=== PATIENT | male | born 1960 | race Caucasian/White ===

== ENCOUNTER → 2017-06-30 17:25 | Outpatient (CLI) | payer OTHER, SELFPAY ==
[2017-06-30 22:52] LABS: Amphetamine Urine VISTA NEGATIVE (<1000 ng/mL); Barbiturate Urine VISTA NEGATIVE (< 200 ng/mL); Benzodiazepine Urine VISTA NEGATIVE (< 200 ng/mL); Cocaine Urine VISTA NEGATIVE (< 300 ng/mL); Ecstacy Urine VISTA NEGATIVE (< 500 ng/mL); Methadone Urine VISTA NEGATIVE (< 300 ng/mL); PCP Urine VISTA NEGATIVE (< 25 ng/mL); THC Urine VISTA NEGATIVE (< 50 ng/mL); Vista UDS pH Range 6
== END ==
PROVIDERS: Family Provider Internal Medicine; PCP Internal Medicine; Visit Provider Anesthesiology Pain Medicine
DX: F11.20 Opioid dependence, uncomplicated (principal)
CPT/HCPCS: 80307

== ENCOUNTER 2017-07-15 14:30 | Outpatient (RCR) | payer OTHER, SELFPAY ==
[2017-06-17 14:34] VITALS: BP 140/103; RESP 16; TEMP 37; BMI 36.3
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
--- NOTE | 2017-06-17 16:35 | WC ---
SHENA SCREEN RIGHT BRACHIAL 130 mmHg LEFT BRACHIAL 142 mmHg DORS. PEDIS: 180 mmHg DORS. PEDIS: 88 mmHg (Monophasic) POST. TIB. 178 mmHg POST. TIB.: 170 MMhG 180 = 1.26 170 = 1.2 142 142 All pulses except left dorsalis pedis multiphasic. Fine hair growth to both lower legs. No erythema or signs of infection visualized Patient tolerated procedure without incident.
[2017-06-17 18:12] LABS: Absolute Lymphocyte Count 1.91 X10^3/ul (0.83-4.51); Absolute Neutrophil Count 4.3 X10^3/uL (2.0-7.7); Basophil# 0.03 X10^3/uL; Basophil% 0.4 % (0-1); Eosinophil# 0.14 X10^3/uL; Hematocrit 42.2 % (40-54); Hemoglobin 14.9 g/dl (13.0-16.5); Lymphocyte # 1.91 X10^3/ul (4.0); Lymphocyte % 27.3 % (19-41); Mean Corp Hgb Conc 35.3 g/gl (32-36); Mean Corpuscular Hgb 31.2 pg (27.0-32.0); Mean Corpuscular Volume 88.3 fL (80-94); Mean Platelet Vol. 10.6 fl (6.2-12.0); Monocyte# 0.57 X10^3/uL; Monocyte% 8.2 % (0-10); Neutrophil # 4.32 X10^3/uL (2.7-7.7); Neutrophil % 61.8 % (47-70); Platelet Count 196 K/mm3 (150-450); RBC Distribution Width CV 12.9 % (11.6-14.6); RBC Distribution Width SD 41.5 fl (35.1-43.9); Red Blood Count 4.78 M/mm3 (4.6-6.2)
[2017-06-17 18:14] LABS: POSITIVE COUNT NO; POSITIVE DIFFERENTIAL NO; POSITIVE MORPHOLOGY NO
[2017-06-17 18:25] LABS: Erythrocyte Sedimentation Rate 13 mm/hr (0-20)
[2017-06-17 18:55] LABS: AST(SGOT) 25 U/L (15-37); Alanine Aminotransfer ALT/SGPT 31 U/L (16-61); Albumin, Serum 3.7 g/dL (3.2-5.0); Alkaline Phosphatase 127 U/L (45-117); Anion Gap 9 (5-15); BUN 10 mg/dL (7-18); BUN/Creat Ratio 11.7 RATIO (10-20); Calcium,Total 9.1 mg/dL (8.5-10.1); Chloride 100 mmol/L (98-107); Creatinine, Serum 0.85 mg/dL (0.70-1.30); EST Glomerular Filtration Rate 99 mL/min (>60); Est Glom Filt Rate - Afr Amer 120 mL/min (>60); Estimated Creatinine Clearance 107.78 ml/min; Globulin 3.6 g/dL (2.2-4.2); Glucose 80 mg/dL (74-106); Potassium 3.3 mmol/L (3.5-5.1); Prealbumin 24.2 mg/dL (20.0-40.0); Protein, Total 7.3 g/dL (6.4-8.2); Sodium Level 138 mmol/L (136-145)
[2017-06-17 19:15] LABS: Hemoglobin A1c 6.2 % (4.2-6.3)
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
[2017-06-24 14:06] VITALS: BP 146/95; PULSE 90; RESP 18; TEMP 36.2; BMI 36.3
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
[2017-07-01 14:26] VITALS: BP 124/86; PULSE 95; RESP 16; TEMP 36.6; BMI 36.3
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
[2017-07-08 16:04] VITALS: BP 138/91; PULSE 77; RESP 20; TEMP 35.8; BMI 36.3
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
[2017-07-15 14:43] VITALS: BP 146/99; PULSE 81; RESP 20; TEMP 36; BMI 36.3
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
== END 2017-07-17 23:59 ==
LOC: WC 14:30
PROVIDERS: Family Provider Internal Medicine; PCP Internal Medicine; Visit Provider Nurse Practitioner Family
DX: T86.821 Skin graft (allograft) (autograft) failure (principal); R60.0 Localized edema; E66.9 Obesity, unspecified; I73.9 Peripheral vascular disease, unspecified; I10 Essential (primary) hypertension; Z79.899 Other long term (current) drug therapy; Z68.36 Body mass index [BMI] 36.0-36.9, adult; Z71.3 Dietary counseling and surveillance; R09.89 Other specified symptoms and signs involving the circulatory and respiratory systems; L97.812 Non-pressure chronic ulcer of other part of right lower leg with fat layer exposed
CPT/HCPCS: 11042; 80053; 83036; 84134; 85025; 85652; 87070; 87075; 87077; 87186; 87205; 99213; G0463

== ENCOUNTER 2017-08-12 16:00 | Outpatient (RCR) | payer OTHER, SELFPAY ==
[2017-07-18 01:05] VITALS: PULSE 81; RESP 20; TEMP 36
== END 2017-08-16 23:59 ==
LOC: WC 16:00
PROVIDERS: Family Provider Internal Medicine; PCP Internal Medicine; Visit Provider Nurse Practitioner Family
DX: Z09 Encounter for follow-up examination after completed treatment for conditions other than malignant neoplasm (principal)

== ENCOUNTER → 2017-12-08 09:50 | Outpatient (CLI) | payer OTHER, SELFPAY ==
[2017-12-08 11:08] LABS: Amphetamine Urine VISTA NEGATIVE (<1000 ng/mL); Barbiturate Urine VISTA NEGATIVE (< 200 ng/mL); Benzodiazepine Urine VISTA NEGATIVE (< 200 ng/mL); Cocaine Urine VISTA NEGATIVE (< 300 ng/mL); Ecstacy Urine VISTA NEGATIVE (< 500 ng/mL); Methadone Urine VISTA NEGATIVE (< 300 ng/mL); PCP Urine VISTA NEGATIVE (< 25 ng/mL); THC Urine VISTA NEGATIVE (< 50 ng/mL); Vista UDS pH Range 6
== END ==
PROVIDERS: Family Provider Internal Medicine; PCP Internal Medicine; Visit Provider Anesthesiology Pain Medicine
DX: F11.20 Opioid dependence, uncomplicated (principal)
CPT/HCPCS: 80307

== ENCOUNTER → 2018-07-25 | Outpatient (CLI) | payer OTHER, SELFPAY ==
[2018-07-25 18:33] LABS: Amphetamine Urine VISTA NEGATIVE (<1000 ng/mL); Barbiturate Urine VISTA NEGATIVE (< 200 ng/mL); Benzodiazepine Urine VISTA NEGATIVE (< 200 ng/mL); Cocaine Urine VISTA NEGATIVE (< 300 ng/mL); Ecstacy Urine VISTA NEGATIVE (< 500 ng/mL); Methadone Urine VISTA NEGATIVE (< 300 ng/mL); PCP Urine VISTA NEGATIVE (< 25 ng/mL); THC Urine VISTA NEGATIVE (< 50 ng/mL); Vista UDS pH Range 6
== END | disposition home or self-care (01) ==
PROVIDERS: Family Provider Internal Medicine; PCP Internal Medicine; Referring Provider Anesthesiology Pain Medicine; Visit Provider Anesthesiology Pain Medicine
DX: F11.20 Opioid dependence, uncomplicated (principal)
CPT/HCPCS: 80307

== ENCOUNTER → 2019-03-06 17:34 | Outpatient (CLI) | payer OTHER, SELFPAY ==
[2019-03-06 18:09] LABS: Amphetamine Urine VISTA POSITIVE (<1000 ng/mL); Barbiturate Urine VISTA NEGATIVE (< 200 ng/mL); Benzodiazepine Urine VISTA NEGATIVE (< 200 ng/mL); Cocaine Urine VISTA NEGATIVE (< 300 ng/mL); Ecstacy Urine VISTA NEGATIVE (< 500 ng/mL); Methadone Urine VISTA NEGATIVE (< 300 ng/mL); PCP Urine VISTA NEGATIVE (< 25 ng/mL); THC Urine VISTA NEGATIVE (< 50 ng/mL); Vista UDS pH Range 5
== END ==
PROVIDERS: Family Provider Internal Medicine; PCP Internal Medicine; Referring Provider Anesthesiology Pain Medicine; Visit Provider Anesthesiology Pain Medicine
DX: F11.20 Opioid dependence, uncomplicated (principal)
CPT/HCPCS: 80307

== ENCOUNTER 2019-07-28 08:09 | Emergency (ER) | payer OTHER, SELFPAY ==
[2019-07-28 08:11] VITALS: BP 144/87; PULSE 94; RESP 17; TEMP 37.1; O2SAT 99; BMI 32.5
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
[2019-07-28 09:19] VITALS: BP 142/73; PULSE 81; RESP 14; O2SAT 99
== END 2019-07-28 09:20 | disposition home or self-care (01) ==
PROVIDERS: Emergency Provider Emergency Medicine; PCP Internal Medicine
DX: S46.912A Strain of unspecified muscle, fascia and tendon at shoulder and upper arm level, left arm, initial encounter (principal); S60.812A Abrasion of left wrist, initial encounter; V43.52XA Car driver injured in collision with other type car in traffic accident, initial encounter; Y93.9 Activity, unspecified; Y92.410 Unspecified street and highway as the place of occurrence of the external cause; Y99.9 Unspecified external cause status; I10 Essential (primary) hypertension
CPT/HCPCS: 73030; 73060; 99282

== ENCOUNTER → 2019-09-28 12:56 | Outpatient (CLI) | payer OTHER, SELFPAY ==
[2019-09-28 15:06] LABS: Amphetamine Urine VISTA POSITIVE (<1000 ng/mL); Barbiturate Urine VISTA NEGATIVE (< 200 ng/mL); Benzodiazepine Urine VISTA NEGATIVE (< 200 ng/mL); Cocaine Urine VISTA NEGATIVE (< 300 ng/mL); Ecstacy Urine VISTA NEGATIVE (< 500 ng/mL); Methadone Urine VISTA NEGATIVE (< 300 ng/mL); PCP Urine VISTA NEGATIVE (< 25 ng/mL); THC Urine VISTA NEGATIVE (< 50 ng/mL); Vista UDS pH Range 5
== END ==
PROVIDERS: PCP Internal Medicine; Referring Provider Anesthesiology Pain Medicine; Visit Provider Anesthesiology Pain Medicine
DX: F11.20 Opioid dependence, uncomplicated (principal)
CPT/HCPCS: 80307

== ENCOUNTER → 2021-10-06 | Outpatient (CLI) | payer OTHER, SELFPAY ==
[2021-10-06 23:39] LABS: Amphetamine Urine VISTA POSITIVE (<1000 ng/mL); Barbiturate Urine VISTA NEGATIVE (< 200 ng/mL); Benzodiazepine Urine VISTA NEGATIVE (< 200 ng/mL); Cocaine Urine VISTA NEGATIVE (< 300 ng/mL); Ecstacy Urine VISTA POSITIVE (< 500 ng/mL); Methadone Urine VISTA NEGATIVE (< 300 ng/mL); PCP Urine VISTA NEGATIVE (< 25 ng/mL); THC Urine VISTA NEGATIVE (< 50 ng/mL); Vista UDS pH Range 4
== END | disposition home or self-care (01) ==
PROVIDERS: PCP Internal Medicine; Visit Provider Anesthesiology Pain Medicine
DX: F11.20 Opioid dependence, uncomplicated (principal)
CPT/HCPCS: 80307

== ENCOUNTER → 2022-12-07 | Outpatient (CLI) | payer OTHER, SELFPAY ==
[2022-12-07 11:38] LABS: Amphetamine Urine VISTA NEGATIVE (<1000 ng/mL); Barbiturate Urine VISTA NEGATIVE (< 200 ng/mL); Benzodiazepine Urine VISTA NEGATIVE (< 200 ng/mL); Cocaine Urine VISTA NEGATIVE (< 300 ng/mL); Ecstacy Urine VISTA NEGATIVE (< 500 ng/mL); Methadone Urine VISTA NEGATIVE (< 300 ng/mL); PCP Urine VISTA NEGATIVE (< 25 ng/mL); THC Urine VISTA NEGATIVE (< 50 ng/mL); Vista UDS pH Range 5
== END | disposition home or self-care (01) ==
LOC: LAB 09:42
PROVIDERS: PCP Internal Medicine; Referring Provider Anesthesiology Pain Medicine; Visit Provider Anesthesiology Pain Medicine
DX: F11.20 Opioid dependence, uncomplicated (principal)
CPT/HCPCS: 80307

== ENCOUNTER → 2023-09-20 | Outpatient (CLI) | payer OTHER, SELFPAY ==
[2023-09-20 13:57] LABS: Amphetamine Urine VISTA NEGATIVE (<1000 ng/mL); Barbiturate Urine VISTA NEGATIVE (< 200 ng/mL); Benzodiazepine Urine VISTA NEGATIVE (< 200 ng/mL); Cocaine Urine VISTA NEGATIVE (< 300 ng/mL); Ecstacy Urine VISTA NEGATIVE (< 500 ng/mL); Methadone Urine VISTA NEGATIVE (< 300 ng/mL); PCP Urine VISTA NEGATIVE (< 25 ng/mL); THC Urine VISTA NEGATIVE (< 50 ng/mL); Vista UDS pH Range 6
== END | disposition home or self-care (01) ==
PROVIDERS: PCP Internal Medicine; Referring Provider Anesthesiology Pain Medicine; Visit Provider Anesthesiology Pain Medicine
DX: F11.20 Opioid dependence, uncomplicated (principal)
CPT/HCPCS: 80307

== ENCOUNTER → 2024-09-12 | Outpatient (CLI) | payer OTHER, SELFPAY ==
--- NOTE | 2024-09-12 17:12 | MRI_ITS ---
PROCEDURE: SPINE LUMBAR (ROUTINE) 09/12/2024 REASON FOR EXAM: RADICULOPATHY TECHNIQUE: Multiplanar and multisequence images were obtained without IV contrast administration. COMPARISON: None FINDINGS: The vertebral body alignment is maintained. The vertebral body height is maintained. Vertebral body marrow signal is normal. Intervertebral disc signal shows desiccation from L2-5. Normal appearing facets are noted. The L1-L2 level: There is no significant disk protrusion. There is no lateral recess stenosis or foraminal stenosis. There is no critical central canal stenosis. The L2-L3 level: There is mild central and right and left paracentral disc protrusion. There is mild bilateral lateral recess effacement. There is moderate bilateral foraminal narrowing secondary to disc protrusion and facet hypertrophy. There is no central canal stenosis. Trace bilateral facet effusions are present. The L3-L4 level: There is mild central, mild right and moderate left paracentral disc protrusion. There is mild bilateral lateral recess stenosis. There is moderate bilateral foraminal narrowing secondary to disc protrusion and facet hypertrophy. There is no central canal stenosis. Trace bilateral facet effusions are present. The L4-L5 level: There is mild central and right and left paracentral disc protrusion. There is mild bilateral lateral recess stenosis. There is mild bilateral foraminal narrowing secondary to disc protrusion and facet hypertrophy. There is no central canal stenosis. The L5-S1 level: There is mild central disk protrusion. There is no lateral recess stenosis or foraminal stenosis. There is no critical central canal stenosis. The visualized conus shows normal signal characteristics. Adjacent soft tissues are unremarkable. A 6 cm cyst is partly visible on the right kidney. MRI/Spine Lumbar (Routine) IMPRESSION: There is no significant central canal stenosis, with lateral recess and foramin al narrowing. A 6 cm cyst is partly visible on the right kidney. Reading Location: [facility]
== END | disposition home or self-care (01) ==
LOC: MRI 17:02
PROVIDERS: PCP Internal Medicine; Referring Provider Anesthesiology Pain Medicine; Visit Provider Anesthesiology Pain Medicine
DX: M54.16 Radiculopathy, lumbar region (principal)
CPT/HCPCS: 72148

== ENCOUNTER 2024-09-17 09:50 | Emergency (ER) | payer OTHER, SELFPAY ==
[2024-09-17 09:52] VITALS: BP 123/96; PULSE 97; RESP 18; TEMP 36.1; O2SAT 99; BMI 27.1
--- NOTE | 2024-09-17 10:36 | CT_ITS ---
PROCEDURE: ABDOMEN/PELVIS W IV CONT ONLY 09/17/2024 REASON FOR EXAM: NAUSEA AND VOMITING TECHNIQUE: Abdomen and pelvis CT with intravenous contrast. Coronal and Sagittal reconstruction series were provided. PATIENT PREPARATION: Per protocol ORAL CONTRAST TYPE: None. CONTRAST: Isovue 370 VOLUME: 100 mL One or more dose reduction techniques were used (e.g., Automated exposure control, adjustment of the mA and/or kV according to patient size, use of iterative reconstruction technique. RADIATION DOSE SUMMARY: CTDlvol: 20 mGy DLP: 1200 mGycm COMPARISON: None. FINDINGS: Lung bases: Bibasilar atelectasis. The heart is normal in size with coronary artery calcifications. Liver: The liver is normal in size without focal hepatic mass. The major portal veins are patent. No biliary ductal dilation. Gallbladder: Cholelithiasis with radial gas fissuring within the stones. No gallbladder wall thickening or pericholecystic fluid. Spleen: Normal size. Pancreas: Unremarkable. Adrenals: No adrenal mass. Kidneys: Bilateral renal cysts and additional hypodensities. Nonobstructing right lower pole renal calculus. No hydronephrosis. Bladder: The gallbladder is mildly distended and unremarkable. Reproductive Organs: Dystrophic calcifications within the prostate gland. Bowel: Moderate-sized paraesophageal hiatal hernia, with the distal gastric body herniated above the level of the diaphragm. There is moderate stranding and wall edema of the herniated stomach portion. The bowel loops are otherwise normal caliber. No ascites or pneumoperitoneum. No inflammatory mass in the expected region of the appendix. Lymph nodes: No suspicious lymph node enlargement. Vasculature: The abdominal aorta and IVC are normal. Bones/soft tissues: Prior hernia repair with surgical mesh anchors along the right lower pelvis. Mild thoracolumbar spondylosis. CT/Abdomen/Pelvis W IV Cont ONLY IMPRESSION: 1. Moderate-sized paraesophageal hernia with wall edema and stranding of the he rniated portion of the stomach, concerning for developing incarceration. Surgical consultation recommended. 2. Cholelithiasis without evidence of acute cholecystitis. Ultrasound evaluati on will not be useful given incidental gas within the gallstones. 3. Nonobstructing right lower pole renal calculus. Reading Location: [id number]
--- NOTE | 2024-09-17 10:38 | ED.VIS.GI ---
HPI HPI - GI History of Present Illness Chief Complaint: Nausea/Vomiting Informant: patient Nausea/Vomiting/Emesis GI Symptom: Positive for Nausea and Vomiting Onset: Weeks Severity: Mild Diarrhea/Melena/Hematochezia GI Symptom: Negative for Diarrhea, Melena or Hematochezia Associated Symptoms Associated Symptoms: Negative for Dysuria, Frequency, Hematuria or Urgency Narrative Narrative: 63-year-old male history of prior small bowel obstruction about a year ago in [place]. For the last several weeks he has had intermittent nausea vomiting. She is okay to be drinks fluid but if he eats food a lot of times of nausea and vomiting. He was on Wegovy for weight loss lost about 60 pounds was on it for about 3 months he has been off of that now about 1 to 2 months. Denies any abdominal pain no fever. No dysuria. No prior abdominal surgery. History of a hiatal hernia. Prior similar symptoms: Yes Recent Illness/Hospitalization: No PFSH PFSH Medical History HTN (hypertension) Home Medications ?Medication ?Instructions ?Recorded ?Last Taken ?Type hydrochlorothiazide 25 mg tablet 25 mg PO DAILY 06/17/17 Unknown History oxycodone 5 mg tablet 20 mg 06/17/17 Unknown History venlafaxine 150 mg tablet,extended 150 mg PO 06/17/17 Unknown History release 24 hr ondansetron 4 mg disintegrating 4 mg PO Q6H PRN nausea and 09/17/24 Unknown Rx tablet vomiting #7 tabs Allergy/AdvReac Type Severity Reaction Status Date / Time No Known Allergies Allergy Verified 09/17/24 09:52 Social History Smoking Status: Never smoker ROS ROS ED ROS Narrative Nausea and vomiting. Weight loss. Constitutional Constitutional ED: Denies chills or fever(s) ENT ENT ED: Denies ear pain Cardiovascular Cardiovascular: Denies chest pain Respiratory/Chest Respiratory/Chest: Denies cough or dyspnea Gastrointestinal Gastrointestinal: Reports nausea and vomiting; Denies abdominal pain, constipation, diarrhea or melena Genitourinary Genitourinary ED: Denies dysuria or hematuria Musculoskeletal Musculoskeletal: Denies arthralgias Integumentary Denies abscess Neurologic Neurologic: Denies headache(s) Psychiatric Psychiatric: Denies anxiety Endocrine Endocrinology: Denies polydipsia Hematologic/Lymphatic Hematologic/Lymphatic: Denies easy bleeding Allergic/Immunologic Allergic/Immunologic ED: Denies mouth swelling, tongue swelling or urticaria EXAM Physical Exam Narrative Exam Narrative: 63-year-old male sitting upright in bed. Vital signs are stable afebrile. H EENT exam pupils round reactive light. Moist Reagan membranes. Neck nontender no lymphadenopathy. Lungs clear to auscultation bilaterally. Heart regular rhythm no murmur. Abdomen is soft, nontender, nondistended normal bowel sounds without peritoneal signs. Abdomen is completely nontender. No obstruction. Moving all 4 extremities. Nontender no edema. Normal range of motion. Back nontender. Neurologically is awake alert. Answering questions following commands. Const Vital Signs: 09/17/24 09:52 09/17/24 11:52 Temperature 97.0 F L Temperature Source Temporal Pulse Rate 97 80 Respiratory Rate 18 Blood Pressure 123/96 H 138/86 H Blood Pressure Mean 105 103 Pulse Ox 99 100 Oxygen Delivery Method Room Air Room Air Positive well nourished and well developed; Negative for cachectic, contractures or unkempt General Appearance ED: well developed and NAD; Negative for unkempt, cachectic, contractures or pallor Nutritional Appearance: Negative for cachectic HEENT Reports moist mucous membranes normocephalic and atraumatic Eyes PERRL and EOMs intact bilaterally General Eye ED: Negative for pale conjunctiva or scleral icterus Neck no lymphadenopathy, supple and no JVD General: Negative for tenderness Resp normal respiratory effort and clear to auscultation bilaterally Effort and Inspection: Negative for respiratory distress Auscultation: Negative for rales, rhonchi, wheezes or diminished lung sounds Cardio regular rate, regular rhythm, S1 normal heart sound, S2 normal heart sound and no murmurs GI non-tender, non-distended and no masses Inspection: Negative for abdominal distention Auscultation: normoactive bowel sounds Palpation: soft; Negative for tender, guarding, hernia, mass, pulsatile mass or rebound tenderness present Back/Spine no CVA tenderness Extremity full ROM General Extremety ED: Negative for edema or tenderness General Extremity: Negative for edema Neuro CN's II-XII intact bilaterally and moves all extremities Sensorium / Orientation: alert, oriented to person, oriented to place and oriented to time Motor Exam: strength 5/5 throughout Psych mental status grossly normal and thought process normal Appearance: Negative for unkempt Mood & Affect: Negative for depressed, anxious or tearful Skin no wounds General Skin Exam: Negative for jaundice or pallor Rashes: no rashes MDM MDM MDM Narrative Medical decision making narrative: 63-year-old male history of prior bowel obstruction complaining nausea vomiting. Currently his abdomen is benign. Is nontender, clinically [place] he has obstruction. CAT scan and labs to be obtained. He did not needed for pain or nausea at this time. Repeat exam patient is doing well around 12:55 PM. His abdomen is completely nontender he has no pain. His labs are unremarkable. I spoke to general surgeon on-call went over the CAT scan with Dr. Fred Parikh of general surgery. This is probably chronic inflammation. Patient referred to general surgery here at the hospital for further evaluation for possible hiatal hernia repair. Patient is comfortable with the plan. History & Record Review Discussion w/independent historian: Patient Additional record(s) reviewed:: Prior inpatient record, Prior outpatient record, Prior ED visit and Prior labs Lab Data Attestation: I reviewed the patient's lab results. Lab results narrative: CBC normal. White count 7.5. H&H 15 and 44. Platelets 176. Chemistry shows sodium 141. Gap 11. Normal BUN of 15 creatinine 0.98. Glucose 99. Liver enzymes are normal. Lipase is just mildly elevated 89. Labs: Laboratory Results - last 24 hr 09/17/24 10:54 WBC 7.5 RBC 5.16 Hgb 15.7 Hct 44.4 MCV 86.0 MCH 30.4 MCHC 35.4 RDW Std Deviation 40.2 RDW Coeff of [place] 12.9 Plt Count 176 MPV 11.1 Immature Gran % (Auto) 0.100 Neut % (Auto) 62.9 Lymph % (Auto) 27.3 [place] % (Auto) 8.0 Eos % (Auto) 1.2 Baso % (Auto) 0.5 Absolute Neuts (auto) 4.7 Absolute Lymphs (auto) 2.06 Nucleated RBC % 0 Sodium 141 Potassium 4.0 Chloride 107 Carbon Dioxide 22.6 Anion Gap 11 BUN 15 Creatinine 0.98 Estim Creat Clear Calc 83.24 Est GFR (MDRD) Non-Af 87 BUN/Creatinine Ratio 15.2 Glucose 99 Calcium 9.4 Total Bilirubin 0.55 AST 21 ALT 10 Alkaline Phosphatase 99 Total Protein 6.7 Albumin 4.0 Globulin 2.7 Albumin/Globulin Ratio 1.5 Lipase 89 H Radiography Diagnostic Testing: Clinical Impression(s) from Imaging Studies Abdomen/Pelvis CT 09/17/24 10:36 IMPRESSION: 1. Moderate-sized paraesophageal hernia with wall edema and stranding of the herniated portion of the stomach, concerning for developing incarceration. Surgical consultation recommended. 2. Cholelithiasis without evidence of acute cholecystitis. Ultrasound evaluation will not be useful given incidental gas within the gallstones. 3. Nonobstructing right lower pole renal calculus. Reading Location: [facility] Discharge Plan Triage Chief Complaint: Nausea/Vomiting ED Provider: Carlos Noel Dx/Rx/DC Orders Clinical Impression: Nausea & vomiting, Esophageal hiatal hernia Instructions: ED Vomiting (Adult) Prescriptions: New ondansetron 4 mg tablet,disintegrating 4 mg PO Q6H PRN (Reason: nausea and vomiting) Qty: 7 0RF No Action hydrochlorothiazide 25 MG tablet 25 mg PO DAILY oxycodone 5 MG tablet 20 mg venlafaxine 150 MG tablet extended release 24hr 150 mg PO Primary Care Provider: Lance Jorgensen Referrals: Ihsan Waters MD [Med Staff - Active Staff] - As soon as possible Lance Jorgensen MD [Primary Care Provider] - Activity Restrictions/Additional Instructions: Call and follow-up with general surgery Dr. Ihsan Waters for further evaluation of your hiatal hernia. Liquid diet and slowly increase as tolerated. Zofran as needed for nausea. Print Language: Pashto Disposition Disposition: Home, Self Care
[2024-09-17 11:12] LABS: Absolute Lymphocyte Count 2.06 X10^3/uL (0.83-4.51); Absolute Neutrophil Count 4.7 X10^3/uL (2.0-7.7); Basophil# 0.04 X10^3/uL; Basophil% 0.5 % (0-1); Eosinophil# 0.09 X10^3/uL; Eosinophils% 1.2 % (0-5); Hematocrit 44.4 % (40-54); Hemoglobin 15.7 g/dL (13.0-16.5); Lymphocyte # 2.06 X10^3/ul (0.83-4.51); Lymphocyte % 27.3 % (19-41); Mean Corp Hgb Conc 35.4 g/dL (32-36); Mean Corpuscular Hgb 30.4 pg (27.0-32.0); Mean Platelet Vol. 11.1 fl (6.2-12.0); NRBC Flagged by Analyzer 0 % (0-5); Neutrophil # 4.74 X10^3/uL (2.7-7.7); Neutrophil % 62.9 % (47-70); Platelet Count 176 K/mm3 (150-450); RBC Distribution Width CV 12.9 % (11.6-14.6); RBC Distribution Width SD 40.2 fl (35.1-43.9); Red Blood Count 5.16 M/mm3 (4.6-6.2); White Blood Count 7.5 K/mm3 (4.4-11.0)
[2024-09-17 11:52] VITALS: BP 138/86; PULSE 80; O2SAT 100
[2024-09-17 11:53] LABS: ALB/GLOB Ratio 1.5 RATIO (0.9-2.4); AST(SGOT) 21 U/L (<=37); Alanine Aminotransfer ALT/SGPT 10 U/L (<=46); Alkaline Phosphatase 99 U/L (40-129); Anion Gap 11 (5-15); BUN 15 mg/dL (4-19); BUN/Creat Ratio 15.2 RATIO (10-20); Calcium,Total 9.4 mg/dL (7.6-11.0); Carbon Dioxide 22.6 mmol/L (21.0-32.0); Chloride 107 mmol/L (98-108); Creatinine, Serum 0.98 mg/dL (0.70-1.20); EST Glomerular Filtration Rate 87 (>60); Estimated Creatinine Clearance 83.24 ml/min (50-250); Globulin 2.7 g/dL (2.2-4.2); Glucose 99 mg/dL (70-99); Lipase 89 U/L (13-75); Protein, Total 6.7 g/dL (5.9-8.4); Sodium Level 141 mmol/L (133-145); Total Bilirubin 0.55 mg/dL (0.00-1.30)
[2024-09-17 13:00] VITALS: BP 122/90; PULSE 81; RESP 18; O2SAT 98
[2024-09-17 13:11] VITALS: BP 122/90; PULSE 80; RESP 18; TEMP 36.6; O2SAT 97
== END 2024-09-17 13:13 | disposition home or self-care (01) ==
PROVIDERS: Emergency Provider Emergency Medicine; PCP Internal Medicine; Visit Provider Emergency Medicine
DX: R11.2 Nausea with vomiting, unspecified (principal); I10 Essential (primary) hypertension; K44.9 Diaphragmatic hernia without obstruction or gangrene
CPT/HCPCS: 74177; 80053; 83690; 85025; 99283; Q9967; A4216

== ENCOUNTER → 2024-11-13 | Outpatient (CLI) | payer OTHER, SELFPAY ==
[2024-11-13 11:19] LABS: Barbiturate Urine NEGATIVE (< 200 ng/mL); Benzodiazepine Urine NEGATIVE (< 200 ng/mL); PCP Urine NEGATIVE (< 25 ng/mL); THC Urine NEGATIVE (< 50 ng/mL)
--- OUTSIDE RECORDS SUMMARY | 2024-11-13 20:36 | XMS RPT_ITS | CCD ---
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 [M51.36*02/10/2013 Obesity (BMI 35.0-39.9 without comorbidity) [E6*08/10/2018 04/06/2024 Impaired glucose metabolism [R73.09] 09/26/2014 YAIMA (obstructive sleep apnea) no CPAP tried by *12/20/2014 08/11/2018 Anxiety [F41.9] 11/01/2015 Primary insomnia [F51.01] 11/01/2015 Personal history of skin cancer [Z85.828] 01/30/2016 Open wound of right lower extremity [S81.801A] 07/24/2017 09/18/2021 Asymptomatic microscopic hematuria [R31.21] 2017 09/18/2021 Restless legs [G25.81] 05/20/2015 Actinic keratosis [L57.0] 02/01/2023 Positive colorectal cancer screening using [place]*02/15/2023 08/02/2023 Tubular adenoma of colon [D12.6] 02/24/2023 At risk for sleep apnea [Z91.89] 09/03/2023 04/06/2024 Obesity, Class I, BMI 30-34.9 [E66.811] 04/06/2024 PSA elevation [R97.20] 07/06/2024 Hiatal hernia [K44.9] 09/19/2024 09/20/2024 S/P repair of paraesophageal hernia [Z98.890, Z*09/20/2024 Encounter Status:Closed by NERY URIBE on 09/25/24 Normal [facility] Basic metabolic 2000 panelon 09-22-2024 Anion gap [Moles/Vol] 11 mmol/L Normal 8-15 [facility] Comment on above: Order Comment: Speci men Type: BLOOD SPECIMENOrdering Facility: [facility] Address: [address] [place] [address] [place] [address] Performed By: #### 2 4321-2, 46050-2, 2777-1 ####[facility] LABCLIA [id number] [place] [address] [place] Calcium [Mass/Vol] 8.3 mg/dL Low 8.5-10.2 [facility] Comment on above: Order Comment: Speci men Type: BLOOD SPECIMENOrdering Facility: [facility] Address: [address] [place] [address] Performed By: #### 2 4321-2, , 2776-04 ####[facility] LABCLIA [id number] [facility] [address] [address] [place] Chloride [Moles/Vol] 104 mmol/L Normal 98-107 [facility] Comment on above: Order Comment: Speci men Type: BLOOD SPECIMENOrdering Facility: [facility] Address: [address] [place] [address] Performed By: #### 2 4321-2, , 2776-04 ####[facility] LABCLIA [id number] [place] [id number] [place] CO2 [Moles/Vol] 24 mmol/L Normal 22-30 [facility] Comment on above: Order Comment: Speci men Type: BLOOD SPECIMENOrdering Facility: [facility] Address: [address] [place] [address] Performed By: #### 2 4321-2, , 2776-04 ####[facility] LABCLIA [id number] [address] [address] [place] Creatinine [Mass/Vol] 0.81 mg/dL Normal 0.73-1.22 [facility] Comment on above: Order Comment: Speci men Type: BLOOD SPECIMENOrdering Facility: [facility] Address: [address] [place] [address] Performed By: #### 2 4321-2, , 2776-04 ####[facility] LABCLIA [id number] [facility] [address] [address] [place] Creatinine and Glomerular filtration rate.predicted panel (S/P/Bld) 100 mL/min/1.73m??? Normal >=60 [facility] Comment on above: Order Comment: John agustin Type: BLOOD SPECIMENOrdering Facility: [facility] Address: [address] [place] [address] Result Comment: Neha mated Glomerular Filtration Rate (eGFR) is calculated using the 2020 CKD-EPI creatinine equation. This equation utilizes serum creatinine, sex, and age as parameters. The creatinine assay has traceable calibration to isotope dilution-mass spectrometry. Refer to KDIGO guidelines for clinical interpretation. In patients with unstable renal function, e.g. those with acute kidney injury, the eGFR may not accurately reflect actual GFR. Performed By: #### 2 4321-2, , 2776-04 ####[facility] LABIA [id number] [place] [id number] [place] Glucose [Mass/Vol] 129 mg/dL High 74-99 [facility] Comment on above: Order Comment: John agustin Type: BLOOD SPECIMENOrdering Facility: [facility] Address: [address] [place] [address] Result Comment: The [place] Diabetes Association (ADA) provides guidance for cutoff values for fasting glucose and random glucose. The ADA defines fasting as no caloric intake for at least 8 hours. Fasting plasma glucose results between 100 to 125 mg/dL indicate increased risk for diabetes (prediabetes). Fasting plasma glucose results greater than or equal to 126 mg/dL meet the criteria for diagnosis of diabetes. In the absence of unequivocal hyperglycemia, results should be confirmed by repeat testing. In a patient with classic symptoms of hyperglycemia or hyperglycemic crisis, random plasma glucose results greater than or equal to 200 mg/dL meet the criteria for diagnosis of diabetes. Reference: Standards of Medical Care in Diabetes 2016, [place] [employer] Association. Diabetes Care. 2016.39(Suppl 1). Performed By: #### 2 4321-2, , 2776-04 ####[facility] LABIA [id number] [place] [id number] [place] Potassium [Moles/Vol] 4.0 mmol/L Normal 3.7-5.1 [facility] Comment on above: Order Comment: John agustin Type: BLOOD SPECIMENOrdering Facility: [facility] Address: [address] [place], [place] [address] Performed By: #### 2 4321-2, , 2776-04 ####[facility] LABIA [id number] [address] [address] [place] Sodium [Moles/Vol] 139 mmol/L Normal 136-144 [facility] Comment on above: Order Comment: Speci men Type: BLOOD SPECIMENOrdering Facility: [facility] Address: [address] [place] [address] Performed By: #### 2 4321-2, , 2776-04 ####[facility] LABIA [id number] [place] [address] [place] Urea nitrogen [Mass/Vol] 9 mg/dL Normal 9-24 [facility] Comment on above: Order Comment: Speci men Type: BLOOD SPECIMENOrdering Facility: [facility] Address: [address] [place] [address] Performed By: #### 2 4321-2, , 2776-04 ####[facility] [id number] [place] [address] [place] CBC panel Auto (Bld)on 09-22 Erythrocyte distribution width (RBC) [Ratio] 13.6 % Normal 11.5-15.0 [facility] Comment on above: Order Comment: Speci men Type: BLOOD SPECIMENOrdering Facility: [facility] Address: [address] [place] [address] Performed By: #### 5 8410-2 ####[facility] LABIA [id number] [address] [address] [place] Hematocrit (Bld) [Volume fraction] 39.4 % Normal 39.0-51.0 [facility] Comment on above: Order Comment: Speci men Type: BLOOD SPECIMENOrdering Facility: [facility] Address: [address] [place] [address] Performed By: #### 5 8410-2 ####[facility] LABCLIA [id number] [place] [address] [place] Hemoglobin (Bld) [Mass/Vol] 13.3 g/dL Normal 13.0-17.0 [facility] Comment on above: Order Comment: Speci men Type: BLOOD SPECIMENOrdering Facility: [facility] Address: [address] [place] [address] Performed By: #### 5 8410-2 ####[facility] LABIA [id number] [place] [address] [place] MCH (RBC) [Entitic mass] 30.0 pg Normal 26.0-34.0 [facility] Comment on above: Order Comment: Speci men Type: BLOOD SPECIMENOrdering Facility: [facility] Address: [address] [place] [address] Performed By: #### 5 8410-2 ####[facility] LABIA [id number] [place] [address] [place] MCHC (RBC) [Mass/Vol] 33.8 g/dL Normal 30.5-36.0 [facility] Comment on above: Order Comment: Speci men Type: BLOOD SPECIMENOrdering Facility: [facility] Address: [address] [place] [address] Performed By: #### 5 8410-2 ####[facility] LABIA [id number] [place] [address] [place] MCV (RBC) [Entitic vol] 88.9 fL Normal 80.0-100.0 [facility] Comment on above: Order Comment: Speci men Type: BLOOD SPECIMENOrdering Facility: [facility] Address: [address] [place] [address] Performed By: #### 5 8410-2 ####[facility] LABCLIA [id number] [place] [address] [place] Nucleated RBC (Bld) [#/Vol] 10*3/uL Normal <0.01 [facility] Comment on above: Order Comment: Speci men Type: BLOOD SPECIMENOrdering Facility: [facility] Address: [address] [place] [address] Performed By: #### 5 8410-2 ####[facility] LABCLIA [id number] [place] [address] [place] Platelet mean volume (Bld) [Entitic vol] 12.2 fL Normal 9.0-12.7 [facility] Comment on above: Order Comment: Speci men Type: BLOOD SPECIMENOrdering Facility: [facility] Address: [address] [place] [address] Performed By: #### 5 8410-2 ####[facility] LABCLIA [id number] [place] [address] [place] Platelets (Bld) [#/Vol] 115 10*3/uL Low 150-400 [facility] Comment on above: Order Comment: Speci men Type: BLOOD SPECIMENOrdering Facility: [facility] Address: [address] [place] [address] Performed By: #### 5 8410-2 ####[facility] LABIA [id number] [place] [address] [place] RBC (Bld) [#/Vol] 4.43 10*6/uL Normal 4.20-6.00 [facility] Comment on above: Order Comment: Speci men Type: BLOOD SPECIMENOrdering Facility: [facility] Address: [address] [place] [address] Performed By: #### 5 8410-2 ####[facility] LABCLIA [id number] [place] [address] [place] WBC (Bld) [#/Vol] 6.30 10*3/uL Normal 3.70-11.00 [facility] Comment on above: Order Comment: Speci men Type: BLOOD SPECIMENOrdering Facility: [facility] Address: [address] [place] [address] Performed By: #### 5 8410-2 ####[facility] LABCLIA [id number] [place] [address] [place] CNCOon 09-22-2024 CNCO Letter Text Normal [facility] CNDSon 09-22-2024 CNDS HNO ID: [id number] Author: NIKOLAS BONNER MD Service: General Surgery 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 Type: Discharge Summary Filed: 10/10/2024 09:34 Note Text: -- Attestation signed by Nikolas Bonner MD at 10/10/2024 9:34 AM Nikolas Bonner MD -- DISCHARGE SUMMARY PATIENT NAME: Lance Bee ADMISSION DATE: 09/19/2024 DISCHARGE DATE: 09/22/2024 ATTENDING PHYSICIAN: Nikolas Bonner* Code Status: Full Code CONSULTING TEAMS DURING HOSPITALIZATION: None Treatment Team: Attending Provider: Nikolas Bonner MD Primary Service: [facility] EMERGENCY GENERAL SURGERY Physician Journeyman Meat Cutter: Aurea Hanks PA-C REASON FOR HOSPITALIZATION: Hiatal hernia DIAGNOSIS: Principal Problem (Resolved): Hiatal hernia (POA: Yes) Active Problems: Hypertension goal BP (blood pressure) < 130/80 (POA: Yes) Impaired glucose metabolism (POA: Yes) Anxiety (POA: Yes) Personal history of skin cancer (POA: Yes) S/P repair of paraesophageal hernia (POA: No) OPERATIONS DURING HOSPITALIZATION: Laparoscopic paraesophageal hernia repair with gastropexy (Dr. Bonner) PROCEDURES DURING HOSPITALIZATION: IV access, Intubation, Anesthesia HOSPITAL COURSE: Lance Bee is a 63 year old male with HTN, anxiety/depression, lumbar degenerative disk disease and PSHx of lap RIH repair who was admitted to the emergency general surgery service on 09/19/2024 with concerns of Hiatal hernia. Patient was to have an outpatient appointment with general surgery this month for his known paraesophageal hernia. He presented to [facility] ED for concerns of nausea, vomiting and poor PO intake. CT scan demonstrated a large PEH, and a nasogastric tube was placed prior to his transfer to [facility]. Their hospital course is as follows: 09/20/2024: To OR for laparoscopic PEH repair and gastropexy. After recovering in the PACU, patient was admitted to the regular nursing floor. NGT remained in place at completion of the case. 09/21: NG tube removed, advanced to clear liquid diet. Tolerating well without n/v, advanced to full liquid diet for dinner. 09/22: Tolerating full liquid diet without nausea or vomiting, passing flatus. Pain controlled without IV medications. Discharged home with instructions to follow a full liquid diet for 2 weeks and to follow up for a post operative wound check in 2 weeks. PATIENT CONDITION AT DISCHARGE: Stable DISCHARGE DISPOSITION: Home with Self Care PHYSICAL EXAM: BP: 131/80 Temp: 36.4 ?C (97.5 ?F) Temp src: Oral Pulse: 73 Resp: 18 O2 Therapy: Room Air SpO2: 91 % GENERAL: Alert, oriented, no acute distress. RESPIRATORY: Non-labored respirations on RA. CARDIOVASCULAR: RRR GASTROINTESTINAL: Soft, non-tender, non-distended. Incisions C/D/I. MUSCULOSKELETAL: BADILLO x4 EXTREMITIES: Warm, no lower extremity edema. WOUND/SURGICAL SITE CARE: Leave open to air Sutures will be removed at post operative wound check DIET: Full Liquid diet for 2 weeks A full liquid diet is made up only of fluids and foods that are normally liquid and foods that turn to liquid when they are at room temperature, like ice cream. It also includes strained creamy soups, tea, juice, Jell-O, milkshakes, pudding, and popsicles. - You can NOT eat solid foods when you are on a full liquid diet. - This diet is easier to digest than solid food. It gives you the proteins, fluids, salts, and minerals that you need for energy. - For most people on a full liquid diet, the goal is to get 1,350 to 1,500 calories and 45 grams of protein a day. - Eating only a full liquid diet gives you enough nutrition. You can stay on it for a long time. - Your doctor may recommend certain vitamins and supplements. This diet is safe for people with diabetes, but only when they are followed closely by their doctor. What You Can Eat and Drink: You can eat or drink only things that are liquid. You may have these foods and drinks: - Water - Fruit juices, including nectars and juices with pulp - Butter, margarine, oil, cream, custard, and pudding - Plain ice cream, frozen yogurt, and sherbet. - Fruit ices and popsicles - Sugar, honey, and syrups - Soup broth (bouillon, consomme, and strained cream soups -- but NO solids) - Sodas, such as corky cintia and Sprite - Gelatin (Jell-O) - Boost, Ensure, Resource, Sustacal. and other liquid supplements - Tea or coffee with cream or milk and sugar or honey - Cooked, refined cereals, such as Cream of Wheat, cream of rice, oatmeal, grits, or farina - Strained meats, like the ones in baby food - Potatoes pureed in soup Do NOT eat any kind of cheese, fruit (fresh, frozen, or canned), meat, and cereals that are not on your ?okay? list. Also, do NOT eat raw or cooked vegetables. And, do NOT eat ice cr (more content not included)... Normal [facility] Magnesium SerPl-mCncon 09-22 Magnesium [Mass/Vol] 1.8 mg/dL Normal 1.7-2.3 [facility] Comment on above: Order Comment: Speci men Type: BLOOD SPECIMENOrdering Facility: [facility] Address: [address] [place] [address] Performed By: #### 2 4321-2, 68403-7, 2777-1 ####[facility] LABCLIA [id number] [address] [address] [facility] Phosphate SerPl-mCncon 09-22 Phosphate [Mass/Vol] 1.5 mg/dL Low 2.7-4.8 [facility] Comment on above: Order Comment: Speci men Type: BLOOD SPECIMENOrdering Facility: [facility] Address: [address] [place] [address] Performed By: #### 2 4321-2, 40168-3, 2777-1 ####[facility] LABIA [id number] [place] [id number] [facility] THERAPY NTon 09-22-2024 THERAPY NT HNO ID: [id number] Author: ANDREW BENTLEY, PT Service: Physical Therapy Author Type: Physical Therapist Type: Therapy (PT/OT/Speech/Resp) Filed: 09/22/2024 09:29 Note Text: Physical Therapy Evaluation Summary SERVICE DATE: 09/22/2024 SERVICE TIME: 907 to 920 ROOM: [place] [address] PT 6 Clicks Score: 24 DISCHARGE RECOMMENDATIONS Home ASSESSMENT Response to Therapy Interventions: Good Participation in Activities Patient tolerated therapy evaluation well. Patient completed ~400ft ambulation bout independently. Patient did not demonstrate any safety awareness concerns during all functional mobility. Due to demonstration of independence with functional mobility the patient will be discharged from Acute PT caseload. PRECAUTIONS Abdominal CURRENT HOSPITAL COURSE Patient is a 63 y/o male who is s/p Laparoscopic paraesophageal hernia repair with gastropexy (Dr. Bonner) Relevant Past Medical History: HTN, anxiety/depression, lumbar degenerative disk disease and PSHx of lap RIH repair HOME LIVING Patient Lives With: Self/Alone Assistance Available: None Entry To Home: No Stairs Number Of Stairs To Bed/Bath: 0 PRIOR FUNCTIONAL LEVEL Within Functional Limits Patient reports PLOF as (I). SUBJECTIVE Patient agreeable to PT. THERAPY DIAGNOSIS TREATMENT INTERVENTIONS Evaluation Skilled Treatment Time (minutes): 13 TRAINING AND EDUCATION PROVIDED Bed Mobility, Energy Conservation, Home Safety THERAPEUTIC SKILLS USED Cuing Tactile, Cuing Verbal, Movement Facilitation FUNCTIONAL STATUS Bed Mobility Supine To Sit: Independent Sit to Supine: Independent Transfers Sit To Stand: Independent Stand To Sit: Independent Bed to Chair Gait Independent Gait Device: None Gait Distance (feet): 400ft Stairs GOALS ACUTE CARE TREATMENT PLAN PT Frequency: Discontinue Therapy Services Reasons Therapy Services Discontinued: Independent in all functional mobility SIGNATURE: Andrew Bentley, PT PATIENT NAME: Lance Bee DATE: September 22, 2024 TIME: 9:29 AM Normal [facility] Basic metabolic 2000 panelon 09-21-2024 Anion gap [Moles/Vol] 10 mmol/L Normal 8-15 [facility] Comment on above: Order Comment: Speci men Type: BLOOD SPECIMENOrdering Facility: [facility] Address: [address] [place] [address] Performed By: #### 2 4321-2, 2776-04, ####[facility] LABCLIA [id number] [place] [id number] [place] Calcium [Mass/Vol] 8.5 mg/dL Normal 8.5-10.2 [facility] Comment on above: Order Comment: Speci men Type: BLOOD SPECIMENOrdering Facility: [facility] Address: [address] [place] [address] Performed By: #### 2 4321-2, 2776-04, ####[facility] LABCLIA [id number] [place] [id number] [place] Chloride [Moles/Vol] 107 mmol/L Normal 98-107 [facility] Comment on above: Order Comment: Speci men Type: BLOOD SPECIMENOrdering Facility: [facility] Address: [address] [place] [address] Performed By: #### 2 4321-2, 2776-04, ####[facility] LABCLIA [id number] [address] [address] [place] CO2 [Moles/Vol] 23 mmol/L Normal 22-30 [facility] Comment on above: Order Comment: Speci men Type: BLOOD SPECIMENOrdering Facility: [facility] Address: [address] [place] [id number] Performed By: #### 2 4321-2, 2776-04, ####[facility] LABCLIA [id number] [facility] [address] [address] [place] Creatinine [Mass/Vol] 0.85 mg/dL Normal 0.73-1.22 [facility] Comment on above: Order Comment: Speci men Type: BLOOD SPECIMENOrdering Facility: [facility] Address: [address] [place] [address] Performed By: #### 2 4321-2, 2776-04, ####[facility] LABCLIA [id number] [facility] [address] [address] [place] Creatinine and Glomerular filtration rate.predicted panel (S/P/Bld) 98 mL/min/1.73m??? Normal >=60 [facility] Comment on above: Order Comment: Speci men Type: BLOOD SPECIMENOrdering Facility: [facility] Address: [address] [place] [address] Result Comment: Neha mated Glomerular Filtration Rate (eGFR) is calculated using the 2020 CKD-EPI creatinine equation. This equation utilizes serum creatinine, sex, and age as parameters. The creatinine assay has traceable calibration to isotope dilution-mass spectrometry. Refer to KDIGO guidelines for clinical interpretation. In patients with unstable renal function, e.g. those with acute kidney injury, the eGFR may not accurately reflect actual GFR. Performed By: #### 2 4321-2, 2776-04, ####[facility] LABCLIA [id number] [facility] [address] [address] [place] Glucose [Mass/Vol] 101 mg/dL High 74-99 [facility] Comment on above: Order Comment: Speci men Type: BLOOD SPECIMENOrdering Facility: [facility] Address: [address] [place], [place] [address] Result Comment: The [place] Diabetes Association (ADA) provides guidance for cutoff values for fasting glucose and random glucose. The ADA defines fasting as no caloric intake for at least 8 hours. Fasting plasma glucose results between 100 to 125 mg/dL indicate increased risk for diabetes (prediabetes). Fasting plasma glucose results greater than or equal to 126 mg/dL meet the criteria for diagnosis of diabetes. In the absence of unequivocal hyperglycemia, results should be confirmed by repeat testing. In a patient with classic symptoms of hyperglycemia or hyperglycemic crisis, random plasma glucose results greater than or equal to 200 mg/dL meet the criteria for diagnosis of diabetes. Reference: Standards of Medical Care in Diabetes 2016, [place] [employer]. Diabetes Care. 2016.39(Suppl 1). Performed By: #### 2 4321-2, 2776-04, ####[facility] LABCLIA [id number] [place] [address] [place] Potassium [Moles/Vol] 4.1 mmol/L Normal 3.7-5.1 [facility] Comment on above: Order Comment: Speci men Type: BLOOD SPECIMENOrdering Facility: [facility] Address: [address] [place] [address] Performed By: #### 2 4321-2, 2776-04, ####[facility] LABIA [id number] [place] [id number] [place] Sodium [Moles/Vol] 140 mmol/L Normal 136-144 [facility] Comment on above: Order Comment: Speci men Type: BLOOD SPECIMENOrdering Facility: [facility] Address: [address] [place] [address] Performed By: #### 2 4321-2, 2776-04, ####[facility] LABIA [id number] [place] [id number] [place] Urea nitrogen [Mass/Vol] 17 mg/dL Normal 9-24 [facility] Comment on above: Order Comment: Speci men Type: BLOOD SPECIMENOrdering Facility: [facility] Address: [address] [place] [address] Performed By: #### 2 4321-2, 2777-1, 43136-3 ####[facility] LABIA [id number] [place] [address] [place] CBC panel Auto (Bld)on 09-21 Erythrocyte distribution width (RBC) [Ratio] 13.2 % Normal 11.5-15.0 [facility] Comment on above: Order Comment: Speci men Type: BLOOD SPECIMENOrdering Facility: [facility] Address: [address] [place] [address] Performed By: #### 5 8410-2 ####[facility] LABIA [id number] [place] [address] [place] Hematocrit (Bld) [Volume fraction] 39.5 % Normal 39.0-51.0 [facility] Comment on above: Order Comment: Speci men Type: BLOOD SPECIMENOrdering Facility: [facility] Address: [address] [place] [address] Performed By: #### 5 8410-2 ####[facility] [id number] [place] [address] [place] Hemoglobin (Bld) [Mass/Vol] 13.6 g/dL Normal 13.0-17.0 [facility] Comment on above: Order Comment: Speci men Type: BLOOD SPECIMENOrdering Facility: [facility] Address: [address] [place] [address] Performed By: #### 5 8410-2 ####[facility] LABIA [id number] [place] [id number] [place] MCH (RBC) [Entitic mass] 30.4 pg Normal 26.0-34.0 [facility] Comment on above: Order Comment: Speci men Type: BLOOD SPECIMENOrdering Facility: [facility] Address: [address] [place] [address] Performed By: #### 5 8410-2 ####[facility] LABCLIA [id number] [place] [address] [place] MCHC (RBC) [Mass/Vol] 34.4 g/dL Normal 30.5-36.0 [facility] Comment on above: Order Comment: Speci men Type: BLOOD SPECIMENOrdering Facility: [facility] Address: [address] [place] [address] Performed By: #### 5 8410-2 ####[facility] LABIA [id number] [place] [address] [place] MCV (RBC) [Entitic vol] 88.4 fL Normal 80.0-100.0 [facility] Comment on above: Order Comment: Speci men Type: BLOOD SPECIMENOrdering Facility: [facility] Address: [address] [place] [address] Performed By: #### 5 8410-2 ####[facility] LABIA [id number] [place] [address] [place] Nucleated RBC (Bld) [#/Vol] 10*3/uL Normal <0.01 [facility] Comment on above: Order Comment: Speci men Type: BLOOD SPECIMENOrdering Facility: [facility] Address: [address] [place] [address] Performed By: #### 5 8410-2 ####[facility] LABIA [id number] [place] [address] [place] Platelet mean volume (Bld) [Entitic vol] 12.4 fL Normal 9.0-12.7 [facility] Comment on above: Order Comment: Speci men Type: BLOOD SPECIMENOrdering Facility: [facility] Address: [address] [place] [address] Performed By: #### 5 8410-2 ####[facility] LABIA [id number] [place] [address] [place] Platelets (Bld) [#/Vol] 137 10*3/uL Low 150-400 [facility] Comment on above: Order Comment: Speci men Type: BLOOD SPECIMENOrdering Facility: [facility] Address: [address] [place] [address] Performed By: #### 5 8410-2 ####[facility] LABCLIA [id number] [place] [address] [place] RBC (Bld) [#/Vol] 4.47 10*6/uL Normal 4.20-6.00 [facility] Comment on above: Order Comment: Speci men Type: BLOOD SPECIMENOrdering Facility: [facility] Address: [address] [place] [address] Performed By: #### 5 8410-2 ####[facility] LABCLIA [id number] [address] [place] WBC (Bld) [#/Vol] 10.16 10*3/uL Normal 3.70-11.00 [facility] Comment on above: Order Comment: Speci men Type: BLOOD SPECIMENOrdering Facility: [facility] Address: [address] [place] [address] Performed By: #### 5 8410-2 ####[facility] LABIA [id number] [address] [place] Magnesium SerPl-mCncon 09-21 Magnesium [Mass/Vol] 1.9 mg/dL Normal 1.7-2.3 [facility] Comment on above: Order Comment: Speci men Type: BLOOD SPECIMENOrdering Facility: [facility] Address: [address] [place] [address] Performed By: #### 2 4321-2, 2777-1, 37833-5 ####[facility] LABCLIA [id number] [address] [place] NURSING PROGon 09-21-2024 NURSING PROG HNO ID: [id number] Author: ABRAN HERNANDEZ, HA Service: Nursing Author Type: Registered Nurse Type: Nursing Progress Note Filed: 09/21/2024 13:37 Note Text: -- Summary: Void -- Notified drew call resident that patient has not voided since catheter removal. Bladder scan of 116. Normal [facility] Phosphate SerPl-ncon 09-21 Phosphate [Mass/Vol] 3.0 mg/dL Normal 2.7-4.8 [facility] Comment on above: Order Comment: Speci men Type: BLOOD SPECIMENOrdering Facility: [facility] Address: [address] [place] [address] Performed By: #### 2 4321-2, 2777-1, 21269-8 ####[facility] LABCLIA [id number] [place] [address] [place] ANES POSTPROC EVALon 025 ANES POSTPROC EVAL HNO ID: [id number] Author: JOSE JENNINGS MD Service: ? Author Type: Anesthesiologist Type: Anesthesia Postprocedure Evaluation Filed: 09/20/2024 16:11 Note Text: POST ANESTHESIA EVALUATION NOTE : 1960 Procedure Summary Date: 09/20/24 Room / Location: [address] Anesthesia Start: 826 Anesthesia Stop: 1321 Procedure: LAPAROSCOPIC HERNIORRHAPHY PARAESOPHAGEAL (Abdomen) Diagnosis: Paraesophageal hernia (Paraesophageal hernia [K44.9]) Surgeons: Nikolas Bonner MD Responsible Provider: Jose Jennings MD Anesthesia Type: general ASA Status: 3 Anesthesia Type: general Airway Type: ETT Last Vitals Vitals Value Taken Time BP 170/83 09/20/24 1531 Temp 36.3 ?C (97.3 ?F) 09/20/24 1530 Pulse 85 09/20/24 1609 Resp 20 09/20/24 1530 SpO2 97 % 09/20/24 1609 Vitals shown include unfiled device data. Post Anesthesia Patient Status Patient Evaluation: bedside. Anticipated Disposition: inpatient floor planned admission. Neurological Status: aware and responsive. Pulmonary Status: breathing comfortably on room air Airway Control: returned to baseline unsupported. Cardiovascular Status: stable. Pain Management: clinically adequate Postoperative Hydration: acceptable. Intraoperative Events: no significant anesthesia events Post Operative Nausea/Vomiting Status: no significant post operative nausea or vomiting Recommendation: continue current plan of care. Anesthesia Observations No Documentation SIGNATURE: Jose eJnnings MD PATIENT NAME: Lance Bee DATE: September 20, 2024 TIME: 4:11 PM CSN: [id number] Normal [facility] ANES PRE-OPon 09-20-2024 ANES PRE-OP HNO ID: [id number] Author: JOSE JENNINGS MD Service: ? Author Type: Anesthesiologist Type: Anesthesia Preprocedure Evaluation Filed: 09/20/2024 08:09 Note Text: ANESTHESIOLOGY DAY OF SURGERY NOTE : 1960 Procedure Information Date/Time: 09/20/24829 Procedure: LAPAROSCOPIC HERNIORRHAPHY PARAESOPHAGEAL (Abdomen) Location: MAIN [address] [place] [place] Surgeons: Nikolas Bonner MD Estimated body mass index is 29.68 kg/m? as calculated from the following: Height as of 07/06/24: 175.3 cm (5' 9). Weight as of an earlier encounter on 09/19/24: 91.2 kg (201 lb). Most recent hematocrit and potassium results: Hematocrit 43.0 09/20/2024 Potassium 3.9 09/20/2024 Relevant Problems CARDIO (+) Hypertension goal BP (blood pressure) < 130/80 GI (+) Hiatal hernia NEURO-PSYCH (+) Personal history of skin cancer I - PHYSICAL EVALUATION AIRWAY Patient intubated: No. Tracheostomy tube not present Mallampati: II. TM distance: >3 FB. Neck ROM: full ROM without neurological symptoms. Mouth opening: adequate. Short neck: no. Thick neck: no Lip Bite Test: II Microretrognathia/Micronag thia/Recessed Chin: No DENTAL Dentures, upper: complete. Dentures, lower: complete. Additional exam findings: no II - ANESTHESIA PLAN ASA Score: 3 Anesthetic Plan: general Airway type: ETT NPO Status: adequate Beta Nuria Monitoring Plan Monitoring plan: standard ASA. Post Procedure Analgesic Plan Postoperative analgesic plan: per surgical service. Informed Consent Anesthetic risks, benefits, alternatives, personnel and consent discussed: yes. Patient / Responsible Libertarian agrees to proceed: yes Patient / Surrogate agrees to blood products: Yes DNR status not reviewed with patient and/or family prior to surgery. Significant changes in the patient condition since the History and Physical, not otherwise documented in primary service progress note: no. Potential Anesthesia issues that may suggest increased risk of complications or contraindication to planned procedure: none. Discussed the possibility of lip / dental damage: yes Vitals Value Taken Time BP 148/94 09/20/24 0800 Pulse 82 09/20/24 0806 Resp Temp SpO2 96 % 09/20/24 0806 Vitals shown include unfiled device data. Facility-Administered Medications as of 09/19/2024 Medication Dose Route Frequency clonazePAM 2 mg tab(s) (KlonoPIN) 2 mg ORAL AT BEDTIME PRN enoxaparin 40 mg injection (LOVENOX) 40 mg SUBCUTANEOUS DAILY NaCl 0.9% iv flush bag 20 mL INTRAVENOUS PRN HYDROmorphone 0.4 mg injection (DILAUDID) 0.4 mg INTRAVENOUS q 4 H PRN pantoprazole 40 mg injection (PROTONIX) 40 mg INTRAVENOUS DAILY (6 AM) phenol 1 spray (CHLORASEPTIC) 1 spray MUCOUS MEMBRANE (TOPICAL MOUTH AND THROAT) q 2 H PRN benzocaine-menthol 1 lozenge (CHLORASEPTIC) 1 lozenge MUCOUS MEMBRANE (TOPICAL MOUTH AND THROAT) q 2 H PRN lactated ringers iv infusion 100 mL/hr INTRAVENOUS CONTINUOUS acetaminophen 650 mg CUP (TYLENOL) 650 mg ORAL/FEEDING TUBE q 6 H oxyCODONE 5-10 mg oral liquid (ROXICODONE) 5-10 mg ORAL q 6 H PRN [COMPLETED] ondansetron (PF) 4 mg injection (ZOFRAN) 4 mg INTRAVENOUS ONCE [COMPLETED] NaCl 0.9% 1,000 mL iv bolus 1,000 mL INTRAVENOUS ONCE [COMPLETED] ondansetron (PF) 4 mg injection (ZOFRAN) 4 mg INTRAVENOUS ONCE Outpatient Medications as of 09/19/2024 Medication Sig omeprazole (PRILOSEC) 40 mg capsule Take 1 capsule by mouth once daily. clonazePAM (KLONOPIN) 1 mg tablet Take 2 tablets by mouth at bedtime as needed (anxiety, restless leg) for up to 90 days. amLODIPine (NORVASC) 5 mg tablet Take 1 tablet by mouth once daily. oxyCODONE (ROXICODONE) 15 mg immediate release tablet Take 15 mg by mouth three times daily. Dr. Ware I have interviewed and examined the patient. I have reviewed the medical record and/or the pre-anesthesia evaluation, pertinent labs, and test results. This contains updated information obtained within 48 hours of Surgery/Procedure. SIGNATURE: Jose Jennings MD PATIENT NAME: Lance Bee DATE: September 20, 2024 TIME: 8:08 AM CSN: [id number] [facility] BRIEF OP NOTon 09-20-2024 BRIEF OP NOT HNO ID: [id number] Author: SHANON MADRIGAL MD Service: General Surgery Author Type: Resident Type: Brief Op Note Filed: 09/20/2024 12:42 Note Text: GENERAL SURGERY BRIEF OP NOTE LOG ID: [id number] Surgery/Procedure Date: 09/20/2024 Incision/Procedure Start Time: 9:02 AM Incision Close/Procedure End Time: 12:35 PM Surgeon(s) and Journeyman Meat Cutter(s): Surgeons and Role: * Nikolas Bonner MD - Primary * Shanon Madrigal MD - Resident - Assisting * Baljit Neves MD - Resident - Assisting No Additional Staff Procedure(s): Procedure(s): Laparoscopic paraesophageal hernia repair with gastropexy Anesthesia: General Findings: Type III paraesophageal hernia Please see operative report for full details Drains: None IV Fluids: Per anesthesia report Estimated Blood Loss: 100 cc Estimated Urine Output: Per anesthesia report Specimens: * No specimens in log * Wound Classification: Class 1, operative wound clean, non-traumatic, with no inflammation encountered, no break in technique, gastrointestinal and genitor-urinary tracts not entered Complications: None Pre-Op/Pre-Procedure Diagnosis: Pre-Op Diagnosis Codes: * Paraesophageal hernia [K44.9] Post-Op/Post-Procedure Diagnosis: Same as pre-op SIGNATURE: Shanon Madrigal MD PATIENT NAME: Lance Bee DATE: September 20, 2024 TIME: 12:42 PM PAGER/CONTACT #: [phone] Normal [facility] Basic metabolic 2000 panelon 09-20-2024 Anion gap [Moles/Vol] 13 mmol/L Normal 8-15 [facility] Comment on above: Order Comment: Speci men Type: BLOOD SPECIMENOrdering Facility: [facility] Address: [address] [place] [address] Performed By: #### 1 9123-9, 97877-2, 2776-04 ####[facility] LABCLIA [id number] [place] [address] [place] Calcium [Mass/Vol] 9.3 mg/dL Normal 8.5-10.2 [facility] Comment on above: Order Comment: Speci men Type: BLOOD SPECIMENOrdering Facility: [facility] Address: [address] [place] [address] Performed By: #### 1 9123-9, 33633-6, 27710-17 ####[facility] LABCLIA [id number] [place] [address] [place] Chloride [Moles/Vol] 107 mmol/L Normal 98-107 [facility] Comment on above: Order Comment: Speci men Type: BLOOD SPECIMENOrdering Facility: [facility] Address: [address] [place] [address] Performed By: #### 1 9123-9, 41862-0, 27710-17 ####[facility] LABCLIA [id number] [address] [address] [place] CO2 [Moles/Vol] 20 mmol/L Low 22-30 [facility] Comment on above: Order Comment: Speci men Type: BLOOD SPECIMENOrdering Facility: [facility] Address: [address] [place] [address] Performed By: #### 1 9123-9, 78375-5, 2776- ####[facility] LABCLIA [id number] [address] [address] [place] Creatinine [Mass/Vol] 0.92 mg/dL Normal 0.73-1.22 [facility] Comment on above: Order Comment: Speci men Type: BLOOD SPECIMENOrdering Facility: [facility] Address: [address] [place] [address] Performed By: #### 1 9123-9, 35296-6, 2776-04 ####[facility] LABIA [id number] [place] [address] [place] Creatinine and Glomerular filtration rate.predicted panel (S/P/Bld) 94 mL/min/1.73m??? Normal >=60 [facility] Comment on above: Order Comment: Speci nikole Type: BLOOD SPECIMENOrdering Facility: [facility] Address: [address] [place] [address] Result Comment: Neha mated Glomerular Filtration Rate (eGFR) is calculated using the 2020 CKD-EPI creatinine equation. This equation utilizes serum creatinine, sex, and age as parameters. The creatinine assay has traceable calibration to isotope dilution-mass spectrometry. Refer to KDIGO guidelines for clinical interpretation. In patients with unstable renal function, e.g. those with acute kidney injury, the eGFR may not accurately reflect actual GFR. Performed By: #### 1 9123-9, 12277-0, 2776-04 ####[facility] LABCLIA [id number] [address] [address] [place] Glucose [Mass/Vol] 82 mg/dL Normal 74-99 [facility] Comment on above: Order Comment: Speci men Type: BLOOD SPECIMENOrdering Facility: [facility] Address: [address] [place] [address] Result Comment: The [place] Diabetes Association (ADA) provides guidance for cutoff values for fasting glucose and random glucose. The ADA defines fasting as no caloric intake for at least 8 hours. Fasting plasma glucose results between 100 to 125 mg/dL indicate increased risk for diabetes (prediabetes). Fasting plasma glucose results greater than or equal to 126 mg/dL meet the criteria for diagnosis of diabetes. In the absence of unequivocal hyperglycemia, results should be confirmed by repeat testing. In a patient with classic symptoms of hyperglycemia or hyperglycemic crisis, random plasma glucose results greater than or equal to 200 mg/dL meet the criteria for diagnosis of diabetes. Reference: Standards of Medical Care in Diabetes 2016, [place] [employer] Association. Diabetes Care. 2016.39(Suppl 1). Performed By: #### 1 9123-9, 28694-9, 277- ####[facility] LABCLIA [id number] [place] [address] [place] Potassium [Moles/Vol] 3.9 mmol/L Normal 3.7-5.1 [facility] Comment on above: Order Comment: Speci men Type: BLOOD SPECIMENOrdering Facility: [facility] Address: [address] [place] [address] Performed By: #### 1 9123-9, 20333-7, 277- ####[facility] LABCLIA [id number] [place] [address] [place] Sodium [Moles/Vol] 140 mmol/L Normal 136-144 [facility] Comment on above: Order Comment: Speci men Type: BLOOD SPECIMENOrdering Facility: [facility] Address: [address] [place] [address] Performed By: #### 1 9123-9, 72287-7, 2776- ####[facility] LABCLIA [id number] [place] [address] [place] Urea nitrogen [Mass/Vol] 16 mg/dL Normal 9-24 [facility] Comment on above: Order Comment: Speci men Type: BLOOD SPECIMENOrdering Facility: [facility] Address: [address] [place] [address] Performed By: #### 1 9123-9, 06140-6, 2777-1 ####[facility] LABCLIA [id number] [place] [address] [place] CBC panel Auto (Bld)on 09-20 Erythrocyte distribution width (RBC) [Ratio] 13.0 % Normal 11.5-15.0 [facility] Comment on above: Order Comment: Speci men Type: BLOOD SPECIMENOrdering Facility: [facility] Address: [address] [place] [address] Performed By: #### 5 8410-2 ####[facility] LABCLIA [id number] [address] [place] Hematocrit (Bld) [Volume fraction] 43.0 % Normal 39.0-51.0 [facility] Comment on above: Order Comment: Speci men Type: BLOOD SPECIMENOrdering Facility: [facility] Address: [address] [place] [address] Performed By: #### 5 8410-2 ####[facility] LABCLIA [id number] [address] [place] Hemoglobin (Bld) [Mass/Vol] 15.0 g/dL Normal 13.0-17.0 [facility] Comment on above: Order Comment: Speci men Type: BLOOD SPECIMENOrdering Facility: [facility] Address: [address] [place] [address] Performed By: #### 5 8410-2 ####[facility] LABCLIA [id number] [place] [id number] [place] MCH (RBC) [Entitic mass] 29.9 pg Normal 26.0-34.0 [facility] Comment on above: Order Comment: Speci men Type: BLOOD SPECIMENOrdering Facility: [facility] Address: [address] [place] [address] Performed By: #### 5 8410-2 ####[facility] [id number] [place] [address] [place] MCHC (RBC) [Mass/Vol] 34.9 g/dL Normal 30.5-36.0 [facility] Comment on above: Order Comment: Speci men Type: BLOOD SPECIMENOrdering Facility: [facility] Address: [address] [place] [address] Performed By: #### 5 8410-2 ####[facility] [id number] [place] [address] [place] MCV (RBC) [Entitic vol] 85.7 fL Normal 80.0-100.0 [facility] Comment on above: Order Comment: Speci men Type: BLOOD SPECIMENOrdering Facility: [facility] Address: [address] [place] [address] Performed By: #### 5 8410-2 ####[facility] [id number] [place] [address] [place] Nucleated RBC (Bld) [#/Vol] 10*3/uL Normal <0.01 [facility] Comment on above: Order Comment: Speci men Type: BLOOD SPECIMENOrdering Facility: [facility] Address: [address] [place] [address] Performed By: #### 5 8410-2 ####[facility] [id number] [place] [address] [place] Platelet mean volume (Bld) [Entitic vol] 11.7 fL Normal 9.0-12.7 [facility] Comment on above: Order Comment: Speci men Type: BLOOD SPECIMENOrdering Facility: [facility] Address: [address] [place] [address] Performed By: #### 5 8410-2 ####[facility] LABIA [id number] [address] [address] [place] Platelets (Bld) [#/Vol] 136 10*3/uL Low 150-400 [facility] Comment on above: Order Comment: Speci men Type: BLOOD SPECIMENOrdering Facility: [facility] Address: [address] [place] [address] Performed By: #### 5 8410-2 ####[facility] LABIA [id number] [place] [address] [place] RBC (Bld) [#/Vol] 5.02 10*6/uL Normal 4.20-6.00 [facility] Comment on above: Order Comment: Speci men Type: BLOOD SPECIMENOrdering Facility: [facility] Address: [address] [place] [address] Performed By: #### 5 8410-2 ####[facility] [id number] [address] [place] WBC (Bld) [#/Vol] 6.37 10*3/uL Normal 3.70-11.00 [facility] Comment on above: Order Comment: Speci men Type: BLOOD SPECIMENOrdering Facility: [facility] Address: [address] [place] [address] Performed By: #### 5 8410-2 ####[facility] [id number] [place] [id number] [place] ECG COMPLETEon 09-20-2024 ECG COMPLETE Ventricular Rate : 9 9 BPM Atrial Rate : 99 BPM P-R Interval : 194 ms QRS Duration : 96 ms Q-T Interval : 392 ms QTC Calculation(Bazett) : 503 ms Calculated P Catherine : 16 degrees Calculated R Catherine : -18 degrees Calculated T Catherine : -9 degrees NORMAL SINUS RHYTHM PROLONGED QT INTERVAL OR TU FUSION, CONSIDER HYPOKALEMIA ABNORMAL ECG Confirmed by ANDRE CARUSO MD (22) on 10/23/2024 9:31:23 AM NAME : LANCE BEE PID : [id number] : 1960 Gender : Male Race : ORD : [id number] Procedure Date : Sep 20 2024 14:20:14 Edit Date : Oct 23 2024 09:33:38 Diagnosis: NORMAL SINUS RHYTHM PROLONGED QT INTERVAL OR TU FUSION, CONSIDER HYPOKALEMIA ABNORMAL ECG Confirmed by ANDRE CARUSO MD (22) on 10/23/2024 9:31:23 AM Test Reason : Arrhythmia Location : 314 : J14 g31-11 Overread By : ANDRE CARUSO MD Edited By : ANDRE CARUSO MD Referred By : SCAR HWANG Acquired by : ROULA ORDONEZ [facility] HISTORY PHYSICALon HISTORY PHYSICAL HNO ID: [id number] Author: NIKOLAS BONNER MD Service: General Surgery Author Type: Resident Type: H&P Filed: 10/10/2024 09:36 Note Text: -- Attestation signed by Nikolas Bonner MD at 10/10/2024 9:36 AM Attending Note I evaluated the patient and personally participated in the davis components. I agree with the resident's findings and plan with the following revisions and/or additions: Will plan repair on this admission. Reviewed imaging and discussed plan with patient. Signature: Nikolas Bonner MD Date: 10/10/2024 Time: 9:35 AM -- GENERAL SURGERY HISTORY AND PHYSICAL NOTE Lance Bee [id number] Subjective CHIEF COMPLAINT: nausea/vomiting HISTORY OF PRESENT ILLNESS: Mr. Bee is a 63 year old male with PMHx of anxiety, HTN who is presenting for worsening nausea, vomiting and poor PO intake for a month with findings of incarcerated type II PEH. He presented to [facility] ED two days ago and was supposed to see a general surgeon this month for the PEH. He continued to have these symptoms and presented again to ED today as he is also not able to take almost anything PO. He is complaining of some upper abdominal pain that has been for a while. He denies fever or chills. No CP or SOB. He had an EGD in 2023 that showed some gastritis with a PEH. He is currently HDS and afebrile and nontoxic appearing. NGT was placed at OSH. PSH: lap RIH repair AC: none PAST MEDICAL HISTORY Diagnosis Date Anxiety 11/01/2015 Asymptomatic microscopic hematuria 2017 Contact dermatitis and other eczema, due to unspecified cause DDD (degenerative disc disease), lumbar 02/10/2013 Depression Dog bite of right lower leg 2000 with recurrent wounds Gastritis, presence of bleeding unspecified, unspecified chronicity, unspecified gastritis type 12/06/2023 Hiatal hernia 02/24/2023 medium on EGD Hypertension goal BP (blood pressure) < 130/80 Impaired glucose metabolism 09/26/2014 A1c 6.1% September 2014 Obesity (BMI 35.0-39.9 without comorbidity) 08/10/2018 Obesity, Class I, BMI 30-34.9 04/06/2024 Open wound of knee, leg (except thigh), and ankle, complicated Open wound of right lower extremity 07/24/2017 YAIMA (obstructive sleep apnea) no CPAP tried by choice. 12/20/2014 Paraesophageal hernia 09/16/2023 Personal history of skin cancer 01/30/2016 Dr. Melody Trammell, Dermatology annually. Primary insomnia 11/01/2015 Reflex sympathetic dystrophy Right leg. Dr. Ware, pain management. Restless legs 05/20/2015 Small bowel obstruction (HCC) 09/16/2023 Squamous cell carcinoma of lower leg 09/23/2012 Skin graft x2- Dr. Cook, Dr. Cardona [facility]- [place] Dr. Trammell Tubular adenoma of colon 02/24/2023 Ulcer of other part of foot PAST SURGICAL HISTORY Procedure Laterality Date COLONOSCOPY 10/27/2016 INCOMPLETE- CT colonography 03/31/18 diverticular disease. Repeat 5-10yrs COLONOSCOPY SCREENING 02/24/2023 EGD 10/27/2016 EGD 11/24/2023 EGD W/O BRSH SPEC VARICIES INJ 02/24/2023 LAPAROSCOPY SURG RPR INITIAL INGUINAL HERNIA Right 12/26/2004 PAST SURGICAL HISTORY OF Right 2011 excision of tumor, right leg PAST SURGICAL HISTORY OF Right 2014 skin grafts, right leg. 2012,2013. FAMILY HISTORY Problem Relation Age of Onset other (scleroderma) Mother Cancer Father pancreatic No Known Problems Sister 1/2 siblings No Known Problems Sister No Known Problems Brother 1/2 siblings Social History Tobacco Use Smoking status: Never Smokeless tobacco: Never Vaping Use Vaping status: Never Used Substance Use Topics Alcohol use: Not Currently Drug use: Not Currently Types: Marijuana (Not in a hospital admission) No current facility-administered medications for this encounter. ALLERGIES No Known Allergies COMPLETE REVIEW OF SYSTEMS: 10 point review of systems negative except for pertinent positives mentioned in HPI Objective PHYSICAL EXAM: BP 142/86 Pulse 84 Temp (Src) 98.1 (Oral) Resp 18 SpO2 95% O2 Therapy: Room Air CONSTITUTIONAL: No acute distress NEUROLOGIC/PSYCHIATRIC: Oriented to time, place AND person and Alert HEENT: EOM's intact and No lesions LUNGS: bilaterally clear to auscultation HEART: Regular rate, normal heart sounds ABDOMEN: Soft, Non-tender, and Non-distended MUSCULOSKELETAL: No deformities I/O past 24h: No intake or output data in the 24 hours ending 09/19/24 4794 DATA: Diagnostic tests reviewed for today's visit: Labs: CBC, Coags, BMP, Mg, Phos Recent Labs 09/19/24 1454 WBC 7.22 HB 15.6 HCT 45.5 PLT 163 NA 139 K 4.1 CHLOR 101 CO2 25 BUN 18 CREAT 1.13 GLUC 95 CA 9.3 Liver Function, Amylase, AND Lipase Recent Labs 09/19/24 1454 TPROT 7.2 ALB 4.2 ALT 10 AST 19 ALKPHOS 101 TBILI 0.8 Imaging: CT A/ (more content not included)... Normal [facility] Magnesium SerPl-mCncon 09-20 Magnesium [Mass/Vol] 1.9 mg/dL Normal 1.7-2.3 [facility] Comment on above: Order Comment: Speci men Type: BLOOD SPECIMENOrdering Facility: [facility] Address: [address] [place] [address] [place] [address] Performed By: #### 1 9123-9, 56107-9, 2777-1 ####[facility] LABCLIA [id number] [place] [address] [place] OPERATIVE NOon 09-20-2024 OPERATIVE NO HNO ID: [id number] Author: NIKOLAS BONNER MD Service: Trauma Author Type: Physician Type: Operative Report Filed: 10/16/2024 10:09 Note Text: OPERATIVE/PROCEDURE REPORT LOG ID: [id number] SURGERY/PROCEDURE DATE: 09/20/2024 INCISION/PROCEDURE START TIME: 9:02 AM INCISION CLOSE/PROCEDURE END TIME: 12:35 PM SURGEON(S)/PROCEDURALIST(S ) AND PODIATRIC SURGEON(S): Surgeons and Role: * Nikolas Bonner MD - Primary * Shanon Madrigal MD - Resident - Assisting * Baljit Neves MD - Resident - Assisting No Additional Staff SURGERY/PROCEDURE(S): Laparoscopic paraesophageal hernia repair with gastropexy ANESTHESIA: General SURGERY/PROCEDURE DETAILS: Patient was brought onto the operating room they are placed in supine position. They are intubated with any difficulty the arms were abducted laterally. We prepped and draped the abdomen after clipping it. I placed a 5 mm first entry port into the right upper quadrant. This later became our liver retractor. We insufflated the abdomen and put the patient in reverse Trendelenburg. I placed 3 other 5 ports and an additional 1012 for the camera. And eventually changed one of the 5 ports to another 10 port to allow for me to do intracorporeal suturing with the autosuture device. First body operation was identifying the stomach and pulling the contents of the hernia out of the chest was very adherent with a fairly complicated hernia sac the stomach was doubled over and itself and somewhat twisted as well. He was all viable there was omentum that was adherent inside the chest this was taken down with the cordless soncision. The attachments to the crura and posterior were particularly difficult and took some time. We were able to eventually mobilize and get 360 degrees around the proximal stomach and distal esophagus I placed a Charley drain around this. Uses for traction I was able to dissect out the crura both left and right this was done relatively easily. Once we have the crura dissected out I placed approximately four 5 sutures along the crura starting at the base running up to the posterior stomach I also placed a stitch anteriorly to close the crura and secured to the very proximal stomach. The sutures were all 2-0 Surgidac sutures. The stomach was fully reduced and placed well. We left an NG tube in after we are done. We also then secured the stomach in [address] using a the T-fasteners. Left 3 buttons in a linear fashion across the upper portion of the abdomen. I did not place a PEG tube. I felt we did not get the pleural and there was no indication for chest tube at the end of the case. We will get a chest x-ray postoperatively. Estimated blood was approximately 200 cc we did resect a small amount of omentum that was passed off the field. I closed the 10 ports using the Izaiah-Francine and a 0 Vicryl suture. The wounds were irrigated and closed with 4-0 Monocryl and Dermabond. PRE-OP/PRE-PROCEDURE DIAGNOSIS: Incarcerated paraesophageal hernia POST-OP/POST-PROCEDURE DIAGNOSIS: Same as Preop ESTIMATED BLOOD LOSS: 100 mls SPECIMENS: None IMPLANTABLE DEVICES: NONE DRAINS: None COMPLICATIONS: None CLOSURE TECHNIQUE: Primary PARTICIPATION IN SURGERY/PROCEDURE: I/primary surgeon/proceduralist performed the procedure with assistance. SIGNATURE: Nikolas Bonner MD PATIENT NAME: Lance Bee DATE: October 16, 2024 TIME: 10:03 AM Nikolas Bonner MD Normal [facility] PT panel Coag (PPP)on 2024 INR Coag (PPP) [Relative time] 1.2 {INR} Normal 0.9-1.3 [facility] Comment on above: Order Comment: Speci men Type: BLOOD SPECIMENOrdering Facility: [facility] Address: [address] [place] [address] Result Comment: Eileen min K Antagonist (VKA) Therapeutic Range: INR 2 to 3 (Target INR of 2.5) Note: For patients treated with VKA drugs, such as warfarin, the [place] [employer] 2012 Guideline recommends a therapeutic INR range of 2 to 3 (target INR of 2.5). This recommendation includes high-risk patients with antiphospholipid syndrome with previous arterial or venous thromboembolism, current-generation mechanical or bioprosthetic aortic heart valve replacement. Note: Patients with mechanical aortic valve replacement and additional risk factors for thromboembolic events (atrial fibrillation, previous thromboembolism, LV dysfunction, hypercoagulable conditions) or an older generation mechanical AVR (i.e., ball in-Cage) or any mechanical MVR should have a INR therapeutic range of 2.5 to 3.5 (target INR of 3). [place] GH, et al. Chest 2012, 141:7S-47S Chi RA, et al. [facility] 2017, 70: 252-289 Performed By: #### 3 4528-0, 98520-1 ####[facility] LABCLIA [id number] [place] [address] [place] PT Coag (PPP) [Time] 12.7 s Normal 9.7-13.0 [facility] Comment on above: Order Comment: Speci men Type: BLOOD SPECIMENOrdering Facility: [facility] Address: [address] [place] [address] Performed By: #### 3 4528-0, 47104-1 ####[facility] LABCLIA [id number] [place] [address] [place] Phosphate SerPl-mCncon 09-20 Phosphate [Mass/Vol] 2.8 mg/dL Normal 2.7-4.8 [facility] Comment on above: Order Comment: Speci men Type: BLOOD SPECIMENOrdering Facility: [facility] Address: [address] [place] [address] Performed By: #### 1 9123-9, 85816-6, 2777-1 ####[facility] LABCLIA [id number] [place] [address] [place] TYPE + SCREENon 09-20-2024 ABO AB Normal [facility] Comment on above: Order Comment: Speci men Type: BLOOD SPECIMENOrdering Facility: [facility] Address: [address] [place] [address] Performed By: #### T SCR ####[facility] MA[facility] BLOOD BANKCLIA [id number] [place] [id number] [facility] [place] Rh Nom (Bld) Negative Normal [facility] Comment on above: Order Comment: Speci men Type: BLOOD SPECIMENOrdering Facility: [facility] Address: [address] [place] [address] Performed By: #### T SCR ####CC MAIN BLOOD BANKCLIA [id number] [address] OF [place] TYPE AND SCREEN EXPIRATION 09/23/2024 23:59 Normal [facility] Comment on above: Order Comment: Speci men Type: BLOOD SPECIMENOrdering Facility: [facility] Address: [address] [place] [address] Performed By: #### T SCR ####CC MA[facility] BLOOD BANKCLIA [id number] [place] [id number] [place] XR ABDOMEN 1V SUPINEon 09-20 XR ABDOMEN 1V SUPINE * * *Final Report* * * DATE OF EXAM: Sep 20 2024 12:18AM [id number] - XR ABDOMEN 1V SUPINE / PROCEDURE REASON: Evaluate tube, line or lead position * * * * Physician Interpretation * * * * EXAMINATION: XR ABDOMEN 1V SUPINE CLINICAL HISTORY: Evaluate tube, line or lead position Technique: XR ABDOMEN 1V SUPINE Comparison: 12/06/2023. RESULT: Enteric tube terminating in the region of the stomach body/fundus. Nonobstructive bowel gas pattern. IMPRESSION: See result. Tanker Serviceman: JESSE Transcribe Date/Time: Sep 20 2024 3:14A Dictated by : JEAN LUGO MD This examination was interpreted and the report reviewed and electronically signed by: JEAN LUGO MD on Sep 20 2024 3:20AM EST [id number] Normal [facility] XR CHEST 1V FRONTAL PORTon 0 09-20-2024 XR CHEST 1V FRONTAL PORT * * *Final Report* * * DATE OF EXAM: Sep 20 2024 3:35PM [id number] - XR CHEST 1V FRONTAL PORT / PROCEDURE REASON: Pneumothorax * * * * Physician Interpretation * * * * EXAMINATION: CHEST RADIOGRAPH (PORTABLE SINGLE VIEW AP) Exam Date/Time: 09/20/2024 3:35 PM Clinical History: Pneumothorax MQ: XCPMC_6 Comparison: CT chest from 09/19/2024. RESULT: Lines, tubes, and devices: Interval placement of an NG/OG tube following the expected course beyond the distal ioatl-vf-gefd. Sidehole overlies the distal esophagogastric junction or proximal stomach. Lungs and pleura: No consolidation or edema. No effusion or pneumothorax. Cardiomediastinal silhouette: Stable enlargement with large hiatus hernia as on the CT. Other: No acute findings IMPRESSION: No acute findings Tanker Serviceman: [email or web address] Transcribe Date/Time: Sep 20 2024 3:49P Dictated by : GUNJAN MURCIA MD This examination was interpreted and the report reviewed and electronically signed by: GUNJAN MURCIA MD on Sep 20 2024 3:51PM EST [id number] Normal [facility] aPTT PPPon 09-20-2024 aPTT Coag (PPP) [Time] 21.9 s Low 23.0-32.4 Cl [facility] Comment on above: Order Comment: Speci men Type: BLOOD SPECIMENOrdering Facility: [facility] Address: [address] [place] [address] Performed By: #### 3 4528-0, 53167-6 ####[facility] LABCLIA [id number] [place] [address] [place] ALLIED HEALTHon 09-19-2024 ALLIED HEALTH HNO ID: [id number] Author: ARELY LING, CT Service: Radiology Author Type: Technologist Type: Allied Health Filed: 09/19/2024 16:39 Note Text: Radiology Service Progress Note PATIENT NAME: Lance Bee DATE OF SERVICE: September 19, 2024 TIME: 4:39 PM PATIENT IDENTITY VERIFICATION COMPLETED USING TWO (2) IDENTIFIERS: Name and Date of confirmed by patient verbally and Name and Date of confirmed by identification band. FALL SCREENING: Has the patient had 2 falls in the last year or 1 fall with injury or currently using an Ambulatory Assistive Device (Walker, Cane, Wheelchair, Crutches, etc.)? Emergency Room Patient: Screened in ED PATIENT GENDER DATA: Assigned male at PATIENT RELEVANT IMPLANT DATA REVIEWED: Not Applicable PATIENT PRESENTS WITH AN IMPLANTABLE OR ATTACHED PRINTER OPERATOR: No RADIOLOGY DEPARTMENT: CT; Exam(s) Completed: Chest Abdomen Pelvis PERIPHERAL IV DATA: Inpatient: see LDA documentation SIGNED BY: Arely Cruz, ERICA September 19, 2024 4:39 PM Normal [facility] CBC W Auto Differential pane l (Bld)on 09-19-2024 Basophils (Bld) [#/Vol] 0.05 10*3/uL Normal <0.11 [facility] Comment on above: Order Comment: Speci men Type: BLOOD SPECIMEN [facility] Address: [address] [place] [address] Performed By: #### 5 7021-8 #### [facility] CLIA [id number] [address] [place] [address] [place] Basophils/100 WBC (Bld) 0.7 % Normal [facility] Comment on above: Order Comment: Speci men Type: BLOOD SPECIMEN [facility] Address: [address] [place] [address] Performed By: #### 5 7021-8 #### [facility] CLIA [id number] [address] [place] [address] [place] Differential cell count method Nom (Bld) Auto Normal [facility] Comment on above: Order Comment: Speci men Type: BLOOD SPECIMEN [facility] Address: [address] [place] [address] Performed By: #### 5 7021-8 #### [facility] CLIA [id number] [address] [place] [address] [place] Eosinophils (Bld) [#/Vol] 0.09 10*3/uL Normal <0.46 [facility] Comment on above: Order Comment: Speci men Type: BLOOD SPECIMEN [facility] Address: [address] [place] [address] Performed By: #### 5 7021-8 #### [facility] CLIA [id number] [address] [place] Eosinophils/100 WBC (Bld) 1.2 % Normal [facility] Comment on above: Order Comment: Speci men Type: BLOOD SPECIMEN [facility] Address: [address] [place] [address] Performed By: #### 5 7021-8 #### [facility] CLIA [id number] [address] [place] Erythrocyte distribution width (RBC) [Ratio] 13.1 % Normal 11.5-15.0 [facility] Comment on above: Order Comment: Speci men Type: BLOOD SPECIMEN [facility] Address: [address] [place] [address] Performed By: #### 5 7021-8 #### [facility] CLIA [id number] [address] [place] Hematocrit (Bld) [Volume fraction] 45.5 % Normal 39.0-51.0 [facility] Comment on above: Order Comment: Speci men Type: BLOOD SPECIMEN [facility] Address: [address] [place] [address] Performed By: #### 5 7021-8 #### [facility] CLIA [id number] [address] [place] Hemoglobin (Bld) [Mass/Vol] 15.6 g/dL Normal 13.0-17.0 [facility] Comment on above: Order Comment: Speci men Type: BLOOD SPECIMEN [facility] Address: [address] [place] [address] Performed By: #### 5 7021-8 #### [facility] CLIA [id number] [address] [place] Immature granulocytes (Bld) [#/Vol] 10*3/uL Normal <0.10 [facility] Comment on above: Order Comment: Speci men Type: BLOOD SPECIMEN [facility] Address: [address] [place] [address] Performed By: #### 5 7021-8 #### [facility] CLIA [id number] [address] Immature granulocytes/100 WBC (Bld) 0.3 % Normal [facility] Comment on above: Order Comment: Speci men Type: BLOOD SPECIMEN [facility] Address: [address] [place] [address] Performed By: #### 5 7021-8 #### [facility] CLIA [id number] [address] [place] Lymphocytes (Bld) [#/Vol] 2.09 10*3/uL Normal 1.00-4.00 [facility] Comment on above: Order Comment: Speci men Type: BLOOD SPECIMEN [facility] Address: [address] [place] [address] Performed By: #### 5 7021-8 #### [facility] CLIA [id number] [address] Lymphocytes/100 WBC (Bld) 28.9 % Normal [facility] Comment on above: Order Comment: Speci men Type: BLOOD SPECIMEN [facility] Address: [address] [place] [address] Performed By: #### 5 7021-8 #### [facility] CLIA [id number] [address] MCH (RBC) [Entitic mass] 29.9 pg Normal 26.0-34.0 [facility] Comment on above: Order Comment: Speci men Type: BLOOD SPECIMEN [facility] Address: [address] [place] [address] Performed By: #### 5 7021-8 #### [facility] CLIA [id number] [address] MCHC (RBC) [Mass/Vol] 34.3 g/dL Normal 30.5-36.0 [facility] Comment on above: Order Comment: Speci men Type: BLOOD SPECIMEN [facility] Address: [address] [place] [address] Performed By: #### 5 7021-8 #### [facility] CLIA [id number] [address] [place] [address] [place] MCV (RBC) [Entitic vol] 87.2 fL Normal 80.0-100.0 [facility] Comment on above: Order Comment: Speci men Type: BLOOD SPECIMEN [facility] Address: [address] [place] [address] Performed By: #### 5 7021-8 #### [facility] CLIA [id number] [address] [place] [address] [place] Monocytes (Bld) [#/Vol] 0.50 10*3/uL Normal <0.87 [facility] Comment on above: Order Comment: Speci men Type: BLOOD SPECIMEN [facility] Address: [address] [place] [address] Performed By: #### 5 7021-8 #### [facility] CLIA [id number] [address] [place] [address] [place] Monocytes/100 WBC (Bld) 6.9 % Normal [facility] Comment on above: Order Comment: Speci men Type: BLOOD SPECIMEN [facility] Address: [address] [place] [address] Performed By: #### 5 7021-8 #### [facility] CLIA [id number] [address] [place] [address] [place] Neutrophils (Bld) [#/Vol] 4.47 10*3/uL Normal 1.45-7.50 [facility] Comment on above: Order Comment: Speci men Type: BLOOD SPECIMEN [facility] Address: [address] [place] [address] Performed By: #### 5 7021-8 #### [facility] CLIA [id number] [address] [place] Neutrophils/100 WBC (Bld) 62.0 % Normal [facility] Comment on above: Order Comment: Speci men Type: BLOOD SPECIMEN [facility] Address: [address] [place] [address] Performed By: #### 5 7021-8 #### [facility] CLIA [id number] [address] OF [place] Nucleated RBC (Bld) [#/Vol] 10*3/uL Normal <0.01 [facility] Comment on above: Order Comment: Speci men Type: BLOOD SPECIMEN [facility] Address: [address] [place] [address] Performed By: #### 5 7021-8 #### [facility] CLIA [id number] [address] OF [place] Nucleated RBC/100 WBC (Bld) [Ratio] 0.0 /100 WBC Normal [facility] Comment on above: Order Comment: Speci men Type: BLOOD SPECIMEN [facility] Address: [address] [place] [address] Performed By: #### 5 7021-8 #### [facility] CLIA [id number] [address] OF [place] Platelet mean volume (Bld) [Entitic vol] 11.3 fL Normal 9.0-12.7 [facility] Comment on above: Order Comment: Speci men Type: BLOOD SPECIMEN [facility] Address: [address] [place] [address] Performed By: #### 5 7021-8 #### [facility] CLIA [id number] [address] OF [place] Platelets (Bld) [#/Vol] 163 10*3/uL Normal 150-400 [facility] Comment on above: Order Comment: Speci men Type: BLOOD SPECIMEN [facility] Address: [address] [place] [address] Performed By: #### 5 7021-8 #### [facility] CLIA [id number] [address] [place] RBC (Bld) [#/Vol] 5.22 10*6/uL Normal 4.20-6.00 [facility] Comment on above: Order Comment: Speci men Type: BLOOD SPECIMEN [facility] Address: [address] [place] [address] Performed By: #### 5 7021-8 #### [facility] CLIA [id number] [address] [place] [id number] [place] WBC (Bld) [#/Vol] 7.22 10*3/uL Normal 3.70-11.00 [facility] Comment on above: Order Comment: Speci men Type: BLOOD SPECIMEN [facility] Address: [address] [place] [id number] Performed By: #### 5 7021-8 #### [facility] CLIA [id number] [address] [place] [address] [facility] CT ABD/PEL W IVCONon 025 CT ABD/PEL W IVCON * * *Final Report* * * DATE OF EXAM: Sep 19 2024 4:39PM [facility] 0530 - CT ABD/PEL W IVCON / PROCEDURE REASON: paraesophageal hernia * * * * Physician Interpretation * * * * EXAMINATION: CT ABDOMEN AND PELVIS WITH IV CONTRAST CLINICAL HISTORY: Nausea and vomiting TECHNIQUE: CT of the abdomen and pelvis was performed using standard technique, scanning from just above the dome of the diaphragm to the symphysis pubis. MQ: CTAP_3 Contrast: IV: 100 ml of Omnipaque 350 : ml of CT Radiation dose: Integrated Dose-length product (DLP) for this visit = 766 mGy*cm. CT Dose Reduction Employed: Automated exposure control(AEC) and iterative recon COMPARISON: 11/26/[address] RESULT: Liver: No mass. Biliary: No bile duct dilation. Cholelithiasis. Spleen: No mass. No splenomegaly. Pancreas: No mass or duct dilation. Adrenals: No mass. Kidneys: Renal cysts and additional subcentimeter low-density foci which are too small to characterize with certainty, and likely represent additional cysts. Right nephrolithiasis. GI tract: No dilation or wall thickening. Diverticulosis without diverticulitis Lymph nodes: No abdominal or pelvic lymphadenopathy. Mesentery/Peritoneum: No ascites or mass. Retroperitoneum: No mass. Vasculature: - Abdominal aorta and iliac arteries: Atherosclerotic calcifications without aneurysm. - Celiac and SMA: Atherosclerotic calcifications at the origins. - Portal venous system (SMV, splenic vein, portal vein and branches): Patent. - Hepatic veins: Patent. Pelvis: No mass, ascites or fluid collection. Bones/Soft Tissues: Large hiatal hernia. Mild degenerative changes Lower thorax: A chest CT performed will be reported separately. Localizer images: No additional findings. IMPRESSION: No acute process in the abdomen or pelvis. Large hiatal hernia. Right nephrolithiasis. Tanker Serviceman: JESSE Transcribe Date/Time: Sep 19 2024 4:49P Dictated by : SANDRA GOODMAN MD This examination was interpreted and the report reviewed and electronically signed by: SANDRA GOODMAN MD on Sep 19 2024 4:54PM EST [id number] [facility] CT CHEST W IVCONon CT CHEST W IVCON * * *Final Report* * * DATE OF EXAM: Sep 19 2024 4:39PM [facility] 0539 - CT CHEST W IVCON / PROCEDURE REASON: paraesophageal hernia * * * * Physician Interpretation * * * * EXAMINATION: CHEST CT WITH CONTRAST CLINICAL HISTORY: Paraesophageal hernia Technique: Spiral CT acquisition of the chest from the thoracic inlet to the upper abdomen following IV contrast. MQ: CTCW_6 Contrast: 100 mL Omnipaque [address] Radiation dose: Integrated Dose-length product (DLP) for this visit = 766 mGy*cm CT Dose Reduction Employed: Automated exposure control(AEC) and iterative recon Comparison: Type of study and date/time RESULT: Limitations: None. Lines, tubes, and devices: None. Lung parenchyma and airways: No consolidation. No suspicious pulmonary nodule. The central airways are patent. Pleural space: No pleural effusion. No pleural thickening. Lower neck, lymph nodes, and mediastinum: The imaged thyroid gland is normal. No lymphadenopathy in the supraclavicular, axillary, mediastinal, or hilar regions. Heart, pericardium, and thoracic vessels: The thoracic aorta and main pulmonary artery are normal in caliber. The cardiac chambers are normal in size. No coronary artery atherosclerotic calcifications are noted, although the study is not optimized for coronary assessment. No pericardial effusion or thickening. Bones and soft tissues: No destructive bone lesion. Chest wall is unremarkable. Upper abdomen: Large paraesophageal hernia. New since the prior study. Surrounding fluid. Mild distention. No significant wall thickening Localizer images: No additional findings. IMPRESSION: Large periesophageal hernia. Small amount of surrounding fluid. Mild distention. No significant wall thickening. This is new since the prior study, however. Early strangulation cannot be excluded Findings discussed with Dr. Hwang at [address] Tanker Serviceman: JESSE Transcribe Date/Time: Sep 19 2024 4:55P Dictated by : SANDRA GOODMAN MD This examination was interpreted and the report reviewed and electronically signed by: SANDRA GOODMAN MD on Sep 19 2024 5:11PM EST [id number] Normal [facility] Comprehensive metabolic 2000 panelon 09-19-2024 Albumin [Mass/Vol] 4.2 g/dL Normal 3.9-4.9 [facility] Comment on above: Order Comment: Speci men Type: BLOOD SPECIMEN Ordering Facility: [facility] Address: [address] [place] [address] Performed By: #### 2 4323-8 #### [facility] CLIA [id number] [address] STATES OF [facility] ALP [Catalytic activity/Vol] 101 U/L Normal 38-113 [facility] Comment on above: Order Comment: Speci men Type: BLOOD SPECIMEN Ordering Facility: [facility] Address: [address] [place] [address] Performed By: #### 2 4323-8 #### [facility] CLIA [id number] [address] ALT [Catalytic activity/Vol] 10 U/L Normal 10-54 [facility] Comment on above: Order Comment: Speci men Type: BLOOD SPECIMEN Ordering Facility: [facility] Address: [address] [place] [address] Performed By: #### 2 4323-8 #### [facility] CLIA [id number] [address] Anion gap [Moles/Vol] 13 mmol/L Normal 8-15 [facility] Comment on above: Order Comment: Speci men Type: BLOOD SPECIMEN Ordering Facility: [facility] Address: [address] [place] [address] Performed By: #### 2 4323-8 #### [facility] CLIA [id number] [address] [place] [address] [place] AST [Catalytic activity/Vol] 19 U/L Normal 14-40 [facility] Comment on above: Order Comment: Speci men Type: BLOOD SPECIMEN Ordering Facility: [facility] Address: [address] [place] [address] Performed By: #### 2 4323-8 #### [facility] CLIA [id number] [address] [place] [address] [place] Bilirubin [Mass/Vol] 0.8 mg/dL Normal 0.2-1.3 [facility] Comment on above: Order Comment: Speci men Type: BLOOD SPECIMEN Ordering Facility: [facility] Address: [address] [place] [address] Performed By: #### 2 4323-8 #### [facility] CLIA [id number] [address] [place] [address] [place] Calcium [Mass/Vol] 9.3 mg/dL Normal 8.5-10.2 [facility] Comment on above: Order Comment: Speci men Type: BLOOD SPECIMEN Ordering Facility: [facility] Address: [address] [place] [address] Performed By: #### 2 4323-8 #### [facility] CLIA [id number] [address] [place] [address] [place] Chloride [Moles/Vol] 101 mmol/L Normal 98-107 [facility] Comment on above: Order Comment: Speci men Type: BLOOD SPECIMEN Ordering Facility: [facility] Address: [address] [place] [address] Performed By: #### 2 4323-8 #### [facility] CLIA [id number] [address] [place] [address] [place] CO2 [Moles/Vol] 25 mmol/L Normal 22-30 [facility] Comment on above: Order Comment: Speci men Type: BLOOD SPECIMEN Ordering Facility: [facility] Address: [address] [place] [address] Performed By: #### 2 4323-8 #### [facility] CLIA [id number] [address] STATES OF [facility] Creatinine [Mass/Vol] 1.13 mg/dL Normal 0.73-1.22 [facility] Comment on above: Order Comment: John agustin Type: BLOOD SPECIMEN Ordering Facility: [facility] Address: [address] [place] [address] Performed By: #### 2 4323-8 #### [facility] CLIA [id number] [address] Creatinine and Glomerular filtration rate.predicted panel (S/P/Bld) 73 mL/min/1.73m??? Normal >=60 [facility] Comment on above: Order Comment: John agustin Type: BLOOD SPECIMEN Ordering Facility: [facility] Address: [address] [place] [address] Result Comment: Neha mated Glomerular Filtration Rate (eGFR) is calculated using the 2020 CKD-EPI creatinine equation. This equation utilizes serum creatinine, sex, and age as parameters. The creatinine assay has traceable calibration to isotope dilution-mass spectrometry. Refer to KDIGO guidelines for clinical interpretation. In patients with unstable renal function, e.g. those with acute kidney injury, the eGFR may not accurately reflect actual GFR. Performed By: #### 2 4323-8 #### [facility] CLIA [id number] [address] STATES OF [facility] Glucose [Mass/Vol] 95 mg/dL Normal 74-99 [facility] Comment on above: Order Comment: John agustin Type: BLOOD SPECIMEN Ordering Facility: [facility] Address: [address] [place] [address] Result Comment: The [place] Diabetes Association (ADA) provides guidance for cutoff values for fasting glucose and random glucose. The ADA defines fasting as no caloric intake for at least 8 hours. Fasting plasma glucose results between 100 to 125 mg/dL indicate increased risk for diabetes (prediabetes). Fasting plasma glucose results greater than or equal to 126 mg/dL meet the criteria for diagnosis of diabetes. In the absence of unequivocal hyperglycemia, results should be confirmed by repeat testing. In a patient with classic symptoms of hyperglycemia or hyperglycemic crisis, random plasma glucose results greater than or equal to 200 mg/dL meet the criteria for diagnosis of diabetes. Reference: Standards of Medical Care in Diabetes 2016, [place] [employer] Association. Diabetes Care. 2016.39(Suppl 1). Performed By: #### 2 4323-8 #### [facility] CLIA [id number] [address] [place] [address] [place] Potassium [Moles/Vol] 4.1 mmol/L Normal 3.7-5.1 [facility] Comment on above: Order Comment: Speci men Type: BLOOD SPECIMEN Ordering Facility: [facility] Address: [address] [place] [address] Performed By: #### 2 4323-8 #### [facility] CLIA [id number] [address] [place] Protein [Mass/Vol] 7.2 g/dL Normal 6.3-8.0 [facility] Comment on above: Order Comment: Speci men Type: BLOOD SPECIMEN Ordering Facility: [facility] Address: [address] [place] [address] Performed By: #### 2 4323-8 #### [facility] CLIA [id number] [address] Sodium [Moles/Vol] 139 mmol/L Normal 136-144 [facility] Comment on above: Order Comment: Luchoi men Type: BLOOD SPECIMEN Ordering Facility: [facility] Address: [address] [place] [address] Performed By: #### 2 4323-8 #### [facility] CLIA [id number] [address] [place] U[place] nitrogen [Mass/Vol] 18 mg/dL Normal 9-24 [facility] Comment on above: Order Comment: Speci men Type: BLOOD SPECIMEN Ordering Facility: [facility] Address: [address] [place] [address] Performed By: #### 2 4323-8 #### [facility] CLIA [id number] [address] OF [facility] ED NOTEon 09-19-2024 ED NOTE HNO ID: [id number] Author: YUDY GONZALEZ RN Service: ? Author Type: Registered Nurse Type: ED Notes Filed: 09/19/2024 21:03 Note Text: Bed: E12-14 Expected date: Expected time: Means of arrival: Comments: TCI Normal [facility] ED NOTE HNO ID: [id number] Author: DAVID CHÁVEZ, HA Service: ? Author Type: Registered Nurse Type: ED Notes Filed: 09/19/2024 20:12 Note Text: 300 mL pink liquid emptied from NG tube [facility] ED NOTE HNO ID: [id number] Author: RUPERTO BROWN, HA Service: Nursing Author Type: Registered Nurse Type: ED Notes Filed: 09/19/2024 19:55 Note Text: Report given to [facility] ED pharmacist in charge owner. [facility] ED NOTE HNO ID: [id number] Author: RUPERTO BROWN RN Service: Nursing Author Type: Registered Nurse Type: ED Notes Filed: 09/19/2024 19:52 Note Text: Report given to transport team. [facility] ED NOTE HNO ID: [id number] Author: ZONIA BALL, HA Service: ? Author Type: Registered Nurse Type: ED Notes Filed: 09/19/2024 19:31 Note Text: Patient tolerated NG tube placement well, placed on low intermittent wall suction. [facility] ED PROV NOTEon 09-19-2024 ED PROV NOTE HNO ID: [id number] Author: MOJGAN BRENNAN MD Service: Emergency Medicine Author Type: Resident Type: ED Provider Notes Filed: 09/20/2024 15:05 Note Text: -- Attestation signed by Mojgan Brennan MD at 09/20/2024 3:05 PM [facility] STAFF PHYSICIAN NOTE OF PERSONAL INVOLVEMENT IN CARE I evaluated the patient and personally participated in the davis components. I agree with the resident's findings and plan with the following revisions and/or additions: History revisions or additions: Lance Bee is 63 year old who presents reporting abdominal pain. Intermittent for 2 weeks, epigastric and right upper, severe. Associated symptoms include nausea and mostly non-bloody emesis, did have a few streaks of blood yesterday. Denies diarrhea. Rare bm. +flatus Exam revisions or additions: Alert with grossly normal mental status Non-toxic appearing NGT in place draining clear blood tinged and some frankly bloody secretions. No epistaxis. Rrr, no murmur Non-labored breathing, normal air movement, clear lungs Mild epigastric tenderness, no guarding LE symmetric and non-tender MDM/Plan: Vital signs, triage records, nursing notes, and medical records reviewed. Lance Bee is 63 year old with pmhx as noted including paraesophageal hernia. I took the transfer call. [facility] d/w Dr. Nikolas Bonner. 63M with history of paraesophageal hernia, p/w abdominal pain, third visit, ct read is no acute findings. I d/w Dr. Bonner on transfer line, possibility of emergent surgery/ not tolerating clears/ image reviewed. consult surgery immediately on arrival This patient arrived via ED to ED transfer for surgery consultation regarding concern for incarcerated paraesophageal hernia. The patient was alert, nontoxic without a peritoneal exam on my evaluation. Surgery was consulted recommending admission to their service with tentative plan for operative management. Will continue NG tube to low intermittent suction and monitoring as we transition care to surgical team Signature: Mojgan Brennan MD Date: 09/20/2024 Time: 3:03 PM -- ED Provider Note Patient Name: Lance Bee : 1960 SERVICE DATE: 09/19/24 History Patient presents with: Nausea AND Vomiting: Pt BIB [facility] for para-esophageal hernia, N/V . Pt transferred from [facility]. Pt denies CP and SOB. HPI 63-year-old male with history of generalized anxiety disorder, strokes obstructive sleep apnea, and history paraesophageal/gastric hiatal hernia presenting as a transfer from [facility] for concerns of incarcerated paraesophageal hiatal hernia. Per patient, he states that he has had severe abdominal pain for approximately 1 month and severe over the last 2 weeks. Says he has not been able to keep any food down for 2 weeks. Has had recurrent emesis with occasional episodes containing streaks of blood. No problems with stooling. Denies smoking, alcohol use, recreational drug use. No recent illness. Takes no medications. Denies any significant past medical problems. PAST MEDICAL HISTORY Diagnosis Date - Anxiety 11/01/2015 - Asymptomatic microscopic hematuria 2017 - Contact dermatitis and other eczema, due to unspecified cause - DDD (degenerative disc disease), lumbar 02/10/2013 - Depression - Dog bite of right lower leg 2000 with recurrent wounds - Gastritis, presence of bleeding unspecified, unspecified chronicity, unspecified gastritis type 12/06/2023 - Hiatal hernia 02/24/2023 medium on EGD - Hypertension goal BP (blood pressure) < 130/80 - Impaired glucose metabolism 09/26/2014 A1c 6.1% September 2014 - Obesity (BMI 35.0-39.9 without comorbidity) 08/10/2018 - Obesity, Class I, BMI 30-34.9 04/06/2024 - Open wound of knee, leg (except thigh), and ankle, complicated - Open wound of right lower extremity 07/24/2017 - YAIMA (obstructive sleep apnea) no CPAP tried by choice. 12/20/2014 - Paraesophageal hernia 09/16/2023 - Personal history of skin cancer 01/30/2016 Dr. Melody Trammell, Dermatology annually. - Primary insomnia 11/01/2015 - Reflex sympathetic dystrophy Right leg. Dr. Ware, pain management. - Restless legs 05/20/2015 - Small bowel obstruction (HCC) 09/16/2023 - Squamous cell carcinoma of lower leg 09/23/2012 Skin graft x2- Dr. Cook, Dr. [facility] [place] Dr. Trammell - Tubular adenoma of colon 02/24/2023 - Ulcer of other part of foot PAST SURGICAL HISTORY Procedure Laterality Date - COLONOSCOPY 10/27/2016 INCOMPLETE- CT colonography 03/31/18 diverticular disease. Repeat 5-10yrs - COLONOSCOPY SCREENING 02/24/2023 - EGD 10/27/2016 - EGD 11/24/2023 - EGD W/O BRSH SPEC VARICIES INJ 02/24/2023 - LAPAROSCOPY SURG RPR INITIAL INGUINAL HERNIA Right 12/26/2004 - PAST SURGICAL HISTORY OF Right 2012 excision o (more content not included)... Normal [facility] ED PROV NOTE HNO ID: [id number] Author: SCAR HWANG MD Service: ? Author Type: Physician Type: ED Provider Notes Filed: 09/19/2024 17:41 Note Text: ED Provider Note Patient Name: Lance Bee : 1960 SERVICE DATE: 09/19/24 History Patient presents with: Nausea AND Vomiting: I CAN'T DIGEST ANYTHING I EAT AND THEN VOMIT IT BACK UP HAS MODERATE PARAESOPHAGEAL HERNIA THAT HAS CONCERN FOR STOMACH INCARCERATION PER CT SCAN DONE AT [facility] on 09/17/24' IMPRESSION: 1. Moderate-sized paraesophageal hernia with wall edema and stranding of the herniated portion of the stomach, concerning for developing incarceration. Surgical consultation recommended. 2. Cholelithiasis without evidence of acute cholecystitis. Ultrasound evaluation will not be useful given incidental gas within the gallstones. 3. Nonobstructing right lower pole renal calculus. 63-year-old male with history of generalized anxiety disorder, strokes obstructive sleep apnea, and history paraesophageal/gastric hiatal hernia who presents with intractable nausea and vomiting for 2 weeks. Patient has been diagnosed with a paraesophageal hiatal hernia with edema and stranding of the stomach within the hiatal hernia on CT done on 09/12 and 09/17 at [place] emergency department. Patient has an appointment at the end of September with a Dr. Valles but he does not feel he can make it due to intractable nausea and vomiting. He is unable to keep any kind of food or thickened liquid down. He was seen at [place] emergency department on 09/17 and they told him if he has continuing symptoms to come to [facility] ED. PAST MEDICAL HISTORY Diagnosis Date Anxiety 11/01/2015 Asymptomatic microscopic hematuria 2017 Contact dermatitis and other eczema, due to unspecified cause DDD (degenerative disc disease), lumbar 02/10/2013 Depression Dog bite of right lower leg 2000 with recurrent wounds Gastritis, presence of bleeding unspecified, unspecified chronicity, unspecified gastritis type 12/06/2023 Hiatal hernia 02/24/2023 medium on EGD Hypertension goal BP (blood pressure) < 130/80 Impaired glucose metabolism 09/26/2014 A1c 6.1% September 2014 Obesity (BMI 35.0-39.9 without comorbidity) 08/10/2018 Obesity, Class I, BMI 30-34.9 04/06/2024 Open wound of knee, leg (except thigh), and ankle, complicated Open wound of right lower extremity 07/24/2017 YAIMA (obstructive sleep apnea) no CPAP tried by choice. 12/20/2014 Paraesophageal hernia 09/16/2023 Personal history of skin cancer 01/30/2016 Dr. Melody Trammell, Dermatology annually. Primary insomnia 11/01/2015 Reflex sympathetic dystrophy Right leg. Dr. Ware, pain management. Restless legs 05/20/2015 Small bowel obstruction (HCC) 09/16/2023 Squamous cell carcinoma of lower leg 09/23/2012 Skin graft x2- Dr. Cook, Dr. [facility]- [place] Dr. Trammell Tubular adenoma of colon 02/24/2023 Ulcer of other part of foot PAST SURGICAL HISTORY Procedure Laterality Date COLONOSCOPY 10/27/2016 INCOMPLETE- CT colonography 03/31/18 diverticular disease. Repeat 5-10yrs COLONOSCOPY SCREENING 02/24/2023 EGD 10/27/2016 EGD 11/24/2023 EGD W/O BRSH SPEC VARICIES INJ 02/24/2023 LAPAROSCOPY SURG RPR INITIAL INGUINAL HERNIA Right 12/26/2004 PAST SURGICAL HISTORY OF Right 2011 excision of tumor, right leg PAST SURGICAL HISTORY OF Right 2014 skin grafts, right leg. 2012,2013. FAMILY HISTORY Problem Relation Age of Onset other (scleroderma) Mother Cancer Father pancreatic No Known Problems Sister 1/2 siblings No Known Problems Sister No Known Problems Brother 1/2 siblings Social History Tobacco Use Smoking status: Never Smokeless tobacco: Never Vaping Use Vaping status: Never Used Substance and Sexual Activity Alcohol use: Not Currently Drug use: Not Currently Types: Marijuana Sexual activity: Not Currently Partners: Female ALLERGIES No Known Allergies Review of Systems Constitutional: Negative for chills and fever. HENT: Negative for congestion. Respiratory: Negative for cough and shortness of breath. Cardiovascular: Negative for chest pain. Gastrointestinal: Positive for nausea and vomiting. Neurological: Negative for headaches. Physical Exam Vitals [09/19/24 1355] BP Pulse Temp Temp src Resp SpO2 Weight Height 142/91 86 36.5 ?C (97.7 ?F) Oral 16 97 % 91.2 kg (201 lb) -- Physical Exam Vitals and nursing note reviewed. Constitutional: General: He is not in acute distress. Appearance: Normal appearance. He is well-developed. HENT: Head: Normocephalic and atraumatic. Right Ear: External ear normal. Left Ear: External ear normal. Nose: Nose normal. Mouth/Throat: Mouth: Mucous membranes are moist. Pharynx: Oropharynx is clear. Eyes: Conjunctiva/sclera: Conjunctivae normal. Pupils: Pupils are equal, round, and reactive to light. Cardiovascular: Rate and Rhythm: Normal rate and regular rhythm. (more content not included)... Normal [facility] Abdomen/Pelvis W IV Cont ONL Yon 09-17-2024 Abdomen/Pelvis W IV Cont ONLY [facility] [address] [place], [place] [address] Abdomen/Pelvis W IV Cont ONLY MR#: [id number] Acct: [id number] Name: LANCE BEE Rep #: [id number] : 1960 M 63 From: Noemi Gonzalez nd, MD PCP: Dr. Lance Jorgensen MD Status: REG ER Study: Abdomen/Pelvis W IV Cont ONLY Date of Exam: Exam# [id number] Ordering Dr: Carlos Noel MD PROCEDURE: ABDOMEN/PELVIS W IV CONT ONLY 09/17/2024 REASON FOR EXAM: NAUSEA AND VOMITING TECHNIQUE: Abdomen and pelvis CT with intravenous contrast. Coronal and Sagittal reconstruction series were provided. PATIENT PREPARATION: Per protocol ORAL CONTRAST TYPE: None. CONTRAST: Isovue 370 VOLUME: 100 mL One or more dose reduction techniques were used (e.g., Automated exposure control, adjustment of the mA and/or kV according to patient size, use of iterative reconstruction technique. RADIATION DOSE SUMMARY: CTDlvol: 20 mGy DLP: 1200 mGycm COMPARISON: None. FINDINGS: Lung bases: Bibasilar atelectasis. The heart is normal in size with coronary artery calcifications. Liver: The liver is normal in size without focal hepatic mass. The major portal veins are patent. No biliary ductal dilation. Gallbladder: Cholelithiasis with radial gas fissuring within the stones. No gallbladder wall thickening or pericholecystic fluid. Spleen: Normal size. Pancreas: Unremarkable. Adrenals: No adrenal mass. Kidneys: Bilateral renal cysts and additional hypodensities. Nonobstructing right lower pole renal calculus. No hydronephrosis. Bladder: The gallbladder is mildly distended and unremarkable. Reproductive Organs: Dystrophic calcifications within the prostate gland. Bowel: Moderate-sized paraesophageal hiatal hernia, with the distal gastric body herniated above the level of the diaphragm. There is moderate stranding and wall edema of the herniated stomach portion. The bowel loops are otherwise normal caliber. No ascites or pneumoperitoneum. No inflammatory mass in the expected region of the appendix. Lymph nodes: No suspicious lymph node enlargement. Vasculature: The abdominal aorta and IVC are normal. Bones/soft tissues: Prior hernia repair with surgical mesh anchors along the right lower pelvis. Mild thoracolumbar spondylosis. CT/Abdomen/Pelvis W IV Cont ONLY IMPRESSION: 1. Moderate-sized paraesophageal hernia with wall edema and stranding of the herniated portion of the stomach, concerning for developing incarceration. Surgical consultation recommended. 2. Cholelithiasis without evidence of acute cholecystitis. Ultrasound evaluation will not be useful given incidental gas within the gallstones. 3. Nonobstructing right lower pole renal calculus. Reading Location: [facility] CC: Dr. Carlos Noel MD; Dr. 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 Normal [facility] Absolute lymphocyte countOrd ered By: Carlos Noel on 09-17-2024 Lymphocytes Auto (Unsp spec) [#/Vol] 2.06 10*3/uL 0.83-4.51 [facility] Absolute neutrophil countOrd ered By: Carlos Noel on 09-17-2024 Neutrophils (Bld) [#/Vol] 4.7 10*3/uL 2.0-7.7 [facility] Anion gap in Serum or Plasma Ordered By: Carlos Noel on 09-17-2024 Anion gap [Moles/Vol] 11 mmol/L 5-15 [facility] Automated lymphocyte count a s percentage of total leukocytesOrdered By: Carlos Noel on 09-17-2024 Lymphocytes/100 WBC Auto (Unsp spec) 27.3 % 19-41 [facility] BUN/creatinine ratioOrdered By: Carlos Noel on 09-17-2024 Urea nitrogen/Creatinine [Mass ratio] 15.2 mg/mg 10- [facility] Basophil percentageOrdered B y: Carlos Noel on 09-17-2024 Basophils/100 WBC (Bld) 0.5 % 0-1 [facility] Bilirubin, totalOrdered By: Carlos Noel on 09-17-2024 Bilirubin [Mass/Vol] 0.55 mg/dL 0.00-1.30 [facility] CBC W/Diff, Automatedon 06-0 -2024 Absolute Lymph 2.06 X10 3/uL Normal 0.83-4.51 [facility] Comment on above: Performed By: #### L 501.2450, L500.4050, L100.0100 #### [facility] [address] [place], [address] Absolute Neut 4.7 X10 3/uL Normal 2.0-7.7 [facility] Comment on above: Performed By: #### L 501.2450, L500.4050, L100.0100 #### [facility] [address] [place], [address] Basophils/100 WBC (Bld) 0.5 % Normal 0-1 [facility] Comment on above: Performed By: #### L 501.2450, L500.4050, L100.0100 #### [facility] [address] [place], [address] Eosinophils/100 WBC (Bld) 1.2 % Normal 0-5 [facility] Comment on above: Performed By: #### L 501.2450, L500.4050, L100.0100 #### [facility] [address] [place], [address] Erythrocyte distribution width (RBC) [Ratio] 12.9 % Normal 11.6-14.6 [facility] Comment on above: Performed By: #### L 501.2450, L500.4050, L100.0100 #### [facility] [address] [place], [address] Hematocrit (Bld) [Volume fraction] 44.4 % Normal 40-54 [facility] Comment on above: Performed By: #### L 501.2450, L500.4050, L100.0100 #### [facility] [address] [place], [address] Hemoglobin (Bld) [Mass/Vol] 15.7 g/dL Normal 13.0-16.5 [facility] Comment on above: Performed By: #### L 501.2450, L500.4050, L100.0100 #### [facility] [address] [place], [address] IG% 0.100 Normal 0.0-0.9 [facility] Comment on above: Result Comment: IG% - Immature Granulocytes (promyelocytes, myelocytes and metamyelocytes) > 1% indicates that a LEFT SHIFT is Present. Performed By: #### L 501.2450, L500.4050, L100.0100 #### [facility] [address] [place], [address] Lymphocytes/100 WBC (Bld) 27.3 % Normal 19-41 [facility] Comment on above: Performed By: #### L 501.2450, L500.4050, L100.0100 #### [facility] [address] [place], [address] MCH (RBC) [Entitic mass] 30.4 pg Normal 27.0-32.0 [facility] Comment on above: Performed By: #### L 501.2450, L500.4050, L100.0100 #### [facility] [address] [place], [address] MCHC (RBC) [Mass/Vol] 35.4 g/dL Normal 32-36 [facility] Comment on above: Performed By: #### L 501.2450, L500.4050, L100.0100 #### [facility] [address] [place], [address] MCV (RBC) [Entitic vol] 86.0 fL Normal 80-94 [facility] Comment on above: Performed By: #### L 501.2450, L500.4050, L100.0100 #### [facility] [address] [place], [address] Monocytes/100 WBC (Bld) 8.0 % Normal 0-10 [facility] Comment on above: Performed By: #### L 501.2450, L500.4050, L100.0100 #### [facility] [address] [place], [address] Neutrophils/100 WBC (Bld) 62.9 % Normal 47-70 [facility] Comment on above: Performed By: #### L 501.2450, L500.4050, L100.0100 #### [facility] [address] [place], [address] Nucleated RBC (Bld) [#/Vol] 0 10*3/uL Normal 0-5 [facility] Comment on above: Performed By: #### L 501.2450, L500.4050, L100.0100 #### [facility] [address] [place], [address] Platelet mean volume (Bld) [Entitic vol] 11.1 fL Normal 6.2-12.0 [facility] Comment on above: Performed By: #### L 501.2450, L500.4050, L100.0100 #### [facility] [address] [place], [address] Platelets (Bld) [#/Vol] 176 10*3/uL Normal 150-450 [facility] Comment on above: Performed By: #### L 501.2450, L500.4050, L100.0100 #### [facility] [address] [place], [address] RBC (Bld) [#/Vol] 5.16 10*6/uL Normal 4.6-6.2 [facility] Comment on above: Performed By: #### L 501.2450, L500.4050, L100.0100 #### [facility] [address] [place], [address] RDW SD 40.2 fl Normal 35.1-43.9 [facility] Comment on above: Performed By: #### L 501.2450, L500.4050, L100.0100 #### [facility] [address] [place], [address] WBC (Bld) [#/Vol] 7.5 10*3/uL Normal 4.4-11.0 [facility] Comment on above: Performed By: #### L 501.2450, L500.4050, L100.0100 #### [facility] [address] [place], [address] Carbon dioxide, total [Moles /volume] in Central venous bloodOrdered By: Carlos Noel on 09-17-2024 CO2 [Moles/Vol] 22.6 mmol/L 21.0-32.0 [facility] Chloride assayOrdered By: Hong Noel on 09-17-2024 Chloride [Moles/Vol] 107 mmol/L 98-108 [facility] Comprehensive Metabolic Prof ilon 09-17-2024 Albumin [Mass/Vol] 4.0 g/dL Normal 3.4-4.8 [facility] Comment on above: Performed By: #### L 501.2450, L500.4050, L100.0100 #### [facility] [address] [place], [address] Albumin/Globulin [Mass ratio] 1.5 {ratio} Normal 0.9-2.4 [facility] Comment on above: Performed By: #### L 501.2450, L500.4050, L100.0100 #### [facility] [address] [place], [address] ALK PHOS 99 U/L Normal 40-129 [facility] Comment on above: Performed By: #### L 501.2450, L500.4050, L100.0100 #### [facility] [address] [place], [address] ALT [Catalytic activity/Vol] 10 U/L Normal <=46 [facility] Comment on above: Performed By: #### L 501.2450, L500.4050, L100.0100 #### [facility] [address] [place], [address] AST [Catalytic activity/Vol] 21 U/L Normal <=37 [facility] Comment on above: Performed By: #### L 501.2450, L500.4050, L100.0100 #### [facility] [address] [place], [address] Bilirubin [Mass/Vol] 0.55 mg/dL Normal 0.00-1.30 [facility] Comment on above: Performed By: #### L 501.2450, L500.4050, L100.0100 #### [facility] [address] [place], [address] BUN/CRE 15.2 RATIO Normal 10-20 [facility] Comment on above: Performed By: #### L 501.2450, L500.4050, L100.0100 #### [facility] [address] [place], [address] Calcium [Mass/Vol] 9.4 mg/dL Normal 7.6-11.0 [facility] Comment on above: Performed By: #### L 501.2450, L500.4050, L100.0100 #### [facility] [address] [place], [address] Chloride [Moles/Vol] 107 mmol/L Normal 98-108 [facility] Comment on above: Performed By: #### L 501.2450, L500.4050, L100.0100 #### [facility] [address] [place], [address] CO2 [Moles/Vol] 22.6 mmol/L Normal 21.0-32.0 [facility] Comment on above: Performed By: #### L 501.2450, L500.4050, L100.0100 #### [facility] [address] [place], [address] Creatinine [Mass/Vol] 0.98 mg/dL Normal 0.70-1.20 [facility] Comment on above: Performed By: #### L 501.2450, L500.4050, L100.0100 #### [facility] [address] [place], [address] ECRCL 83.24 ml/min Normal 50-250 [facility] Comment on above: Performed By: #### L 501.2450, L500.4050, L100.0100 #### [facility] [address] [place], [address] GAP 11 Normal 5-15 [facility] Comment on above: Performed By: #### L 501.2450, L500.4050, L100.0100 #### [facility] [address] [place], [address] GFR/1.73 sq M.predicted among non-blacks MDRD (S/P/Bld) [Vol rate/Area] 87 mL/min/{1.73_m2} Normal >60 [facility] Comment on above: Result Comment: mL/m in/1.73m2 CKD-EPI Creatinine Equation (2020) Performed By: #### L 501.2450, L500.4050, L100.0100 #### [facility] [address] [place], [address] Globulin (S) [Mass/Vol] 2.7 g/dL Normal 2.2-4.2 [facility] Comment on above: Performed By: #### L 501.2450, L500.4050, L100.0100 #### [facility] [address] [place], [address] Glucose [Mass/Vol] 99 mg/dL Normal 70-99 [facility] Comment on above: Performed By: #### L 501.2450, L500.4050, L100.0100 #### [facility] [address] [place], [address] Potassium [Moles/Vol] 4.0 mmol/L Normal 3.3-5.1 [facility] Comment on above: Performed By: #### L 501.2450, L500.4050, L100.0100 #### [facility] [address] [place], [address] Sodium [Moles/Vol] 141 mmol/L Normal 133-145 [facility] Comment on above: Performed By: #### L 501.2450, L500.4050, L100.0100 #### [facility] [address] [place], [address] T PROT 6.7 g/dL Normal 5.9-8.4 [facility] Comment on above: Performed By: #### L 501.2450, L500.4050, L100.0100 #### [facility] [address] [place], [address] Urea nitrogen [Mass/Vol] 15 mg/dL Normal 4-19 [facility] Comment on above: Performed By: #### L 501.2450, L500.4050, L100.0100 #### [facility] [address] [place], [address] Emergency Department Summary on 09-17-2024 Emergency Department Summary [facility] Medical Records Department [address] [place] [address] Emergency Department Summary 09/17/24 MR#: [id number] Acct: [id number] Name: LANCE BEE Rep #: [id number] : 1960 63 From: Carlos Noel MD PCP: Dr. Lance Jorgensen MD Status:REG ER Location: ED HPI HPI - GI History of Present Illness Chief Complaint: Nausea/Vomiting Informant: patient Nausea/Vomiting/Emesis GI Symptom: Positive for Nausea and Vomiting Onset: Weeks Severity: Mild Diarrhea/Melena/Hematochez ia GI Symptom: Negative for Diarrhea, Melena or Hematochezia Associated Symptoms Associated Symptoms: Negative for Dysuria, Frequency, Hematuria or Urgency Narrative Narrative: 63-year-old male history of prior small bowel obstruction about a year ago in [place]. For the last several weeks he has had intermittent nausea vomiting. She is okay to be drinks fluid but if he eats food a lot of times of nausea and vomiting. He was on Wegovy for weight loss lost about 60 pounds was on it for about 3 months he has been off of that now about 1 to 2 months. Denies any abdominal pain no fever. No dysuria. No prior abdominal surgery. History of a hiatal hernia. Prior similar symptoms: Yes Recent Illness/Hospitalization: No [facility] Medical History HTN (hypertension) Home Medications ???Medication ???Instructions ???Recorded ???Last Taken ???Type hydrochlorothiazide 25 mg tablet 25 mg PO DAILY 06/17/17 Unknown Hi story oxycodone 5 mg tablet 20 mg 06/17/17 Unknown History venlafaxine 150 mg tablet,extended 150 mg PO 06/17/17 Unknown Histo ry release 24 hr ondansetron 4 mg disintegrating 4 mg PO Q6H PRN nausea and 5 Unknown Rx tablet vomiting #7 tabs Allergy/AdvReac Type Severity Reaction Status Date / Time No Known Allergies Allergy Verified 09/17/24 09:52 Social History Smoking Status: Never smoker ROS ROS ED ROS Narrative Nausea and vomiting. Weight loss. Constitutional Constitutional ED: Denies chills or fever(s) ENT ENT ED: Denies ear pain Cardiovascular Cardiovascular: Denies chest pain Respiratory/Chest Respiratory/Chest: Denies cough or dyspnea Gastrointestinal Gastrointestinal: Reports nausea and vomiting; Denies abdominal pain, constipation, diarrhea or melena Genitourinary Genitourinary ED: Denies dysuria or hematuria Musculoskeletal Musculoskeletal: Denies arthralgias Integumentary Denies abscess Neurologic Neurologic: Denies headache(s) Psychiatric Psychiatric: Denies anxiety Endocrine Endocrinology: Denies polydipsia Hematologic/Lymphatic Hematologic/Lymphatic: Denies easy bleeding Allergic/Immunologic Allergic/Immunologic ED: Denies mouth swelling, tongue swelling or urticaria EXAM Physical Exam Narrative Exam Narrative: 63-year-old male sitting upright in bed. Vital signs are stable afebrile. H EENT exam pupils round reactive light. Moist Reagan membranes. Neck nontender no lymphadenopathy. Lungs clear to auscultation bilaterally. Heart regular rhythm no murmur. Abdomen is soft, nontender, nondistended normal bowel sounds without peritoneal signs. Abdomen is completely nontender. No obstruction. Moving all 4 extremities. Nontender no edema. Normal range of motion. Back nontender. Neurologically is awake alert. Answering questions following commands. Const Vital Signs: 09/17/24 09:52 09/17/24 11:52 Temperature 97.0 F L Temperature Source Temporal Pulse Rate 97 80 Respiratory Rate 18 Blood Pressure 123/96 H 138/86 H Blood Pressure Mean 105 103 Pulse Ox 99 100 Oxygen Delivery Method Room Air Room Air Positive well nourished and well developed; Negative for cachectic, contractures or unkempt General Appearance ED: well developed and NAD; Negative for unkempt, cachectic, contractures or pallor Nutritional Appearance: Negative for cachectic HEENT Reports moist mucous membranes normocephalic and atraumatic Eyes PERRL and EOMs intact bilaterally General Eye ED: Negative for pale conjunctiva or scleral icterus Neck no lymphadenopathy, supple and no JVD General: Negative for tenderness Resp normal respiratory effort and clear to auscultation bilaterally Effort and Inspection: Negative for respiratory distress Auscultation: Negative for rales, rhonchi, wheezes or diminished lung sounds Cardio regular rate, regular rhythm, S1 normal heart sound, S2 normal heart sound and no murmurs GI non-tender, non-distended and no masses Inspection: Negative for abdominal distention Auscultation: normoactive bowel sounds Palpation: soft; Negative for tender, guarding, hernia, mass, pulsatile mass or rebound tenderness present Back/Spine no CVA (more content not included)... Normal [facility] Eosinophil percentageOrdered By: Carlos Noel on 09-17-2024 Eosinophils/100 WBC (Bld) 1.2 % 0-5 [facility] Erythrocyte distribution wid th ratioOrdered By: Carlos Noel on 09-17-2024 Erythrocyte distribution width (RBC) [Ratio] 12.9 % 11.6-14.6 [facility] Erythrocyte distribution wid th standard deviationOrdered By: Carlos Noel on 09-17-2024 Erythrocyte distribution width (RBC) [Ratio] 40.2 fl 35.1-43.9 [facility] Glomerular filtration rate ( GFR) estimation/1.73 sq m using serum, plasma, or whole bOrdered By: Carlos Noel on 09-17-2024 GFR/1.73 sq M.predicted among non-blacks MDRD (S/P/Bld) [Vol rate/Area] 87 mL/min/{1.73_m2} >60 [facility] Comment on above: mL/min/1.73m2 CKD-EP I Creatinine Equation (2020) Hematocrit Auto (Bld) [Volum e fraction]Ordered By: Carlos Noel on 09-17-2024 Hematocrit (Bld) [Volume fraction] 44.4 % 40-54 [facility] Hemoglobin measurementOrdere d By: Carlos Noel on 09-17-2024 Hemoglobin (Bld) [Mass/Vol] 15.7 g/dL 13.0-16.5 [facility] Immature granulocytes/100 WB C Auto (Bld)Ordered By: Carlos Noel on 09-17-2024 Immature granulocytes/100 WBC (Bld) 0.100 % 0.0-0.9 [facility] Comment on above: IG% - Immature Granu locytes (promyelocytes, myelocytes and metamyelocytes) > 1% indicates that a LEFT SHIFT is Present. Laboratory - Chemistry and C hemistry - challengeOrdered By: Carlos Noel on 09-17-2024 AST [Catalytic activity/Vol] 21 U/L <38 [facility] Lipaseon 09-17-2024 Lipase [Catalytic activity/Vol] 89 U/L High 13-75 [facility] Comment on above: Result Comment: Sherif hurley note: LIPASE revised reference range effective 22. New Lipase methodology. Expected to produce lower values than the previous assay method. NEW Reference Range: 13 - 75 U/L Performed By: #### L 501.2450, L500.4050, L100.0100 #### [facility] [address] [place], [address] Lipase measurementOrdered By : Carlos Noel on 09-17-2024 Lipase [Catalytic activity/Vol] 89 U/L High 13-75 [facility] Comment on above: Please note:LIPASE r evised reference range effective 22. New Lipase methodology. Expected to produce lower values than the previous assay method. NEW Reference Range: 13 - 75 U/L MCV (mean corpuscular volume ) determinationOrdered By: Carlos Noel on 09-17-2024 MCV (RBC) [Entitic vol] 86.0 fL 80-94 [facility] Mean corpuscular hemoglobin (MCH) determinationOrdered By: Carlos Noel on 09-17-2024 MCH (RBC) [Entitic mass] 30.4 pg 27.0-32.0 [facility] Mean corpuscular hemoglobin concentration (MCHC) determinationOrdered By: Carlos Noel on 09-17-2024 MCHC (RBC) [Mass/Vol] 35.4 g/dL 32-36 [facility] Mean platelet volume determi nationOrdered By: Carlos Noel on 09-17-2024 Platelet mean volume (Bld) [Entitic vol] 11.1 fL 6.2-12.0 [facility] Monocyte percentageOrdered B y: Carlos Noel on 09-17-2024 Monocytes/100 WBC (Bld) 8.0 % 0-10 [facility] Neutrophil percentageOrdered By: Carlos Noel on 09-17-2024 Neutrophils/100 WBC (Bld) 62.9 % 47-70 [facility] Nucleated red blood cell per centageOrdered By: Carlos Noel on 09-17-2024 Nucleated RBC/100 WBC (Bld) [Ratio] 0 % 0-5 [facility] Platelet countOrdered By: Hong Noel on 09-17-2024 Platelets (Bld) [#/Vol] 176 10*3/uL 150-450 [facility] Potassium measurement (mass/ volume)Ordered By: Carlos Noel on 09-17-2024 Potassium (Unsp spec) [Mass/Vol] 4.0 mmol/L 3.3-5.1 [facility] RBC Auto (Bld) [#/Vol]Ordere d By: Carlos Noel on 09-17-2024 RBC (Bld) [#/Vol] 5.16 10*6/uL 4.6-6.2 [facility] Serum creatinine measurement (mass/volume)Ordered By: Carlos Noel on 09-17-2024 Creatinine [Mass/Vol] 0.98 mg/dL 0.70-1.20 [facility] Serum globulin measurementOr dered By: Carlos Noel on 09-17-2024 Globulin (S) [Mass/Vol] 2.7 g/dL 2.2-4.2 [facility] Serum glucose measurement (m ass/volume)Ordered By: Carlos Noel on 09-17-2024 Glucose [Mass/Vol] 99 mg/dL 70-99 [facility] Serum or plasma alanine beck otransferase (ALT) measurementOrdered By: Carlos Noel on 09-17-2024 ALT [Catalytic activity/Vol] 10 U/L <47 [facility] Serum or plasma albumin archie urement (mass/volume)Ordered By: Carlos Noel on 09-17-2024 Albumin [Mass/Vol] 4.0 g/dL 3.4-4.8 [facility] Serum or plasma albumin/glob ulin mass ratioOrdered By: Carlos Noel on 09-17-2024 Albumin/Globulin [Mass ratio] 1.5 {ratio} 0.9-2.4 [facility] Serum or plasma alkaline sharad sphatase measurementOrdered By: Carlos Noel on 09-17-2024 ALP [Catalytic activity/Vol] 99 U/L 40-129 [facility] Serum or plasma calcium archie urement (mass/volume)Ordered By: Carlos Noel on 09-17-2024 Calcium [Mass/Vol] 9.4 mg/dL 7.6-11.0 [facility] Serum or plasma urea nitroge n measurement (mass/volume)Ordered By: Carlos Noel on 09-17-2024 Urea nitrogen [Mass/Vol] 15 mg/dL 4-19 [facility] Sodium levelOrdered By: Carlos Noel on 09-17-2024 Sodium [Moles/Vol] 141 mmol/L 133-145 [facility] Total proteinOrdered By: Jack Noel on 09-17-2024 Protein [Mass/Vol] 6.7 g/dL 5.9-8.4 [facility] White blood cell (WBC) count Ordered By: Carlos Noel on 09-17-2024 WBC (Bld) [#/Vol] 7.5 10*3/uL 4.4-11.0 [facility] Magnetic resonance imaging r eportOrdered By: Reji Plummer on 09-14-2024 Study report [facility] [address] [place], [place] [address] Spine Lumbar (Routine) MR#: [id number] Acct: [id number] Name: LANCE BEE Rep #: [id number] : 1960 M 63 From: Flaca Plummer MD PCP: Dr. Lance Jorgensen MD Status: R EG CLI Study:Spine Lumbar (Routine) Date of Exam: 09/12/24 Exam# [id number] Ordering Dr: Elsy Ware MD PROCEDURE: SPINE LUMBAR (ROUTINE) 09/12/2024 REASON FOR EXAM: RADICULOPATHY TECHNIQUE: Multiplanar and multisequence images were obtained without IV contrast administration. COMPARISON: None FINDINGS: The vertebral body alignment is maintained. The vertebral body height is maintained. Vertebral body marrow signal is normal. Intervertebral disc signal shows desiccation from L2-5. Normal appearing facetsare noted. The L1-L2 level: There is no significant disk protrusion. There is no lateral recess stenosis or foraminal stenosis. There is no critical central canal stenosis. The L2-L3 level: There is mild central and right and left paracentral disc protrusion. There is mild bilateral lateral recess effacement. There is moderate bilateral foraminal narrowing secondary to disc protrusion and facet hypertrophy. There is no central canal stenosis. Trace bilateral facet effusions are present. The L3-L4 level: There is mild central, mild right and moderate left paracentraldisc protrusion. There is mild bilateral lateral recess stenosis. There is moderate bilateral foraminal narrowing secondary to disc protrusion and facet hypertrophy. There is no central canal stenosis. Trace bilateral facet effusions are present. The L4-L5 level: There is mild central and right and left paracentral disc protrusion. There is mild bilateral lateral recess stenosis. There is mild bilateral foraminal narrowing secondary to disc protrusion and facet hypertrophy. There is no central canal stenosis. The L5-S1 level: There is mild central disk protrusion. There is no lateral recess stenosis or foraminal stenosis. There is no critical central canal stenosis. The visualized conus shows normal signal characteristics. Adjacent soft tissuesare unremarkable. A 6 cm cyst is partly visible on the right kidney. MRI/Spine Lumbar (Routine) IMPRESSION: There is no significant central canal stenosis, with lateral recess and foraminal narrowing. A 6 cm cyst is partly visible on the right kidney. Reading Location: [facility] CC: Dr. Paresh Ware MD; Dr. Lance Jorgensen MD ~ [employer]: Signed [facility] Spine Lumbar (Routine)on Spine Lumbar (Routine) [facility] [address] [place] [id number] Spine Lumbar (Routine) MR#: [id number] Acct: [id number] Name: LANCE BEE Rep #: [id number] : 1960 63 From: Reji Plummer MD PCP: Dr. Lance Jorgensen MD Status: REG CLI Study: Spine Lumbar (Routine) Date of Exam: 09/12/24 Exam# [id number] Ordering Dr: Paresh Ware MD PROCEDURE: SPINE LUMBAR (ROUTINE) 09/12/2024 REASON FOR EXAM: RADICULOPATHY TECHNIQUE: Multiplanar and multisequence images were obtained without IV contrast administration. COMPARISON: None FINDINGS: The vertebral body alignment is maintained. The vertebral body height is maintained. Vertebral body marrow signal is normal. Intervertebral disc signal shows desiccation from L2-5. Normal appearing facets are noted. The L1-L2 level: There is no significant disk protrusion. There is no lateral recess stenosis or foraminal stenosis. There is no critical central canal stenosis. The L2-L3 level: There is mild central and right and left paracentral disc protrusion. There is mild bilateral lateral recess effacement. There is moderate bilateral foraminal narrowing secondary to disc protrusion and facet hypertrophy. There is no central canal stenosis. Trace bilateral facet effusions are present. The L3-L4 level: There is mild central, mild right and moderate left paracentral disc protrusion. There is mild bilateral lateral recess stenosis. There is moderate bilateral foraminal narrowing secondary to disc protrusion and facet hypertrophy. There is no central canal stenosis. Trace bilateral facet effusions are present. The L4-L5 level: There is mild central and right and left paracentral disc protrusion. There is mild bilateral lateral recess stenosis. There is mild bilateral foraminal narrowing secondary to disc protrusion and facet hypertrophy. There is no central canal stenosis. The L5-S1 level: There is mild central disk protrusion. There is no lateral recess stenosis or foraminal stenosis. There is no critical central canal stenosis. The visualized conus shows normal signal characteristics. Adjacent soft tissues are unremarkable. A 6 cm cyst is partly visible on the right kidney. MRI/Spine Lumbar (Routine) IMPRESSION: There is no significant central canal stenosis, with lateral recess and foraminal narrowing. A 6 cm cyst is partly visible on the right kidney. Reading Location: [facility] CC: Dr. Paresh Ware MD; Dr. 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 CHIEF COMPLAINT: Patient presents with: Vomiting: Vomiting and constipation for past six days. HPI: Lance is a 63 year old male referred for endoscopy. Lance notes coffee ground emesis and black stools for 6 days. Lance denies diarrhea. Lance notes constipation. -no bm for the last 6 days -notes he has passed very little gas -has used miraLAX the last 3 days with no improvement Lance notes melena -3 little cole- this was prior to 6 days of no BM Lance denies bright red blood per rectum. Lance denies hemorrhoids. Lance notes heartburn. -sometimes feels bubbling in the esophagus -stopped taking his omeprazole Lance denies dysphagia. Lance denies a history of ulcers/ peptic ulcer disease. Yousif notes epigastric pain for the last couple of weeks which is causing nausea Yousif notes coffee ground emesis -unable to tolerate any solids, has kept some jello down but not all jello -notes this is exactly how I was before my small bowel obstruction he had in August of 2023 Yousif takes Wegovy but notes hasn't used it in the last 4 weeks. Yousif denies any dizziness, syncope, headaches. He does admit to some SOB mostly while he was vomiting. Lance has undergone prior endoscopy. Last EGD was 11/[address] Childers at [place]. Sedation:MAC Impression: - Normal examined jejunum. - Normal examined duodenum. - Gastritis. Biopsied. - Medium-sized type III hiatal hernia. - Normal middle third of esophagus. Biopsied. Pathology demonstrated: FINAL DIAGNOSIS A. Stomach, biopsy: - Reactive gastropathy. - No morphologic evidence of Helicobacter pylori microorganisms. B. Esophagogastric junction, biopsy: - Hyperplastic squamous epithelium. C. Esophagus, mid, biopsy: - Hyperplastic squamous epithelium with rare intraepithelial eosinophils (up to 5 eosinophils per high-power field). Current Outpatient Medications Medication Sig omeprazole (PRILOSEC) 40 mg capsule Take 1 capsule by mouth once daily. clonazePAM (KLONOPIN) 1 mg tablet Take 2 tablets by mouth at bedtime as needed (anxiety, restless leg) for up to 90 days. amLODIPine (NORVASC) 5 mg tablet Take 1 tablet by mouth once daily. oxyCODONE (ROXICODONE) 15 mg immediate release tablet Take 15 mg by mouth three times daily. Dr. Ware semateresa, weight loss, (WEGOVY) 2.4 mg/0.75 mL pen injector Inject 2.4 mg subcutaneously one time a week. (Patient not taking: Reported on 09/07/2024) No current facility-administered medications for this visit. ALLERGIES: Patient has no known allergies. PAST MEDICAL HISTORY Diagnosis Date Anxiety 11/01/2015 Asymptomatic microscopic hematuria 2017 Contact dermatitis and other eczema, due to unspecified cause DDD (degenerative disc disease), lumbar 02/10/2013 Depression Dog bite of right lower leg 2000 with recurrent wounds Gastritis, presence of bleeding unspecified, unspecified chronicity, unspecified gastritis type 12/06/2023 Hiatal hernia 02/24/2023 medium on EGD Hypertension goal BP (blood pressure) < 130/80 Impaired glucose metabolism 09/26/2014 A1c 6.1% September 2014 Obesity (BMI 35.0-39.9 without comorbidity) 08/10/2018 Obesity, Class I, BMI 30-34.9 04/06/2024 Open wound of knee, leg (except thigh), and ankle, complicated Open wound of right lower extremity 07/24/2017 YAIMA (obstructive sleep apnea) no CPAP tried by choice. 12/20/2014 Paraesophageal hernia 09/16/2023 Personal history of skin cancer 01/30/2016 Dr. Melody Trammell, Dermatology annually. Primary insomnia 11/01/2015 Reflex sympathetic dystrophy Right leg. Dr. Ware, pain management. Restless legs 05/20/2015 Small bowel obstruction (HCC) 09/16/2023 Squamous cell carcinoma of lower leg 09/23/2012 Skin graft x2- Dr. Cook, Dr. Cardona Dermatology- Rachael Trammell Tubular adenoma of colon 02/24/2023 Ulcer of other part of foot PAST SURGICAL HISTORY Procedure Laterality Date COLONOSCOPY 10/27/2016 INCOMPLETE- CT colonography 03/31/18 diverticular disease. Repeat 5-10yrs COLONOSCOPY SCREENING 02/24/2023 EGD 10/27/2016 EGD 11/24/2023 EGD W/O BRSH SPEC VARICIES INJ 02/24/2023 LAPAROSCOPY SURG RPR INITIAL INGUINAL HERNIA Right 12/26/2004 PAST SURGICAL HISTORY OF Right 2012 excision of tumor, right leg PAST SURGICAL HISTORY OF Right 2014 skin grafts, right leg. 2013,2014. FAMILY HISTORY Problem Relation Age of Onset (more content not included)... Normal [facility] CNOVon 07-06-2024 CN[facility] Office Visit (INTMWS ) -- LANCE BEE ([id number]) 1960 M [facility] Date Time Provider Department 07/06/24 6:20 PM LANCE JORGENSEN INTMWS During your visit today, we recorded the following information about you: Pulse Respiration Blood pressure Weight 94/minute 16/minute 124/74 99.2 kg Height 1.753 m Lance Jorgensen MD 07/07/2024 12:41 PM Signed This note was created using Pingwynriter. Subjective Patient presents with: Yearly Exam Lance Bee is a 63 year old male. He was losing weight on Wegovy and felt well. He mentioned transient left chest pain which was infrequent, and triggered by eating a pretzel. He has been diagnosed with paraesophageal hernia but did not pursue referral from surgery to the [facility]. His hypertension was controlled. Anxiety, insomnia, and restless legs were controlled on clonazepam. He sees Dr. Paresh Ware for pain management; [facility] D[facility]ology for history of skin cancer; Dr. Miranda Childers for endoscopyJayde PA-C for urology; and Ajay Jimenez OD for optometry. Review of Systems Constitutional: Negative for appetite change, fatigue, fever and unexpected weight change. HENT: Negative for congestion, sore throat and trouble swallowing. Eyes: Negative for visual disturbance. Respiratory: Negative for cough, shortness of breath and wheezing. Cardiovascular: Negative for palpitations and leg swelling. Gastrointestinal: Negative for abdominal pain, constipation, nausea and vomiting. Genitourinary: Negative for difficulty urinating, dysuria and hematuria. Musculoskeletal: Positive for back pain. Skin: Negative for color change. Neurological: Negative for dizziness, tremors, syncope, weakness, numbness and headaches. Psychiatric/Behavioral: Negative. PAST MEDICAL HISTORY Diagnosis Date Anxiety 11/01/2015 Asymptomatic microscopic hematuria 2017 Contact dermatitis and other eczema, due to unspecified cause DDD (degenerative disc disease), lumbar 02/10/2013 Depression Dog bite of right lower leg 2000 with recurrent wounds Gastritis, presence of bleeding unspecified, unspecified chronicity, unspecified gastritis type 12/06/2023 Hiatal hernia 02/24/2023 medium on EGD Hypertension goal BP (blood pressure) < 130/80 Impaired glucose metabolism 09/26/2014 A1c 6.1% September 2014 Obesity (BMI 35.0-39.9 without comorbidity) 08/10/2018 Obesity, Class I, BMI 30-34.9 04/06/2024 Open wound of knee, leg (except thigh), and ankle, complicated Open wound of right lower extremity 07/24/2017 YAIMA (obstructive sleep apnea) no CPAP tried by choice. 12/20/2014 Paraesophageal hernia 09/16/2023 Personal history of skin cancer 01/30/2016 Dr. Melody Trammell, Dermatology annually. Primary insomnia 11/01/2015 Reflex sympathetic dystrophy Right leg. Dr. Ware, pain management. Restless legs 05/20/2015 Small bowel obstruction (HCC) 09/16/2023 Squamous cell carcinoma of lower leg 09/23/2012 Skin graft x2- Dr. Cook, Dr. Cardona Dermatology- Sanchez Dr. Trammell Tubular adenoma of colon 02/24/2023 Ulcer of other part of foot PAST SURGICAL HISTORY Procedure Laterality Date COLONOSCOPY 10/27/2016 INCOMPLETE- CT colonography 03/31/18 diverticular disease. Repeat 5-10yrs COLONOSCOPY SCREENING 02/24/2023 EGD 10/27/2016 EGD 11/24/2023 EGD W/O BRSH SPEC VARICIES INJ 02/24/2023 LAPAROSCOPY SURG RPR INITIAL INGUINAL HERNIA Right 12/26/2004 PAST SURGICAL HISTORY OF Right 2012 excision of tumor, right leg PAST SURGICAL HISTORY OF Right 2014 skin grafts, right leg. 2012,2013. FAMILY HISTORY Problem Relation Age of Onset other (scleroderma) Mother Cancer Father pancreatic No Known Problems Sister 1/2 siblings No Known Problems Sister No Known Problems Brother 1/2 siblings Social History Tobacco Use Smoking status: Never Smokeless tobacco: Never Vaping Use Vaping status: Never Used Substance Use Topics Alcohol use: Not Currently Drug use: Not Currently Types: Marijuana ALLERGIES No Known Allergies Current Outpatient Medications Medication Sig semaglutide, weight loss, (WEGOVY) 2.4 mg/0.75 mL pen injector Inject 2.4 mg subcutaneously one time a week. amLODIPine (NORVASC) 5 mg tablet Take 1 tablet by mouth once daily. omeprazole (PRILOSEC) 40 mg capsule Take 1 capsule by mouth once daily. oxyCODONE (ROXICODONE) 15 mg immediate release tablet Take 15 mg by mouth three times daily. Dr. Ware clonazePAM (KLONOPIN) 1 mg tablet Take 2 tablets by mouth at bedtime as needed (anxiety, restless leg) for up to 90 days. No current facility-administered medications for this visit. Objective BP 124/74 (BP Site: Left Arm, BP Position: Sitting) Pulse 94 Resp 16 Ht 175.3 cm (5' 9) Wt 99.2 kg (218 lb 11.1 oz) SpO2 97% BMI 32.30 kg/m? Physical Exam Constitutional: General: He is not in acute distr (more content not included)... Normal [facility] [id number] 07-06-2024 ECG01 Ventricular Rate : 7 6 BPM Atrial Rate : 76 BPM P-R Interval : 228 ms QRS Duration : 96 ms Q-T Interval : 390 ms QTC Calculation(Bazett) : 438 ms Calculated P Catherine : -9 degrees Calculated R Catherine : -18 degrees Calculated T Catherine : 13 degrees SINUS RHYTHM WITH 1ST DEGREE AV BLOCK OTHERWISE NORMAL ECG Confirmed by MD HARRISON, CLAIRE ([id number]) on 07/18/2024 12:02:52 PM NAME : LANCE BEE PID : [id number] : 1960 Gender : Male Race : ORD : Procedure Date : Jul 06 2024 19:15:24 Edit Date : Jul 18 2024 12:02:54 Diagnosis: SINUS RHYTHM WITH 1ST DEGREE AV BLOCK OTHERWISE NORMAL ECG Confirmed by MD TERRY QARAB ([id number]) on 07/18/2024 12:02:52 PM Test Reason : Location : 185 : [facility] Overread By : MD TERRY QARAB Edited By : MD TERRY QARAB Referred By : LANCE JORGENSEN Acquired by : Ha BEYER [facility] XR CHEST 2V FRONTAL/LATon XR CHEST 2V FRONTAL/LAT * * *Final Report* * * DATE OF EXAM: Jul 06 2024 7:53PM WOX [id number] - XR CHEST 2V FRONTAL/LAT / PROCEDURE REASON: Atypical chest pain * * * * Physician Interpretation * * * * EXAMINATION: CHEST RADIOGRAPH (2 VIEW FRONTAL and LATERAL) CLINICAL HISTORY: Atypical chest pain MQ: XC2_6 EXAM DATE/TIME: 07/06/2024 7:53 PM COMPARISON: No relevant prior studies available. RESULT: Lines, tubes, and devices: None. Lungs and pleura: There is hypoinflation of the lungs with crowded lung markings in both lung bases. No consolidation. No lung mass. No pleural effusion. No pneumothorax. Cardiomediastinal silhouette: There is a large hiatal hernia. Bones and soft tissues: Unremarkable. IMPRESSION: Large hiatal hernia and no acute radiographic abnormality. Tanker Serviceman: PSCB Transcribe Date/Time: Jul 08 2024 10:11A Dictated by : ASYA LUCIO MD This examination was interpreted and the report reviewed and electronically signed by: ASYA LUCIO MD on Jul 08 2024 10:13AM EST [id number] Normal [facility] CNPNon 06-19-2024 CNPN Telephone (INTMWS) -- LANCE BEE ([id number]) 1960 M [place] Date Time Provider Department 06/19/24 LANCE JORGENSEN INTMWS During your visit today, we recorded the following information about you: Trinity Lombardo 06/19/2024 2:04 PM Signed Patient presented to front counter attendant wanting to talk about his labs. He did NOT fast before doing his last round of labs and wants to know if he needs to redo them. Please advise. Marianna Medina MA 06/19/2024 2:48 PM Signed Patient was notified will discuss 07/10 Marianna Duenas MA Allergies As of Date: 06/19/2024 (No Known Allergies) Date Reviewed: 04/06/2024 Reviewed by: Marianna Duenas MA - Fully Assessed Reason for Visit: Results [95] Prescriptions as of 06/19/2024 - semaglutide, weight loss, (WEGOVY) 1.7 mg/0.75 mL pen injector Inject 0.75 mL subcutaneously one time a week. - amLODIPine (NORVASC) 5 mg tablet Take 1 tablet by mouth once daily. - clonazePAM (KLONOPIN) 1 mg tablet Take 2 tablets by mouth at bedtime as needed (anxiety, restless leg) for up to 90 days. Patient should start on May 04, 2024. - omeprazole (PRILOSEC) 40 mg capsule Take 1 capsule by mouth once daily. - baclofen 5 mg tablet Take 5 mg by mouth at bedtime as needed. - oxyCODONE (ROXICODONE) 15 mg immediate release tablet Take 15 mg by mouth three times daily. Dr. Ware Problem List As Of Date 06/19/2024 Noted Resolved Reflex sympathetic dystrophy [G90.50] Depression [F32.A] 04/06/2024 Open wound of knee, leg (except thigh), and ank* 02/10/2013 Ulcer of other part of foot [L97.509] 02/10/2013 Hypertension goal BP (blood pressure) < 130/80 * DDD (degenerative disc disease), lumbar [M51.36*02/10/2013 Obesity (BMI 35.0-39.9 without comorbidity) [E6*08/10/2018 04/06/2024 Impaired glucose metabolism [R73.09] 09/26/2014 YAIMA (obstructive sleep apnea) no CPAP tried by *12/20/2014 08/11/2018 Anxiety [F41.9] 11/01/2015 Primary insomnia [F51.01] 11/01/2015 Personal history of skin cancer [Z85.828] 01/30/2016 Open wound of right lower extremity [S81.801A] 07/24/2017 09/18/2021 Asymptomatic microscopic hematuria [R31.21] 2017 09/18/2021 Restless legs [G25.81] 05/20/2015 Actinic keratosis [L57.0] 02/01/2023 Positive colorectal cancer screening using [place]*02/15/2023 08/02/2023 Tubular adenoma of colon [D12.6] 02/24/2023 At risk for sleep apnea [Z91.89] 09/03/2023 04/06/2024 Obesity, Class I, BMI 30-34.9 [E66.811] 04/06/2024 Encounter Status:Closed by MARIANNA DUENAS on 06/19/24 Normal [facility] CBC panel Auto (Bld)on 06-16 Erythrocyte distribution width (RBC) [Ratio] 13.1 % Normal 11.5-15.0 [facility] Comment on above: Order Comment: Speci men Type: BLOOD SPECIMENOrdering Facility: [facility] Address: [address] [place] [address] Performed By: #### 5 8410-2 ####[facility] [id number] [address] [place] Hematocrit (Bld) [Volume fraction] 45.0 % Normal 39.0-51.0 [facility] Comment on above: Order Comment: Speci men Type: BLOOD SPECIMENOrdering Facility: [facility] Address: [address] [place] [address] Performed By: #### 5 8410-2 ####[facility] JAMESWGUANACOLIA [id number] [place] [address] [place] Hemoglobin (Bld) [Mass/Vol] 15.4 g/dL Normal 13.0-17.0 [facility] Comment on above: Order Comment: Speci men Type: BLOOD SPECIMENOrdering Facility: [facility] Address: [address] [place] [address] Performed By: #### 5 8410-2 ####[facility] HOSPITALGUANACOLIA [id number] [place] [address] [place] MCH (RBC) [Entitic mass] 30.1 pg Normal 26.0-34.0 [facility] Comment on above: Order Comment: Speci men Type: BLOOD SPECIMENOrdering Facility: [facility] Address: [address] [place] [address] Performed By: #### 5 8410-2 ####[facility]ITAL[facility] [id number] [place] [address] [place] MCHC (RBC) [Mass/Vol] 34.2 g/dL Normal 30.5-36.0 [facility] Comment on above: Order Comment: Speci men Type: BLOOD SPECIMENOrdering Facility: [facility] Address: [address] [place] [address] Performed By: #### 5 8410-2 ####[facility] HOSPITALROXANNA [id number] [place] [address] [place] MCV (RBC) [Entitic vol] 87.9 fL Normal 80.0-100.0 [facility] Comment on above: Order Comment: Speci men Type: BLOOD SPECIMENOrdering Facility: [facility] Address: [address] [place] [address] Performed By: #### 5 8410-2 ####[facility] HOSPITALNCLIA [id number] [place] [address] [place] Nucleated RBC (Bld) [#/Vol] 10*3/uL Normal <0.01 [facility] Comment on above: Order Comment: Speci men Type: BLOOD SPECIMENOrdering Facility: [facility] Address: [address] [place] [address] Performed By: #### 5 8410-2 ####[facility]OSPITALNCLIA [id number] [place] [address] [place] Platelet mean volume (Bld) [Entitic vol] 11.8 fL Normal 9.0-12.7 [facility] Comment on above: Order Comment: Speci men Type: BLOOD SPECIMENOrdering Facility: [facility] Address: [address] [place] [address] Performed By: #### 5 8410-2 ####[facility] HOSPITALNCA [id number] [place] [address] [place] Platelets (Bld) [#/Vol] 205 10*3/uL Normal 150-400 [facility] Comment on above: Order Comment: Speci men Type: BLOOD SPECIMENOrdering Facility: [facility] Address: [address] [place] [address] Performed By: #### 5 8410-2 ####[facility]OSPITALNCLIA [id number] [place] [address] [place] RBC (Bld) [#/Vol] 5.12 10*6/uL Normal 4.20-6.00 [facility] Comment on above: Order Comment: Speci men Type: BLOOD SPECIMENOrdering Facility: [facility] Address: [address] [place] [address] Performed By: #### 5 8410-2 ####[facility]OSPITALNCLIA [id number] [place] [address] [place] WBC (Bld) [#/Vol] 6.11 10*3/uL Normal 3.70-11.00 [facility] Comment on above: Order Comment: Speci men Type: BLOOD SPECIMENOrdering Facility: [facility] Address: [facility] [place] [address] Performed By: #### 5 8410-2 ####[facility] MILLTOWNCLIA [id number] [place] [address] [facility] Comprehensive metabolic 2000 panelon 06-16-2024 Albumin [Mass/Vol] 4.2 g/dL Normal 3.9-4.9 [facility] Comment on above: Order Comment: Speci men Type: BLOOD SPECIMENOrdering Facility: [facility] Address: [address] [place] [address] Performed By: #### 2 4331-1 ####[facility] LABORATORYCLIA [id number] [address] [facility] [id number] [place] [address] [place]#### 52574-7 ####[facility] HOSPITALNCLIA [id number] [place] [address] [place] ALP [Catalytic activity/Vol] 118 U/L High 38-113 [facility] Comment on above: Order Comment: Speci men Type: BLOOD SPECIMENOrdering Facility: [facility] Address: [address] [place] [address] Performed By: #### 2 4331-1 ####[facility]ORATORYCLIA [id number] [address] [facility]OSPITALA [id number] [place] [address] [place]#### 32692-4 ####[facility] MILLTOWNCLIA [id number] [place] [address] [place] ALT [Catalytic activity/Vol] 9 U/L Low 10-54 [facility] Comment on above: Order Comment: Speci men Type: BLOOD SPECIMENOrdering Facility: [facility] Address: [address] [place] [address] Performed By: #### 2 4331-1 ####[facility]ORATORYCLIA [id number] [place] [address] [place] [facility] [id number] [place] [address] [place]#### 18660-1 ####[facility] HOSPITALLIA [id number] [place] [address] [place] Anion gap [Moles/Vol] 13 mmol/L Normal 8-15 [facility] Comment on above: Order Comment: Speci men Type: BLOOD SPECIMENOrdering Facility: [facility] Address: [address] [place] [address] Performed By: #### 2 4331-1 ####[facility]ORATORYCLIA [id number] [address] [facility] [id number] [place] [address] [place]#### 12889-3 ####[facility]OS[facility]ITALNCLIA [id number] [place] [address] [place] AST [Catalytic activity/Vol] 19 U/L Normal 14-40 [facility] Comment on above: Order Comment: Speci men Type: BLOOD SPECIMENOrdering Facility: [facility] Address: [address] [place] [address] Performed By: #### 2 4331-1 ####[facility]ORATORYCLIA [id number] [address] STATES OF [facility]IT[facility] [id number] [place] [address] [place]#### 76677-7 ####[facility] MILLTOWNCLIA [id number] [place] [address] [place] Bilirubin [Mass/Vol] 0.5 mg/dL Normal 0.2-1.3 [facility] Comment on above: Order Comment: Speci men Type: BLOOD SPECIMENOrdering Facility: [facility] Address: [address] [place] [address] Performed By: #### 2 4331-1 ####[facility]ORATORYCLIA [id number] [address] [place] MILLWDELIA [id number] [place] [address] [place]#### 07760-4 ####[facility] MILLWNCLIA [id number] [place] [address] [place] Calcium [Mass/Vol] 9.4 mg/dL Normal 8.5-10.2 [facility] Comment on above: Order Comment: Speci men Type: BLOOD SPECIMENOrdering Facility: [facility] Address: [address] [place] [address] Performed By: #### 2 4331-1 ####[facility]ATORYCLIA [id number] [address] [place] MILLWNCLIA [id number] [place] [address] [place]#### 36780-3 ####[facility] MILLTOWNCLIA [id number] [place] [address] [place] Chloride [Moles/Vol] 104 mmol/L Normal 98-107 [facility] Comment on above: Order Comment: Speci men Type: BLOOD SPECIMENOrdering Facility: [facility] Address: [address] [place] [address] Performed By: #### 2 4331-1 ####[facility]ATORYCLIA [id number] [address] [id number] [place] [address] [place]#### 27581-4 ####[facility]WNCL[facility] [id number] [place] [address] [place] CO2 [Moles/Vol] 24 mmol/L Normal 22-30 [facility] Comment on above: Order Comment: Speci men Type: BLOOD SPECIMENOrdering Facility: [facility] Address: [address] [place] [address] Performed By: #### 2 4331-1 ####[facility] LABORATORYCLIA [id number] [address] [id number] [place] [address] [place]#### 12738-3 ####[facility]ITALLIA [id number] [place] [address] [place] Creatinine [Mass/Vol] 0.82 mg/dL Normal 0.73-1.22 [facility] Comment on above: Order Comment: Speci men Type: BLOOD SPECIMENOrdering Facility: [facility] Address: [address] [place] [address] Performed By: #### 2 4331-1 ####[facility] LABORATORYCLIA [id number] [address] [id number] [place] [address] [place]#### 97149-7 ####[facility] MILLWNCLIA [id number] [place] [address] [place] Creatinine and Glomerular filtration rate.predicted panel (S/P/Bld) 99 mL/min/1.73m??? Normal >=60 [facility] Comment on above: Order Comment: John agustin Type: BLOOD SPECIMENOrdering Facility: [facility] Address: [address] [place] [address] Result Comment: Neha mated Glomerular Filtration Rate (eGFR) is calculated using the 2020 CKD-EPI creatinine equation. This equation utilizes serum creatinine, sex, and age as parameters. The creatinine assay has traceable calibration to isotope dilution-mass spectrometry. Refer to KDIGO guidelines for clinical interpretation. In patients with unstable renal function, e.g. those with acute kidney injury, the eGFR may not accurately reflect actual GFR. Performed By: #### 2 4331-1 ####[facility] LABORATORYCLIA [id number] [address] [id number] [address]#### 54853-7 ####[facility] [id number] [address] STATES OF [facility] Glucose [Mass/Vol] 111 mg/dL High 74-99 [facility] Comment on above: Order Comment: John agustin Type: BLOOD SPECIMENOrdering Facility: [facility] Address: [address] [place] [address] Result Comment: The [place] Diabetes Association (ADA) provides guidance for cutoff values for fasting glucose and random glucose. The ADA defines fasting as no caloric intake for at least 8 hours. Fasting plasma glucose results between 100 to 125 mg/dL indicate increased risk for diabetes (prediabetes). Fasting plasma glucose results greater than or equal to 126 mg/dL meet the criteria for diagnosis of diabetes. In the absence of unequivocal hyperglycemia, results should be confirmed by repeat testing. In a patient with classic symptoms of hyperglycemia or hyperglycemic crisis, random plasma glucose results greater than or equal to 200 mg/dL meet the criteria for diagnosis of diabetes. Reference: Standards of Medical Care in Diabetes 2016, [place] Diabetes Association. Diabetes Care. 2016.39(Suppl 1). Performed By: #### 2 4331-1 ####[facility] LABORATORYCLIA [id number] [place] [address] [place] [address] [facility] MILLTOWNCLIA [id number] [place] [address] [place]#### 31890-9 ####[facility] MILLTOWNCLIA [id number] [place] [address] [place] Potassium [Moles/Vol] 4.5 mmol/L Normal 3.7-5.1 [facility] Comment on above: Order Comment: Speci men Type: BLOOD SPECIMENOrdering Facility: [facility] Address: [address] [place] [address] Performed By: #### 2 4331-1 ####[facility] LABORATORYCLIA [id number] [address] STATES OF [facility]YWNCLIA [id number] [place] [address] [place]#### 56887-8 ####[facility] MILLTOWNCLIA [id number] [place] [address] [place] Protein [Mass/Vol] 7.0 g/dL Normal 6.3-8.0 [facility] Comment on above: Order Comment: Speci men Type: BLOOD SPECIMENOrdering Facility: [facility] Address: [address] [place] [address] Performed By: #### 2 4331-1 ####[facility] LABORATORYCLIA [id number] [place] [address] [place] [facility] MILLTOWNCLIA [id number] [place] [address] [place]#### 93538-8 ####[facility] MILLTOWNCLIA [id number] [place] [address] [place] Sodium [Moles/Vol] 141 mmol/L Normal 136-144 [facility] Comment on above: Order Comment: Speci men Type: BLOOD SPECIMENOrdering Facility: [facility] Address: [address] [place] [address] Performed By: #### 2 4331-1 ####[facility] LABORATORYCLIA [id number] [address] STATES OF [facility] [id number] [place] [address] [place]#### 72403-4 ####[facility]IT[facility] [id number] [place] [address] [place] Urea nitrogen [Mass/Vol] 10 mg/dL Normal 9-24 [facility] Comment on above: Order Comment: Speci men Type: BLOOD SPECIMENOrdering Facility: [facility] Address: [address] [place] [address] Performed By: #### 2 4331-1 ####[facility] LABORATORYCLIA [id number] [address] OF [facility] [id number] [place] [address] [place]#### 63266-0 ####[facility] [id number] [address] OF [place] HbA1c (Bld)on 06-16-2024 Average glucose Estimated from glycated hemoglobin (Bld) [Mass/Vol] 103 mg/dL Normal [facility] Comment on above: Order Comment: Speci men Type: BLOOD SPECIMENOrdering Facility: [facility] Address: [address] [place] [address] Result Comment: eAG: (Estimated average glucose) is a calculated value from HgbA1c and is patient registration representative of the average blood glucose level in the last 2-3 month period. Performed By: #### 5 5454-3 ####[facility] LABCLIA [id number] [place] [address] [place] HbA1c (Bld) [Mass fraction] 5.2 % Normal 4.3-5.6 [facility] Comment on above: Order Comment: John agustin Type: BLOOD SPECIMENOrdering Facility: [facility] Address: [address] [place] [address] Result Comment: Amer [place] Diabetes Association guidelines indicate that patients with HgbA1c in the range 5.7-6.4% are at increased risk for development of diabetes, and intervention by lifestyle modification may be beneficial. HgbA1c greater or equal to 6.5% is considered diagnostic of diabetes. Performed By: #### 5 5454-3 ####[facility] LABCLIA [id number] [place] [address] [place] Lipid 1996 panelon 5 Cholesterol [Mass/Vol] 148 mg/dL Normal <200 [facility] Comment on above: Order Comment: John agustin Type: BLOOD SPECIMENOrdering Facility: [facility] Address: [address] [place] [address] Result Comment: <200 mg/dL, Desirable 200-239 mg/dL, Borderline high >239 mg/dL, High Performed By: #### 2 4331-1 ####[facility] LABORATORYCLIA [id number] [place] [address] [place] [facility] [id number] [place] [address] [place]#### 96600-1 ####[facility] [id number] [place] [address] [place] Cholesterol in HDL [Mass/Vol] 50 mg/dL Normal >39 [facility] Comment on above: Order Comment: John agustin Type: BLOOD SPECIMENOrdering Facility: [facility] Address: [address] [place] [address] Result Comment: 40-5 9 mg/dL, Acceptable >59 mg/dL, High: Negative risk factor for coronary heart disease <40 mg/dL, Low: Positive risk factor for coronary heart disease Performed By: #### 2 4331-1 ####[facility] LABORATORYCLIA [id number] [address] STATES OF [facility] [id number] [address] STATES OF [place]#### 43968-9 ####[facility] [id number] [place] [address] [place] Cholesterol in LDL [Mass/Vol] 85 mg/dL Normal <100 [facility] Comment on above: Order Comment: Speci men Type: BLOOD SPECIMENOrdering Facility: [facility] Address: [address] [place] [address] Result Comment: <100 mg/dL, Optimal 100-129 mg/dL, Near optimal/above optimal 130-159 mg/dL, Borderline high 160-189 mg/dL, High >189 mg/dL, Very high Secondary prevention optimal LDL Cholesterol levels are recommended to be < 70 mg/dL Performed By: #### 2 4331-1 ####[facility] LABORATORYCLIA [id number] [address] STATES OF [facility] [id number] [address] OF [place]#### 37052-0 ####[facility] [id number] [place] [address] [place] Cholesterol in LDL/Cholesterol in HDL [Mass ratio] 1.70 {ratio} Normal <2.54 [facility] Comment on above: Order Comment: Speci men Type: BLOOD SPECIMENOrdering Facility: [facility] Address: [address] [place] [address] Result Comment: Ryne peters: 1. National Cholesterol Education Program ATP III Guideline At-A-Glance Quick Desk Reference: National Heart, Lung, and Blood [place]. National Institutes of Health. 2001: NIH Publication No. 01-3305. 2. An International Atherosclerosis Society position paper: global recommendations for the management of dyslipidemia: executive summary, Atherosclerosis. 2014: 232(2):410-413. Performed By: #### 2 4331-1 ####[facility] LABORATORYCLIA [id number] [address] OF [facility] [id number] [place] [address] [place]#### 57464-3 ####[facility] [id number] [place] [address] [place] Cholesterol in VLDL [Mass/Vol] 13 mg/dL Normal <30 [facility] Comment on above: Order Comment: Speci men Type: BLOOD SPECIMENOrdering Facility: [facility] Address: [address] [place] [address] Performed By: #### 2 4331-1 ####[facility] LABORATORYCLIA [id number] [address] STATES OF [facility] [id number] [address] STATES OF [place]#### 26545-3 ####[facility] [id number] [place] [address] [place] Cholesterol non HDL [Mass/Vol] 98 mg/dL Normal <130 [facility] Comment on above: Order Comment: Speci men Type: BLOOD SPECIMENOrdering Facility: [facility] Address: [address] [place] [address] Result Comment: <130 mg/dL, Optimal 130-159 mg/dL, Near optimal/above optimal 160-189 mg/dL, Borderline high 190-219 mg/dL, High >219 mg/dL, Very high Secondary prevention optimal non HDL Cholesterol levels are recommended to be <100 mg/dL Performed By: #### 2 4331-1 ####[facility] LABORATORYCLIA [id number] [address] STATES OF [facility]YWDELIA [id number] [place] [address] [place]#### 49619-6 ####[facility] MILLWNCLIA [id number] [place] [address] [place] Cholesterol.total/Chol esterol in HDL [Mass ratio] 2.96 {ratio} Normal <5.10 [facility] Comment on above: Order Comment: Speci men Type: BLOOD SPECIMENOrdering Facility: [facility] Address: [address] [place] [address] Performed By: #### 2 4331-1 ####[facility] LABORATORYCLIA [id number] [address] [id number] [place] [address] [place]#### 06869-3 ####[facility] [id number] [place] [address] [place] FASTING TIME 15 hrs Normal [facility] Comment on above: Order Comment: Speci men Type: BLOOD SPECIMENOrdering Facility: [facility] Address: [address] [place] [address] Performed By: #### 2 4331-1 ####[facility] LABORATORYCLIA [id number] [address] STATES OF [facility]IA [id number] [place] [address] [place]#### 86626-2 ####[facility] MILLWNCLIA [id number] [place] [address] [place] Triglyceride [Mass/Vol] 63 mg/dL Normal <150 [facility] Comment on above: Order Comment: Speci men Type: BLOOD SPECIMENOrdering Facility: [facility] Address: [address] [place] [address] Result Comment: <150 mg/dL, Normal 150-199 mg/dL, Borderline high 200-499 mg/dL, High >499 mg/dL, Very high Performed By: #### 2 4331-1 ####[facility] LABORATORYCLIA [id number] [address] OF [facility] [id number] [address]#### 41082-8 ####[facility] [id number] [address] PSA/PROSTATE SPECIFIC ANTIGE N SCREENINGon 06-16-2024 Prostate specific Ag [Mass/Vol] 2.86 ng/mL High <2.60 [facility] Comment on above: Order Comment: Speci men Type: BLOOD SPECIMENOrdering Facility: [facility] Address: [address] [place] [address] Result Comment: Tota l PSA test methodology used is the Electrochemiluminescence Immunoassay by [employer]. Total PSA values by differing methodologies cannot be interchanged. For an individual patient, the significance of a PSA level should be interpreted in a broad clinical context, including age, race, family history, digital rectal exam, prostate size, results of prior testing (prostate biopsy, free PSA, PCA3), and use of 5-alpha reductase inhibitors. Considering the high incidence of asymptomatic cancer in the general population that may not pose an ultimate risk to a patient, the decision to recommend urological evaluation or prostate biopsy should be individualized after consideration of all these factors. REFERENCE: Prudencio Jerez M.D., M.P.H., Ihsan Payan M.D., Ph.D., Jerry Trejo M.D., Melida Chacon, M.P.H., Christin Edwards, Sc.Jarred. Effect of Verification Bias on Screening for Prostate Cancer by Measurement of Prostatic Specific Antigen. N Engl J Med 2003,349:335-42. Performed By: #### P SAS1 ####[facility] LABORATORYCLIA [id number] [place] [address] [facility] Chandra 05-01-2024 CNPN Telephone (INTMWS) -- LANCE BEE ([id number]) 1960 [facility] Date Time Provider Department 05/01/24 LANCE JORGENSEN INTMWS During your visit today, we recorded the following information about you: Rachel Gilmore, RN 05/01/2024 2:38 PM Signed Pt calling in very upset and frustrated. Pt states he just got home from the pharmacy and found that he received Zepbound 5 mg. He thought he was supposed to get the next higher dose. This is the first prescription for him for Zepbound due to insurance changing at the beginning of the year. He had requested the change. Pt states he was previously on Wegovy 1.7 mg and he is upset as he doesn't think that he should have started at the lower dose of Zepbound. He thought he would be on the higher dose. Pt states he had to pay $650 out of pocket for this medication and can't understand how the mistake happened that he got the lower dose. In looking at epic notes and med list, it appears pt had Wegovy 1.7 mg ordered back on 04/15/23 and that was because [facility] did not have the 0.5 mg at the time and the 1.7 mg was all they had in stock. No documentation found where provider had increased the med except for this one time. Pt states his last fill was for 1.7 mg on 03/30/24 from [facility]. In speaking with pharmacist at [facility], they received the 1.7 mg script as a transfer from [facility]. They only filled that dose once at that was on 03/30. All other Wegovy scripts ordered in 2024 were 0.5 mg. Pt did not start the Wegovy until about 4 mons ago. Pt had scripts for the 0.5 mg sent on 01/20/24 and then 04/03/24. Pt sent in a MyChart request on 04/01/24 requesting the 0.5 mg. Pt denies this and states he requested the 1.7 mg. Unable to reason with pt that he requested the 0.5 mg. Pt states that he took two injections of Wegovy this past Wednesday to equal 1 mg which was still less than his 1.7 mg. Pt also upset that his insurance isn't covering the Zepbound. When he called and asked, he said the wrong dx code was sent in for weight loss (pt requested this dx last year for the Wegovy for insurance to help cover it). He states the dx code needs to be diabetes. Explained to pt that he is prediabetic but has never been dx with diabetes so we cannot give that dx code. Pt did seem to understand that. Pt is asking provider to review current dose of Zepbound ordered as he thought it was going to be a higher dose comparable to the Wegovy 1.7 mg which pt took this past month. Per pharmacy, once meds taken home, they cannot take returns. So pt cannot return the 5 mg Zepbound. Nina Orozco LPN 05/01/2024 4:41 PM Signed Patient stopped in office to discuss below concerns. Explain to patient that with the Wygovy he is currently taking is 0.5 mg per 0.5 ml of medication. With the Zapbound he will be getting 5 mg per 0.5ml of medication. So diffinently a stronger dose than the Wygovy. Patient has two doses left of the Wegovy that he will finish that script up on Wednesday Note as his last script for Wegovy was for 1.7 mg. He did mention that at just 0.5 mg dosing was not effective and stated that a nurse told him to take 2 doses to = 1 mg to get him as close to the 1.7 mg dose as this was more effective. The following week he will start the Zepbound 5 mg per 0.5ml. Patient also asked about the diabetes dx to get the medication approved through his insurance and explain that his blood sugars are not high enough to be able to give him a dx of diabetes. Patient mentioned/asked if he should make blood sugars worse and explained that if blood sugar become too high this can cause other complication in his body. Once these were discussed he seem to understand the difference in medication and the importance of keeping blood sugars under control. Allergies As of Date: 05/01/2024 (No Known Allergies) Date Reviewed: 04/06/2024 Reviewed by: Marianna Duenas MA - Fully Assessed Reason for Visit: Medication Problem [65] Medication Question [1478] Prescriptions as of 05/02/2024 - tirzepatide, weight loss (ZEPBOUND) 5 mg/0.5 mL pen injector Inject 5 mg subcutaneously one time a week. - amLODIPine (NORVASC) 5 mg tablet Take 1 tablet by mouth once daily. - clonazePAM (KLONOPIN) 1 mg tablet Take 2 tablets by mouth at bedtime as needed (anxiety, restless leg) for up to 90 days. Patient should start on May 04, 2024. - omeprazole (PRILOSEC) 40 mg capsule Take 1 capsule by mouth once daily. - baclofen 5 mg tablet Take 5 mg by mouth at bedtime as needed. - oxyCODONE (ROXICODONE) 15 mg immediate release tablet Take 15 mg by mouth three times daily. Dr. Ware Problem List As Of Date 05/01/2024 Noted Resolved Reflex sympathetic dystrophy [G90.50] Depression [F32.A] 04/06/2024 Open wound of knee, leg (except thigh), and ank* 02/10/2013 Ulcer of other (more content not included)... Normal [facility] Chandra 04-25-2024 [facility] -- LANCE BEE ([id number]) 1960 [facility] Date Time Provider Department 04/25/24 [facility] During your visit today, we recorded the following information about you: Radha Emerson LPN 04/25/2024 2:27 PM Signed Pt calls to report employer switched insurances this year from [employer] to [employer]. [employer] will not cover Wegovy. Pt talked to pharmacy and was advised that Zepbound had a voucher/coupon that pt could use since he will have to pay out of pocket. Pt is asking if provider will sent rx for Zepbound to [facility]. ACE Wilson Elizabeth, MA 04/25/2024 4:11 PM Signed Patient was notified and did attempt PA or zepbound and same response as wegovy not covered on plan. Drug Not Covered/Plan Exclusion - Your request for coverage was denied because your prescription benefit plan does not cover the requested medication. Marianna Duenas MA Allergies As of Date: 04/25/2024 (No Known Allergies) Date Reviewed: 04/06/2024 Reviewed by: Marianna Duenas MA - Fully Assessed Reason for Visit: Medication Problem [65] Order(s):tirzepatide, weight loss (ZEPBOUND) 5 mg/0.5 mL pen injectorInject 5 mg subcutaneously one time a week.Disp: 2 mLRfl: 1 Prescriptions as of 04/25/2024 - tirzepatide, weight loss (ZEPBOUND) 5 mg/0.5 mL pen injector Inject 5 mg subcutaneously one time a week. - amLODIPine (NORVASC) 5 mg tablet Take 1 tablet by mouth once daily. - clonazePAM (KLONOPIN) 1 mg tablet Take 2 tablets by mouth at bedtime as needed (anxiety, restless leg) for up to 90 days. Patient should start on May 04, 2024. - omeprazole (PRILOSEC) 40 mg capsule Take 1 capsule by mouth once daily. - baclofen 5 mg tablet Take 5 mg by mouth at bedtime as needed. - oxyCODONE (ROXICODONE) 15 mg immediate release tablet Take 15 mg by mouth three times daily. Dr. Ware Problem List As Of Date 04/25/2024 Noted Resolved Reflex sympathetic dystrophy [G90.50] Depression [F32.A] 04/06/2024 Open wound of knee, leg (except thigh), and ank* 02/10/2013 Ulcer of other part of foot [L97.509] 02/10/2013 Hypertension goal BP (blood pressure) < 130/80 * DDD (degenerative disc disease), lumbar [M51.36*02/10/2013 Obesity (BMI 35.0-39.9 without comorbidity) [E6*08/10/2018 04/06/2024 Impaired glucose metabolism [R73.09] 09/26/2014 YAIMA (obstructive sleep apnea) no CPAP tried by *12/20/2014 08/11/2018 Anxiety [F41.9] 11/01/2015 Primary insomnia [F51.01] 11/01/2015 Personal history of skin cancer [Z85.828] 01/30/2016 Open wound of right lower extremity [S81.801A] 07/24/2017 09/18/2021 Asymptomatic microscopic hematuria [R31.21] 2017 09/18/2021 Restless legs [G25.81] 05/20/2015 Actinic keratosis [L57.0] 02/01/2023 Positive colorectal cancer screening using [place]*02/15/2023 08/02/2023 Tubular adenoma of colon [D12.6] 02/24/2023 At risk for sleep apnea [Z91.89] 09/03/2023 04/06/2024 Obesity, Class I, BMI 30-34.9 [E66.811] 04/06/2024 Prescriptions ordered this encounter Disp Refills Start End TIRZEPATIDE (WEIGHT LOSS) 5 MG/0.5 M* 2 mL 1 04/25/2024 Route: SUBCUTANEOUS Sig: Inject 5 mg subcutaneously one time a week. Medications Discontinued During This Encounter Prescriptions - semaglutide, weight loss, (WEGOVY) 0.5 mg/0.5 mL pen injector (Discontinued) Inject 0.5 mL subcutaneously one time a week. Encounter Status:Closed by MARIANNA DUENAS on 04/25/24 [facility] Chandra 04-24-2024 TAYN Telephone (INTMWS) -- LANCE BEE ([id number]) 1960 [facility] Date Time Provider Department 04/24/24 LANCE JORGENSEN INTMWS During your visit today, we recorded the following information about you: RuelFrancineKelly 04/24/2024 11:18 AM Signed Pt's new insurance needs to be coded for pre-diabetic and not weight loss(Wegovy) Is this something we can do? Please advise and contact patient. Marianna Duenas MA 04/24/2024 1:03 PM Signed Submitted PA for insurance since change to [employer] PARAS Maurer Elizabeth, MA 04/24/2024 1:53 PM Signed PA came back denied [employer] states does not cover drug on plan. Patient was notified and will call insurance to see if zepbound is covered Marianna Duenas MA Allergies As of Date: 04/24/2024 (No Known Allergies) Date Reviewed: 04/06/2024 Reviewed by: Marianna Duenas MA - Fully Assessed Reason for Visit: Medication Problem [65] Prescriptions as of 04/24/2024 - amLODIPine (NORVASC) 5 mg tablet Take 1 tablet by mouth once daily. - clonazePAM (KLONOPIN) 1 mg tablet Take 2 tablets by mouth at bedtime as needed (anxiety, restless leg) for up to 90 days. Patient should start on May 04, 2024. - omeprazole (PRILOSEC) 40 mg capsule Take 1 capsule by mouth once daily. - semaglutide, weight loss, (WEGOVY) 0.5 mg/0.5 mL pen injector Inject 0.5 mL subcutaneously one time a week. - baclofen 5 mg tablet Take 5 mg by mouth at bedtime as needed. - oxyCODONE (ROXICODONE) 15 mg immediate release tablet Take 15 mg by mouth three times daily. Dr. Ware Problem List As Of Date 04/24/2024 Noted Resolved Reflex sympathetic dystrophy [G90.50] Depression [F32.A] 04/06/2024 Open wound of knee, leg (except thigh), and ank* 02/10/2013 Ulcer of other part of foot [L97.509] 02/10/2013 Hypertension goal BP (blood pressure) < 130/80 * DDD (degenerative disc disease), lumbar [M51.36*02/10/2013 Obesity (BMI 35.0-39.9 without comorbidity) [E6*08/10/2018 04/06/2024 Impaired glucose metabolism [R73.09] 09/26/2014 YAIMA (obstructive sleep apnea) no CPAP tried by *12/20/2014 08/11/2018 Anxiety [F41.9] 11/01/2015 Primary insomnia [F51.01] 11/01/2015 Personal history of skin cancer [Z85.828] 01/30/2016 Open wound of right lower extremity [S81.801A] 07/24/2017 09/18/2021 Asymptomatic microscopic hematuria [R31.21] 2017 09/18/2021 Restless legs [G25.81] 05/20/2015 Actinic keratosis [L57.0] 02/01/2023 Positive colorectal cancer screening using [place]*02/15/2023 08/02/2023 Tubular adenoma of colon [D12.6] 02/24/2023 At risk for sleep apnea [Z91.89] 09/03/2023 04/06/2024 Obesity, Class I, BMI 30-34.9 [E66.811] 04/06/2024 Encounter Status:Closed by MARIANNA DUENAS on 04/24/24 [facility] CNGlory 04-06-2024 CNOV Office Visit (INTMWS ) -- LANCE BEE ([id number]) 1960 [facility] Date Time Provider Department 04/06/24 5:40 PM LANCE JORGENSEN INTMWS During your visit today, we recorded the following information about you: Temperature Pulse Respiration Blood pressure 98.1 degrees 83/minute 14/minute 124/78 Weight 102.5 kg Lance Jorgensen MD 04/06/2024 6:31 PM Signed This note was created using [employer]. Subjective Patient presents with: Recheck: Medication review Lance Bee is a 63 year old male. His weight was dropping on Wegovy. His insurance will change in April and refills will need to be associated with impaired glucose metabolism. His insomnia, anxiety, and restless legs were controlled but dependent on clonazepam. Review of Systems Constitutional: Negative for fatigue. Respiratory: Negative for shortness of breath. Cardiovascular: Negative for chest pain, palpitations and leg swelling. Gastrointestinal: Negative for abdominal pain, diarrhea, nausea and vomiting. Genitourinary: Negative for difficulty urinating and dysuria. Neurological: Negative for dizziness and headaches. ACTIVE PROBLEM LIST Reflex Sympathetic Dystrophy Hypertension Goal Bp (Blood Pressure) < 130/80 Ddd (Degenerative Disc Disease), Lumbar Impaired Glucose Metabolism Anxiety Primary Insomnia Personal History of Skin Cancer Restless Legs Actinic Keratosis Tubular Adenoma of Colon Obesity, Class I, Bmi 30-34.9 Social History Tobacco Use Smoking status: Never Smokeless tobacco: Never Vaping Use Vaping status: Never Used Substance Use Topics Alcohol use: Not Currently Comment: rare Drug use: Not Currently Types: Marijuana Current Outpatient Medications Medication Sig clonazePAM (KLONOPIN) 1 mg tablet Take 2 tablets by mouth at bedtime as needed (anxiety, restless leg) for up to 30 days. semaglutide, weight loss, (WEGOVY) 0.5 mg/0.5 mL pen injector Inject 0.5 mL subcutaneously one time a week. baclofen 5 mg tablet Take 5 mg by mouth at bedtime as needed. amLODIPine (NORVASC) 5 mg tablet Take 1 tablet by mouth once daily. omeprazole (PRILOSEC) 40 mg capsule Take 1 capsule by mouth once daily. oxyCODONE (ROXICODONE) 15 mg immediate release tablet Take 15 mg by mouth three times daily. Dr. Ware No current facility-administered medications for this visit. Objective BP 124/78 Pulse 83 Temp 36.7 ?C (98.1 ?F) (Temporal) Resp 14 Wt 102.5 kg (226 lb) SpO2 94% BMI 32.87 kg/m? Physical Exam Constitutional: Appearance: He is not ill-appearing. HENT: Head: Normocephalic. Cardiovascular: Rate and Rhythm: Normal rate and regular rhythm. Heart sounds: No murmur heard. No gallop. Pulmonary: Breath sounds: Normal breath sounds. Musculoskeletal: Right lower leg: No edema. Left lower leg: No edema. Neurological: Mental Status: He is alert. Assessment and Plan 1. Impaired glucose metabolism - ICD9: 790.29, ICD10: R73.09 (primary diagnosis) Monitor. Wegovy also reduces risk of diabetes mellitus. - HEMOGLOBIN A1C 2. Encounter for immunization - ICD9: V03.89, ICD10: Z23 - INFLUENZA VACCINE, AGE 6MO-64YR, TRIVALENT (AFLURIA, FLULAVAL, FLUVIRIN, FLUZONE) - ChemoCentryx COVID-19 VACCINE AGE 12+ YR (COMIRNATY) 3. Hypertension goal BP (blood pressure) < 130/80 - ICD9: 401.9, ICD10: I10 - Controlled - Continue current medications - AMLODIPINE 5 MG TABLET - COMPLETE BLOOD COUNT - COMPREHENSIVE METABOLIC PANEL - LIPID PANEL BASIC 4. Primary insomnia - ICD9: 307.42, ICD10: F51.01 We reviewed medication dosage, usage, goals of therapy, and risks. - CLONAZEPAM 1 MG TABLET 5. Anxiety - ICD9: 300.00, ICD10: F41.9 See above. - CLONAZEPAM 1 MG TABLET 6. Restless legs - ICD9: 333.94, ICD10: G25.81 See above. - CLONAZEPAM 1 MG TABLET 7. Prostate cancer screening - ICD9: V76.44, ICD10: Z12.5 - Risks/benefits of prostate cancer screening discussed. screening PSA ordered - PSA/PROSTATE SPECIFIC ANTIGEN SCREENING 8. Obesity, Class I, BMI 30-34.9 - ICD9: 278.00, ICD10: E66.811 - Weight dropping. - Continue diet, exercise, and Wegovy. Lance Jorgensen MD Allergies As of Date: 04/06/2024 (No Known Allergies) Date Reviewed: 04/06/2024 Reviewed by: Marianna Duenas MA - Fully Assessed Reason for Visit: Recheck [92] Cmt: Medication review Primary Visit Diagnosis:Impaired glucose metabolism [R73.09] Other Visit Diagnoses:Encounter for immunization [Z23] Hypertension goal BP (blood pressure) < 130/80 [I10] Primary insomnia [F51.01] Anxiety [F41.9] Restless legs [G25.81] Prostate cancer screening [Z12.5] Obesity, Class I, BMI 30-34.9 [E66.811] Order(s):INFLUENZA VACCINE, AGE 6MO-64YR, TRIVALENT (AFLURIA, FLULAVAL, FLUVIRIN, FLUZONE) [05326KOM] Order #: [id number] ChemoCentryx COVID-19 VACCINE AGE 12+ YR (COMIRNATY) [[id number]] Order (more content not included)... [facility] ([id number]) 1960 [facility] Date Time Provider Department 01/24/24 LANCE JORGENSEN INTWS During your visit today, we recorded the following information about you: Danuta Salinas 01/24/2024 12:53 PM Signed Pt came in stated that coding on weight loss medication is incorrect and therefore his insurance will not cover it. Please advise and give pt call back. Fidelia Alvarenga LPN 01/26/2024 4:18 PM Signed This was updated with insurance via fax asking them to review again. Pt notified via my chart. Allergies As of Date: 01/24/2024 (No Known Allergies) Date Reviewed: 01/11/2024 Reviewed by: Melida Amaral LPN - Fully Assessed Reason for Visit: Medication Problem [65] Prescriptions as of 01/26/2024 - semaglutide, weight loss, (WEGOVY) 0.5 mg/0.5 mL pen injector Inject 0.5 mL subcutaneously one time a week. - baclofen 5 mg tablet Take 5 mg by mouth at bedtime as needed. - clonazePAM (KLONOPIN) 1 mg tablet Take 2 tablets by mouth at bedtime as needed (anxiety, restless leg) for up to 180 days. - amLODIPine (NORVASC) 5 mg tablet Take 1 tablet by mouth once daily. - omeprazole (PRILOSEC) 40 mg capsule Take 1 capsule by mouth once daily. - oxyCODONE (ROXICODONE) 15 mg immediate release tablet Take 15 mg by mouth three times daily. Dr. Ware Problem List As Of Date 01/24/2024 Noted Resolved Reflex sympathetic dystrophy [G90.50] Depression [F32.A] Open wound of knee, leg (except thigh), and ank* 02/10/2013 Ulcer of other part of foot [L97.509] 02/10/2013 Hypertension goal BP (blood pressure) < 130/80 * DDD (degenerative disc disease), lumbar [M51.36*02/10/2013 Obesity (BMI 35.0-39.9 without comorbidity) [E6*08/10/2018 Impaired glucose metabolism [R73.09] 09/26/2014 YAIMA (obstructive sleep apnea) no CPAP tried by *12/20/2014 08/11/2018 Anxiety [F41.9] 11/01/2015 Primary insomnia [F51.01] 11/01/2015 Personal history of skin cancer [Z85.828] 01/30/2016 Open wound of right lower extremity [S81.801A] 07/24/2017 09/18/2021 Asymptomatic microscopic hematuria [R31.21] 2017 09/18/2021 Restless legs [G25.81] 05/20/2015 Actinic keratosis [L57.0] 02/01/2023 Positive colorectal cancer screening using [place]*02/15/2023 08/02/2023 Tubular adenoma of colon [D12.6] 02/24/2023 At risk for sleep apnea [Z91.89] 09/03/2023 Encounter Status:Closed by FIDELIA ALVARENGA on 01/26/24 [facility] CNOVon 01-11-2024 CNOV Office Visit (UROLWS ) -- LANCE BEE ([id number]) 1960 [facility] Date Time Provider Department 01/11/24 4:00 PM POLLY KAN During your visit today, we recorded the following information about you: Temperature Pulse Respiration Blood pressure 98 degrees 108/minute 18/minute 142/94 Weight Height 112 kg 1.766 m Melida Amaral LPN 01/11/2024 8:54 PM Signed Verified name and date of . CC Post Void Residual HPI: Lance Bee is a 63 year old male. The patient is here now for an appointment with [facility] Kan [facility]. Procedure: Explained procedure to patient and verbalizes understanding. Performed a PVR. Patient urinated and instructed to empty bladder as much as possible just prior to having PVR done using bladder ultrasound scanner. Results of scan: x mL The patient tolerated the procedure well. Plan: Appointment with Polly Hendrix PA-C 01/11/2024 8:54 PM Signed [facility] NEW PATIENT CLINIC NOTE SERVICE DATE: January 11, 2024 NAME: Lance Bee CHIEF COMPLAINT: Nocturia Findings on Imaging HISTORY OF PRESENT ILLNESS: Lance Bee is a 63 year old male new patient here for Nocturia findings on imaging The patient reports having an increase in nocturia > We discussed issues with restricting water intake In hopes to mitigate the need to urinate, we discussed how this behavior more often worsen the problem not improving it, > We discussed increasing daily water intake to 64-84 oz 7a -7p and try to reduce bladder irritants, caffeine, alcohol and acid foods and drink. > Bladder irritants handout available to patient. Reviewed imaging with renal cysts and small stone LUTS: DYSURIA: no URGENCY: No FREQUENCY:6 per day NOCTURIA: 3 per night STRAINING TO VOID: No EMPTIES COMPLETELY: Yes UTI: No GROSS HEMATURIA: no UA DIPSTICK POSITIVE ONLY: no LABS: PSA (ng/mL) Date Value 01/30/2019 2.19 09/23/2012 1.62 Creatinine Date Value Ref Range Status 10/29/2023 0.95 0.73 - 1.22 mg/dL Final 01/11/2023 1.06 0.73 - 1.22 mg/dL Final 09/30/2021 1.16 0.73 - 1.22 mg/dL Final MEDICATIONS: baclofen 5 mg tablet Take 5 mg by mouth at bedtime as needed. clonazePAM (KLONOPIN) 1 mg tablet Take 2 tablets by mouth at bedtime as needed (anxiety, restless leg) for up to 180 days. Phentermine HCl 37.5 mg tablet Take 1 tablet by mouth once daily for 90 days. BMI 34.18 amLODIPine (NORVASC) 5 mg tablet Take 1 tablet by mouth once daily. omeprazole (PRILOSEC) 40 mg capsule Take 1 capsule by mouth once daily. oxyCODONE (ROXICODONE) 15 mg immediate release tablet Take 15 mg by mouth three times daily. Dr. Ware PAST MEDICAL HISTORY: PAST MEDICAL HISTORY Diagnosis Date Anxiety 11/01/2015 Asymptomatic microscopic hematuria 2017 Contact dermatitis and other eczema, due to unspecified cause DDD (degenerative disc disease), lumbar 02/10/2013 Depression Dog bite of right lower leg 2000 with recurrent wounds Dysthymic disorder Depression (non-psychotic) Gastritis, presence of bleeding unspecified, unspecified chronicity, unspecified gastritis type 12/06/2023 Hiatal hernia Hypertension Impaired glucose metabolism 09/26/2014 A1c 6.1% September 2014 Obesity Open wound of knee, leg (except thigh), and ankle, complicated Open wound of right lower extremity 07/24/2017 YAIMA (obstructive sleep apnea) no CPAP tried by choice. 12/20/2014 Personal history of skin cancer 01/30/2016 Dr. Melody Trammell, Dermatology annually. Primary insomnia 11/01/2015 Reflex sympathetic dystrophy Restless legs 05/20/2015 Squamous cell carcinoma of lower leg 09/23/2012 Skin graft x2- Dr. Cook, Dr. Cardona [facility]- [place] Dr. Trammell Tubular adenoma of colon 02/24/2023 Ulcer of other part of foot PAST SURGICAL HISTORY: PAST SURGICAL HISTORY Procedure Laterality Date COLONOSCOPY 10/27/2016 INCOMPLETE- CT colonography 03/31/18 diverticular disease. Repeat 5-10yrs COLONOSCOPY SCREENING 02/24/2023 EGD 10/27/2016 EGD 11/24/2023 EGD W/O BRSH SPEC VARICIES INJ 02/24/2023 PAST SURGICAL HISTORY OF Right 2012 excision of tumor, right leg PAST SURGICAL HISTORY OF Right 2014 skin grafts, right leg. 2012,2013. FAMILY HISTORY: FAMILY HISTORY Problem Relation Age of Onset Cancer Father pancreatic other (scleroderma) Mother SOCIAL HISTORY: Social Connections: Moderately Integrated (01/25/2023) Social Connection and Isolation Panel [NHANES] Frequency of Communication with Friends and Family: Twice a week Frequency of Social Gatherings with Friends and Family: Once a week Attends Jain Services: 1 to 4 times per year Active Member of Clubs or Organizations: No Attends Club or Organization Meetings: 1 to 4 times per year Marital Status: Never REVIEW (more content not included)... Normal [facility] UA DIP, URINE (POC)on 2023 BILIRUBIN UA (POCT) Negative Negative [facility] CLARITY UA (POCT) Clear [facility] COLOR UA (POCT) Brown [facility] GLUCOSE UA (POCT) Negative Negative mg/dL [facility] Hemoglobin Ql (U) Negative Negative [facility] Interpretation and review of laboratory results Abnormal [facility] KETONE UA (POCT) Negative Negative mg/dL [facility] LEUKOCYTES UA (POCT) Negative Negative [facility] NITRITE UA (POCT) Negative Negative [facility] PH UA (POCT) 5.5 4.5 - 8.0 [facility] Protein Ql (U) 30 mg/dL Abnormal Negative [facility] SPECIFIC GRAVITY UA (POCT) >=1.030 1.005 - 1.030 [facility] UROBILINOGEN UA (POCT) 1.0 [place] l E.U./dL [facility] Location:[facility], [address], [place], [address] [facility] POINT OF CARE [facility] CNOVon 12-06-2023 CNOV Office Visit (GENSWS ) -- LANCE BEE ([id number]) 1960 [facility] Date Time Provider Department 12/06/23 1:00 PM MELANIE ARCINIEGA During your visit today, we recorded the following information about you: Melanie Arcinieag APRN.CNP 12/06/2023 1:21 PM Addendum Referral placed for urology Referral placed for heartburn clinic INSTRUCTIONS FOR PEPTIC ULCER DISEASE/GASTRITIS I discussed with you the findings of your upper endoscopy. Your upper endoscopy demonstrated signs of peptic ulcer disease or irritation. This can be seen as a range of issues from actual ulcers in the stomach or duodenum (first part of the small bowel) or irritation ranging from redness to more significant irritation with erosions of the stomach or duodenum. These conditions are usually caused from a combination of too much acid production or too little protective mucus production in the stomach. Factors that increase acid production include smoking and stress. If you smoke, stopping smoking will often cure these issues without needing other medications. Factors that decrease the stomach's production of protective mucus include alcohol consumption, smoking, aspirin and other anti-inflammatory use. Over the counter medications including antiacids and acid reducing medications including H2 blockers (Zantac and the like) and proton pump inhibitors (prilosec, prevacid and the like) neutralize or prevent acid production. Prescription strength proton pump inhibitors (PPIs) may be necessary if your symptoms persist. Carafate may be added to PPI treatment in refractory cases. Avoiding smoking, alcohol and antiinflammatory medications are important in the successful treatment of peptic diseases. New or worsening symptoms such are epigastric pain, burning, difficulty swallowing or food sticking should be relayed to your physician. Feeling full early after eating, or black, tarry, foul smelling stools are also worrisome. If you have any difficulties or concerns, you should contact our office immediately. Melanie Arciniega APRN.CNP 12/06/2023 1:37 PM Signed FOLLOW UP VISIT - ENDOSCOPY Lance Bee 1960 [id number] REFERRING PHYSICIAN: No referring provider defined for this encounter. Lance Bee is a patient I am following for coffee-ground emesis . Dr. Dougherty performed EGD on 11/24/23. The patient was found to have Impression: - Normal examined jejunum. - Normal examined duodenum. - Gastritis. Biopsied. - Medium-sized type III hiatal hernia. - Normal middle third of esophagus. Biopsied. Pathology demonstrated: FINAL DIAGNOSIS A. Stomach, biopsy: - Reactive gastropathy. - No morphologic evidence of Helicobacter pylori microorganisms. B. Esophagogastric junction, biopsy: - Hyperplastic squamous epithelium. C. Esophagus, mid, biopsy: - Hyperplastic squamous epithelium with rare intraepithelial eosinophils (up to 5 eosinophils per high-power field). The patient notes multiple complaints since the procedure. Yousif states he has LUQ pain from his hiatal hernia that bulges out. He refers that it has been like that since his lower scope which was in 2022. He also c/o urinary incontinence and difficulty finding his penis. He also states since the EGD he has had left testicular pain. He denies any redness or swelling. Yousif informed me that his friend is currently going through liver cancer tx and he is freaked out about having cancer. He also refers he has hit his deductible and wants to get everything checked out. VITALS: There were no vitals taken for this visit. General: patient is alert, cooperative, pleasant and in no acute distress On examination, the abdomen is benign. No palpable masses. Assessment ASSESSMENT/PLAN: 1. Gastritis, presence of bleeding unspecified, unspecified chronicity, unspecified gastritis type - ICD9: 535.50, ICD10: K29.70 (primary diagnosis) - Carafate 1g 4 times a day for 1 month 2. Other urinary incontinence - ICD9: 788.39, ICD10: N39.498 - CONSULT TO UROLOGY 3. Nocturia - ICD9: 788.43, ICD10: R35.1 - CONSULT TO UROLOGY 4. Hiatal hernia - ICD9: 553.3, ICD10: K44.9 - CONSULT TO [facility] The operative findings and pathology report were reviewed with the patient, and the patient has had the opportunity to ask questions and have questions answered. If the patient notes any problems or changes in bowel function, the patient should contact me immediately. Otherwise I recommend follow up endoscopy as symptoms dictate. There is abd xray from Dr. Childers on 11/24/23, instructed the patient to get this completed. HM updated and recall letter generated. Discussed treatment plan and patient voices understanding. Patient's questions answered appropriately. Medications and potential side effects were discussed and patient voices understanding. Return to the office as sc (more content not included)... Normal [facility] XR ABDOMEN 1V SUPINEon 12-05 XR ABDOMEN 1V SUPINE * * *Final Report* * * DATE OF EXAM: Dec 06 2023 1:53PM [id number] [id number] - XR ABDOMEN 1V SUPINE / PROCEDURE REASON: multiple diagnoses * * * * Physician Interpretation * * * * Indication: Coffee-ground emesis. Possible small bowel obstruction. Comparison: X-ray abdomen 09/22/2023 2 x-rays of the abdomen are obtained. There is a non-obstructed bowel gas pattern. Moderate fecal material in the colon. There is no hepatomegaly or splenomegaly. No abnormal calcifications are visualized. There are no acute osseous abnormalities. 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: [facility] Transcribe Date/Time: Dec 10 2023 3:57P Dictated by : STEFANIE ESPINOZA MD This examination was interpreted and the report reviewed and electronically signed by: STEFANIE ESPINOZA MD on Dec 10 2023 3:58PM EST [id number] Normal [facility] ANES POSTPROC EVALon 024 ANES POSTPROC EVAL HNO ID: [id number] Author: JERRY SAMPSON DO Service: Anesthesiology Author Type: Anesthesiologist Type: Anesthesia Postprocedure Evaluation Filed: 11/24/2023 13:27 Note Text: POST ANESTHESIA EVALUATION NOTE : 1960 Procedure Summary Date: 11/24/23 Room / Location: [facility] Endoscopy Anesthesia Start: 921 Anesthesia Stop: 953 Procedure: EGD DIAGNOSTIC Diagnosis: Coffee ground emesis SBO (small bowel obstruction) (HCC) (Coffee-ground emesis) Scheduled Providers: Tony Childers MD; Tete Clark APRN.STOCK CHASER; Jerry Sampson DO Responsible Provider: Jerry Sampson DO Anesthesia Type: MAC ASA Status: 3 Anesthesia Type: MAC Last Vitals Vitals Value Taken Time BP 122/74 11/24/23 1033 Temp 36.8 ?C (98.2 ?F) 11/24/23 1015 Pulse 74 11/24/23 1033 Resp 16 11/24/23 1033 SpO2 98 % 11/24/23 1033 Post Anesthesia Patient Status Patient Evaluation: PACU. PACU/ICU Patient Condition: stable. Anticipated Disposition: phase 2 then home. Neurological Status: aware and responsive. Pulmonary Status: breathing comfortably on room air Airway Control: returned to baseline unsupported. Cardiovascular Status: stable. Pain Management: clinically adequate Postoperative Hydration: acceptable. Intraoperative Events: no significant anesthesia events Post Operative Nausea/Vomiting Status: no significant post operative nausea or vomiting Recommendation: continue current plan of care and further care per PACU/ICU/floor team. Anesthesia Observations No Documentation SIGNATURE: Jerry Sampson DO PATIENT NAME: Lance Bee DATE: November 24, 2023 TIME: 1:27 PM CSN: [id number] Normal [facility] ANES PRE-OPon 11-24-2023 ANES PRE-OP HNO ID: [id number] Author: JERRY SAMPSON DO Service: Anesthesiology Author Type: Anesthesiologist Type: Anesthesia Preprocedure Evaluation Filed: 11/24/2023 08:38 Note Text: ANESTHESIOLOGY DAY OF SURGERY NOTE : 1960 Procedure Information Date/Time: 11/24/23 0915 Scheduled providers: Tony Childers MD; Tete Clark APRN.STOCK CHASER; Jerry Sampson DO Procedure: EGD DIAGNOSTIC Location: [facility] Endoscopy Estimated body mass index is 33.23 kg/m? as calculated from the following: Height as of 02/19/23: 182.9 cm (6'). Weight as of 10/29/23: 111.1 kg (245 lb). Most recent hematocrit and potassium results: Hematocrit 45.2 10/29/2023 Potassium 4.1 10/29/2023 Relevant Problems No relevant active problems I - PHYSICAL EVALUATION AIRWAY Patient intubated: No. Tracheostomy tube not present Mallampati: II. TM distance: >3 FB. Neck ROM: full ROM without neurological symptoms. Mouth opening: adequate. Short neck: no. Thick neck: no DENTAL Dentures, upper: complete. Dentures, lower: complete. II - ANESTHESIA PLAN ASA Score: 3 Anesthetic Plan: MAC NPO Status: adequate Beta Nuria Monitoring Plan Monitoring plan: standard ASA. Post Procedure Analgesic Plan Postoperative analgesic plan: parenteral or oral opioids. Informed Consent Anesthetic risks, benefits, alternatives, personnel and consent discussed: yes. Patient / Responsible Libertarian agrees to proceed: yes Patient / Surrogate agrees to blood products: Yes DNR status not reviewed with patient and/or family prior to surgery. Significant changes in the patient condition since the History and Physical, not otherwise documented in primary service progress note: no. Potential Anesthesia issues that may suggest increased risk of complications or contraindication to planned procedure: none. Discussed the possibility of lip / dental damage: yes Vitals Value Taken Time BP 149/88 11/24/23 0800 Pulse 98 11/24/23 0800 Resp 16 11/24/23 0800 Temp 36.3 ?C (97.3 ?F) 11/24/23 0800 SpO2 Outpatient Medications as of 11/24/2023 Medication Sig Phentermine HCl 37.5 mg tablet Take 1 tablet by mouth once daily for 90 days. BMI 34.18 amLODIPine (NORVASC) 5 mg tablet Take 1 tablet by mouth once daily. omeprazole (PRILOSEC) 40 mg capsule Take 1 capsule by mouth once daily. oxyCODONE (ROXICODONE) 15 mg immediate release tablet Take 15 mg by mouth three times daily. Dr. Ware clonazePAM (KLONOPIN) 1 mg tablet Take 2 tablets by mouth at bedtime as needed (anxiety, restless leg) for up to 180 days. Facility-Administered Medications as of 11/24/2023 Medication Dose Route Frequency lactated ringers iv infusion 30 mL/hr INTRAVENOUS CONTINUOUS I have interviewed and examined the patient. I have reviewed the medical record and/or the pre-anesthesia evaluation, pertinent labs, and test results. This contains updated information obtained within 48 hours of Surgery/Procedure. SIGNATURE: Jerry Sampson DO PATIENT NAME: Lance Bee DATE: November 24, 2023 TIME: 8:37 AM CSN: [id number] Normal [facility] EGD Study observation Kianna robins 11-24-2023 [facility] Gastrointestinal Endoscopy Patient Name: Lance Bee Procedure Date: 11/24/2023 9:15 AM Date of : 1960 Admit Type: Outpatient Age: 63 Room: [facility] Gender: Male Note Status: Finalized Attending MD: Tony Childers MD, [id number] Procedure: Upper GI endoscopy Indications: Coffee-ground emesis Providers: Tony Childers MD Patient Profile: This is a 63 year old male. Refer to note in patient chart for documentation of history and physical. Referring Physician: Tony Childers MD (Referring MD) Medicines: Monitored Anesthesia Care Complications: No immediate complications. Requesting Provider: Procedure: Pre-Anesthesia Assessment: - Prior to the procedure, a History and Physical was performed, and patient medications and allergies were reviewed. The patient is competent. The risks and benefits of the procedure and the sedation options and risks were discussed with the patient. All questions were answered and informed consent was obtained. Patient identification and proposed procedure were verified by the physician, the nurse and the bevel mill operator in the procedure room. Respiratory Examination: clear to auscultation. Prophylactic Antibiotics: The patient does not require prophylactic antibiotics. Prior Anticoagulants: The patient has taken no anticoagulant or antiplatelet agents. ASA Grade Assessment: II - A patient with mild systemic disease. After reviewing the risks and benefits, the patient was deemed in satisfactory condition to undergo the procedure. The anesthesia plan was to use monitored anesthesia care (MAC). Immediately prior to administration of medications, the patient was re-assessed for adequacy to receive sedatives. The heart rate, respiratory rate, oxygen saturations, blood pressure, adequacy of pulmonary ventilation, and response to care were monitored throughout the procedure. The physical status of the patient was re-assessed after the procedure. After obtaining informed consent, the endoscope was passed under direct vision. Throughout the procedure, the patient's blood pressure, pulse, and oxygen saturations were monitored continuously. The Endoscope was introduced through the mouth, and advanced to the jejunum. The upper GI endoscopy was accomplished without difficulty. The patient tolerated the procedure well. Scope Withdrawal Time: 0 hours 0 minutes 4 seconds Moderate Sedation: MAC anesthesia was administered by the anesthesia team. Total Procedure Duration: 0 hours 6 minutes 2 seconds Findings: The examined jejunum was normal. The examined duodenum was normal. Scattered moderate inflammation characterized by adherent blood, erosions, erythema and friability was found in the gastric antrum. Biopsies were taken with a cold forceps for histology. A medium-sized type III hiatal hernia was present. The middle third of the esophagus was normal. Biopsies were taken with a cold forceps for histology. Impression: - Normal examined jejunum. - Normal examined duodenum. - Gastritis. Biopsied. - Medium-sized type III hiatal hernia. - Normal middle third of esophagus. Biopsied. Recommendation: - Discharge patient to home. - Resume previous diet. - Continue present medications. - Return to nurse practitioner in 1 week. Procedure Code(s): --- Professional --- 61088, Esophagogastroduodenoscopy , flexible, transoral; with biopsy, single or multiple CPT copyright 2020 [employer]. All rights reserved. The codes documented in this report are preliminary and upon scada operator review may be revised to meet current compliance requirements. Attending Participation: I personally performed the entire procedure. Scope In: 9:43:13 AM Scope Out: 9:49:15 (more content not included)... PROVATION [facility] Radiology Study observation (narrative) [facility] HISTORY PHYSICALon HISTORY PHYSICAL HNO ID: [id number] Author: TONY CHILDERS MD Service: ? Author Type: Physician Type: H&P Filed: 11/24/2023 09:40 Note Text: HISTORY AND PHYSICAL Lance Bee 1960 REFERRING PHYSICIAN: self CHIEF COMPLAINT: Follow Up HPI: The patient is a 62 year old male with a complaint of recent hospital admission for ileus versus obstruction and coffee-ground emesis. The patient was noting abdominal distention constipation without necessarily obstipation and episodic vomiting for the past few weeks to months. The patient was working in [place] when he vomited coffee-ground emesis became dizzy and collapsed outside in his car EMS was called and he was taken to [facility]. He was admitted on September 16, 2023. CT scan of the abdomen pelvis from that admission demonstrated: Findings of small-bowel obstruction. The exact transition point is not identified. Cause is likely related to adhesions. Moderate-sized paraesophageal hiatal hernia. The patient was admitted and followed. He still noted coffee-ground emesis while in the hospital. The patient had a small bowel series performed on September 17, 2023. This demonstrated: No evidence of bowel obstruction. Multiple mildly dilated small bowel loops with oral contrast entering the cecum after 90 minutes of imaging. Nonspecific coin stacking-like appearance of some of the small bowel loops in the lower abdomen and left lower quadrant. Findings are nonspecific and can be seen with vascularities, coagulopathies and anticoagulant therapy. The patient initially denied any previous abdominal surgery but he did have a laparoscopic right inguinal hernia [place] [address] Green. He states he still feels uncomfortable. And vomiting some coffee-ground emesis. PAST MEDICAL HISTORY PAST MEDICAL HISTORY Diagnosis Date Anxiety 11/01/2015 Asymptomatic microscopic hematuria 2017 Contact dermatitis and other eczema, due to unspecified cause DDD (degenerative disc disease), lumbar 02/10/2013 Depression Dog bite of right lower leg 1999 with recurrent wounds Dysthymic disorder Depression (non-psychotic) Hypertension Impaired glucose metabolism 09/26/2014 A1c 6.1% September 2014 Obesity Open wound of knee, leg (except thigh), and ankle, complicated Open wound of right lower extremity 07/24/2017 YAIMA (obstructive sleep apnea) no CPAP tried by choice. 12/20/2014 Personal history of skin cancer 01/30/2016 Dr. Melody Trammell, Dermatology annually. Primary insomnia 11/01/2015 Reflex sympathetic dystrophy Restless legs 05/20/2015 Squamous cell carcinoma of lower leg 09/23/2012 Skin graft x2- Dr. Cook, Dr. Cardona [facility]- [place] Dr. Trammell Tubular adenoma of colon 02/24/2023 Ulcer of other part of foot PAST SURGICAL HISTORY PAST SURGICAL HISTORY Procedure Laterality Date COLONOSCOPY 10/27/2016 INCOMPLETE- CT colonography 03/31/18 diverticular disease. Repeat 5-10yrs COLONOSCOPY SCREENING 02/24/2023 EGD 10/27/2016 EGD W/O [facility] SPEC VARICIES INJ 02/24/2023 PAST SURGICAL HISTORY OF Right 2012 excision of tumor, right leg PAST SURGICAL HISTORY OF Right 2014 skin grafts, right leg. 2012,2013. CURRENT MEDICATIONS Current Outpatient Medications Medication Sig omeprazole (PRILOSEC) 40 mg capsule Take 1 capsule by mouth once daily. clonazePAM (KLONOPIN) 1 mg tablet Take 2 tablets by mouth at bedtime as needed (anxiety, restless leg) for up to 180 days. amLODIPine (NORVASC) 5 mg tablet Take 1 tablet by mouth once daily. Phentermine HCl 37.5 mg tablet Take 1 tablet by mouth once daily for 90 days. BMI 34.18 oxyCODONE (ROXICODONE) 15 mg immediate release tablet Take 15 mg by mouth three times daily. Dr. Ware No current facility-administered medications for this visit. ALLERGIES: Patient has no active allergies. PERSONAL HISTORY: SOCIAL HISTORY Social History Tobacco Use Smoking status: Never Smokeless tobacco: Never Vaping Use Vaping Use: Never used Substance Use Topics Alcohol use: Not Currently Comment: rare Drug use: No FAMILY HISTORY: FAMILY HISTORY FAMILY HISTORY Problem Relation Age of Onset Cancer Father pancreatic other (scleroderma) Mother REVIEW OF SYMPTOMS: negative except as noted above PHYSICAL EXAMINATION: General: The patient is 62 year old male, well nourished, well hydrated in no acute distress. The patient is oriented to time, place, and person. VITALS: There were no vitals taken for this visit. HEENT: Normal cephalic, ataumatic, pupils are equally round, sclera are anicteric, mucous membranes are moist, oropharynx is clear. Neck has no masses, asymmetry or lymphadenopathy. Thyroid is unremarkable. Respiratory: Clear to auscultation and percussion. Normal respiratory excursion and pattern. Cardiac: Examination is regular rate and rhythm. Abdominal exam: Soft, nontender, with no palpable masses. No hepatosplenomegaly. No palpable hernias. R (more content not included)... Normal [facility] SURGICAL PATHOLOGYon 024 CASE REPORT Normal [facility] Comment on above: Order Comment: John agustin Type: TISSUE SPECIMEN Ordering Facility: [facility] Address: [address] [place] [address] Result Comment: Surg [facility] Pathology Report Case: [id number] Authorizing Provider: Tony Childers MD Collected: 11/24/2023 09:45 AM Ordering Location: [facility] Endoscopy Received: 11/24/2023 11:29 AM Pathologist: Andie Edmondson MD Specimens: A) - Stomach, Biopsy B) - Esophagogastric Junction, Biopsy C) - Esophagus, Mid, Biopsy Performed By: #### S #### [facility] CLIA [id number] [address] [place] [address] [place] [address] [place] FINAL DIAGNOSIS Normal [facility] Comment on above: Order Comment: John agustin Type: TISSUE SPECIMEN Ordering Facility: [facility] Address: [address] [place] [address] Result Comment: Fletcher villegas, biopsy: - Reactive gastropathy. - No morphologic evidence of Helicobacter pylori microorganisms. B. Esophagogastric junction, biopsy: - Hyperplastic squamous epithelium. C. Esophagus, mid, biopsy: - Hyperplastic squamous epithelium with rare intraepithelial eosinophils (up to 5 eosinophils per high-power field). Performed By: #### S #### [facility] CLIA [id number] [address] [place] [address] [place] FINAL PERFORMING LAB Normal [facility] Comment on above: Order Comment: Speci men Type: TISSUE SPECIMEN Ordering Facility: [facility] Address: [address] [place] [address] Result Comment: Diag nostic interpretation performed at [facility], [address] [place] [address] CLIA# [id number] Outpatient Program Coordinator: Avel Dunaway M.D. Performed By: #### S #### [facility] CLIA [id number] [address] [place] [address] GROSS DESCRIPTION Normal [facility] Comment on above: Order Comment: Speci men Type: TISSUE SPECIMEN Ordering Facility: [facility] Address: [address] [place] [address] Result Comment: Elsy. Karla villegas, Biopsy Received in formalin is one piece of peralta, soft tissue measuring 0.4 x 0.3 x 0.2 cm. Totally submitted in one cassette. B. Esophagogastric Junction, Biopsy Received in formalin is one piece of peralta-white, soft tissue measuring one 0.5 x 0.3 x 0.1 cm. Totally submitted in one cassette. C. Esophagus, Mid, Biopsy Received in formalin is one piece of peralta-white, soft tissue measuring 0.6 x 0.3 x 0.1 cm. Totally submitted in one cassette. Gross examination performed at [facility], [address] [place] [address] November 24, 2023 4:14 PM Performed By: #### S #### [facility] CLIA [id number] [facility] [address] [place] Upper GI endoscopyon 024 Upper GI endoscopy [facility] Gastrointestinal Endoscopy Patient Name: Lance Bee Procedure Date: 11/24/2023 9:15 AM Date of : 1960 Admit Type: Outpatient Age: 63 Room: [facility] Gender: Male Note Status: Finalized Attending MD: Tony Childers MD, [id number] Procedure: Upper GI endoscopy Indications: Coffee-ground emesis Providers: Tony Childers MD Patient Profile: This is a 63 year old male. Refer to note in patient chart for documentation of history and physical. Referring Physician: Tony Childers MD (Referring MD) Medicines: Monitored Anesthesia Care Complications: No immediate complications. Requesting Provider: Procedure: Pre-Anesthesia Assessment: - Prior to the procedure, a History and Physical was performed, and patient medications and allergies were reviewed. The patient is competent. The risks and benefits of the procedure and the sedation options and risks were discussed with the patient. All questions were answered and informed consent was obtained. Patient identification and proposed procedure were verified by the physician, the nurse and the bevel mill operator in the procedure room. Respiratory Examination: clear to auscultation. Prophylactic Antibiotics: The patient does not require prophylactic antibiotics. Prior Anticoagulants: The patient has taken no anticoagulant or antiplatelet agents. ASA Grade Assessment: II - A patient with mild systemic disease. After reviewing the risks and benefits, the patient was deemed in satisfactory condition to undergo the procedure. The anesthesia plan was to use monitored anesthesia care (MAC). Immediately prior to administration of medications, the patient was re-assessed for adequacy to receive sedatives. The heart rate, respiratory rate, oxygen saturations, blood pressure, adequacy of pulmonary ventilation, and response to care were monitored throughout the procedure. The physical status of the patient was re-assessed after the procedure. After obtaining informed consent, the endoscope was passed under direct vision. Throughout the procedure, the patient's blood pressure, pulse, and oxygen saturations were monitored continuously. The Endoscope was introduced through the mouth, and advanced to the jejunum. The upper GI endoscopy was accomplished without difficulty. The patient tolerated the procedure well. Scope Withdrawal Time: 0 hours 0 minutes 4 seconds Moderate Sedation: MAC anesthesia was administered by the anesthesia team. Total Procedure Duration: 0 hours 6 minutes 2 seconds Findings: The examined jejunum was normal. The examined duodenum was normal. Scattered moderate inflammation characterized by adherent blood, erosions, erythema and friability was found in the gastric antrum. Biopsies were taken with a cold forceps for histology. A medium-sized type III hiatal hernia was present. The middle third of the esophagus was normal. Biopsies were taken with a cold forceps for histology. Impression: - Normal examined jejunum. - Normal examined duodenum. - Gastritis. Biopsied. - Medium-sized type III hiatal hernia. - Normal middle third of esophagus. Biopsied. Recommendation: - Discharge patient to home. - Resume previous diet. - Continue present medications. - Return to nurse practitioner in 1 week. Procedure Code(s): --- Professional --- 24576, Esophagogastroduodenoscopy , flexible, transoral; with biopsy, single or multiple CPT copyright 2020 [employer]. All rights reserved. The codes documented in this report are preliminary and upon scada operator review may be revised to meet current compliance requirements. Attending Participation: I personally performed the entire procedure. Scope In: 9:43:13 AM Scope Out: 9:49:15 AM MD Tony Spann MD 11/24/2023 9:54:27 AM This report has been signed electronically by Tony Childers MD Number of Addenda: 0 Note Initiated On: 11/24/2023 9:15 AM Estimated Blood Loss: Estimated blood loss: none. Normal [facility] CBC panel Auto (Bld)on 10-28 Erythrocyte distribution width (RBC) [Ratio] 12.7 % Normal 11.5-15.0 [facility] Comment on above: Order Comment: Speci men Type: BLOOD SPECIMENOrdering Facility: [facility] Address: [address] [place] [address] Performed By: #### 5 8410-2 ####[facility] [id number] [place] [address] [place] Hematocrit (Bld) [Volume fraction] 45.2 % Normal 39.0-51.0 [facility] Comment on above: Order Comment: Speci men Type: BLOOD SPECIMENOrdering Facility: [facility] Address: [address] [place] [address] Performed By: #### 5 8410-2 ####[facility]IA [id number] [place] [address] [place] Hemoglobin (Bld) [Mass/Vol] 15.8 g/dL Normal 13.0-17.0 [facility] Comment on above: Order Comment: Speci men Type: BLOOD SPECIMENOrdering Facility: [facility] Address: [address] [place] [address] Performed By: #### 5 8410-2 ####[facility]IA [id number] [place] [address] [place] MCH (RBC) [Entitic mass] 31.7 pg Normal 26.0-34.0 [facility] Comment on above: Order Comment: Speci men Type: BLOOD SPECIMENOrdering Facility: [facility] Address: [address] [place] [address] Performed By: #### 5 8410-2 ####[facility]IA [id number] [place] [address] [place] MCHC (RBC) [Mass/Vol] 35.0 g/dL Normal 30.5-36.0 [facility] Comment on above: Order Comment: Speci men Type: BLOOD SPECIMENOrdering Facility: [facility] Address: [address] [place] [address] Performed By: #### 5 8410-2 ####[facility]IA [id number] [place] [address] [place] MCV (RBC) [Entitic vol] 90.8 fL Normal 80.0-100.0 [facility] Comment on above: Order Comment: Speci men Type: BLOOD SPECIMENOrdering Facility: [facility] Address: [address] [place] [address] Performed By: #### 5 8410-2 ####[facility] [id number] [place] [address] [place] Nucleated RBC (Bld) [#/Vol] 10*3/uL Normal <0.01 [facility] Comment on above: Order Comment: Speci men Type: BLOOD SPECIMENOrdering Facility: [facility] Address: [address] [place] [address] Performed By: #### 5 8410-2 ####[facility]IA [id number] [place] [address] [place] Platelet mean volume (Bld) [Entitic vol] 12.0 fL Normal 9.0-12.7 [facility] Comment on above: Order Comment: Speci men Type: BLOOD SPECIMENOrdering Facility: [facility] Address: [address] [place] [address] Performed By: #### 5 8410-2 ####[facility]IA [id number] [place] [address] [place] Platelets (Bld) [#/Vol] 218 10*3/uL Normal 150-400 [facility] Comment on above: Order Comment: Speci men Type: BLOOD SPECIMENOrdering Facility: [facility] Address: [address] [place] [address] Performed By: #### 5 8410-2 ####[facility]IA [id number] [place] [address] [place] RBC (Bld) [#/Vol] 4.98 10*6/uL Normal 4.20-6.00 [facility] Comment on above: Order Comment: Speci men Type: BLOOD SPECIMENOrdering Facility: [facility] Address: [address] [place] [address] Performed By: #### 5 8410-2 ####[facility]IA [id number] [place] [address] [place] WBC (Bld) [#/Vol] 7.91 10*3/uL Normal 3.70-11.00 [facility] Comment on above: Order Comment: Speci men Type: BLOOD SPECIMENOrdering Facility: [facility] Address: [address] [place] [address] Performed By: #### 5 8410-2 ####[facility]CLIA [id number] [id number] [id number] [place] CNOVon 10-29-2023 CNOV Office Visit (INTMWS ) -- LANCE BEE ([id number]) 1960 [facility] Date Time Provider Department 10/29/23 3:20 PM LANCE JORGENSEN INTMWS During your visit today, we recorded the following information about you: Pulse Respiration Blood pressure Weight 84/minute 16/minute 130/78 111.1 kg Lance Jorgensen MD 10/29/2023 4:14 PM Signed This note was created using [employer]. Subjective Patient presents with: Follow Up Lance Bee is a 62 year old male. He was scheduled today for some odd triaging of issues that occurred more than one month ago. He just returned today from a vacation in [place] and felt well, other than some fatigue. He was taking his medications and still losing weight. His hypertension was better. Review of Systems Constitutional: Positive for fatigue. Negative for appetite change and fever. HENT: Negative for congestion. Respiratory: Negative for cough and shortness of breath. Cardiovascular: Negative for chest pain, palpitations and leg swelling. Gastrointestinal: Negative for abdominal pain, diarrhea, nausea and vomiting. Neurological: Negative for dizziness and headaches. ACTIVE PROBLEM LIST Reflex Sympathetic Dystrophy Depression Hypertension Goal Bp (Blood Pressure) < 130/80 Ddd (Degenerative Disc Disease), Lumbar Obesity (Bmi 35.0-39.9 Without Comorbidity) Impaired Glucose Metabolism Anxiety Primary Insomnia Personal History of Skin Cancer Restless Legs Actinic Keratosis Tubular Adenoma of Colon At Risk for Sleep Apnea Current Outpatient Medications Medication Sig omeprazole (PRILOSEC) 40 mg capsule Take 1 capsule by mouth once daily. clonazePAM (KLONOPIN) 1 mg tablet Take 2 tablets by mouth at bedtime as needed (anxiety, restless leg) for up to 180 days. Phentermine HCl 37.5 mg tablet Take 1 tablet by mouth once daily for 90 days. BMI 34.18 oxyCODONE (ROXICODONE) 15 mg immediate release tablet Take 15 mg by mouth three times daily. Dr. Ware amLODIPine (NORVASC) 5 mg tablet Take 1 tablet by mouth once daily. No current facility-administered medications for this visit. Objective BP 130/78 (BP Site: Left Arm, BP Position: Sitting) Pulse 84 Resp 16 Wt 111.1 kg (245 lb) SpO2 98% BMI 33.23 kg/m? Physical Exam Constitutional: General: He is not in acute distress. Appearance: He is not ill-appearing or diaphoretic. HENT: Head: Normocephalic. Nose: Nose normal. Mouth/Throat: Mouth: Mucous membranes are moist. Eyes: Conjunctiva/sclera: Conjunctivae normal. Cardiovascular: Rate and Rhythm: Normal rate and regular rhythm. Heart sounds: No murmur heard. No gallop. Pulmonary: Breath sounds: Normal breath sounds. Abdominal: General: There is no distension. Palpations: Abdomen is soft. There is no mass. Tenderness: There is no abdominal tenderness. Musculoskeletal: Right lower leg: No edema. Left lower leg: No edema. Neurological: Mental Status: He is alert. Assessment and Plan 1. Hypertension goal BP (blood pressure) < 130/80 - ICD9: 401.9, ICD10: I10 (primary diagnosis) - Improving control - Continue current medications - Recommend home blood pressure monitoring, to bring results to next visit - Encouraged sodium restriction, DASH or Mediterranean diet - Discussed need for and benefit of weight loss. BMI 33.23 kg/(m2) - AMLODIPINE 5 MG TABLET - COMPREHENSIVE METABOLIC PANEL 2. Obesity (BMI 35.0-39.9 without comorbidity) - ICD9: 278.00, ICD10: E66.9 Weight decreasing - Behavioral and pharmacological intervention - PHENTERMINE 37.5 MG TABLET Discussed medication dosage, usage, goals of therapy, and side effects. We will continue another 3 months, then break. 3. History of small bowel obstruction - ICD9: V12.79, ICD10: Z87.19 Endoscopies scheduled. 4. Fatigue, unspecified type - ICD9: 780.79, ICD10: R53.83 - COMPLETE BLOOD COUNT - VITAMIN B12 Lance Jorgensen MD Allergies As of Date: 10/29/2023 (No Active Allergies) Date Reviewed: 10/29/2023 Reviewed by: Belinda Zamarripa LPN - Fully Assessed Reason for Visit: Follow Up [171] Primary Visit Diagnosis:Hypertension goal BP (blood pressure) < 130/80 [I10] Other Visit Diagnoses:Obesity (BMI 35.0-39.9 without comorbidity) [E66.9] History of small bowel obstruction [Z87.19] Fatigue, unspecified type [R53.83] Order(s):Phentermine HCl 37.5 mg tabletTake 1 tablet by mouth once daily for 90 days. BMI 34.18Disp: 90 tabletRfl: 0 amLODIPine (NORVASC) 5 mg tabletTake 1 tablet by mouth once daily.Disp: 90 tabletRfl: 1 COMPLETE BLOOD COUNT [SQCBC] Order #: [id number] FUTURE COMPREHENSIVE METABOLIC PANEL [SQCMP] Order #: [id number] FUTURE VITAMIN B12 [SQB12] Order #: [id number] FUTURE Prescriptions as of 10/29/2023 - Phentermine HCl 37.5 mg tablet Take 1 tablet by mouth once daily for 90 days. BMI 34.18 - amLODIPine (NORVASC) 5 mg tablet Ta (more content not included)... Normal [facility] Comprehensive metabolic 2000 panelon 10-29-2023 Albumin [Mass/Vol] 4.5 g/dL Normal 3.9-4.9 [facility] Comment on above: Order Comment: Speci men Type: BLOOD SPECIMENOrdering Facility: [facility] Address: [address] [place] [address] Performed By: #### 2 4323-8, 2132-9 ####[facility] LABCLIA [id number] [facility] [id number] [address] [place] ALP [Catalytic activity/Vol] 111 U/L Normal 38-113 [facility] Comment on above: Order Comment: Speci men Type: BLOOD SPECIMENOrdering Facility: [facility] Address: [address] [id number] Performed By: #### 2 432-8, 2131-12 ####[facility] LABCLIA [id number] [facility]ENTER[facility] [address] [address] [place] ALT [Catalytic activity/Vol] 18 U/L Normal 10-54 [facility] Comment on above: Order Comment: Speci men Type: BLOOD SPECIMENOrdering Facility: [facility] Address: [address] [id number] Performed By: #### 2 4328, 2131-12 ####[facility] LABCLIA [id number] [place] [address] [place] Anion gap [Moles/Vol] 10 mmol/L Normal 8-15 [facility] Comment on above: Order Comment: Speci men Type: BLOOD SPECIMENOrdering Facility: [facility] Address: [address] [id number] Performed By: #### 2 4322-11, 2131-12 ####[facility] LABCLIA [id number] [place] [address] [place] AST [Catalytic activity/Vol] 23 U/L Normal 14-40 [facility] Comment on above: Order Comment: Speci men Type: BLOOD SPECIMENOrdering Facility: [facility] Address: [address] [id number] Performed By: #### 2 4323-8, 2131-12 ####[facility] LABCLIA [id number] [place] [id number] [place] Bilirubin [Mass/Vol] 0.4 mg/dL Normal 0.2-1.3 [facility] Comment on above: Order Comment: Speci men Type: BLOOD SPECIMENOrdering Facility: [facility] Address: [address] [place], [place] [address] Performed By: #### 2 4322-11, 2131-12 ####[facility] LABCLIA [id number] [address] [address] [place] Calcium [Mass/Vol] 9.6 mg/dL Normal 8.5-10.2 [facility] Comment on above: Order Comment: Speci men Type: BLOOD SPECIMENOrdering Facility: [facility] Address: [address] [place] [address] Performed By: #### 2 4322-11, 2131-12 ####[facility] LABCLIA [id number] [place] [address] [place] Chloride [Moles/Vol] 104 mmol/L Normal 98-107 [facility] Comment on above: Order Comment: Speci men Type: BLOOD SPECIMENOrdering Facility: [facility] Address: [address] [place] [address] Performed By: #### 2 4322-11, 2131-12 ####[facility] LABCLIA [id number] [place] [address] [place] CO2 [Moles/Vol] 25 mmol/L Normal 22-30 [facility] Comment on above: Order Comment: Speci men Type: BLOOD SPECIMENOrdering Facility: [facility] Address: [address] [id number] Performed By: #### 2 4322-11, 2131-12 ####[facility] LABCLIA [id number] [place] [id number] [place] Creatinine [Mass/Vol] 0.95 mg/dL Normal 0.73-1.22 [facility] Comment on above: Order Comment: Speci men Type: BLOOD SPECIMENOrdering Facility: [facility] Address: [address] [place], [place] [address] Performed By: #### 2 4322-11, 2131-12 ####[facility] LABCLIA [id number] [place] [address] [place] Creatinine and Glomerular filtration rate.predicted panel (S/P/Bld) 91 mL/min/1.73m??? Normal >=60 [facility] Comment on above: Order Comment: John agustin Type: BLOOD SPECIMENOrdering Facility: [facility] Address: [address] [place] [address] Result Comment: Neha mated Glomerular Filtration Rate (eGFR) is calculated using the 2020 CKD-EPI creatinine equation. This equation utilizes serum creatinine, sex, and age as parameters. The creatinine assay has traceable calibration to isotope dilution-mass spectrometry. Refer to KDIGO guidelines for clinical interpretation. In patients with unstable renal function, e.g. those with acute kidney injury, the eGFR may not accurately reflect actual GFR. Performed By: #### 2 4323-8, 2131-12 ####[facility] LABIA [id number] [place] [id number] [place] Glucose [Mass/Vol] 112 mg/dL High 74-99 [facility] Comment on above: Order Comment: John agustin Type: BLOOD SPECIMENOrdering Facility: [facility] Address: [address] [place] [address] Result Comment: The [place] Diabetes Association (ADA) provides guidance for cutoff values for fasting glucose and random glucose. The ADA defines fasting as no caloric intake for at least 8 hours. Fasting plasma glucose results between 100 to 125 mg/dL indicate increased risk for diabetes (prediabetes). Fasting plasma glucose results greater than or equal to 126 mg/dL meet the criteria for diagnosis of diabetes. In the absence of unequivocal hyperglycemia, results should be confirmed by repeat testing. In a patient with classic symptoms of hyperglycemia or hyperglycemic crisis, random plasma glucose results greater than or equal to 200 mg/dL meet the criteria for diagnosis of diabetes. Reference: Standards of Medical Care in Diabetes 2016, [place] Diabetes Association. Diabetes Care. 2016.39(Suppl 1). Performed By: #### 2 4323-8, 2131-12 ####[facility] LABIA [id number] [address] [place], [place] [address] [place] Potassium [Moles/Vol] 4.1 mmol/L Normal 3.7-5.1 [facility] Comment on above: Order Comment: Speci men Type: BLOOD SPECIMENOrdering Facility: [facility] Address: [address] [place] [address] [place] [id number] Performed By: #### 2 4328, 2131-12 ####[facility] LABCLIA [id number] [place] [id number] [place] Protein [Mass/Vol] 6.7 g/dL Normal 6.3-8.0 [facility] Comment on above: Order Comment: Speci men Type: BLOOD SPECIMENOrdering Facility: [facility] Address: [address] [place], [place] [address] Performed By: #### 2 4328, 2131-12 ####[facility] LABCLIA [id number] [place] [address] [place] Sodium [Moles/Vol] 139 mmol/L Normal 136-144 [facility] Comment on above: Order Comment: Speci men Type: BLOOD SPECIMENOrdering Facility: [facility] Address: [address] [place], [place] [address] Performed By: #### 2 4322-11, 2131-12 ####[facility] LABCLIA [id number] [place] [id number] [place] Urea nitrogen [Mass/Vol] 18 mg/dL Normal 9-24 [facility] Comment on above: Order Comment: Speci men Type: BLOOD SPECIMENOrdering Facility: [facility] Address: [address] [place] [address] Performed By: #### 2 4322-11, 2131-12 ####[facility] LABCLIA [id number] [address] [address] [place] Vit B12 [facility] 07-12-2 024 Cobalamin (Vitamin B12) [Mass/Vol] 825 pg/mL Normal 232-1245 [facility] Comment on above: Order Comment: Speci men Type: BLOOD SPECIMENOrdering Facility: [facility] Address: [address] [facility] [place] [address] Performed By: #### 2 4323-8, 213-9 ####[facility] LABCLIA [id number] [place] [address] [place] BASIC METABOLIC PANELon 05-3 Anion gap [Moles/Vol] 15 mmol/L Normal 10-20 [facility] Comment on above: Order Comment: Injur y/Trauma or Illness?:Illness/Other How long have you had these symptoms (acute/chronic)?:Acute Reason for exam?:sudden onset weakness today, abdominal pain in LLQ and RLQ, black stools x 2 months, n/v x 1 month s/p colonoscopy, brown colored emesis in ED, has hx of gi bleeds Type of Exam?:Initial Additional signs and symptoms?:. Performed By: #### 4 6124 ####[facility] [address] [address] Lalito Ledbetter M.D. [id number] Calcium [Mass/Vol] 8.7 mg/dL Normal 8.4-10.2 [facility] Comment on above: Order Comment: Injur y/Trauma or Illness?:Illness/Other How long have you had these symptoms (acute/chronic)?:Acute Reason for exam?:sudden onset weakness today, abdominal pain in LLQ and RLQ, black stools x 2 months, n/v x 1 month s/p colonoscopy, brown colored emesis in ED, has hx of gi bleeds Type of Exam?:Initial Additional signs and symptoms?:. Performed By: #### 4 6124 ####[facility] [address] [place], [place] [address] Lalito Ledbetter M.D. [id number] Chloride [Moles/Vol] 107 mmol/L Normal 98-108 [facility] Comment on above: Order Comment: Injur y/Trauma or Illness?:Illness/Other How long have you had these symptoms (acute/chronic)?:Acute Reason for exam?:sudden onset weakness today, abdominal pain in LLQ and RLQ, black stools x 2 months, n/v x 1 month s/p colonoscopy, brown colored emesis in ED, has hx of gi bleeds Type of Exam?:Initial Additional signs and symptoms?:. Performed By: #### 4 6100 #### LAB [address] [place], [place] [address] Lalito Ledbetter M.D. [id number] Creatinine [Mass/Vol] 0.90 mg/dL Normal 0.80-1.30 [facility] Comment on above: Order Comment: Injur y/Trauma or Illness?:Illness/Other How long have you had these symptoms (acute/chronic)?:Acute Reason for exam?:sudden onset weakness today, abdominal pain in LLQ and RLQ, black stools x 2 months, n/v x 1 month s/p colonoscopy, brown colored emesis in ED, has hx of gi bleeds Type of Exam?:Initial Additional signs and symptoms?:. Performed By: #### 4 6124 #### LAB [address] [place], [place] [address] Lalito Ledbetter M.D. [id number] EGFR 97 mL/min/1.73 m2 Normal >=60 [facility] Comment on above: Order Comment: Injur y/Trauma or Illness?:Illness/Other How long have you had these symptoms (acute/chronic)?:Acute Reason for exam?:sudden onset weakness today, abdominal pain in LLQ and RLQ, black stools x 2 months, n/v x 1 month s/p colonoscopy, brown colored emesis in ED, has hx of gi bleeds Type of Exam?:Initial Additional signs and symptoms?:. Result Comment: Neha mated GFR was calculated using the 2020 CKD-EPI creatinine equation. Performed By: #### 4 6165 #### LAB [address] [place], [place] [address] Lalito Ledbetter M.D. [id number] Glucose [Mass/Vol] 100 mg/dL High 65-99 [facility] Comment on above: Order Comment: Injur y/Trauma or Illness?:Illness/Other How long have you had these symptoms (acute/chronic)?:Acute Reason for exam?:sudden onset weakness today, abdominal pain in LLQ and RLQ, black stools x 2 months, n/v x 1 month s/p colonoscopy, brown colored emesis in ED, has hx of gi bleeds Type of Exam?:Initial Additional signs and symptoms?:. Performed By: #### 4 6157 #### LAB [address] [place], [place] [address] Lalito Ledbetter M.D. [id number] HCO3 (Bld) [Moles/Vol] 24 mmol/L Normal 21-32 [facility] Comment on above: Order Comment: Injur y/Trauma or Illness?:Illness/Other How long have you had these symptoms (acute/chronic)?:Acute Reason for exam?:sudden onset weakness today, abdominal pain in LLQ and RLQ, black stools x 2 months, n/v x 1 month s/p colonoscopy, brown colored emesis in ED, has hx of gi bleeds Type of Exam?:Initial Additional signs and symptoms?:. Performed By: #### 4 6116 #### LAB [address] [address] Lalito Ledbetter M.D. [id number] Potassium [Moles/Vol] 4.0 mmol/L Normal 3.5-5.1 [facility] Comment on above: Order Comment: Injur y/Trauma or Illness?:Illness/Other How long have you had these symptoms (acute/chronic)?:Acute Reason for exam?:sudden onset weakness today, abdominal pain in LLQ and RLQ, black stools x 2 months, n/v x 1 month s/p colonoscopy, brown colored emesis in ED, has hx of gi bleeds Type of Exam?:Initial Additional signs and symptoms?:. Performed By: #### 4 6157 #### LAB [address] [address] Lalito Ledbetter M.D. [id number] Sodium [Moles/Vol] 142 mmol/L Normal 135-145 [facility] Comment on above: Order Comment: Injur y/Trauma or Illness?:Illness/Other How long have you had these symptoms (acute/chronic)?:Acute Reason for exam?:sudden onset weakness today, abdominal pain in LLQ and RLQ, black stools x 2 months, n/v x 1 month s/p colonoscopy, brown colored emesis in ED, has hx of gi bleeds Type of Exam?:Initial Additional signs and symptoms?:. Performed By: #### 4 6127 #### LAB [address] [address] Lalito Ledbetter M.D. [id number] Urea nitrogen [Mass/Vol] 17 mg/dL Normal 8-25 [facility] Comment on above: Order Comment: Injur y/Trauma or Illness?:Illness/Other How long have you had these symptoms (acute/chronic)?:Acute Reason for exam?:sudden onset weakness today, abdominal pain in LLQ and RLQ, black stools x 2 months, n/v x 1 month s/p colonoscopy, brown colored emesis in ED, has hx of gi bleeds Type of Exam?:Initial Additional signs and symptoms?:. Performed By: #### 4 6185 #### LAB [address] [address] Lalito Ledbetter M.D. [id number] Urea nitrogen/Creatinine [Mass ratio] 18.9 mg/mg Normal 10.0-20.0 [facility] Comment on above: Order Comment: Injur y/Trauma or Illness?:Illness/Other How long have you had these symptoms (acute/chronic)?:Acute Reason for exam?:sudden onset weakness today, abdominal pain in LLQ and RLQ, black stools x 2 months, n/v x 1 month s/p colonoscopy, brown colored emesis in ED, has hx of gi bleeds Type of Exam?:Initial Additional signs and symptoms?:. Performed By: #### 4 6128 #### LAB [address] [address] Lalito Ledbetter M.D. [id number] CBCon 09-17-2023 AUTO NRBC 0.0 % Normal [facility] Comment on above: Performed By: #### 4 5218 #### LAB [address] [address] Lalito Ledbetter M.D. [id number] AUTO NRBC ABS COUNT 0.00 K/mcL Normal 0.00-0.00 [facility] Comment on above: Performed By: #### 4 5218 #### LAB [address] [address] Lalito Ledbetter M.D. [id number] Erythrocyte distribution width (RBC) [Ratio] 13.2 % Normal 11.6-14.8 [facility] Comment on above: Performed By: #### 4 5218 #### LAB [address] [address] Lalito Ledbetter M.D. [id number] Hematocrit (Bld) [Volume fraction] 45.7 % Normal 41.0-53.0 [facility] Comment on above: Performed By: #### 4 5218 #### LAB [address] [address] Lalito Ledbetter M.D. [id number] Hemoglobin (Bld) [Mass/Vol] 15.5 g/dL Normal 13.5-17.5 [facility] Comment on above: Performed By: #### 4 5218 #### LAB [address] [address] Lalito Ledbetter M.D. [id number] MCH (RBC) [Entitic mass] 30.7 pg Normal 26.0-34.0 [facility] Comment on above: Performed By: #### 4 5218 #### LAB [address] [address] Lalito Ledbetter M.D. [id number] MCV (RBC) [Entitic vol] 90.5 fL Normal 80.0-100.0 [facility] Comment on above: Performed By: #### 4 5218 #### LAB [address] [address] Lalito Ledbetter M.D. [id number] MEAN CORPUSCULAR HEMOGLOBIN CONC 33.9 g/dL Normal 31.0-37.0 [facility] Comment on above: Performed By: #### 4 5218 #### LAB [address] [address] Lalito Ledbetter M.D. [id number] Platelet mean volume (Bld) [Entitic vol] 10.7 fL Normal 9.4-12.4 [facility] Comment on above: Performed By: #### 4 5218 #### LAB [address] [place], [place] [address] Lalito Ledbetter M.D. [id number] Platelets (Bld) [#/Vol] 189 10*3/uL Normal 150-400 [facility] Comment on above: Performed By: #### 4 5218 #### LAB [address] [address] Lalito Ledbetter M.D. [id number] RBC (Bld) [#/Vol] 5.05 10*6/uL Normal 4.50-5.90 [facility] Comment on above: Performed By: #### 4 5218 #### LAB [address] [address] Lalito Ledbetter M.D. [id number] WBC (Bld) [#/Vol] 8.88 10*3/uL Normal 4.50-11.00 [facility] Comment on above: Performed By: #### 4 5218 #### LAB [address] [address] Lalito Ledbetter M.D. [id number] [facility] XR SMALL BOWEL FOLLOW THROUGH EXAMINATION: XR SMALL BOWEL FOLLOW THROUGH HISTORY: ORDERING SYSTEM PROVIDED HISTORY: SBO, water soluble contrast, TECHNOLOGIST PROVIDED HISTORY: Illness/Other Reason for exam: SBO, water soluble contras Encounter Type: Ongoing Additional signs and symptoms: SBO, water soluble contras Fluoro dose in mGy: 0 ORDERING SYSTEM PROVIDED DIAGNOSIS CODES: K56.609 Small bowel obstruction (HCC) COMPARISON: None TECHNIQUE: Small bowel series utilizing water-soluble contrast. 200 mL of Isovue-300 contrast was administered orally. Twelve overhead images were obtained. 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 Some bowel loops demonstrate mild dilatation. Postsurgical changes of right lower quadrant hernia repair. No subdiaphragmatic free intraperitoneal air on upright radiograph of the upper abdomen. Mild left basilar atelectasis. SMALL BOWEL SERIES: Several mildly dilated small bowel loops in the left lower quadrant and lower abdomen measuring up 3.9 cm. Mucosal fold pattern of some of these small bowel loops in the lower abdomen and left lower quadrants demonstrate a coin stacking-like appearance. Right lower quadrant small bowel loops appear normal caliber. Oral contrast reaches the cecum at 90 minutes. Grossly normal appearance of the terminal ileum. IMPRESSION: No evidence of bowel obstruction. Multiple mildly dilated small bowel loops with oral contrast entering the cecum after 90 minutes of imaging. Nonspecific coin stacking-like appearance of some of the small bowel loops in the lower abdomen and left lower quadrant. Findings are nonspecific and can be seen with vascularities, coagulopathies and anticoagulant therapy. Tray Workstation ID: [id number] Dictated by: GAGE STRONG on WedSeptember 17, 2023 11:07:32 AM EDT Transcribed by: GRETA CLIFFORD on WedSeptember 17, 2023 11:11:20 AM EDT Finalized by: GAGE STRONG on WedSeptember 17, 2023 5:49:23 PM EDT [facility] Comment on above: Order Comment: Injur y/Trauma or Illness?:Illness/Other How long have you had these symptoms (acute/chronic)?:Acute Reason for exam?:SBO, water soluble contras Type of Exam?:Ongoing Additional signs and symptoms?:SBO, water soluble contras Fluoro time in minutes:0 Fluoro dose in mGy?:0 BLOOD CULTURE AEROBIC/ANAERO BICon 09-16-2023 BLOOD CULTURE AEROBIC/ANAEROBIC BLOOD CULTURE No Growth After 5 Days [facility] Comment on above: Performed By: #### 4 4014 #### LAB [address] [address] Lalito Ledbetter M.D. [id number] CBC WITH AUTO DIFFERENTIALon 09-16-2023 AUTO NRBC 0.0 % [facility] Comment on above: Performed By: #### L [id number] #### [facility] [address] [place], [place] [address] Lalito Ledbetter M.D. [id number] AUTO NRBC ABS COUNT 0.00 K/mcL Normal 0.00-0.00 [facility] Comment on above: Performed By: #### L [id number] #### LAB [address] [place] [address] Lalito Ledbetter M.D. [id number] BASOPHILS ABSOLUTE COUNT 0.07 K/mcL Normal 0.00-0.30 [facility] Comment on above: Performed By: #### L [id number] #### LAB [address] [place] [address] Lalito Ledbetter M.D. [id number] Basophils/100 WBC (Bld) 0.5 % Normal [facility] Comment on above: Performed By: #### L [id number] #### LAB [address] [address] Lalito Ledbetter M.D. [id number] Eosinophils (Bld) [#/Vol] 0.03 10*3/uL Normal 0.00-0.50 [facility] Comment on above: Performed By: #### L [id number] #### LAB [address] [place] [address] Lalito Ledbetter M.D. [id number] Eosinophils/100 WBC (Bld) 0.2 % Normal [facility] Comment on above: Performed By: #### L [id number] #### LAB [address] [place] [address] Lalito Ledbetter M.D. [id number] Erythrocyte distribution width (RBC) [Ratio] 13.1 % Normal 11.6-14.8 [facility] Comment on above: Performed By: #### L [id number] #### LAB [address] [address] Lalito Ledbetter M.D. [id number] Hematocrit (Bld) [Volume fraction] 54.8 % High 41.0-53.0 [facility] Comment on above: Performed By: #### L [id number] #### LAB [address] [address] Lalito Ledbetter M.D. [id number] Hemoglobin (Bld) [Mass/Vol] 19.2 g/dL High 13.5-17.5 [facility] Comment on above: Performed By: #### L [id number] #### [facility] [address] [address] Lalito Ledbetter M.D. [id number] IG ABSOLUTE 0.05 K/mcL Normal 0.00-0.30 [facility] Comment on above: Performed By: #### L [id number] #### LAB [address] [address] Lalito Ledbetter M.D. [id number] IG PERCENT 0.40 % Normal [facility] Comment on above: Result Comment: The IG parameter is the percentage of metamyelocytes, myelocytes and promyelocytes. An immature granulocyte count (IG) of 1% or more suggests the possibility of infection, an IG count of 3% is very likely related to an infection. Performed By: #### L [id number] #### LAB [address] [place] [address] Lalito Ledbetter M.D. [id number] Lymphocytes (Bld) [#/Vol] 2.08 10*3/uL Normal 0.90-4.00 [facility] Comment on above: Performed By: #### L [id number] #### LAB [address] [place] [address] Lalito Ledbetter M.D. [id number] Lymphocytes/100 WBC (Bld) 15.1 % Normal [facility] Comment on above: Performed By: #### L [id number] #### LAB [address] [place] [address] Lalito Ledbetter M.D. [id number] MCH (RBC) [Entitic mass] 31.2 pg Normal 26.0-34.0 [facility] Comment on above: Performed By: #### L [id number] #### LAB [address] [address] Lalito Ledbetter M.D. [id number] MCV (RBC) [Entitic vol] 89.0 fL Normal 80.0-100.0 [facility] Comment on above: Performed By: #### L [id number] #### LAB [address] [place] [address] Lalito Ledbetter M.D. [id number] MEAN CORPUSCULAR HEMOGLOBIN CONC 35.0 g/dL Normal 31.0-37.0 [facility] Comment on above: Performed By: #### L [id number] #### LAB [address] [address] Lalito Ledbetter M.D. [id number] Monocytes (Bld) [#/Vol] 0.92 10*3/uL High 0.30-0.90 [facility] Comment on above: Performed By: #### L GS1157 #### LAB [address] [address] Lalito Ledbetter M.D. [id number] Monocytes/100 WBC (Bld) 6.7 % Normal [facility] Comment on above: Performed By: #### L [id number] #### LAB [address] [address] Lalito Ledbetter M.D. [id number] NEUTROPHILS ABSOLUTE COUNT 10.65 K/mcL High 1.70-7.00 [facility] Comment on above: Performed By: #### L [id number] #### LAB [address] [address] Lalito Ledbetter M.D. [id number] Neutrophils/100 WBC (Bld) 77.1 % Normal [facility] Comment on above: Performed By: #### L [id number] #### LAB [address] [place] [address] Lalito Ledbetter M.D. [id number] Platelet mean volume (Bld) [Entitic vol] 11.0 fL Normal 9.4-12.4 [facility] Comment on above: Performed By: #### L [id number] #### LAB [address] [address] Lalito Ledbetter M.D. [id number] Platelets (Bld) [#/Vol] 260 10*3/uL Normal 150-400 [facility] Comment on above: Performed By: #### L [id number] #### LAB [address] [place] [address] Lalito Ledbetter M.D. [id number] RBC (Bld) [#/Vol] 6.16 10*6/uL High 4.50-5.90 [facility] Comment on above: Performed By: #### L [id number] #### [facility] [address] [place], [place] [address] Lalito Ledbetter M.D. [id number] WBC (Bld) [#/Vol] 13.80 10*3/uL High 4.50-11.00 [facility] Comment on above: Performed By: #### L [id number] #### [facility] [address] [place], [place] [address] Lalito Ledbetter M.D. [id number] COMPREHENSIVE METABOLIC PANE [facility] 09-16-2023 Albumin [Mass/Vol] 5.1 g/dL Normal 3.2-5.2 [facility] Comment on above: Order Comment: [facility] has implemented the eGFR calculation approach that does not have a coefficient for race that conforms to the NKF-ASN Task Force Recommendations. Performed By: #### 4 6126 #### [facility] [address] [place], [place] [address] Lalito Ledbetter M.D. [id number] ALP [Catalytic activity/Vol] 144 U/L Normal 40-150 [facility] Comment on above: Order Comment: [facility] [facility] has implemented the eGFR calculation approach that does not have a coefficient for race that conforms to the NKF-ASN Task Force Recommendations. Performed By: #### 4 [id number] #### MH LAB [address] [address] Lalito Ledbetter M.D. [id number] ALT [Catalytic activity/Vol] 21 U/L Normal 0-50 U/L [facility] Comment on above: Order Comment: [facility] has implemented the eGFR calculation approach that does not have a coefficient for race that conforms to the NKF-ASN Task Force Recommendations. Performed By: #### 4 [id number] #### MH LAB [address] [id number] Lalito Ledbetter M.D. [id number] Anion gap [Moles/Vol] 21 mmol/L High 10-20 [facility] Comment on above: Order Comment: [facility] has implemented the eGFR calculation approach that does not have a coefficient for race that conforms to the NKF-ASN Task Force Recommendations. Performed By: #### 4 [id number] #### LAB [address] [address] Lalito Ledbetter M.D. [id number] AST [Catalytic activity/Vol] 35 U/L Normal 0-50 U/L [facility] Comment on above: Order Comment: [facility] has implemented the eGFR calculation approach that does not have a coefficient for race that conforms to the NKF-ASN Task Force Recommendations. Result Comment: Slkris htly Hemolyzed Performed By: #### 4 [id number] #### LAB [address] [address] Lalito Ledbetter M.D. [id number] Bilirubin [Mass/Vol] 0.8 mg/dL Normal 0.0-1.3 [facility] Comment on above: Order Comment: [facility] has implemented the eGFR calculation approach that does not have a coefficient for race that conforms to the NKF-ASN Task Force Recommendations. Performed By: #### 4 [id number] #### LAB [address] [id number] Lalito Ledbetter M.D. [id number] Calcium [Mass/Vol] 11.3 mg/dL High 8.4-10.2 [facility] Comment on above: Order Comment: [facility] has implemented the eGFR calculation approach that does not have a coefficient for race that conforms to the NKF-ASN Task Force Recommendations. Performed By: #### 4 6126 #### LAB [address] [address] Lalito Ledbetter M.D. [id number] Chloride [Moles/Vol] 100 mmol/L Normal 98-108 [facility] Comment on above: Order Comment: [facility] has implemented the eGFR calculation approach that does not have a coefficient for race that conforms to the NKF-ASN Task Force Recommendations. Performed By: #### 4 6126 #### LAB [address] [address] Lalito Ledbetter M.D. [id number] Creatinine [Mass/Vol] 1.54 mg/dL High 0.80-1.30 [facility] Comment on above: Order Comment: [facility] has implemented the eGFR calculation approach that does not have a coefficient for race that conforms to the NKF-ASN Task Force Recommendations. Performed By: #### 4 6126 #### LAB [address] [address] Lalito Ledbetter M.D. [id number] EGFR 51 mL/min/1.73 m2 Low >=60 [facility] Comment on above: Order Comment: [facility] has implemented the eGFR calculation approach that does not have a coefficient for race that conforms to the NKF-ASN Task Force Recommendations. Result Comment: Neha mated GFR was calculated using the 2020 CKD-EPI creatinine equation. Performed By: #### 4 [id number] #### LAB [address] [address] Lalito Ledbetter M.D. [id number] Glucose [Mass/Vol] 129 mg/dL High 65-99 [facility] Comment on above: Order Comment: [facility] has implemented the eGFR calculation approach that does not have a coefficient for race that conforms to the NKF-ASN Task Force Recommendations. Performed By: #### 4 6126 #### LAB [address] [address] Lalito Ledbetter M.D. [id number] HCO3 (Bld) [Moles/Vol] 25 mmol/L Normal 21-32 [facility] Comment on above: Order Comment: [facility] has implemented the eGFR calculation approach that does not have a coefficient for race that conforms to the NKF-ASN Task Force Recommendations. Performed By: #### 4 6126 #### LAB [address] [address] Lalito Ledbetter M.D. [id number] Potassium [Moles/Vol] 4.7 mmol/L Normal 3.5-5.1 [facility] Comment on above: Order Comment: [facility] has implemented the eGFR calculation approach that does not have a coefficient for race that conforms to the NKF-ASN Task Force Recommendations. Result Comment: Slig htly Hemolyzed Performed By: #### 4 [id number] #### LAB [address] [address] Lalito Ledbetter M.D. [id number] Protein [Mass/Vol] 8.8 g/dL High 6.0-8.0 [facility] Comment on above: Order Comment: [facility] has implemented the eGFR calculation approach that does not have a coefficient for race that conforms to the NKF-ASN Task Force Recommendations. Performed By: #### 4 6126 #### LAB [address] [id number] Lalito Ledbetter M.D. [id number] Sodium [Moles/Vol] 141 mmol/L Normal 135-145 [facility] Comment on above: Order Comment: [facility] has implemented the eGFR calculation approach that does not have a coefficient for race that conforms to the NKF-ASN Task Force Recommendations. Performed By: #### 4 6126 #### LAB [address] [place], [place] [address] Lalito Ledbetter M.D. [id number] Urea nitrogen [Mass/Vol] 16 mg/dL Normal 8-25 [facility] Comment on above: Order Comment: [facility] has implemented the eGFR calculation approach that does not have a coefficient for race that conforms to the NKF-ASN Task Force Recommendations. Performed By: #### 4 6126 #### LAB [address] [id number] Lalito Ledbetter M.D. [id number] Urea nitrogen/Creatinine [Mass ratio] 10.4 mg/mg Normal 10.0-20.0 [facility] Comment on above: Order Comment: [facility] has implemented the eGFR calculation approach that does not have a coefficient for race that conforms to the NKF-ASN Task Force Recommendations. Performed By: #### 4 6126 #### [facility] [address] [address] [address]ito Ledbetter M.D. [id number] CT ABDOMEN PELVIS WITH IV CO NTRAST ONLYon 09-16-2023 CT ABDOMEN PELVIS WITH IV CONTRAST ONLY EXAM: CT ABDOMEN PELVIS WITH IV CONTRAST ONLY DATE: 09/16/2023 4:18 pm TECHNIQUE: Axial CT images were obtained through the abdomen and pelvis following intravenous contrast administration. Multiplanar reformatted images also created. IOPAMIDOL 370 MG IODINE/ML (76 %) INTRAVENOUS SOLUTION - 75 mL, Dose reduction techniques were achieved by using automated exposure control and/or adjustment of mA and/or kV according to patient size and/or use of iterative reconstruction technique. HISTORY: ORDERING SYSTEM PROVIDED HISTORY: Gen abd pain, N/V x1 month since he had a colonoscopy, TECHNOLOGIST PROVIDED HISTORY: Illness/Other Reason for exam: sudden onset weakness today, abdominal pain in LLQ and RLQ, black stools x 2 months, n/v x 1 month s/p colonoscopy, brown colored emesis in ED, has hx of gi bleeds Encounter Type: Initial Additional signs and symptoms: . ORDERING SYSTEM PROVIDED DIAGNOSIS CODES: COMPARISON: None FINDINGS: Lower chest: The lower lungs are clear. Liver: The liver is homogeneous with normal contours and normal size. Gallbladder: Several stones within the gallbladder. No biliary dilatation. Pancreas: The pancreas is homogeneous without evidence for mass lesion or inflammation. Spleen: The spleen is unremarkable without evidence for mass lesion. Adrenals: The adrenal glands are unremarkable Kidneys and bladder: A couple of small benign cortical cysts of the left kidney. 6.8 cm benign cyst of the posterior cortex right kidney. 3 mm nonobstructing stone lower pole right kidney.The ureters demonstrate normal caliber.The urinary bladder appears unremarkable given lack of distention. GI tract: Moderate-sized paraesophageal hiatal hernia.Dilated loops of small bowel with collapsed loops distally. Exact transition point is not identified. No CT evidence for appendicitis. Severe diverticulosis of the sigmoid colon. Reproductive: Unremarkable Lymph nodes: No retroperitoneal or abdominal lymphadenopathy. Vascular: The aorta demonstrates normal caliber without aneurysm or dissection.The major aorta branch vessels are patent. Peritoneum: No free intraperitoneal air or fluid. No acute inflammation. 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 IMPRESSION: Findings of small-bowel obstruction. The exact transition point is not identified. Cause is likely related to adhesions. Moderate-sized paraesophageal hiatal hernia. Workstation ID: [id number] Dictated by: DELORES CHAPMAN on WedSeptember 16, 2023 4:50:33 PM EDT Transcribed by: DELORES CHAPMAN on WedSeptember 16, 2023 4:50:33 PM EDT Finalized by: DELORES CHAPMAN on WedSeptember 16, 2023 4:50:33 PM EDT [facility] Comment on above: Order Comment: Injur y/Trauma or Illness?:Illness/Other How long have you had these symptoms (acute/chronic)?:Acute Reason for exam?:sudden onset weakness today, abdominal pain in LLQ and RLQ, black stools x 2 months, n/v x 1 month s/p colonoscopy, brown colored emesis in ED, has hx of gi bleeds Type of Exam?:Initial Additional signs and symptoms?:. ED Prov Noteon 09-16-2023 ED Prov Note [facility] EMERGENCY DEPARTMENT - Emergency Medicine Attending Note: NAME: Lance Bee 62 y.o. CSN: [id number] PCP: No, Physician History: Chief Complaint: Emesis HPI: The history was obtained from the patient. Lance is a 62 y.o. male who presents with a chief complaint of Emesis. Emesis Associated symptoms: abdominal pain Associated symptoms: no arthralgias, no diarrhea, no fever, no headaches and no myalgias 62-year-old male, presented for evaluation of nausea and vomiting as well as some generalized abdominal pain. Patient reports that this has been ongoing for about a month now. He reports that about a month ago, he had a colonoscopy. He also reports that he has a history of GI bleeding, as well as intestines twisting. Denies chest pain or shortness of breath. ROS: Review of Systems Constitutional: Positive for fatigue. Negative for activity change, appetite change and fever. HENT: Negative for congestion and rhinorrhea. Eyes: Negative for photophobia, pain, redness and visual disturbance. Respiratory: Negative for apnea, chest tightness, shortness of breath and wheezing. Cardiovascular: Negative for chest pain and palpitations. Gastrointestinal: Positive for abdominal pain, nausea and vomiting. Negative for constipation and diarrhea. Genitourinary: Negative for difficulty urinating and hematuria. Musculoskeletal: Negative for arthralgias and myalgias. Skin: Negative for color change. Allergic/Immunologic: Negative for environmental allergies and food allergies. Neurological: Negative for dizziness, syncope, light-headedness, numbness and headaches. Psychiatric/Behavioral: Negative for behavioral problems and confusion. Positives and pertinent negatives as per HPI. All other systems were reviewed and are negative. Physical Exam: Patient Vitals for the past 24 hrs: BP Temp Pulse Resp SpO2 Height Weight 09/16/23 1746 -- -- -- 15 -- -- -- 09/16/23 1630 (!) 146/97 -- (!) 109 (!) 20 93 % -- -- 09/16/23 1540 -- -- -- (!) 26 -- -- -- 09/16/23 1443 (!) 131/111 98.4 degrees F (36.9 degrees C) (!) 121 15 94 % 6' 108 kg (238 lb) Physical Exam Constitutional: General: He is not in acute distress. Appearance: He is ill-appearing (Patient is ill-appearing, but in no acute distress.). He is not diaphoretic. HENT: Head: Normocephalic and atraumatic. Right Ear: External ear normal. Left Ear: External ear normal. Mouth/Throat: Mouth: Mucous membranes are moist. Pharynx: Oropharynx is clear. Eyes: General: No scleral icterus. Extraocular Movements: Extraocular movements intact. Pupils: Pupils are equal, round, and reactive to light. Neck: Vascular: No JVD. Trachea: No tracheal deviation. Cardiovascular: Rate and Rhythm: Normal rate and regular rhythm. Pulses: Normal pulses. Heart sounds: Normal heart sounds. No murmur heard. No friction rub. No gallop. Pulmonary: Effort: Pulmonary effort is normal. No respiratory distress. Breath sounds: Normal breath sounds. No wheezing or rales. Chest: Chest wall: No tenderness. Abdominal: Tenderness: There is abdominal tenderness (Mild generalized abdominal tenderness.). Musculoskeletal: General: No deformity. Skin: General: Skin is warm and dry. Neurological: General: No focal deficit present. Mental Status: He is alert and oriented to person, place, and time. Psychiatric: Mood and Affect: Mood normal. Behavior: Behavior normal. Laboratory & Radiological Imaging (if done): Labs Reviewed LACTIC ACID, PLASMA - Abnormal; Notable for the following components: Result Value Lactic Acid 2.8 (*) All other components within normal limits COMPREHENSIVE METABOLIC PANEL - Abnormal; Notable for the following components: Anion Gap 21 (*) Glucose 129 (*) Creatinine 1.54 (*) eGFR 51 (*) Total Protein 8.8 (*) Calcium 11.3 (*) All other components within normal limits Narrative: [facility] has implemented the eGFR calculation approach that does not have a coefficient for race that conforms to the NKF-ASN Task Force Recommendations. CBC WITH AUTO DIFFERENTIAL - Abnormal; Notable for the following components: WBC 13.80 (*) RBC 6.16 (*) Hemoglobin 19.2 (*) Hematocrit 54.8 (*) Neutrophils Abs 10.65 (*) Monocytes Abs 0.92 (*) All other components within normal limits LIPASE - Normal URINE AEROBIC CULTURE BLOOD CULTURE AEROBIC/ANAEROBIC BLOOD CULTURE AEROBIC/ANAEROBIC CBC AND DIFFERENTIAL Narrative: The following orders were created for panel order CBC and Differential. Procedure Abnormality Status --------- ------ CBC Auto Differential[[id number]] Abnormal Final result Please view results for these tests on the individual orders. URINALYSIS REFLEX LACTIC ACID, PLASMA CT Abdomen Pelvis With IV Contrast Only Final Result Findings of small-bowel obstruction. The exact transition point is not (more content not included)... Normal [facility] LACTIC ACID, PLASMAon 2023 LACTIC ACID, PLASMA 2.8 mmol/L High 0.6-2.0 [facility] Comment on above: Performed By: #### 4 [id number] ####[facility] LAB [address] [place], [place] [address] Lalito Ledbetter M.D. [id number] LIPASEon 09-16-2023 Lipase [Catalytic activity/Vol] 37 U/L Normal 15-65 [facility] Comment on above: Performed By: #### 4 6018 #### LAB [address] [place], [place] [address] Lalito Ledbetter M.D. [id number] REFLEX LACTIC ACID, PLASMAon 09-16-2023 LACTIC ACID, PLASMA 1.5 mmol/L Normal 0.6-2.0 [facility] Comment on above: Performed By: #### L [id number] #### [facility] [address] [address] Lalito Ledbetter M.D. [id number] URINALYSISon 09-16-2023 BACTERIA, URINE None Seen Normal None Seen [facility] Comment on above: Order Comment: Injur y/Trauma or Illness?:Illness/Other How long have you had these symptoms (acute/chronic)?:Acute Reason for exam?:sudden onset weakness today, abdominal pain in LLQ and RLQ, black stools x 2 months, n/v x 1 month s/p colonoscopy, brown colored emesis in ED, has hx of gi bleeds Type of Exam?:Initial Additional signs and symptoms?:. Performed By: #### 4 6625 #### LAB [address] [address] Lalito Ledbetter M.D. [id number] BILIRUBIN, URINE Negative Normal Negative [facility] Comment on above: Order Comment: Injur y/Trauma or Illness?:Illness/Other How long have you had these symptoms (acute/chronic)?:Acute Reason for exam?:sudden onset weakness today, abdominal pain in LLQ and RLQ, black stools x 2 months, n/v x 1 month s/p colonoscopy, brown colored emesis in ED, has hx of gi bleeds Type of Exam?:Initial Additional signs and symptoms?:. Performed By: #### 4 6625 ####[facility] LAB [address] [address] Lalito Ledbetter M.D. [id number] BLOOD, URINE Negative Normal Negative [facility] Comment on above: Order Comment: Injur y/Trauma or Illness?:Illness/Other How long have you had these symptoms (acute/chronic)?:Acute Reason for exam?:sudden onset weakness today, abdominal pain in LLQ and RLQ, black stools x 2 months, n/v x 1 month s/p colonoscopy, brown colored emesis in ED, has hx of gi bleeds Type of Exam?:Initial Additional signs and symptoms?:. Performed By: #### 4 6658 #### LAB [address] [address] Lalito Ledbetter M.D. [id number] Clarity (U) Clear Normal Clear [facility] Comment on above: Order Comment: Injur y/Trauma or Illness?:Illness/Other How long have you had these symptoms (acute/chronic)?:Acute Reason for exam?:sudden onset weakness today, abdominal pain in LLQ and RLQ, black stools x 2 months, n/v x 1 month s/p colonoscopy, brown colored emesis in ED, has hx of gi bleeds Type of Exam?:Initial Additional signs and symptoms?:. Performed By: #### 4 6625 #### LAB [address] [address] Lalito Ledbetter M.D. [id number] Color (U) Yellow Normal Colorless, Yellow [facility] Comment on above: Order Comment: Injur y/Trauma or Illness?:Illness/Other How long have you had these symptoms (acute/chronic)?:Acute Reason for exam?:sudden onset weakness today, abdominal pain in LLQ and RLQ, black stools x 2 months, n/v x 1 month s/p colonoscopy, brown colored emesis in ED, has hx of gi bleeds Type of Exam?:Initial Additional signs and symptoms?:. Performed By: #### 4 6627 #### LAB [address] [address] Lalito Ledbetter M.D. [id number] Glucose Ql (U) Negative Normal Negative [facility] Comment on above: Order Comment: Injur y/Trauma or Illness?:Illness/Other How long have you had these symptoms (acute/chronic)?:Acute Reason for exam?:sudden onset weakness today, abdominal pain in LLQ and RLQ, black stools x 2 months, n/v x 1 month s/p colonoscopy, brown colored emesis in ED, has hx of gi bleeds Type of Exam?:Initial Additional signs and symptoms?:. Performed By: #### 4 6609 #### LAB [address] [address] Lalito Ledbetter M.D. [id number] Ketones Ql (U) Trace Abnormal Negative [facility] Comment on above: Order Comment: Injur y/Trauma or Illness?:Illness/Other How long have you had these symptoms (acute/chronic)?:Acute Reason for exam?:sudden onset weakness today, abdominal pain in LLQ and RLQ, black stools x 2 months, n/v x 1 month s/p colonoscopy, brown colored emesis in ED, has hx of gi bleeds Type of Exam?:Initial Additional signs and symptoms?:. Performed By: #### 4 6625 #### LAB [address] [address] Lalito Ledbetter M.D. [id number] Leukocyte esterase Test strip Ql (U) Negative Normal Negative [facility] Comment on above: Order Comment: Injur y/Trauma or Illness?:Illness/Other How long have you had these symptoms (acute/chronic)?:Acute Reason for exam?:sudden onset weakness today, abdominal pain in LLQ and RLQ, black stools x 2 months, n/v x 1 month s/p colonoscopy, brown colored emesis in ED, has hx of gi bleeds Type of Exam?:Initial Additional signs and symptoms?:. Performed By: #### 4 6690 #### LAB [address] [address] Lalito Ledbetter M.D. [id number] MUCUS, URINE Rare Normal None Seen, [facility] Comment on above: Order Comment: Injur y/Trauma or Illness?:Illness/Other How long have you had these symptoms (acute/chronic)?:Acute Reason for exam?:sudden onset weakness today, abdominal pain in LLQ and RLQ, black stools x 2 months, n/v x 1 month s/p colonoscopy, brown colored emesis in ED, has hx of gi bleeds Type of Exam?:Initial Additional signs and symptoms?:. Performed By: #### 4 6652 #### LAB [address] [address] Lalito Ledbetter M.D. [id number] NITRITE, URINE Negative Normal Negative [facility] Comment on above: Order Comment: Injur y/Trauma or Illness?:Illness/Other How long have you had these symptoms (acute/chronic)?:Acute Reason for exam?:sudden onset weakness today, abdominal pain in LLQ and RLQ, black stools x 2 months, n/v x 1 month s/p colonoscopy, brown colored emesis in ED, has hx of gi bleeds Type of Exam?:Initial Additional signs and symptoms?:. Performed By: #### 4 6622 #### LAB [address] [place], [place] [address] Lalito Ledbetter M.D. [id number] pH (U) 6.5 [pH] Normal 5.0-7.0 [facility] Comment on above: Order Comment: Injur y/Trauma or Illness?:Illness/Other How long have you had these symptoms (acute/chronic)?:Acute Reason for exam?:sudden onset weakness today, abdominal pain in LLQ and RLQ, black stools x 2 months, n/v x 1 month s/p colonoscopy, brown colored emesis in ED, has hx of gi bleeds Type of Exam?:Initial Additional signs and symptoms?:. Performed By: #### 4 6613 #### LAB [address] [place], [place] [address] Lalito Ledbetter M.D. [id number] Protein (U) [Mass/Vol] 30 mg/dL Abnormal Negative [facility] Comment on above: Order Comment: Injur y/Trauma or Illness?:Illness/Other How long have you had these symptoms (acute/chronic)?:Acute Reason for exam?:sudden onset weakness today, abdominal pain in LLQ and RLQ, black stools x 2 months, n/v x 1 month s/p colonoscopy, brown colored emesis in ED, has hx of gi bleeds Type of Exam?:Initial Additional signs and symptoms?:. Result Comment: Fals e positive results may occur in urines with large amounts of hemoglobin, pH greater than 8.0, contrast medium, or disinfectants including ammonium compounds. Performed By: #### 4 6695 #### LAB [address] [place], [place] [address] Lalito Ledbetter M.D. [id number] RBC LM.HPF (Urine sed) [#/Area] 7 /[HPF] High 0-3 [facility] Comment on above: Order Comment: Injur y/Trauma or Illness?:Illness/Other How long have you had these symptoms (acute/chronic)?:Acute Reason for exam?:sudden onset weakness today, abdominal pain in LLQ and RLQ, black stools x 2 months, n/v x 1 month s/p colonoscopy, brown colored emesis in ED, has hx of gi bleeds Type of Exam?:Initial Additional signs and symptoms?:. Performed By: #### 4 6696 #### LAB [address] [place], [place] [address] Lalito Ledbetter M.D. [id number] Specific gravity (U) [Rel density] > High 1.005-1.025 [facility] Comment on above: Order Comment: Injur y/Trauma or Illness?:Illness/Other How long have you had these symptoms (acute/chronic)?:Acute Reason for exam?:sudden onset weakness today, abdominal pain in LLQ and RLQ, black stools x 2 months, n/v x 1 month s/p colonoscopy, brown colored emesis in ED, has hx of gi bleeds Type of Exam?:Initial Additional signs and symptoms?:. Result Comment: Abno rmally high specific gravity results can be the result of the presence of x-ray or radiographic contrast media or mannitol(diuretic) administration or with large amounts of protein, glucose or in cloudy specimens. Performed By: #### 4 6646 #### LAB [address] [place], [place] [address] Lalito Ledbetter M.D. [id number] UROBILINOGEN, URINE 2.0 mg/dL Abnormal <2.0 [facility] Comment on above: Order Comment: Injur y/Trauma or Illness?:Illness/Other How long have you had these symptoms (acute/chronic)?:Acute Reason for exam?:sudden onset weakness today, abdominal pain in LLQ and RLQ, black stools x 2 months, n/v x 1 month s/p colonoscopy, brown colored emesis in ED, has hx of gi bleeds Type of Exam?:Initial Additional signs and symptoms?:. Performed By: #### 4 6692 #### LAB [address] [place], [place] [address] Lalito Ledbetter M.D. [id number] WBC, URINE < Normal 0-5 [facility] Comment on above: Order Comment: Injur y/Trauma or Illness?:Illness/Other How long have you had these symptoms (acute/chronic)?:Acute Reason for exam?:sudden onset weakness today, abdominal pain in LLQ and RLQ, black stools x 2 months, n/v x 1 month s/p colonoscopy, brown colored emesis in ED, has hx of gi bleeds Type of Exam?:Initial Additional signs and symptoms?:. Performed By: #### 4 6625 #### LAB [address] [place], [place] [address] Lalito Ledbetter M.D. [id number] URINE AEROBIC CULTUREon 08-19 URINE AEROBIC CULTURE URINE CULTURE < 10,000 CFU/mL of normal urogenital microbiota Normal [facility] Comment on above: Performed By: #### [id number] #### [facility] [address] [place] [address] Javier Galarza M.D. [id number] XR ABDOMEN /KUB/FLAT PLATE/1 VIEWon 09-16-2023 XR ABDOMEN /KUB/FLAT PLATE/1 VIEW EXAMINATION: XR ABDOMEN /KUB/FLAT PLATE/1 VIEW 09/16/2023 HISTORY: ORDERING SYSTEM PROVIDED HISTORY: NG/OG tube placement, TECHNOLOGIST PROVIDED HISTORY: Illness/Other Reason for exam: ng tube placement Cancer History: na Surgery, RadiationHistory: na Encounter Type: Initial Additional signs and symptoms: na ORDERING SYSTEM PROVIDED DIAGNOSIS CODES: K56.609 Small bowel obstruction (HCC) COMPARISON: None TECHNIQUE: Portable AP upright view of the abdomen is provided for interpretation. FINDINGS: A nasogastric tube is present the terminates in the proximal stomach.There is a nonspecific bowel gas pattern without evidence of obstruction or free air. No calcified collecting system calculi are detected. No acute osseous abnormality is detected. IMPRESSION: Nasogastric tube that terminates in the proximal stomach. No acute findings. Workstation ID: [id number] Dictated by: AMY MIMS on WedSeptember 16, 2023 7:28:26 PM EDT Transcribed by: AMY MIMS on WedSeptember 16, 2023 7:28:26 PM EDT Finalized by: AMY MIMS on WedSeptember 16, 2023 7:28:26 PM EDT Normal [facility] Comment on above: Order Comment: Injur y/Trauma or Illness?:Illness/Other How long have you had these symptoms (acute/chronic)?:Acute Reason for exam?:ng tube placement History of cancer?:na Surgeries, chemotherapy, or radiation?:na Type of Exam?:Initial Additional signs and symptoms?:na UA DIP, URINE (POC)on 2022 BILIRUBIN UA (POCT) Negative Negative [facility] CLARITY UA (POCT) Clear [facility] COLOR UA (POCT) Yellow [facility] GLUCOSE UA (POCT) Negative Negative mg/dL [facility] Hemoglobin Ql (U) Negative Negative [facility] KETONE UA (POCT) Negative Negative mg/dL [facility] LEUKOCYTES UA (POCT) Negative Negative [facility] NITRITE UA (POCT) Negative Negative [facility] PH UA (POCT) 5.5 4.5 - 8.0 [facility] Protein Ql (U) 30 mg/dL Abnormal Negative mg/dL [facility] SPECIFIC GRAVITY UA (POCT) >=1.030 1.005 - 1.030 [facility] UROBILINOGEN UA (POCT) 1.0 E.U./dL [place] [facility] E.U./dL [facility] PROCEDUREon 12-03-2017 Protein mass conc HNO ID: [id number] thor: Dorinda Johnson: (none)Author Type: PhysicianType: ProceduresFiled: 12/02/2017 11:11 PMNote Text:??[facility]FA[facility]OLOGYGLICKMAN UROLOGICAL AND KIDNEY INSTITUTELOCATION: [address] [place] [id number] PROCEDURE NOTE:Lance Bee is a 57 year old male who presents with hematuria micro forcystoscopy.Pt ID verified with patient: YesProcedure verified with patient: YesProcedure confirmed with physician and data support specialist: YesSign InHistory and Physical Exam reviewed and is unchanged. .Informed Consent Discussed: Yes. Risks, benefits, alternatives andpersonnel discussed with patient who consents to proceed.Sign in Communication: CompletedTime Out: Team Confirms the Correct Patient, Correct Procedure;Cystoscopy, Correct Site and Site Marking, Correct Position (ifapplicable).Affirmation of Time Out: YesSign Out: Sign Out Discussion: CompletedPhysician: Dorinda Dobbs DO, MBAA urinalysis was performed revealing no evidence of infection.The benefits, risks, alternatives of the cystoscopy procedure andpersonnel were discussed with the patient. The verbal consent was obtainedand the patient agrees to proceed.Procedure: The patient was placed on the procedure table in the supineposition and prepped and draped in the usual sterile fashion. 2% LidocaineJelly was placed per urethra as an anesthetic in the standard fashion.Once adequate local anesthesia was achieved, the tip of the flexiblecystoscope was carefully placed into the urethra under direct visualguidance. The scope was negotiated through the pendulous urethra to thelevel of the bulbar urethra with no evidence of stricture. Theverumontanum came into view and the scope was negotiated through theprostatic urethra which showed evidence of bi lobar occlusive disease. Thebladder was entered and careful mcrae endoscopy was carried out. Theposterior, superior and lateral mesa and dome of the bladder were allwell visualized and the scope was retroflexed upon itself. The findingswere consistent with no evidence of bladder mucosal pathology.At the conclusion of the procedure, the flexible cystoscope was removedatraumatically. The patient tolerated the procedure without complications.Patient was given standard post-procedure instructions, and was directedto complete the course of oral antibiotics and increase oral fluid intakeas directed.CT urogram:IMPRESSION:RIGHT NEPHROLITHIASIS WITHOUT HYDRONEPHROSIS.BILATERAL BOSNIAK I CYSTS.NO SIGNIFICANT RENAL OR URINARY TRACT ABNORMALITY, OTHERWISE.ASSESSMENT/PLAN: MicrohematuriaCystoscopy negative todayCT urogram reviewed with the patient and negativeUrine cytology negativeHe will need f/u UA with FLACA Kan [facility] Heena Dobbs DO, MBA [facility] CNOVon 11-30-2017 CNOV Office Visit (AKURFL) LANCE BEE ([id number]) 1960 M TDate Time Provider Department11/30/17 3:00 PM DORINDA DOBBS During your visit today, we recorded the following information about you: Weight Height 125.6 kg 1.829 Asmita Dobbs DO, MBA 12/02/2017 11:11 PM Signed??[facility] InstituteFA[facility] UROLOGYGSA[facility]ICAL AND KIDNEY INSTITUTELOCATION: [address] [place], [place] [address]YSTOSCOPY PROCEDURE NOTE:Lance Bee is a 57 year old male who presents with hematuria micro forcystoscopy.Pt ID verified with patient: YesProcedure verified with patient: YesProcedure confirmed with physician and data support specialist: YesSign InHistory and Physical Exam reviewed and is unchanged. .Informed Consent Discussed: Yes. Risks, benefits, alternatives and personneldiscussed with patient who consents to proceed.Sign in Communication: CompletedTime Out: Team Confirms the Correct Patient, Correct Procedure; Cystoscopy,Correct Site and Site Marking, Correct Position (if applicable).Affirmation of Time Out: YesSign Out: Sign Out Discussion: CompletedPhysician: Dorinda Dobbs DO, MBAA urinalysis was performed revealing no evidence of infection.The benefits, risks, alternatives of the cystoscopy procedure and personnelwere discussed with the patient. The verbal consent was obtained and thepatient agrees to proceed.Procedure: The patient was placed on the procedure table in the supine positionand prepped and draped in the usual sterile fashion. 2% Lidocaine Jelly wasplaced per urethra as an anesthetic in the standard fashion. Once adequatelocal anesthesia was achieved, the tip of the flexible cystoscope was carefullyplaced into the urethra under direct visual guidance. The scope was negotiatedthrough the pendulous urethra to the level of the bulbar urethra with noevidence of stricture. The verumontanum came into view and the scope wasnegotiated through the prostatic urethra which showed evidence of bi lobarocclusive disease. The bladder was entered and careful mcrae endoscopy wascarried out. The posterior, superior and lateral mesa and dome of the bladderwere all well visualized and the scope was retroflexed upon itself. Thefindings were consistent with no evidence of bladder mucosal pathology.At the conclusion of the procedure, the flexible cystoscope was removedatraumatically. The patient tolerated the procedure without complications.Patient was given standard post-procedure instructions, and was directed tocomplete the course of oral antibiotics and increase oral fluid intake asdirected.CT urogram:IMPRESSION:RIGHT NEPHROLITHIASIS WITHOUT HYDRONEPHROSIS.BILATERAL BOSNIAK I CYSTS.NO SIGNIFICANT RENAL OR URINARY TRACT ABNORMALITY, OTHERWISE.ASSESSMENT/PLAN: MicrohematuriaCystoscopy negative todayCT urogram reviewed with the patient and negativeUrine cytology negativeHe will need f/u UA with FLACA Kan in 6 monthsRT Heena Dobbs DO MBAReferring Provider: LANCE JORGENSEN [[id number]]Allergies As of Date: 11/30/2017 Noted Allergy ReactionCYMBALTA (DULOXETINE) 05/20/2015 14 - Other: See Comments Comments: InfeffectiveLISINOPRIL 07/08/2015 3 - CoughDate Reviewed: 11/30/2017Reviewed by: Daphney Sung SHOTBLAST EQUIPMENT OPERATOR - Fully AssessedReason for Visit: Procedure [88]Primary Visit Diagnosis:Asymptomatic microscopic hematuria [R31.21]Order(s):UA DIP, URINE (POC) [2220370] Order #: [id number]. #:[id number] ciprofloxacin HCl 500 mg tab(s) (CIPRO)Disp: Rfl:Prescriptions as of 11/30/2017 Sig: IV CONTRAST (RADIOLOGY PROCED* CT Urogram WO/W Inject, intra* DIAZEPAM 5 MG TABLET Take 1 tablet by mouth as nee* OXYCODONE 20 MG TABLET Take 1 tablet by mouth three * LOSARTAN 100 MG TABLET Take 1 tablet by mouth once d* CLONAZEPAM 0.5 MG TABLET Take 1 tablet by mouth at bed* VENLAFAXINE ER 75 MG CAPSULE,* Take 1 capsule by mouth once * HYDROCHLOROTHIAZIDE 25 MG TAB* TAKE 1 TABLET BY MOUTH ONCE D* VENLAFAXINE ER 150 MG CAPSULE* Take 1 capsule by mouth once * COMPOUNDED PRESCRIPTION Diatrizoate Contrast 30ml, Re* ESOMEPRAZOLE MAGNESIUM 22.3 M* Take by mouth. GABAPENTIN 600 MG TABLET Take 1 tablet by mouth four t* OXYCODONE ER 10 MG TABLET,EXT* Take 1 tablet by mouth three *Problem List As Of Date 11/30/2017 Noted Resolved Reflex sympathetic dystrophy [G90.50] More... Depression [F32.9] More... Open wound of knee, leg (except thigh), and ank* 02/10/2013 Ulcer of other part of foot [L97.509] 02/10/2013 Hypertension goal BP (blood pressure) < 140/90 * More... More... DDD (degenerative disc disease), lumbar [M51.36]INVALID FOR* More... More... BMI 37.0-37.9, adult [Z68.37] INVALID FOR* Impaired glucose metabolism [R73.09] INVALID FOR* More... YAIMA (obstructive sleep apnea) CPAP intolerant [*INVALID FOR* Anxiety [F41.9] INVALID FOR* Primary insomnia [F51.01] INVALID FOR* Personal history of skin cancer [Z85.828] INVALID FOR* More... Wound of right leg [S81.801A] INVALID FOR* Asymptomatic microscopic hematuria [R31.21] INVALID FOR*Prescriptions ordered this encounter Disp Refills Start End CIPROFLOXACIN 500 MG TABLET 12/02/2017 12/03/2017 Route: ORALDisposition: Return in about 6 months (around 06/02/2018).Follow-up and Disposition History Recorded Questionnaire: AUA QUESTIONNAIRETIMES IN THE PAST MONTH YOU HAD A FEELING OF NOT EMPTYING BLADDER? -> 1TIMES IN PAST MONTH NEED TO URINATE AGAIN WITHIN 2 HRS OF LAST EMPTY? -> 3TIMES IN PAST MONTH YOU HAVE STOPPED AND STARTED URINE FLOW? -> 1TIMES IN THE PAST MONTH YOU FOUND IT DIFFICULT TO POSTPONE URINATING? -> 1TIMES IN THE PAST MONTH YOU HAVE HAD A WEAK URINARY STREAM? -> 1TIMES IN PAST MONTH YOU HAVE HAD TO PUSH OR STRAIN TO URINATE? -> 0TIMES IN PAST MONTH YOU GET UP TO URINATE FROM SLEEP UNTIL AWAKE? -> 4HOW WOULD YOU FEEL IF YOU HAD TO LIVE WITH YOUR URINARY CONDITION IT IS NOW? *WHAT IT THE TOTAL AUA SCORE? -> 11 ----Questionnaire: [facility] SEXUAL HEALTH INVENTORY FOR MENHow do you rate your confidence that you could get and keep an erection? -> 2 - LowWhen you had erections with sexual stimuation, how often were your erectionshard enough for penetration (entering your partner)? -> 2 - A Few Times (Much Less Than Half The Time)During sexual intercouse, how often were you able to maintain your erectionafter you had penetrated (entered) your partner? -> 2 - A Few Times (Much Less Than Half The Time)During sexual intercourse, how difficult was it to maintain your erection tocompletion of intercourse? -> 5 - Not DifficultWhen you attempted sexual intercourse, how often was it satisfactory for you? -> 4 - M- o- s- t T- i- m- e- s (- M- u- c- h M- o- r- e T- h- a- n H- a- l- f T- h- e T- i- m- e)Total Score -> 15Letter TextEncounter Number: [id number] Status:Closed by DORINDA DOBBS on 12/02/17 [facility] Vital Signs Date Time Vital Sign Value Performing Clinician Facility 09-17-2024 13:11-0400 Body temperature 98 [degF] Dr. Lance Jorgensen MD Work Phone: [facility] 09-17-2024 13:11-0400 Diastolic blood pressure 90 mm[Hg] Dr. Lance Jorgensen MD Work Phone: [facility] 09-17-2024 13:11-0400 Heart rate 80 /min Dr. Lance Jorgensen MD Work Phone: [phone])[phone] [place] [address] 09-17-2024 13:11-0400 Respiratory rate 18 /min Dr. aLnce Jorgensen MD Work Phone: 8(542)440-861221 [place] [address] 09-17-2024 13:11-0400 SaO2% (BldA) [Mass fraction] 97 % Dr. Lance Jorgensen MD Work Phone: 1(254)129-593626 [place] [address] 09-17-2024 13:11-0400 Systolic blood pressure 122 mm[Hg] Dr. Lance Jorgensen MD Work Phone: 8([phone])449-168721 [place] [address] 09-17-2024 09:52-0400 Body height 180.[address] Lance Jorgensen MD Work Phone: 5(192)[phone] [place] [address] 09-17-2024 09:52-0400 Body mass index (BMI) [Ratio] 27.1 kg/m2 Dr. Lance Jorgensen MD Work Phone: 1(521)145-529221 [place] [address] 09-17-2024 09:52-0400 Body weight 88.[address] Lance Jorgensen MD Work Phone: [facility] 07-06-2024 18:56-0400 Diastolic blood pressure 74 mm[Hg] Lance Jorgensen MD Work Phone: [facility] 07-06-2024 18:56-0400 Systolic blood pressure 124 mm[Hg] Lance Jorgensen MD Work Phone: [facility] 07-06-2024 18:05-0400 Body height 175.3 cm Lance Jorgensen MD Work Phone: [facility] 07-06-2024 18:05-0400 Body mass index (BMI) [Ratio] 32.3 kg/m2 Lance Jorgensen MD Work Phone: [facility] 07-06-2024 18:05-0400 Body weight 99.2 kg Lance Jorgensen MD Work Phone: [facility] 07-06-2024 18:05-0400 Heart rate 94 /min Lance Jorgensen MD Work Phone: [facility] 07-06-2024 18:05-0400 Respiratory rate 16 /min Lance Jorgensen MD Work Phone: [facility] 07-06-2024 18:05-0400 SaO2% (BldA) [Mass fraction] 97 % Lance Jorgensen MD Work Phone: [facility] 04-06-2024 17:32-0500 Body mass index (BMI) [Ratio] 32.87 kg/m2 Lance Jorgensen MD Work Phone: [facility] 04-06-2024 17:32-0500 Body temperature 98.1 [degF] Lnace Jorgensen MD Work Phone: [facility] 04-06-2024 17:32-0500 Body weight 102.51 kg Lance Jorgensen MD Work Phone: [facility] 04-06-2024 17:32-0500 Diastolic blood pressure 78 mm[Hg] Lance Jorgensen MD Work Phone: [facility] 04-06-2024 17:32-0500 Heart rate 83 /min Lance Jorgensen MD Work Phone: [facility] 04-06-2024 17:32-0500 Respiratory rate 14 /min Lance Jorgensen MD Work Phone: [facility] 04-06-2024 17:32-0500 SaO2% (BldA) [Mass fraction] 94 % Lance Jorgensen MD Work Phone: [facility] 04-06-2024 17:32-0500 Systolic blood pressure 124 mm[Hg] Lance Jorgensen MD Work Phone: [facility] 01-11-2024 15:38-0400 Body height 176.6 cm Polly Kan PA-C Work Phone: [facility] 01-11-2024 15:38-0400 Body mass index (BMI) [Ratio] 35.92 kg/m2 Polly Kan PA-C Work Phone: [facility] 01-11-2024 15:38-0400 Body temperature 98.01 [degF] Polly Kan PA-C Work Phone: [facility] 01-11-2024 15:38-0400 Body weight 112.04 kg Polly Kan PA-C Work Phone: [facility] 01-11-2024 15:38-0400 Diastolic blood pressure 94 mm[Hg] Polly Kan PA-C Work Phone: [facility] Comment on above: Polly notified of blood pressure- bunny ent reports it is not normally elevated. 01-11-2024 15:38-0400 Heart rate 108 /min Polly Keaneoney PA-C Work Phone: [facility] 01-11-2024 15:38-0400 Respiratory rate 18 /min Polly Kan PA-C Work Phone: [facility] 01-11-2024 15:38-0400 SaO2% (BldA) [Mass fraction] 96 % Polly Kan PA-C Work Phone: [facility] 01-11-2024 15:38-0400 Systolic blood pressure 142 mm[Hg] Polly Kan PA-C Work Phone: [facility] Comment on above: Polly notified of blood pressure- bunny ent reports it is not normally elevated. 11-24-2023 10:33-0400 Diastolic blood pressure 74 mm[Hg] Tony Childers MD Work Phone: [facility] 11-24-2023 10:33-0400 Heart rate 74 /min Tony Childers MD Work Phone: [facility] 11-24-2023 10:33-0400 Respiratory rate 16 /min Tony Childers MD Work Phone: [facility] 11-24-2023 10:33-0400 SaO2% (BldA) [Mass fraction] 98 % Tony Childers MD Work Phone: [facility] 11-24-2023 10:33-0400 Systolic blood pressure 122 mm[Hg] Tony Childers MD Work Phone: [facility] 11-24-2023 10:15-0400 Body temperature 98.2 [degF] Tony Childers MD Work Phone: [facility] 10-29-2023 15:53-0400 Diastolic blood pressure 78 mm[Hg] Lance Jorgensen MD Work Phone: [facility] 10-29-2023 15:53-0400 Systolic blood pressure 130 mm[Hg] Lance Jorgensen MD Work Phone: [facility] 10-29-2023 14:58-0400 Body mass index (BMI) [Ratio] 33.23 kg/m2 Lance Jorgensen MD Work Phone: [facility] 10-29-2023 14:58-0400 Body weight 111.13 kg Lance Jorgensen MD Work Phone: [facility] 10-29-2023 14:58-0400 Heart rate 84 /min Lance Jorgensen MD Work Phone: [facility] 10-29-2023 14:58-0400 Respiratory rate 16 /min Lance Jorgensen MD Work Phone: [facility] 10-29-2023 14:58-0400 SaO2% (BldA) [Mass fraction] 98 % Lance Jorgensen MD Work Phone: [facility] 08-02-2023 19:35-0400 Diastolic blood pressure 93 mm[Hg] Lance Jorgensen MD Work Phone: [facility] 08-02-2023 19:35-0400 Heart rate 82 /min Lance Jorgensen MD Work Phone: [facility] 08-02-2023 19:35-0400 Systolic blood pressure 143 mm[Hg] Lance Jorgensen MD Work Phone: [facility] 08-02-2023 19:25-0400 Body temperature 97.7 [degF] Lance Jorgensen MD Work Phone: [facility] 08-02-2023 19:25-0400 Body weight 114.31 kg Lance Jorgensen MD Work Phone: [facility] 02-19-2023 13:21-0400 Body height 182.9 cm Huyen David PA-C Work Phone: [facility] 02-19-2023 13:21-0400 Body temperature 98.01 [degF] Huyen Warren PA-C Work Phone: [facility] 02-19-2023 13:210400 Body weight 113.4 kg Huyen David PA-C Work Phone: [facility] 02-19-2023 13:21-0400 Diastolic blood pressure 90 mm[Hg] Huyen David PA-C Work Phone: [facility] 02-19-2023 13:21-0400 Heart rate 106 /min Huyen Warren PA-C Work Phone: [facility] 02-19-2023 13:21-0400 SaO2% (BldA) [Mass fraction] 98 % Huyen Warren PA-C Work Phone: [facility] 02-19-2023 13:21-0400 Systolic blood pressure 142 mm[Hg] Huyen David PA-C Work Phone: [facility] 02-01-2023 13:42-0400 Diastolic blood pressure 92 mm[Hg] Lance Jorgensen MD Work Phone: [facility] 02-01-2023 13:42-0400 Heart rate 112 /min Lance Jorgensen MD Work Phone: [facility] 02-01-2023 13:42-0400 Systolic blood pressure 132 mm[Hg] Lance Jorgensen MD Work Phone: [facility] 02-01-2023 13:25-0400 Body height 177.8 cm Lance Jorgensen MD Work Phone: [facility] 02-01-2023 13:25-0400 Body weight 112.49 kg Lance Jorgensen MD Work Phone: [facility] 02-01-2023 13:25-0400 Respiratory rate 16 /min Lance Jorgensen MD Work Phone: [facility] 12-02-2022 14:00-0400 Diastolic blood pressure 88 mm[Hg] Lance Jorgensen MD Work Phone: [facility] 12-02-2022 14:00-0400 Heart rate 108 /min Lance Jorgensen MD Work Phone: [facility] 12-02-2022 14:00-0400 Systolic blood pressure 127 mm[Hg] Lance Jorgensen MD Work Phone: [facility] 12-02-2022 13:49-0400 Body weight 115.21 kg Lance Jorgensen MD Work Phone: [facility] 12-02-2022 13:49-0400 Respiratory rate 20 /min Lance Jorgensen MD Work Phone: [facility] 07-13-2022 15:22-0400 Body height 177.8 cm Lance Jorgensen MD Work Phone: [facility] 07-13-2022 15:22-0400 Body weight 108.86 kg Lance Jorgensen MD Work Phone: [facility] 07-13-2022 15:22-0400 Diastolic blood pressure 76 mm[Hg] Lance Jorgensen MD Work Phone: [facility] 07-13-2022 15:22-0400 Heart rate 80 /min Lance Jorgensen MD Work Phone: [facility] 07-13-2022 15:22-0400 Respiratory rate 12 /min Lance Jorgensen MD Work Phone: [facility] 07-13-2022 15:22-0400 Systolic blood pressure 126 mm[Hg] Lanec Jorgensen MD Work Phone: [facility] 06-15-2022 13:30-0500 Body height 176.8 cm Lance Jorgensen MD Work Phone: [facility] 06-15-2022 13:30-0500 Body temperature 97.5 [degF] Lance Jorgensen MD Work Phone: [facility] 06-15-2022 13:30-0500 Body weight 111.13 kg Lance Jorgensen MD Work Phone: [facility] 06-15-2022 13:30-0500 Diastolic blood pressure 88 mm[Hg] Lance Jorgensen MD Work Phone: [facility] 06-15-2022 13:30-0500 Heart rate 92 /min Lance Jorgensen MD Work Phone: [facility] 06-15-2022 13:30-0500 Respiratory rate 20 /min Lance Jorgensen MD Work Phone: [facility] 06-15-2022 13:30-0500 Systolic blood pressure 130 mm[Hg] Lance Jorgensen MD Work Phone: [facility] 02-09-2022 14:07-0400 Body weight 110.68 kg Lance Jorgensen MD Work Phone: [facility] 02-09-2022 14:07-0400 Diastolic blood pressure 72 mm[Hg] Lance Jorgensen MD Work Phone: [facility] 02-09-2022 14:07-0400 Heart rate 86 /min Lance Jorgensen MD Work Phone: [facility] 02-09-2022 14:07-0400 SaO2% (BldA) [Mass fraction] 95 % Lance Jorgensen MD Work Phone: [facility] 02-09-2022 14:07-0400 Systolic blood pressure 128 mm[Hg] Lance Jorgensen MD Work Phone: [facility] 10-27-2021 08:32-0400 Body weight 113.4 kg Jinny Older FAMILY DAY CARE PROVIDER.POST ACUTE CARE REGISTERED NURSE Work Phone: [facility] 10-27-2021 08:32-0400 Diastolic blood pressure 88 mm[Hg] Jinny Older FAMILY DAY CARE PROVIDER.POST ACUTE CARE REGISTERED NURSE Work Phone: [facility] 10-27-2021 08:32-0400 Heart rate 96 /min Jinny Older FAMILY DAY CARE PROVIDER.POST ACUTE CARE REGISTERED NURSE Work Phone: [facility] 10-27-2021 08:32-0400 Respiratory rate 18 /min Jinny Older FAMILY DAY CARE PROVIDER.POST ACUTE CARE REGISTERED NURSE Work Phone: [facility] 10-27-2021 08:32-0400 Systolic blood pressure 110 mm[Hg] Jinny Older FAMILY DAY CARE PROVIDER.POST ACUTE CARE REGISTERED NURSE Work Phone: [facility] 09-18-2021 16:45-0400 Diastolic blood pressure 89 mm[Hg] Lance Jorgensen MD Work Phone: [facility] 09-18-2021 16:45-0400 Heart rate 91 /min Lance Jorgensen MD Work Phone: [facility] 09-18-2021 16:45-0400 Systolic blood pressure 137 mm[Hg] Lance Jorgensen MD Work Phone: [facility] 09-18-2021 16:31-0400 Body height 176.8 cm Lance Jorgensen MD Work Phone: [facility] 09-18-2021 16:31-0400 Body temperature 97.59 [degF] Lance Jorgensen MD Work [facility] [facility] 09-18-2021 16:31-0400 Body weight 118.84 kg Lance Jorgensen MD Work Phone: [facility] 09-18-2021 16:31-0400 Respiratory rate 20 /min Lance Jorgensen MD Work Phone: [facility] Encounters Encounter Date Encounter Type Care Provider Facility Start: 10-04-2024 End: 10-04-2024 Admission to same day surgery center Dang Kumar APRN.POST ACUTE CARE REGISTERED NURSE Work Phone: General Surgery Comment on above: S/P repair of paraes ophageal hernia (Primary Dx) Start: 10-04-2024 End: 10-04-2024 Telemedicine consultation with patient Dang Kumar APRN.POST ACUTE CARE REGISTERED NURSE Work Phone: General Surgery Start: 10-04-2024 End: 10-04-2024 ambulatory DANG KUMAR Facility:[facility] Start: 09-25-2024 End: 09-25-2024 Telephone encounter Lance Jorgensen MD Work Phone: [facility] Comment on above: Transition Of Care Start: 09-19-2024 End: 09-22-2024 Evaluation and management of inpatient LANCE JORGENSEN Facility:[facility] Start: 09-19-2024 End: 09-19-2024 Emergency department patient visit LANCE JORGENSEN Facility:[facility] Start: 09-17-2024 End: 09-17-2024 Emergency department patient visit Dr. Lance Jorgensen MD Work Phone: -Emergency Department Work Phone: Start: 09-14-2024 End: 09-18-2024 Admission to same day surgery center Melanie Arciniega POST ACUTE CARE REGISTERED NURSE Work Phone: General Surgery Comment on above: appointment Start: 09-14-2024 End: 09-18-2024 E-mail encounter from caregiver Melanie Arciniega POST ACUTE CARE REGISTERED NURSE Work Phone: General Surgery Start: 09-12-2024 End: 09-12-[address] Lance Jorgensen MD Work Phone: [facility] Work Phone: Start: 09-12-2024 End: 09-12-[address] Paresh Ware MD -[facility] Work Phone: Start: 09-12-2024 End: 09-12-2024 ambulatory Paresh Ware Facility:[facility] Start: 09-07-2024 End: 09-07-2024 ambulatory MELANIE ARCINIEGA Facility:[facility] Start: 08-08-2024 End: 08-08-2024 Refill Lance Jorgensen MD Work Phone: [facility] [place] Comment on above: Refill Request Start: 07-06-2024 End: 07-06-2024 ambulatory LANCE JORGENSEN Facility:[facility] Start: 07-06-2024 End: 07-06-2024 Subsequent hospital visit by physician Xr [facility] Sara Work Phone: Radiology Comment on above: Atypical chest pain [R07.89] Start: 07-06-2024 End: 07-06-2024 ambulatory LANCE JORGENSEN Facility:[facility] Start: 07-06-2024 End: 07-06-2024 Patient encounter procedure Lance Jorgensen MD Work Phone: [facility] [place] Comment on above: Routine medical exam (Primary Dx); Screening for depression; Atypical chest pain; Anxiety; Restless legs; Primary insomnia; Hypertension goal BP (blood pressure) < 130/80; PSA elevation; Need for vaccination; Obesity, Class I, BMI 30-34.9 Start: 07-06-2024 End: 07-06-2024 Patient encounter status Lance Jorgensen MD Work Phone: [facility] Start: 06-19-2024 End: 06-21-2024 Telephone encounter Lance Jorgensen MD Work Phone: [facility] [place] Comment on above: Results Refill Request Start: 06-18-2024 End: 06-18-2024 Follow-up encounter Lance Jorgensen MD Work Phone: [facility] [place] Start: 06-16-2024 End: 06-16-2024 ambulatory LANCE JORGENSEN Facility:[facility] Start: 05-22-2024 End: 05-23-2024 Refill Lance Jorgensen MD Work Phone: [facility] [place] Comment on above: Refill Request Start: 05-01-2024 End: 05-02-2024 Telephone encounter Lance Jorgensen MD Work Phone: [facility] [place] Comment on above: Medication Problem; Medication Question Start: 04-25-2024 End: 04-25-2024 Telephone encounter Jinny Contreras APRN.POST ACUTE CARE REGISTERED NURSE Work Phone: [facility] [place] Comment on above: Medication Problem Start: 04-24-2024 End: 04-24-2024 Telephone encounter Lance Jorgensen MD Work Phone: [facility] [place] Comment on above: Medication Problem Refill Request Start: 04-06-2024 End: 04-06-2024 ambulatory LANCE JORGENSEN Facility:[facility] Start: 04-06-2024 End: 04-06-2024 Patient encounter procedure Lance Jorgensen MD Work Phone: [facility] [place] Comment on above: Impaired glucose met abolism (Primary Dx); Encounter for immunization; Hypertension goal BP (blood pressure) < 130/80; Primary insomnia; Anxiety; Restless legs; Prostate cancer screening; Obesity, Class I, BMI 30-34.9 Start: 04-04-2024 End: 04-04-2024 Refill Jinny Contreras APRN.POST ACUTE CARE REGISTERED NURSE Work Phone: [facility] [place] Comment on above: Refill Request Start: 04-01-2024 End: 04-04-2024 Refill Lance Jorgensen MD Work Phone: [facility] [place] Comment on above: Refill Request Start: 02-16-2024 End: 02-16-2024 Refill Lance Jorgensen MD Work Phone: [facility] [place] Comment on above: Refill Request Start: 01-24-2024 End: 01-26-2024 Telephone encounter Lance Jorgensen MD Work Phone: [facility] [place] Comment on above: Medication Problem Start: 01-21-2024 End: 01-21-2024 ambulatory Lance Jorgensen MD Work Phone: [facility] [place] Comment on above: [place] Start: 01-19-2024 End: 01-20-2024 ambulatory Lance Jorgensen MD Work Phone: [facility] [place] Comment on above: [place] Start: 01-11-2024 End: 01-11-2024 Patient encounter procedure Polly Kan PA-C Work Phone: Urology Comment on above: Nocturia (Primary Dx ); Renal cyst; Kidney stone; Screening for genitourinary condition Start: 01-11-2024 End: 01-11-2024 ambulatory POLLY KAN Facility:[facility] Start: 12-31-2023 End: 12-31-2023 Refill Melaniearacelis Arciniega FAMILY DAY CARE PROVIDER.POST ACUTE CARE REGISTERED NURSE Work Phone: General Surgery Comment on above: Refill Request Start: 12-23-2023 End: 12-24-2023 Refill Lance Jorgensen MD Work Phone: [facility] [place] Comment on above: Refill Request Start: 12-06-2023 End: 12-06-2023 Subsequent hospital visit by physician Sol [facility] Sara Ang Work Phone: Radiology Comment on above: Tubular adenoma of c olon [D12.6] Start: 12-06-2023 End: 12-06-2023 ambulatory TONY CHILDERS Facility:[facility] Start: 12-06-2023 End: 12-06-2023 Patient encounter procedure Melaniearacelis Arciniega FAMILY DAY CARE PROVIDER.POST ACUTE CARE REGISTERED NURSE Work Phone: General Surgery Comment on above: Gastritis, presence of bleeding unspecified, unspecified chronicity, unspecified gastritis type (Primary Dx); Other urinary incontinence; Nocturia; Hiatal hernia Start: 11-24-2023 ambulatory JERRY Hoover ty:[facility] Start: 11-24-2023 End: 11-24-2023 Subsequent hospital visit by physician Tony Childers MD Work Phone: [facility] Endoscopy Comment on above: Coffee ground emesis [K92.0] Start: 10-29-2023 End: 10-29-2023 ambulatory LANCE JORGENSEN Facility:[facility] Start: 10-29-2023 End: 10-29-2023 Patient encounter procedure Lance Jorgensen MD Work Phone: [facility] [place] Comment on above: Hypertension goal BP (blood pressure) < 130/80 (Primary Dx); Obesity (BMI 35.0-39.9 without comorbidity); History of small bowel obstruction; Fatigue, unspecified type Start: 10-29-2023 End: 10-29-2023 ambulatory LANCE JORGENSEN Facility:[facility] Start: 09-23-2023 Telephone encounter Tony Childers MD Work Phone: General Surgery Comment on above: Patient Update Start: 09-22-2023 End: 09-22-2023 Subsequent hospital visit by physician Sol [facility] Sara Ang Work Phone: Radiology Comment on above: Coffee ground emesis [K92.0] Start: 09-17-2023 Telephone encounter Tony Childers MD Work Phone: General Surgery Comment on above: Patient Update Start: 09-16-2023 End: 09-18-2023 Evaluation and management of inpatient [facility] Start: 08-02-2023 End: 08-02-2023 Refill Lance Jorgensen MD Work Phone: [facility] [place] Comment on above: Refill Request (Out of medication) Hypertension goal BP (blood pressure) < 130/80 (Primary Dx); Primary insomnia; Anxiety; Restless legs; Obesity (BMI 35.0-39.9 without comorbidity); Tubular adenoma of colon Start: 03-29-2023 Telephone encounter Huyen ramirez PA-C Work Phone: General Surgery Start: 02-19-2023 End: 02-19-2023 Patient encounter procedure Huyen Hernandez PA-C Work Phone: General Surgery Comment on above: Positive colorectal cancer screening using Cologuard test Start: 02-15-2023 Orders Only Lance hyde MD Work Phone: [facility] [place] Comment on above: Positive colorectal cancer screening using Cologuard test (Primary Dx) Results Start: 02-01-2023 End: 02-01-2023 Patient encounter procedure Lance Jorgensen MD Work Phone: [facility] [place] Comment on above: Routine medical exam (Primary Dx); Encounter for immunization; Impaired glucose metabolism; Hypertension goal BP (blood pressure) < 130/80; Obesity (BMI 35.0-39.9 without comorbidity); Screening for colon cancer; Actinic keratosis Start: 02-01-2023 End: 02-01-2023 Patient encounter status Lanec Jorgensen MD Work Phone: [facility] Work Phone: Start: 01-11-2023 Telephone encounter Lance rushing MD Work Phone: [facility] [place] Comment on above: Orders Start: 12-02-2022 End: 12-02-2022 Patient encounter procedure Lance Jorgensen MD Work Phone: [facility] [place] Comment on above: Nocturia (Primary Dx ); Primary insomnia; Anxiety; Restless legs Start: 07-13-2022 End: 07-13-2022 Patient encounter procedure Lance Jorgensen MD Work Phone: [facility] [place] Comment on above: Obesity, Class II, B NE 35-39.9 (Primary Dx); Hypertension goal BP (blood pressure) < 130/80 Start: 06-15-2022 End: 06-15-2022 Patient encounter procedure Lance Jorgensen MD Work Phone: [facility] [place] Comment on above: Obesity, Class II, B NE 35-39.9 Start: 05-22-2022 Refill Lance hyde MD Work Phone: [facility] [place] Comment on above: Refill Request Start: 05-21-2022 Refill Lance hyde MD Work Phone: [facility] [place] Comment on above: Refill Request Start: 05-18-2022 Telephone encounter Lance rushing MD Work Phone: [facility] [place] Comment on above: Insurance Authorizat ion Start: 02-09-2022 End: 02-09-2022 Patient encounter procedure Lance Jorgensen MD Work Phone: [facility] [place] Comment on above: Obesity (BMI 35.0-39 .9 without comorbidity) (Primary Dx); Encounter for immunization; Restless legs; Anxiety; Impaired glucose metabolism Start: 01-28-2022 Telephone encounter Lance rushing MD Work Phone: [facility] [place] Comment on above: Faxed Paperwork Start: 12-06-2021 Refill Lance hyde MD Work Phone: [facility] [place] Comment on above: Refill Request Start: 12-05-2021 Refill Lance hyde MD Work Phone: [facility] [place] Comment on above: Refill Request Start: 11-30-2021 ambulatory Jinny Older FAMILY DAY CARE PROVIDER .POST ACUTE CARE REGISTERED NURSE Work Phone: [facility] Start: 11-30-2021 Patient encounter procedure Jinny Older FAMILY DAY CARE PROVIDER.POST ACUTE CARE REGISTERED NURSE Work Phone: [facility] [place] Comment on above: Appointment Start: 10-27-2021 Telephone encounter Lance rushing MD Work Phone: [facility] [place] Comment on above: Appointment/medicati on problem (medication) Medication Question Start: 10-27-2021 End: 10-27-2021 Patient encounter procedure Jinny Older FAMILY DAY CARE PROVIDER.POST ACUTE CARE REGISTERED NURSE Work Phone: [facility] [place] Comment on above: Obesity (BMI 35.0-39 .9 without comorbidity) (Primary Dx) Start: 09-18-2021 End: 09-18-2021 Patient encounter procedure Lance Jorgensen MD Work Phone: [facility] [place] Comment on above: Obesity, Class I, BM I 30.0-34.9 (see actual BMI) (Primary Dx); Primary insomnia; Anxiety; Restless legs; Hypertension goal BP (blood pressure) < 130/80; Impaired glucose metabolism Start: 09-09-2021 ambulatory Lance hyde MD Work Phone: [facility] [place] Comment on above: Weight loss pill Start: 11-30-2017 End: 11-30-2017 Patient encounter DORINDA DOBBS Facility:[facility] Procedures Date Procedure Procedure Detail Performing Clinician Start: 09-20-2024 Antibody screen MELANIE ARCINIEGA Comment on above: Order Comment: Specimen Type: BLOOD SPEC IMENOrdering Facility: [facility] Address: [address] [place] [address] [place] [address] Performed By: #### T SCR ####CC MAIN BLOOD BANKCLIA [id number] [place] [address] [place] Start: 09-17-[address] Bria Jorgensen MD Work Phone: Start: 09-17-2024 Computed tomography of abdomen and pelvis with intravenous contrast Dr. Lance Jorgensen MD Work Phone: Start: 09-12-2024 MRI of lumbar spine Dr. Lance Jorgensen MD Work Phone: Start: 07-06-2024 Adult depression screening assessment Xr [facility] Work Phone: Start: 06-16-2024 Lipid 1995 panel - Serum or Plasma Bria Jorgensen MD Work Phone: Start: 04-06-2024 PFIZER-BIONTECH COVID-19 VACCINE AGE 12+ YR (COMIRNATY) Lance Jorgensen MD Work Phone: Start: 01-11-2024 Urnls dip stick/tablet rgnt auto w/o microscopy Polly Kan PA-C Work Phone: Start: 11-24-2023 Esophagogastroduodenoscopy transoral diagnostic Tony Childers MD Work Phone: Start: 02-24-2023 Colonoscopy Huyen Hernandez PA-C Work Phone: Start: 02-01-2023 INFLUENZA VACCINE, AGE 6 MO - 64 YR, QUADRIVALENT (AFLURIA, FLULAVAL, FLUZONE) Lance Jorgensen MD Work Phone: Start: 01-11-2023 Lipid 1996 panel - Serum or Plasma Bria Jorgensen MD Work Phone: Start: 12-02-2022 Urnls dip stick/tablet rgnt auto w/o microscopy Lance Jorgensen MD Work Phone: Start: 02-09-2022 INFLUENZA VACCINE QUADRIVALENT 6 MO - 64 YRS IM Lance Jorgensen MD Work Phone: Start: 05-11-2020 Lipid 1996 panel - Serum or Plasma Vicankit Jorgensen MD Work Phone: Start: 03-31-2018 Colonoscopy Lance Jorgensen MD Work Phone: Plan of Treatment Date Care Activity Detail Author Start: 2036 RSV Vaccine (1 - 1-d ose 75+ series) RSV Vaccine (1 - 1-dose 75+ series) [facility] Start: 07-06-2034 Urine microalbumin profile DTaP,Tdap,Td Vaccine (3 - Td or Tdap) [facility] Start: 06-16-2029 Lipid panel Lipid Screening [facility] Start: 06-16-2029 Prostate specific antigen measurement Prostate Cancer Screening Discussion [facility] Start: 02-25-2028 Colonoscopy Colonoscopy [facility] Start: 02-25-2028 Colorectal Cancer Screening Colorectal Cancer Screening [facility] Start: 01-12-2028 Lipid 1996 panel - S bri or Plasma Lipid Screening [facility] Start: 01-12-2028 Lipid panel Lipid Screening [facility] Start: 09-23-2027 Diabetes Screening Diabetes Screenin g [facility] Start: 06-16-2027 Diabetes Screening Diabetes Screenin g [facility] Start: 10-28-2026 Diabetes Screening Diabetes Screenin g [facility] Start: 09-16-2026 Diabetes Screening Diabetes Screenin g [facility] Start: 02-24-2026 Colonoscopy Colonoscopy [facility] Start: 02-24-2026 Colorectal Cancer Screening Colorectal Cancer Screening [facility] Start: 02-24-2026 Screening for malign ant neoplasm of colon [facility] Start: 02-06-2026 Cologuard (FIT-DNA) Cologuard (FIT-D NA) [facility] Start: 02-06-2026 Screening for malign ant neoplasm of colon Cologuard (FIT-DNA) [facility] Start: 01-11-2026 Diabetes Screening Diabetes Screenin g [facility] Start: 07-06-2025 Annual PCP Team Sales Trainer tamanna Disease Visit Annual PCP Team Chronic Disease Visit [facility] Start: 07-06-2025 BP Controlled (<130/80) BP Controlle d (<130/80) [facility] Start: 07-06-2025 Depression Screening Depression Scre ening [facility] Start: 05-11-2025 Lipid 1996 panel - S bri or Plasma Lipid Screening [facility] Start: 05-11-2025 LIPID SCREEN LIPID SCREEN [facility] Start: 04-06-2025 Annual PCP Team Sales Trainer tamanna Disease Visit Annual PCP Team Chronic Disease Visit [facility] Start: 04-06-2025 BP Controlled (<130/80) BP Controlle d (<130/80) [facility] Start: 01-08-2025 End: 01-08-2025 Patient encounter procedure 01/08/2025 12:40 PM EDT Office Visit [facility] [address] [place] [address] Lance Jorgensen MD [address] [place] [address] 6 month f/u [facility] Comment on above: 6 month f/u Start: 12-25-2024 End: 12-25-2024 ambulatory 12/25/2024 7:30 AM EDT Results Only [facility] [place] [facility] [address] [place] [address] [place] [facility] Start: 12-18-2024 End: 03-19-2025 Comprehensive metabolic 2000 panel - Serum or Plasma COMPREHENSIVE METABOLIC PANEL Lab Routine Obesity, Class I, BMI 30-34.9 Expected: 12/18/2024, Expires: 03/19/2025 [facility] Comment on above: Expected: 12/18/2024 , Expires: 03/19/2025 Start: 12-18-2024 End: 03-19-2025 Prostate specific Ag [Mass/volume] in Serum or Plasma PROSTATE-SPECIFIC ANTIGEN DIAGNOSTIC Lab Routine PSA elevation Expected: 12/18/2024, Expires: 03/19/2025 [facility] Comment on above: Expected: 12/18/2024 , Expires: 03/19/2025 Start: 10-28-2024 Annual PCP Team Sales Trainer tamanna Disease Visit Annual PCP Team Chronic Disease Visit [facility] Start: 10-11-2024 End: 10-11-2024 Patient encounter procedure 10/11/2024 9:30 AM EDT Office Visit [facility] [address] [facility] [address] [place] [address] Jerry Yanez MD [address] [place] [id number] paraesophageal hernia [facility] Comment on above: paraesophageal herni a Start: 09-30-2024 DIABETES SCREEN DIABETES SCREEN [facility] Start: 09-30-2024 Diabetes Screening Diabetes Screenin g [facility] Start: 09-17-2024 [facility] Start: 08-01-2024 Annual PCP Team Sales Trainer tamanna Disease Visit Annual PCP Team Chronic Disease Visit [facility] Start: 08-01-2024 Covid-19 Vaccine ( season) Covid-19 Vaccine () [facility] Comment on above: Postponed from 12/18 (Declined at this time) Start: 07-10-2024 End: 07-10-2024 Patient encounter procedure 07/10/2024 6:00 PM EDT Office Visit [facility] [place] [address] [place] [address] Lance Jorgensen MD [address] [place], [place] [id number] yearly 3 months [facility] [place] Comment on above: yearly 3 months Start: 07-06-2024 End: 07-06-2024 Patient encounter procedure 07/06/2024 4:00 PM EDT Office Visit [facility] [address] [place], [place] [id number] Lance Jorgensen MD [address] [place], [place] [id number] yearly 3 months [facility] Comment on above: yearly 3 months Start: 07-05-2024 End: 10-04-2024 CBC panel - Blood by Automated count COMPLETE BLOOD COUNT Lab Routine Hypertension goal BP (blood pressure) < 130/80 Expected: 07/05/2024, Expires: 10/04/2024 [facility] Work Phone: Comment on above: Expected: 07/05/2024 , Expires: 10/04/2024 Start: 07-05-2024 End: 10-04-2024 Comprehensive metabolic 2000 panel - Serum or Plasma COMPREHENSIVE METABOLIC PANEL Lab Routine Hypertension goal BP (blood pressure) < 130/80 Expected: 07/05/2024, Expires: 10/04/2024 [facility] Comment on above: Expected: 07/05/2024 , Expires: 10/04/2024 Start: 07-05-2024 End: 10-04-2024 Hemoglobin A1c in Blood HEMOGLOBIN A1C Lab Routine Impaired glucose metabolism Expected: 07/05/2024, Expires: 10/04/2024 [facility] Comment on above: Expected: 07/05/2024 , Expires: 10/04/2024 Start: 07-05-2024 End: 10-04-2024 Lipid 1996 panel - Serum or Plasma LIPID PANEL BASIC Lab Routine Hypertension goal BP (blood pressure) < 130/80 Expected: 07/05/2024, Expires: 10/04/2024 [facility] Comment on above: Expected: 07/05/2024 , Expires: 10/04/2024 Start: 07-05-2024 End: 10-04-2024 PSA/PROSTATE SPECIFIC ANTIGEN SCREENING PSA/PROSTATE SPECIFIC ANTIGEN SCREENING Lab Routine Prostate cancer screening Expected: 07/05/2024, Expires: 10/04/2024 [facility] Comment on above: Expected: 07/05/2024 , Expires: 10/04/2024 Start: 04-06-2024 End: 04-06-2024 Patient encounter procedure 04/06/2024 5:40 PM EST Office Visit [facility] [address] [place] [address] Lance Jorgensen MD [address] [place], [place] [id number] Medication Follow up [facility] Comment on above: Medication Follow up Start: 02-17-2024 End: 02-17-2024 Patient encounter procedure 02/17/2024 5:20 PM EDT Office Visit [facility] [address] [place] [address] Lance Jorgensen MD [address] [place] [address] Follow up - medication [facility] Comment on above: Follow up - medicati on Start: 02-02-2024 Annual PCP Team Sales Trainer tamanna Disease Visit Annual PCP Team Chronic Disease Visit [facility] Start: 01-31-2024 PROSTATE CANCER SCREENING DISCUSSION PROSTATE CANCER SCREENING DISCUSSION [facility] Start: 01-31-2024 Prostate specific antigen measurement Prostate Cancer Screening Discussion [facility] Start: 01-11-2024 End: 01-11-2024 Patient encounter procedure 01/11/2024 4:00 PM EDT Office Visit Urology [address] [place] [address] Polly Kan PA-C [address] [place] [address] [facility] Comment on above: [facility] Start: 12-19-2023 Covid-19 Vaccine ( season) Covid-19 Vaccine ( season) [facility] Start: 12-19-2023 Covid-19 Vaccine ( season) Covid-19 Vaccine ( season) [facility] Start: 12-19-2023 Influenza vaccination Influenza Vacc ine (#1) [facility] Start: 12-03-2023 ANNUAL PCP TEAM STRATIGRAPHY TEACHER TAMANNA DISEASE VISIT ANNUAL PCP TEAM CHRONIC DISEASE VISIT [facility] Start: 11-24-2023 End: 11-24-2023 Patient encounter procedure 11/24/2023 8:30 AM EDT Appointment [facility] [address] [place] [address] Tony Childers MD [address] [address] EGD [facility] Comment on above: EGD Start: 11-08-2023 End: 11-08-2023 Patient encounter procedure 11/08/2023 1:20 PM EDT Office Visit [facility] [address] [place] [address] Lance Jorgensen MD [address] [place], [place] [id number] 3 month follow-up [facility] [place] Comment on above: 3 month follow-up Start: 10-29-2023 End: 01-28-2024 CBC panel - Blood by Automated count [facility] Work Phone: Comment on above: Expected: 10/29/2023 , Expires: 01/28/2024 Start: 10-29-2023 End: 01-28-2024 Cobalamin (Vitamin B12) [Mass/volume] in Serum or Plasma [facility] Comment on above: Expected: 10/29/2023 , Expires: 01/28/2024 Start: 10-29-2023 End: 01-28-2024 Comprehensive metabolic 2000 panel - Serum or Plasma [facility] Comment on above: Expected: 10/29/2023 , Expires: 01/28/2024 Start: 09-22-2023 End: 09-22-2023 Patient encounter procedure 09/22/2023 8:45 AM EDT Office Visit General Surgery [address] [address] Tony Childers MD [address] [address] f/u black stools- last seen for EGD/colonoscopy 02/24/23 General Surgery Comment on above: f/u black stools- la st seen for EGD/colonoscopy 02/24/23 Start: 07-14-2023 ANNUAL PCP TEAM STRATIGRAPHY TEACHER TAMANNA DISEASE VISIT ANNUAL PCP TEAM CHRONIC DISEASE VISIT [facility] Start: 07-14-2023 BP CONTROLLED (<130/80) BP CONTROLLE D (<130/80) [facility] Start: 06-15-2023 ANNUAL PCP TEAM STRATIGRAPHY TEACHER TAMANNA DISEASE VISIT ANNUAL PCP TEAM CHRONIC DISEASE VISIT [facility] Start: 05-18-2023 ANNUAL PCP TEAM STRATIGRAPHY TEACHER TAMANNA DISEASE VISIT ANNUAL PCP TEAM CHRONIC DISEASE VISIT [facility] Start: 05-18-2023 COVID-19 VACCINE (2 - Moderna series) COVID-19 VACCINE (2 - Moderna series) [facility] Comment on above: Postponed from 01/02 (Declined at this time) Start: 05-11-2023 DIABETES SCREEN DIABETES SCREEN [facility] Start: 03-31-2023 Colonoscopy COLONOSCOPY [facility] Start: 03-31-2023 COLORECTAL CANCER SCREENING COLORECTAL CANCER SCREENING [facility] Start: 03-31-[address] COLONOGRAPHY [facility] Start: 03-31-2023 Screening for malign ant neoplasm of colon CT Colonography [facility] Start: 02-09-2023 ANNUAL PCP TEAM STRATIGRAPHY TEACHER TAMANNA DISEASE VISIT ANNUAL PCP TEAM CHRONIC DISEASE VISIT [facility] Start: 02-09-2023 BP CONTROLLED (<130/80) BP CONTROLLE D (<130/80) [facility] Start: 01-11-2023 End: 03-13-2023 CBC panel - Blood by Automated count [facility] Work Phone: Comment on above: Expected: 01/11/2023 , Expires: 03/13/2023 Start: 01-11-2023 End: 03-13-2023 Comprehensive metabolic 2000 panel - Serum or Plasma [facility] Work Phone: Comment on above: Expected: 01/11/2023 , Expires: 03/13/2023 Start: 01-11-2023 End: 03-13-2023 Hemoglobin A1c in Blood [facility] Work Phone: Comment on above: Expected: 01/11/2023 , Expires: 03/13/2023 Start: 01-11-2023 End: 03-13-2023 Lipid 1996 panel - Serum or Plasma [facility] Work Phone: Comment on above: Expected: 01/11/2023 , Expires: 03/13/2023 Start: 12-18-2022 Covid-19 Vaccine () Covid-19 Vaccine () [facility] Start: 12-18-2022 Influenza vaccination [facility] Start: 10-27-2022 ANNUAL PCP TEAM STRATIGRAPHY TEACHER TAMANNA DISEASE VISIT ANNUAL PCP TEAM CHRONIC DISEASE VISIT [facility] Start: 10-13-2022 End: 12-13-2022 CBC panel - Blood by Automated count CBC Lab Routine Hypertension goal BP (blood pressure) < 130/80 Expected: 10/13/2022, Expires: 12/13/2022 [facility] Work Phone: Comment on above: Expected: 10/13/2022 , Expires: 12/13/2022 Start: 10-13-2022 End: 12-13-2022 Comprehensive metabolic 2000 panel - Serum or Plasma COMP METABOLIC PANEL Lab Routine Hypertension goal BP (blood pressure) < 130/80 Expected: 10/13/2022, Expires: 12/13/2022 [facility] Work Phone: Comment on above: Expected: 10/13/2022 , Expires: 12/13/2022 Start: 10-13-2022 End: 12-13-2022 Lipid 1996 panel - Serum or Plasma LIPID PANEL BASIC Lab Routine Hypertension goal BP (blood pressure) < 130/80 Expected: 10/13/2022, Expires: 12/13/2022 [facility] Work Phone: Comment on above: Expected: 10/13/2022 , Expires: 12/13/2022 Start: 09-23-2022 Urine microalbumin profile [facility] Start: 09-18-2022 ANNUAL PCP TEAM STRATIGRAPHY TEACHER TAMANNA DISEASE VISIT ANNUAL PCP TEAM CHRONIC DISEASE VISIT [facility] Start: 05-12-2022 End: 07-12-2022 Comprehensive metabolic 2000 panel - Serum or Plasma COMP METABOLIC PANEL Lab Routine Impaired glucose metabolism Expected: 05/12/2022, Expires: 07/12/2022 [facility] Work Phone: Comment on above: Expected: 05/12/2022 , Expires: 07/12/2022 Start: 05-12-2022 End: 07-12-2022 Hemoglobin A1c in Blood HGB A1C Lab Routine Impaired glucose metabolism Expected: 05/12/2022, Expires: 07/12/2022 [facility] Work Phone: Comment on above: Expected: 05/12/2022 , Expires: 07/12/2022 Start: 01-02-2022 COVID-19 VACCINE (2 - Moderna series) COVID-19 VACCINE (2 - Moderna series) [facility] Start: 12-18-2021 Influenza vaccination [facility] Start: 2021 RSV Vaccine (1 - 1-d ose 60+ series) RSV Vaccine (1 - 1-dose 60+ series) [facility] Start: 2021 RSV Vaccine (1 - Ris k 60-74 years 1-dose series) RSV Vaccine (1 - Risk 60-74 years 1-dose series) [facility] Start: 09-19-2021 End: 11-19-2021 Comprehensive metabolic 2000 panel - Serum or Plasma COMP METABOLIC PANEL Lab Routine Impaired glucose metabolism Expected: 09/19/2021, Expires: 11/19/2021 [facility] Work Phone: Comment on above: Expected: 09/19/2021 , Expires: 11/19/2021 Start: 09-19-2021 End: 11-19-2021 Hemoglobin A1c/Hemoglobin.total in Blood HGB A1C Lab Routine Impaired glucose metabolism Expected: 09/19/2021, Expires: 11/19/2021 [facility] Work Phone: Comment on above: Expected: 09/19/2021 , Expires: 11/19/2021 Start: 08-21-2021 COVID-19 VACCINE (2 - Moderna series) COVID-19 VACCINE (2 - Moderna series) [facility] Start: 06-25-2021 ANNUAL PCP TEAM STRATIGRAPHY TEACHER TAMANNA DISEASE VISIT ANNUAL PCP TEAM CHRONIC DISEASE VISIT [facility] Start: 04-29-2021 BP CONTROLLED (<130/80) BP CONTROLLE D (<130/80) [facility] Start: 11-23-2011 Pneumococcal Vaccine : 50+ (1 of 1 - PCV) Pneumococcal Vaccine: 50+ (1 of 1 - PCV) [facility] Start: 2006 COLOGUARD (FIT-DNA) COLOGUARD (FIT-D NA) [facility] Start: 2006 FECAL OCCULT BLOOD FECAL OCCULT BLOO D [facility] Start: 2006 Screening for malign ant neoplasm of colon [facility] Start: 2006 SIGMOIDOSCOPY SIGMOIDOSCOPY [facility] Start: 11-23-1979 Depression Screening Depression Scre ening [facility] Start: 1966 COVID-19 VACCINE (#1) COVID-19 VACCI NE (#1) [facility] COLOGUARD COLOGUARD Lab Ro utine Screening for colon cancer Ordered: 02/01/2023 [facility] Work Phone: Comment on above: Ordered: 02/01/2023 Patient Education ED Vomiting (Adult) [facility] Work Phone: Patient referral [facility] Work Phone: POST VOID RESIDUAL POST VOID RES IDUAL Procedures Routine Nocturia Screening for genitourinary condition Ordered: 01/11/2024 [facility] Work Phone: Comment on above: Ordered: 01/11/2024 SURGICAL PATHOLOGY [facility] Work Phone: Comment on above: Release Upon Remy constantino for 1 Occurrences starting 11/24/2023, 1 completed XR Abdomen Supine an d Upright XR ABDOMEN 2V ROUTINE SUPINE W UPRIGHT/DECUB/CTL Radiology Routine Coffee ground emesis SBO (small bowel obstruction) (HCC) 09/22/2023 1:55 PM EDT [facility] Work Phone: End: 12-23-2024 XR Abdomen Supine and Upright XR ABDOMEN 1V SUPINE Radiology Routine Tubular adenoma of colon Coffee ground emesis SBO (small bowel obstruction) (HCC) 1 Occurrences starting 11/24/2023 until 12/23/2024 [facility] Comment on above: 1 Occurrences starti ng 11/24/2023 until 12/23/2024 XR Abdomen Supine an d Upright XR ABDOMEN 1V SUPINE Radiology Routine Tubular adenoma of colon Coffee ground emesis SBO (small bowel obstruction) (HCC) 12/06/2023 1:53 PM EDT [facility] Work Phone: XR Chest PA and Lateral XR CHEST 2V FRONTAL/LAT Radiology Routine Atypical chest pain 07/06/2024 7:53 PM EDT [facility] Work Phone: End: 08-05-2025 XR Chest PA and Lateral XR CHEST 2V FRONTAL/LAT Radiology Routine Atypical chest pain 1 Occurrences starting 07/06/2024 until 08/05/2025 [facility] Work Phone: Comment on above: 1 Occurrences starti ng 07/06/2024 until 08/05/2025 [facility] Immunizations Immunization Date Immunization Notes Care Provider Fa ban 07-06-2024 pneumococcal Conjuga te, unspecified formulation Lance Jorgensen MD Work Phone: [facility] 07-06-2024 pneumococcal conjuga te (PCV20) vaccine, 20 valent (PREVNAR 20) Xr [place] Work Phone: [facility] 07-06-2024 tetanus toxoid, redu charles diphtheria toxoid, and acellular pertussis vaccine, adsorbed Xr [place] Work Phone: [facility] 04-06-2024 COVID-19 vaccine, ag e 12+ yr ([employer] [facility]) Lance Jorgensen MD Work Phone: [facility] 04-06-2024 influenza, seasonal, injectable Lance Jorgensen MD Work Phone: [facility] 02-01-2023 influenza, injectabl e, quadrivalent, contains preservative Lance Jorgensen MD Work Phone: [facility] 02-01-2023 influenza virus vacc ine, unspecified formulation Lance Jorgensen MD Work Phone: [facility] 02-09-2022 influenza, injectabl e, quadrivalent, contains preservative Lance Jorgensen MD Work Phone: [facility] 02-09-2022 influenza virus vacc ine, unspecified formulation Lance Jorgensen MD Work Phone: [facility] 01-02-2022 COVID-19 booster vaccine, age 12+ yr, bivalent (MODERNA) Lance Jorgensen MD Work Phone: [facility] 11-30-2021 Hepatitis B vaccine (recombinant), CpG adjuvanted Lance Jorgensen MD Work Phone: [facility] Work Phone: 10-27-2021 Hepatitis B vaccine (recombinant), CpG adjuvanted Lance Jorgensen MD Work Phone: [facility] Work Phone: 01-02-2020 influenza, seasonal, injectable Lance Jorgensen MD Work Phone: [facility] Work Phone: 12-21-2019 zoster vaccine recombinant Lance Jorgensen MD Work Phone: [facility] Work Phone: 10-04-2019 zoster vaccine recombinant Lance Jorgensen MD Work Phone: [facility] Work Phone: 01-16-2019 influenza, injectabl e, quadrivalent, contains preservative Lance Jorgensen MD Work Phone: [facility] Work Phone: 01-17-2018 influenza, seasonal, injectable Lance Jorgensen MD Work Phone: [facility] Work Phone: 03-20-2017 influenza, seasonal, injectable Lance Jorgensen MD Work Phone: [facility] Work Phone: 01-30-2016 influenza, injectabl e, quadrivalent, contains preservative Lance Jorgensen MD Work Phone: [facility] 05-20-2015 influenza, injectabl e, quadrivalent, preservative free Lance Jorgensen MD Work Phone: [facility] Work Phone: 02-05-2014 influenza, seasonal, injectable, preservative free Lance Jorgensen MD Work Phone: [facility] Work Phone: 09-23-2012 tetanus toxoid, redu charles diphtheria toxoid, and acellular pertussis vaccine, adsorbed Lance Jorgensen MD Work Phone: [facility] 01-23-2010 influenza virus vacc ine, unspecified formulation Lance Jorgensen MD Work Phone: [facility] 05-27-2009 novel Influenza-H1N1 -09, live virus for nasal administration Lance Jorgensen MD Work Phone: [facility] Work Phone: Payers Date Payer Category Payer Self-pay 2024 Private Health Insurance [id number] 2024 Private Health Insurance [id number] 2021 Unknown [id number] 2012 Unknown [id number] 2009 Unknown [id number] 1961 Unknown [id number] Unknown OB [id number] Unknown [facility] [id number] Unknown [id number] 2 Unknown [id number] Social History Date Type Detail Facility Start: 06-10-2011 End: 05-18-2022 Tobacco smoking status NHIS Never smoked tobacco [facility] Start: 05-31-2020 End: 12-02-2022 Alcohol intake Current drinker of alcohol (finding) [facility] Start: 09-06-2019 End: 02-09-2022 History SDOH Alcohol Frequency 1 [facility] Start: 09-06-2019 History SDOH Alcohol Std Drinks 98 [facility] Start: 01-30-2016 History SDOH Alcohol Comment rare [facility] Start: 09-06-2019 End: 02-09-2022 History SDOH Social Connections Phone 4 [facility] Start: 09-06-2019 History SDOH Social Connections Get Together 3 [facility] Start: 09-06-2019 End: 02-09-2022 History SDOH Social Connections Meetings 2 [facility] Start: 09-06-2019 End: 02-09-2022 History SDOH Social Connections Living 7 [facility] Start: 09-06-2019 History SDOH Physical Activity MPS 6 [facility] Start: 09-06-2019 Education 14 [facility] Start: 1960 Sex Assigned At Male [facility] Start: 09-08-2021 End: 09-30-2021 Exposure to SARS-CoV-2 (event) Not sure [facility] Work Phone: Start: 06-10-2011 End: 05-18-2022 Tobacco use and exposure Smokeless tobacco non-user [facility] Start: 02-09-2022 History SDOH Alcohol Std Drinks 0 [facility] Start: 02-09-2022 History SDOH Social Connections Get Together 5 [facility] Start: 02-09-2022 End: 05-03-2023 History of Social function [facility] Start: 02-09-2022 End: 05-03-2023 Social connection and isolation panel [facility] Frequency of Communication with Friends and Family Not on file [facility] Do you belong to any clubs or organizations such as lutheran groups, unions, fraternal or athletic groups, or school groups? Yes [facility] Are you now , , , , never or living with a partner? Never [facility] How often to you hav e a drink containing alcohol? Monthly or less [facility] How often do you hav e 6 or more drinks on 1 occasion? Never [facility] How hard is it for y ou to pay for the very basics like food, housing, medical care, and heating Not very hard [facility] Do you feel stress - tense, restless, nervous, or anxious, or unable to sleep at night because your mind is troubled all the time - these days [OSQ] Not at all [facility] (I/We) worried wheanthony er (my/our) food would run out before (I/we) got money to buy more. Never true [facility] At any time in the p ast 12 months, were you homeless or living in snf [including now]? No [facility] Start: 10-22-2019 Gender identity Identifies as male gender (finding) [facility] Start: 10-22-2019 Sexual orientation Heterosexual (finding) [facility] Start: 02-01-2023 End: 09-22-2024 Alcohol intake Ex-drinker (finding) [facility] Do you feel stress - tense, restless, nervous, or anxious, or unable to sleep at night because your mind is troubled all the time - these days [OSQ] Only a little [facility] The food that (I/we) bought just didn't last, and (I/we) didn't have money to get more. Sometimes true [facility] How many standard dr inks containing alcohol do you have on a typical day? 1 or 2 [facility] Start: 06-18-2017 Lives [facility] Functional Status Date Assessment Result Facility 09-22-2024 Are you deaf, or do you have serious difficulty hearing No 09/22/2024 10:01 AM Mile Odell RN No [facility] 09-22-2024 Are you blind, or do you have serious difficulty seeing, even when wearing glasses No 09/22/2024 10:01 AM Mile Odell RN No [facility] 09-22-2024 Do you have serious difficulty walking or climbing stairs No 09/22/2024 10:01 AM Mile Odell RN No [facility] 09-22-2024 Do you have difficul ty dressing or bathing No 09/22/2024 10:01 AM Mile Odell RN No [facility] 09-22-2024 Because of a physica l, mental, or emotional condition, do you have difficulty doing errands alone such as visiting a physician's office or shopping Yes 09/22/2024 10:01 AM Mile Odell RN Yes [facility] 07-06-2024 Total score [AUDIT-C] 1 07/07/19 25 6:41 PM Lance Castellanos MD [facility] 04-05-2017 Are you deaf, or do you have serious difficulty hearing No 04/05/2017 12:22 PM Lance Adams MD No [facility] 04-05-2017 Are you blind, or do you have serious difficulty seeing, even when wearing glasses No 04/05/2017 12:22 PM Lance Adams MD No [facility] 04-05-2017 Do you have serious difficulty walking or climbing stairs No 04/05/2017 12:22 PM Lance Adams MD No [facility] 04-05-2017 Do you have difficul ty dressing or bathing No 04/05/2017 12:22 PM Lance Adams MD No [facility] 04-05-2017 Because of a physica l, mental, or emotional condition, do you have difficulty doing errands alone such as visiting a physician's office or shopping No 04/05/2017 12:22 PM Lance Adams MD No [facility] Mental Status Date Assessment Result Facility 09-22-2024 Because of a physica l, mental, or emotional condition, do you have serious difficulty concentrating, remembering, or making decisions No 09/22/2024 10:01 AM Mile Odell RN No [facility] 04-05-2017 Because of a physica l, mental, or emotional condition, do you have serious difficulty concentrating, remembering, or making decisions No 04/05/2017 12:22 PM Lance Adams MD No [facility] Clinical Notes 12-20-2014 to 10-04-2024 Dang Kumar APRN.POST ACUTE CARE REGISTERED NURSE - 10/04/2024 1:06 PM EDTTelephone Encounter - Nery Uribe - 09/25/2024 10:37 AM EDTTelephone Encounter - Nery Uribe - 09/25/2024 10:37 AM EDTPatient Instructions Note Date & Type Note Facility 10-04-2024 Note HNO ID: [id number] Author: DANG KUMAR APRN.POST ACUTE CARE REGISTERED NURSE Service: ? Author Type: Nurse Practitioner Type: Progress Notes Filed: 10/04/2024 13:29 Note Text: VIRTUAL VISIT PROGRESS NOTE This is a virtual visit using Contracts and [employer] Video Visit. It required patient-provider interaction for the medical decision making as documented below. I have communicated my name and active licensure. The patient's identity and physical location were verified at the time of this visit. Either the patient or their legal patient registration representative has been informed of the risks and benefits of -- and alternatives to -- treatment through a remote evaluation and consents to proceed with the evaluation remotely. Lance Bee is a 63 year old male seen for post PEH repair with gastropexy with Dr Bonner on 09/20 . HISTORY REVIEWED (electronic chart updated): PAST MEDICAL HISTORY Diagnosis Date Anxiety 11/01/2015 Asymptomatic microscopic hematuria 2017 Contact dermatitis and other eczema, due to unspecified cause DDD (degenerative disc disease), lumbar 02/10/2013 Depression Dog bite of right lower leg 2000 with recurrent wounds Gastritis, presence of bleeding unspecified, unspecified chronicity, unspecified gastritis type 12/06/2023 Hiatal hernia 02/24/2023 medium on EGD Hypertension goal BP (blood pressure) < 130/80 Impaired glucose metabolism 09/26/2014 A1c 6.1% September 2014 Obesity (BMI 35.0-39.9 without comorbidity) 08/10/2018 Obesity, Class I, BMI 30-34.9 04/06/2024 Open wound of knee, leg (except thigh), and ankle, complicated Open wound of right lower extremity 07/24/2017 YAIMA (obstructive sleep apnea) no CPAP tried by choice. 12/20/2014 Paraesophageal hernia 09/16/2023 Personal history of skin cancer 01/30/2016 Dr. Melody Trammell, Dermatology annually. Primary insomnia 11/01/2015 Reflex sympathetic dystrophy Right leg. Dr. Ware, pain management. Restless legs 05/20/2015 Small bowel obstruction (HCC) 09/16/2023 Squamous cell carcinoma of lower leg 09/23/2012 Skin graft x2- Dr. Cook, Dr. Cardona D[facility]at[facility]- Rachael Trammell Tubular adenoma of colon 02/24/2023 Ulcer of other part of foot PAST SURGICAL HISTORY Procedure Laterality Date COLONOSCOPY 10/27/2016 INCOMPLETE- CT colonography 03/31/18 diverticular disease. Repeat 5-10yrs COLONOSCOPY SCREENING 02/24/2023 EGD 10/27/2016 EGD 11/24/2023 EGD W/O BRSH SPEC VARICIES INJ 02/24/2023 LAP REPAIR PARAESOPHAGEAL HERNIA 09/20/2024 gastropexy LAPAROSCOPY SURG RPR INITIAL INGUINAL HERNIA Right 12/26/2004 PAST SURGICAL HISTORY OF Right 2012 excision of tumor, right leg PAST SURGICAL HISTORY OF Right 2014 skin grafts, right leg. 2012,2013. FAMILY HISTORY Problem Relation Age of Onset other (scleroderma) Mother Cancer Father pancreatic No Known Problems Sister 1/2 siblings No Known Problems Sister No Known Problems Brother 1/2 siblings Social History Tobacco Use Smoking status: Never Smokeless tobacco: Never Vaping Use Vaping status: Never Used Substance Use Topics Alcohol use: Not Currently Drug use: Not Currently Types: Marijuana Current Outpatient Medications Medication Sig omeprazole (PRILOSEC) 40 mg capsule Take 1 capsule by mouth once daily. clonazePAM (KLONOPIN) 1 mg tablet Take 2 tablets by mouth at bedtime as needed (anxiety, restless leg) for up to 90 days. amLODIPine (NORVASC) 5 mg tablet Take 1 tablet by mouth once daily. oxyCODONE (ROXICODONE) 15 mg immediate release tablet Take 15 mg by mouth three times daily. Dr. Ware No current facility-administered medications for this visit. ALLERGIES No Known Allergies REVIEW OF SYSTEMS: GENERAL: feeling well without fatigue, no recent change in weight, admits to fatigue, weight loss noted RESPIRATORY: no cough, no wheezing or shortness of breath CARDIOVASCULAR: no chest pain, no palpitations GI: normal appetite, tolerating PO well, BMs normal, and no abdominal pain MUSCULOSKELETAL: denies any painful or swollen joints, no muscle aches NEURO: no numbness or paresthesias and no weakness of the extremities PHYSICAL EXAMINATION: VIDEO EXAM: (if completed, performed via video enabled technology) GENERAL: alert and appropriate, in no distress, well-hydrated, well nourished, and happy, smiling, interactive SKIN: no rash noted RESPIRATORY: breathing non-labored CHEST: equal chest rise with normal respiratory effort ABDOMEN: soft and non-tender to self-palpation and incisions healing well NEUROLOGIC: no obvious deficit ASSESSMENT: (Z98.890, Z87.19) S/P repair of paraesophageal hernia (primary encounter diagnosis) Comment: healing well Plan: discussed procedure, diet advancement , activity restrictions and when to follow up There are no Patient Instructions on file for this visit. I spent a total of 30 minutes on the date of the service which included preparing to see the patient, [id number] patient care, completi (more content not included)... [facility] 10-04-2024 History of Presen t illness Narrative VIRTUAL VISIT PROGRESS NOTE This is a virtual visit using [employer] and [employer] Video Visit. It required patient-provider interaction for the medical decision making as documented below. I have communicated my name and active licensure. The patient's identity and physical location were verified at the time of this visit. Either the patient or their legal patient registration representative has been informed of the risks and benefits of -- and alternatives to -- treatment through a remote evaluation and consents to proceed with the evaluation remotely. Lance Bee is a 63 year old male seen for post PEH repair with gastropexy with Dr Bonner on 09/20 . HISTORY REVIEWED (electronic chart updated): PAST MEDICAL HISTORY Diagnosis Date Anxiety 11/01/2015 Asymptomatic microscopic hematuria 2017 Contact dermatitis and other eczema, due to unspecified cause DDD (degenerative disc disease), lumbar 02/10/2013 Depression Dog bite of right lower leg 1999 with recurrent wounds Gastritis, presence of bleeding unspecified, unspecified chronicity, unspecified gastritis type 12/06/2023 Hiatal hernia 02/24/2023 medium on EGD Hypertension goal BP (blood pressure) < 130/80 Impaired glucose metabolism 09/26/2014 A1c 6.1% September 2014 Obesity (BMI 35.0-39.9 without comorbidity) 08/10/2018 Obesity, Class I, BMI 30-34.9 04/06/2024 Open wound of knee, leg (except thigh), and ankle, complicated Open wound of right lower extremity 07/24/2017 YAIMA (obstructive sleep apnea) no CPAP tried by choice. 12/20/2014 Paraesophageal hernia 09/16/2023 Personal history of skin cancer 01/30/2016 Dr. Melody Trammell, Dermatology annually. Primary insomnia 11/01/2015 Reflex sympathetic dystrophy Right leg. Dr. Ware, pain management. Restless legs 05/20/2015 Small bowel obstruction (HCC) 09/16/2023 Squamous cell carcinoma of lower leg 09/23/2012 Skin graft x2- Dr. Cook, Dr. [facility]- [place] Dr. Trammell Tubular adenoma of colon 02/24/2023 Ulcer of other part of foot PAST SURGICAL HISTORY Procedure Laterality Date COLONOSCOPY 10/27/2016 INCOMPLETE- CT colonography 03/31/18 diverticular disease. Repeat 5-10yrs COLONOSCOPY SCREENING 02/24/2023 EGD 10/27/2016 EGD 11/24/2023 EGD W/O BRSH SPEC VARICIES INJ 02/24/2023 LAP REPAIR PARAESOPHAGEAL HERNIA 09/20/2024 gastropexy LAPAROSCOPY SURG RPR INITIAL INGUINAL HERNIA Right 12/26/2004 PAST SURGICAL HISTORY OF Right 2012 excision of tumor, right leg PAST SURGICAL HISTORY OF Right 2014 skin grafts, right leg. 2012,2013. FAMILY HISTORY Problem Relation Age of Onset other (scleroderma) Mother Cancer Father pancreatic No Known Problems Sister 1/2 siblings No Known Problems Sister No Known Problems Brother 1/2 siblings Social History Tobacco Use Smoking status: Never Smokeless tobacco: Never Vaping Use Vaping status: Never Used Substance Use Topics Alcohol use: Not Currently Drug use: Not Currently Types: Marijuana Current Outpatient Medications Medication Sig omeprazole (PRILOSEC) 40 mg capsule Take 1 capsule by mouth once daily. clonazePAM (KLONOPIN) 1 mg tablet Take 2 tablets by mouth at bedtime as needed (anxiety, restless leg) for up to 90 days. amLODIPine (NORVASC) 5 mg tablet Take 1 tablet by mouth once daily. oxyCODONE (ROXICODONE) 15 mg immediate release tablet Take 15 mg by mouth three times daily. Dr. Ware No current facility-administered medications for this visit. ALLERGIES No Known Allergies REVIEW OF SYSTEMS: GENERAL: feeling well without fatigue, no recent change in weight, admits to fatigue, weight loss noted RESPIRATORY: no cough, no wheezing or shortness of breath CARDIOVASCULAR: no chest pain, no palpitations GI: normal appetite, tolerating PO well, BMs normal, and no abdominal pain MUSCULOSKELETAL: denies any painful or swollen joints, no muscle aches NEURO: no numbness or paresthesias and no weakness of the extremities PHYSICAL EXAMINATION: VIDEO EXAM: (if completed, performed via video enabled technology) GENERAL: alert and appropriate, in no distress, well-hydrated, well nourished, and happy, smiling, interactive SKIN: no rash noted RESPIRATORY: breathing non-labored CHEST: equal chest rise with normal respiratory effort ABDOMEN: soft and non-tender to self-palpation and incisions healing well NEUROLOGIC: no obvious deficit ASSESSMENT: (Z98.890, Z87.19) S/P repair of paraesophageal hernia (primary encounter diagnosis) Comment: healing well Plan: discussed procedure, diet advancement , activity restrictions and when to follow up There are no Patient Instructions on file for this visit. I spent a total of 30 minutes on the date of the service which included preparing to see the patient, [id number] patient care, completing clinical documentation, performing a medically appropriate examination, and counseling and educating the patient/family/caregiver Dang Kumar APRN.POST ACUTE CARE REGISTERED NURSE documented in this encounter [facility] 09-25-2024 Telephone encount er Note Transitional Care Management (TCM) [facility] Monitoring Program Provider Action / FYI: N/a SUMMARY: Outreach type: INITIAL OUTREACH Discharge Network Status: In-[facility] from [facility] on 09/22/2024. Admitted for Hiatal hernia . Contact made with patient: No - next outreach attempt will be on next . Nery Uribe September 25, 2024 10:39 AM [facility] 09-25-2024 Miscellaneous Notes Formattin g of this note is different from the original. Transitional Care Management (TCM) [facility] Provider Action / FYI: N/a SUMMARY: Outreach type: INITIAL OUTREACH Discharge Network Status: In-Network Discharge Source of Patient: [facility] TCM Discharge Report Patient discharged from [facility] on 09/22/2024. Admitted for Hiatal hernia . Contact made with patient: No - next outreach attempt will be on next . Nery Uribe September 25, 2024 10:39 AM documented in this encounter [facility] 09-22-2024 Note HNO ID: [id number] Author: ZACHARY ARCHER RN Service: Care Management Author Type: Registered Nurse Type: Care Mgt Progress Note Filed: 09/22/2024 09:37 Note Text: CARE MANAGEMENT DISCHARGE NOTE SERVICE DATE: September 22, 2024 SERVICE TIME: 9:37 AM Admission Date: 09/19/2024 LOS: 3 days Discharge Arrangement Discharge Arrangement: Home with Self Care Services Arranged NO skilled Needs. Caregiver Assessment Caregiver is ready, willing and able to meet the patient's needs as recommended by the inter-professional team: No Caregiver needed Transportation Arrangements Transportation Arrangements: Car Destination: [address] [place], [place] [address]MILLER RODRIGUEZ [address] [address] Handoff Communication: Handoff to: Primary Care Physician Primary Care Physician Name/Phone: Lance Jorgensen MD Additional Information: Discharge home today with no skilled needs. Sister to provide transportation. SIGNATURE: Zachary Archer RN PATIENT NAME: Lance Bee DATE: September 22, 2024 TIME: 9:36 AM [facility] 09-22-2024 Note HNO ID: [id number] Author: CECI ALICEA MD Service: General Surgery Author Type: Resident Type: Progress Notes Filed: 09/22/2024 07:33 Note Text: GENERAL SURGERY PROGRESS NOTE Lance Bee [id number] 09/22/2024 ASSESSMENT AND PLAN Lance Bee is a 63 year old male with PMHx of anxiety, HTN who is presenting for worsening nausea, vomiting and poor PO intake for a month with findings of an incarcerated type II PEH on CT now s/p lap PEH with gastropexy. -N: Continue current regimen, tylenol, dilaudid, oxy, robaxin -CV: mIVF, monitor BP -BP goals: <160 SBP -R: Cont IS, BPH -FEN-GI: FLD, NGT removed 09/21 -nausea: PRN zofran, compazine -bowel regimen: none -tress ulcer prophylaxis: IV protonix -Renal: strict I/Os, replete lytes prn -DVT Prophylaxis: enoxaparin, SCDs -ID: none -Endo: none -Lines/Drains: PIV, NGT -Psych: continue klonopin -Activity: out of bed, amb as able -Dispo: Continue RNF status, okay to DC today if patient tolerating diet and pain well managed Patient Active Hospital Problem List: Hiatal hernia Date Noted: 09/19/2024 Hypertension goal BP (blood pressure) < 130/80 Date Noted: Impaired glucose metabolism Date Noted: 09/26/2014 Anxiety Date Noted: 11/01/2015 Personal history of skin cancer Date Noted: 01/30/2016 S/P repair of paraesophageal hernia Date Noted: 09/20/[address] Kailey MD Some elements of this note have been copied forward from previous progress notes but all documentation has been reviewed by me and updated where appropriate to reflect the patient's evaluation today, and ongoing plan of care. Ceci Alicea MD General Surgery PGY-1 Pager: [phone] (Acute Care Surgery) For weekday evenings (6PM-6AM) or weekends/holidays, please page [phone] (Night Float) SUBJECTIVE: NAEON Pain well managed No nausea or vomiting OBJECTIVE: BP 131/80 Pulse 73 Temp 36.4 ?C (97.5 ?F) (Oral) Resp 18 Ht 180.3 cm (5' 11) Wt 95.9 kg (211 lb 6.7 oz) SpO2 91% BMI 29.49 kg/m? Body mass index is 29.49 kg/m?. GENERAL: Alert and oriented, no acute distress, cooperative. LUNGS: Non labored breathing ABDOMEN: soft, appropriately tender, non distended. WOUND: clean, dry and intact Labs: CBC, Coags, BMP, Mg, Phos Recent Labs 09/21/24 0612 09/20/24 0647 09/20/24 0101 09/19/24 1454 WBC 10.16 6.37 -- 7.22 HB 13.6 15.0 -- 15.6 HCT 39.5 43.0 -- 45.5 PLT 137* 136* -- 163 INR -- -- 1.2 -- APTT -- -- 21.9* -- NA 140 140 -- 139 K 4.1 3.9 -- 4.1 CHLOR 107 107 -- 101 CO2 23 20* -- 25 BUN 17 16 -- 18 CREAT 0.85 0.92 -- 1.13 GLUC 101* 82 -- 95 CA 8.5 9.3 -- 9.3 MG 1.9 1.9 -- -- P 3.0 2.8 -- -- Liver Function, Amylase, AND Lipase Recent Labs 09/19/24 1454 TPROT 7.2 ALB 4.2 ALT 10 AST 19 ALKPHOS 101 TBILI 0.8 I/O past 24h: Intake/Output Summary (Last 24 hours) at 09/22/2024 0730 Last data filed at 09/22/2024 0032 Gross per 24 hour Intake 1540 ml Output 775 ml Net 765 ml LDA: Lines, Drains, and Airways Line Duration Peripheral 09/20/24 0802 Right Forearm 20 Gauge 1 day Peripheral 09/20/24 1144 Left Hand 16 Gauge 1 day SURGERY/PROCEDURE: Procedure(s) and Anesthesia Type: * LAPAROSCOPIC HERNIORRHAPHY PARAESOPHAGEAL - General [facility] 09-21-2024 Note HNO ID: [id number] Author: ZACHARY ARCHER RN Service: Care Management Author Type: Registered Nurse Type: Care Mgt Initial Assessment Filed: 09/21/2024 10:13 Note Text: CARE MANAGEMENT: ASSESSMENT AND DISCHARGE PLAN SERVICE DATE: September 21, 2024 SERVICE TIME: 10:07 AM PCP: Lance Jorgensen MD Primary Contact: Extended Emergency Contact Information Primary Emergency Contact: Corine Louise Mobile Relation: Sister Admission Status: Inpatient Insurance Provider: [employer] Discharge Planning requested by: Per Department Practice Potential Transition Plans Home, Home OT/PT, To Be Determined Advance Directives Current Advance Directive: None 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 Attempted to Assist with AD Completion: Yes Action: Education Provided Current Living Arrangements and Support Lives with: Alone Type of Residence: Private Residence (Apartment or Condo) Support: Family members How do you manage to accomplish the following: Independent: Ambulation, Bathe/Shower, Dress, Meals/Meal Prep, Going to the bathroom, Transportation to appointments/community, Medication Management Current Services/Equipment Current Post-Acute Service(s): None Discharge Planning Patient Goal(s): Be able to go home, General wellness [place] of Choice Explained: [place] of Choice Given: No Reason Not Given: Unable to complete with this assessment - revisit Are you interested in bedside delivery of your medications? 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 Patient lives alone in apartment. 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 No DME. Denies financial concerns. Plans to return home at discharge, sister will provide transport. s/p lap PEH with gastropexy. NG removed today, clear liquid diet started. SIGNATURE: Zachary Archer RN PATIENT NAME: Lance Bee DATE: September 21, 2024 TIME: 10:07 AM [facility] 09-21-2024 Note HNO ID: [id number] Author: CECI ALICEA MD Service: General Surgery Author Type: Resident Type: Progress Notes Filed: 09/21/2024 07:49 Note Text: GENERAL SURGERY PROGRESS NOTE Lance Bee [id number] 09/21/2024 ASSESSMENT AND PLAN Lance Bee is a 63 year old male with PMHx of anxiety, HTN who is presenting for worsening nausea, vomiting and poor PO intake for a month with findings of an incarcerated type II PEH on CT now s/p lap PEH with gastropexy. -N: Continue current regimen, tylenol, dilaudid, oxy, robaxin -CV: mIVF, monitor BP -BP goals: <160 SBP -R: Cont IS, BPH -FEN-GI: NPO, NGT, possibly will remove later today -nausea: PRN zofran, compazine -bowel regimen: none -tress ulcer prophylaxis: IV protonix -Renal: strict I/Os, replete lytes prn, DC mendes, void check -DVT Prophylaxis: enoxaparin, SCDs -ID: none -Endo: none -Lines/Drains: PIV, NGT -Psych: continue klonopin -Activity: out of bed, amb as able -Dispo: Continue RNF status Patient Active Hospital Problem List: Hiatal hernia Date Noted: 09/19/2024 Hypertension goal BP (blood pressure) < 130/80 Date Noted: Impaired glucose metabolism Date Noted: 09/26/2014 Anxiety Date Noted: 11/01/2015 Personal history of skin cancer Date Noted: 01/30/2016 S/P repair of paraesophageal hernia Date Noted: 09/20/[address] Kailey MD Some elements of this note have been copied forward from previous progress notes but all documentation has been reviewed by me and updated where appropriate to reflect the patient's evaluation today, and ongoing plan of care. Ceci Alicea MD General Surgery PGY-1 Pager: [phone] (Acute Care Surgery) For weekday evenings (6PM-6AM) or weekends/holidays, please page [phone] (Night Float) SUBJECTIVE: NAEON Pain well managed Some mild nausea, no vomiting OBJECTIVE: BP 115/67 Pulse 64 Temp 36.5 ?C (97.7 ?F) (Oral) Resp 17 Ht 180.3 cm (5' 11) Wt 95.9 kg (211 lb 6.7 oz) SpO2 93% BMI 29.49 kg/m? Body mass index is 29.49 kg/m?. GENERAL: Alert and oriented, no acute distress, cooperative. LUNGS: Non labored breathing ABDOMEN: soft, appropriately tender, non distended. WOUND: clean, dry and intact Labs: CBC, Coags, BMP, Mg, Phos Recent Labs 09/21/24 0612 09/20/24 0647 09/20/24 0101 09/19/24 1454 WBC 10.16 6.37 -- 7.22 HB 13.6 15.0 -- 15.6 HCT 39.5 43.0 -- 45.5 PLT 137* 136* -- 163 INR -- -- 1.2 -- APTT -- -- 21.9* -- NA 140 140 -- 139 K 4.1 3.9 -- 4.1 CHLOR 107 107 -- 101 CO2 23 20* -- 25 BUN 17 16 -- 18 CREAT 0.85 0.92 -- 1.13 GLUC 101* 82 -- 95 CA 8.5 9.3 -- 9.3 MG 1.9 1.9 -- -- P 3.0 2.8 -- -- Liver Function, Amylase, AND Lipase Recent Labs 09/19/24 1454 TPROT 7.2 ALB 4.2 ALT 10 AST 19 ALKPHOS 101 TBILI 0.8 I/O past 24h: Intake/Output Summary (Last 24 hours) at 09/21/2024 0744 Last data filed at 09/21/2024 0736 Gross per 24 hour Intake 4122 ml Output 1150 ml Net 2972 ml LDA: Lines, Drains, and Airways Line Duration Peripheral 09/20/24 0802 Right Forearm 20 Gauge <1 day Peripheral 09/20/24 1144 Left Hand 16 Gauge <1 day Drain Duration GI/ Feeding 09/20/24 Right Naris 1 day SURGERY/PROCEDURE: Procedure(s) and Anesthesia Type: * LAPAROSCOPIC HERNIORRHAPHY PARAESOPHAGEAL - General [facility] 09-20-2024 Note HNO ID: [id number] Author: JAVIER MARTINES DO Service: ? Author Type: Resident Type: Anesthesia Procedure Notes Filed: 09/20/2024 09:28 Note Text: ANESTHESIOLOGY PROCEDURE NOTE Airway General Information Procedure Start Time/Medication Administration: 09/20/2024 8:38 AM Procedure End Time: 09/20/2024 8:38 AM Patient location during procedure: OR Timeout Performed Pre-procedure: timeout performed Consent Obtained: Yes Patient identity confirmed: arm band and patient Staffing Anesthesiologist: Jose Jennings MD Resident: Javier Martines DO Performed by: resident Indications and Patient Condition Indications for airway management: anesthesia Preoxygenated: yes anesthesia circuit Patient position: sniffing Method: rapid sequence Cricoid Pressure: No Manual In-Line Stabilization: No Difficult Mask: No Final Airway Details Final airway type: endotracheal airway Final Endotracheal Airway: ETT Cuffed: yes Successful intubation technique: video laryngoscopy Devices used: intubating stylet Endotracheal tube insertion site: oral Blade: Ishmael Blade size: #4 ETT size (mm): 7.5 Measured from: lips Measurement (cm): 22 Placement verified by: capnometry Cormack-Lehane Classification: grade I - full view of glottis Number of attempts at approach: 1 Airway trauma: None. Airway not difficult SIGNATURE: Javier Martines DO PATIENT NAME: Lance Bee DATE: September 20, 2024 TIME: 9:25 AM CSN: [id number] [facility] 09-18-2024 Telephone encount er Note Patient came into office asking if he could just have procedure done with Dr. Green. This Nurse advised patient he was referred to Dr Adkins office and would need an appointment with them. This Nurse provided him with a copy of the order to Dr. Adkins from 12/06/2023, along with the number to schedule, and sent a note to [place] [facility] [place] to contact the patient to schedule. Patient advised to schedule appointment with Dr. Adkins or follow with ER recommendation of General Surgery at [facility]. Patient voiced understanding.Madonna Lyles RN [facility] 09-18-2024 Miscellaneous Notes Formattin g of this note might be different from the original. Patient came into office asking if he could just have procedure done with Dr. Green. This Nurse advised patient he was referred to Dr Adkins office and would need an appointment with them. This Nurse provided him with a copy of the order to Dr. Adkins from 12/06/2023, along with the number to schedule, and sent a note to [place] [facility] to contact the patient to schedule. Patient advised to schedule appointment with Dr. Adkins or follow with ER recommendation of General Surgery at [facility]. Patient voiced understanding.Madonna Lyles RN documented in this encounter [facility] 09-17-2024 Discharge summary [facility] 09-17-2024 Radiology Diagnostic study note [facility] [address] [place], [place] [address] Abdomen/Pelvis W IV Cont ONLY MR#: [id number] Acct: [id number] Name: LANCE BEE Rep #: [id number] : 1960 M 63 From: Shanique Ca MD PCP: Dr. Lance Jorgensen MD Status: R EG ER Study:Abdomen/Pelvis W IV Cont ONLY Date of E xam: 09/17/24 Exam# [id number] Ordering Dr: Enrique Noel MD PROCEDURE: ABDOMEN/PELVIS W IV CONT ONLY 09/17/2024 REASON FOR EXAM: NAUSEA AND VOMITING TECHNIQUE: Abdomen and pelvis CT with intravenous contrast. Coronal and Sagittal reconstruction series were provided. PATIENT PREPARATION: Per protocol ORAL CONTRAST TYPE: None. CONTRAST: Isovue 370 VOLUME: 100 mL One or more dose reduction techniques were used (e.g., Automated exposure control, adjustment of the mA and/or kV according to patient size, use of iterative reconstruction technique. RADIATION DOSE SUMMARY: CTDlvol: 20 mGy DLP: 1200 mGycm COMPARISON: None. FINDINGS: Lung bases: Bibasilar atelectasis. The heart is normal in size with coronary artery calcifications. Liver: The liver is normal in size without focal hepatic mass. The major portalveins are patent. No biliary ductal dilation. Gallbladder: Cholelithiasis with radial gas fissuring within the stones. No gallbladder wall thickening or pericholecystic fluid. Spleen: Normal size. Pancreas: Unremarkable. Adrenals: No adrenal mass. Kidneys: Bilateral renal cysts and additional hypodensities. Nonobstructing right lower pole renal calculus. No hydronephrosis. Bladder: The gallbladder is mildly distended and unremarkable. Reproductive Organs: Dystrophic calcifications within the prostate gland. Bowel: Moderate-sized paraesophageal hiatal hernia, with the distal gastric bodyherniated above the level of the diaphragm. There is moderate stranding and wall edema of the herniated stomach portion. The bowel loops are otherwise normal caliber. No ascites or pneumoperitoneum. No inflammatory mass in the expected region of theappendix. Lymph nodes: No suspicious lymph node enlargement. Vasculature: The abdominal aorta and IVC are normal. Bones/soft tissues: Prior hernia repair with surgical mesh anchors along the right lower pelvis. Mild thoracolumbar spondylosis. CT/Abdomen/Pelvis W IV Cont ONLY IMPRESSION: 1. Moderate-sized paraesophageal hernia with wall edema and stranding of the herniated portion of the stomach, concerning for developing incarceration. Surgical consultation recommended. 2. Cholelithiasis without evidence of acute cholecystitis. Ultrasound evaluation will not be useful given incidental gas within the gallstones. 3. Nonobstructing right lower pole renal calculus. Reading Location: [facility] CC: Dr. Carlos Noel MD; Dr. 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 Author Type: Nurse Practitioner Type: Progress Notes Filed: 09/18/2024 15:36 Note Text: HISTORY AND PHYSICAL Lance Bee : 1960 REFERRING PHYSICIAN: No referring provider defined for this encounter. CHIEF COMPLAINT: Patient presents with: Vomiting: Vomiting and constipation for past six days. HPI: Lance is a 63 year old male referred for endoscopy. Lance notes coffee ground emesis and black stools for 6 days. Lance denies diarrhea. Lance notes constipation. -no bm for the last 6 days -notes he has passed very little gas -has used miraLAX the last 3 days with no improvement Lance notes melena -3 little cole- this was prior to 6 days of no BM Lance denies bright red blood per rectum. Lance denies hemorrhoids. Lance notes heartburn. -sometimes feels bubbling in the esophagus -stopped taking his omeprazole Lance denies dysphagia. Lance denies a history of ulcers/ peptic ulcer disease. Yousif notes epigastric pain for the last couple of weeks which is causing nausea Yousif notes coffee ground emesis -unable to tolerate any solids, has kept some jello down but not all jello -notes this is exactly how I was before my small bowel obstruction he had in August of 2023 Yousif takes Wegovy but notes hasn't used it in the last 4 weeks. Yousif denies any dizziness, syncope, headaches. He does admit to some SOB mostly while he was vomiting. Lance has undergone prior endoscopy. Last EGD was 11/[address] Childers at [place]. Sedation:MAC Impression: - Normal examined jejunum. - Normal examined duodenum. - Gastritis. Biopsied. - Medium-sized type III hiatal hernia. - Normal middle third of esophagus. Biopsied. Pathology demonstrated: FINAL DIAGNOSIS A. Stomach, biopsy: - Reactive gastropathy. - No morphologic evidence of Helicobacter pylori microorganisms. B. Esophagogastric junction, biopsy: - Hyperplastic squamous epithelium. C. Esophagus, mid, biopsy: - Hyperplastic squamous epithelium with rare intraepithelial eosinophils (up to 5 eosinophils per high-power field). Current Outpatient Medications Medication Sig omeprazole (PRILOSEC) 40 mg capsule Take 1 capsule by mouth once daily. clonazePAM (KLONOPIN) 1 mg tablet Take 2 tablets by mouth at bedtime as needed (anxiety, restless leg) for up to 90 days. amLODIPine (NORVASC) 5 mg tablet Take 1 tablet by mouth once daily. oxyCODONE (ROXICODONE) 15 mg immediate release tablet Take 15 mg by mouth three times daily. Dr. Ware semateresa, weight loss, (WEGOVY) 2.4 mg/0.75 mL pen injector Inject 2.4 mg subcutaneously one time a week. (Patient not taking: Reported on 09/07/2024) No current facility-administered medications for this visit. ALLERGIES: Patient has no known allergies. PAST MEDICAL HISTORY Diagnosis Date Anxiety 11/01/2015 Asymptomatic microscopic hematuria 2017 Contact dermatitis and other eczema, due to unspecified cause DDD (degenerative disc disease), lumbar 02/10/2013 Depression Dog bite of right lower leg 2000 with recurrent wounds Gastritis, presence of bleeding unspecified, unspecified chronicity, unspecified gastritis type 12/06/2023 Hiatal hernia 02/24/2023 medium on EGD Hypertension goal BP (blood pressure) < 130/80 Impaired glucose metabolism 09/26/2014 A1c 6.1% September 2014 Obesity (BMI 35.0-39.9 without comorbidity) 08/10/2018 Obesity, Class I, BMI 30-34.9 04/06/2024 Open wound of knee, leg (except thigh), and ankle, complicated Open wound of right lower extremity 07/24/2017 YAIMA (obstructive sleep apnea) no CPAP tried by choice. 12/20/2014 Paraesophageal hernia 09/16/2023 Personal history of skin cancer 01/30/2016 Dr. Melody Trammell, Dermatology annually. Primary insomnia 11/01/2015 Reflex sympathetic dystrophy Right leg. Dr. Ware, pain management. Restless legs 05/20/2015 Small bowel obstruction (HCC) 09/16/2023 Squamous cell carcinoma of lower leg 09/23/2012 Skin graft x2- Dr. Cook, Dr. [facility]- Rachael Trammell Tubular adenoma of colon 02/24/2023 Ulcer of other part of foot PAST SURGICAL HISTORY Procedure Laterality Date COLONOSCOPY 10/27/2016 INCOMPLETE- CT colonography 03/31/18 diverticular disease. Repeat 5-10yrs COLONOSCOPY SCREENING 02/24/2023 EGD 10/27/2016 EGD 11/24/2023 EGD W/O BRSH SPEC VARICIES INJ 02/24/2023 LAPAROSCOPY SURG RPR INITIAL INGUINAL HERNIA Right 12/26/2004 PAST SURGICAL HISTORY OF Right 2011 excision of tumor, right leg PAST SURGICAL HISTORY OF Right 2014 skin grafts, right leg. 2012,2013. FAMILY HISTORY Problem Relation Age of Onset other (scleroderma) Mother Cancer Father pancreatic No Known Problems Sister 1/2 siblings No Known Problems Sister No Known Problems Brother 1/2 siblings Social History Tobacco Use Smoking status: Never Smokeless tobacco: Never Vaping Use (more content not included)... [facility] 08-08-2024 Telephone encounter Note Prescription Refill Information The patient has been identified by name and date of : Yes Caregiver verified no other encounters exist for this prescription request: Yes Caregiver confirmed with patient/requestor that no other refills are due, in the near future, with this provider at this time: Yes The last office visit in the department: 07-06-24 Does the patient have a future office visit with this provider/department: Yes Requested Prescriptions Pending Prescriptions Disp Refills omeprazole (PRILOSEC) 40 mg capsule 90 capsule 1 Sig: Take 1 capsule by mouth once daily. Patient would like to pickle processor prescription today. Vivien Ruiz August 08, 2024 2:05 PM [facility] 08-08-2024 Miscellaneous Notes Prescription Refill Information The patient has been identified by name and date of : Yes Caregiver verified no other encounters exist for this prescription request: Yes Caregiver confirmed with patient/requestor that no other refills are due, in the near future, with this provider at this time: Yes The last office visit in the department: 07-06-24 Does the patient have a future office visit with this provider/department: Yes Requested Prescriptions Pending Prescriptions Disp Refills omeprazole (PRILOSEC) 40 mg capsule 90 capsule 1 Sig: Take 1 capsule by mouth once daily. Patient would like to pickle processor prescription today. Vivien Ruiz August 08, 2024 2:05 PM documented in this encounter [facility] 07-06-2024 History of Present illness Narrative Radiology Service Progress Note PATIENT NAME: Lance Bee DATE OF SERVICE: July 06, 2024 TIME: 7:46 PM PATIENT IDENTITY VERIFICATION COMPLETED USING TWO (2) IDENTIFIERS: Name and Date of confirmed by patient verbally. FALL SCREENING: Has the patient had 2 falls in the last year or 1 fall with injury or currently using an Ambulatory Assistive Device (Walker, Cane, Wheelchair, Crutches, etc.)? No PATIENT GENDER DATA: Assigned male at PATIENT RELEVANT IMPLANT DATA REVIEWED: Not Applicable PATIENT PRESENTS WITH AN IMPLANTABLE OR ATTACHED PRINTER OPERATOR: No RADIOLOGY DEPARTMENT: General X-ray: Exam(s) Completed: Chest X-Ray PERIPHERAL IV DATA: Not applicable SIGNED BY: Alysa Sosa July 06, 2024 7:46 PM documented in this encounter [facility] 07-06-2024 Note HNO ID: [id number] Author: GEGE JORDAN Tech Service: ? Author Type: Technologist Type: Progress Notes Filed: 07/06/2024 19:53 Note Text: Radiology Service Progress Note PATIENT NAME: Lance Bee DATE OF SERVICE: July 06, 2024 TIME: 7:46 PM PATIENT IDENTITY VERIFICATION COMPLETED USING TWO (2) IDENTIFIERS: Name and Date of confirmed by patient verbally. FALL SCREENING: Has the patient had 2 falls in the last year or 1 fall with injury or currently using an Ambulatory Assistive Device (Walker, Cane, Wheelchair, Crutches, etc.)? No PATIENT GENDER DATA: Assigned male at PATIENT RELEVANT IMPLANT DATA REVIEWED: Not Applicable PATIENT PRESENTS WITH AN IMPLANTABLE OR ATTACHED PRINTER OPERATOR: No RADIOLOGY DEPARTMENT: General X-ray: Exam(s) Completed: Chest X-Ray PERIPHERAL IV DATA: Not applicable SIGNED BY: Alysa Sosa July 06, 2024 7:46 PM [facility] 07-06-2024 Note HNO ID: [id number] Author: LANCE JORGENSEN MD Service: ? Author Type: Physician Type: Progress Notes Filed: 07/07/2024 12:41 Note Text: This note was created using [employer]. Subjective Patient presents with: Yearly Exam Lance Bee is a 63 year old male. He was losing weight on Wegovy and felt well. He mentioned transient left chest pain which was infrequent, and triggered by eating a pretzel. He has been diagnosed with paraesophageal hernia but did not pursue referral from surgery to the [facility]. His hypertension was controlled. Anxiety, insomnia, and restless legs were controlled on clonazepam. He sees Dr. Paresh Ware for pain management; [facility] for history of skin cancer; Dr. Miranda Childers for endoscopy, Jayde Kan PA-C for urology; and Ajay Jimenez OD for optometry. Review of Systems Constitutional: Negative for appetite change, fatigue, fever and unexpected weight change. HENT: Negative for congestion, sore throat and trouble swallowing. Eyes: Negative for visual disturbance. Respiratory: Negative for cough, shortness of breath and wheezing. Cardiovascular: Negative for palpitations and leg swelling. Gastrointestinal: Negative for abdominal pain, constipation, nausea and vomiting. Genitourinary: Negative for difficulty urinating, dysuria and hematuria. Musculoskeletal: Positive for back pain. Skin: Negative for color change. Neurological: Negative for dizziness, tremors, syncope, weakness, numbness and headaches. Psychiatric/Behavioral: Negative. PAST MEDICAL HISTORY Diagnosis Date Anxiety 11/01/2015 Asymptomatic microscopic hematuria 2017 Contact dermatitis and other eczema, due to unspecified cause DDD (degenerative disc disease), lumbar 02/10/2013 Depression Dog bite of right lower leg 2000 with recurrent wounds Gastritis, presence of bleeding unspecified, unspecified chronicity, unspecified gastritis type 12/06/2023 Hiatal hernia 02/24/2023 medium on EGD Hypertension goal BP (blood pressure) < 130/80 Impaired glucose metabolism 09/26/2014 A1c 6.1% September 2014 Obesity (BMI 35.0-39.9 without comorbidity) 08/10/2018 Obesity, Class I, BMI 30-34.9 04/06/2024 Open wound of knee, leg (except thigh), and ankle, complicated Open wound of right lower extremity 07/24/2017 YAIMA (obstructive sleep apnea) no CPAP tried by choice. 12/20/2014 Paraesophageal hernia 09/16/2023 Personal history of skin cancer 01/30/2016 Dr. Melody Trammell, Dermatology annually. Primary insomnia 11/01/2015 Reflex sympathetic dystrophy Right leg. Dr. Ware, pain management. Restless legs 05/20/2015 Small bowel obstruction (HCC) 09/16/2023 Squamous cell carcinoma of lower leg 09/23/2012 Skin graft x2- Dr. Cook, Dr. [facility]- [place] Dr. Trammell Tubular adenoma of colon 02/24/2023 Ulcer of other part of foot PAST SURGICAL HISTORY Procedure Laterality Date COLONOSCOPY 10/27/2016 INCOMPLETE- CT colonography 03/31/18 diverticular disease. Repeat 5-10yrs COLONOSCOPY SCREENING 02/24/2023 EGD 10/27/2016 EGD 11/24/2023 EGD W/O BRSH SPEC VARICIES INJ 02/24/2023 LAPAROSCOPY SURG RPR INITIAL INGUINAL HERNIA Right 12/26/2004 PAST SURGICAL HISTORY OF Right 2012 excision of tumor, right leg PAST SURGICAL HISTORY OF Right 2014 skin grafts, right leg. 2012,2013. FAMILY HISTORY Problem Relation Age of Onset other (scleroderma) Mother Cancer Father pancreatic No Known Problems Sister 1/2 siblings No Known Problems Sister No Known Problems Brother 1/2 siblings Social History Tobacco Use Smoking status: Never Smokeless tobacco: Never Vaping Use Vaping status: Never Used Substance Use Topics Alcohol use: Not Currently Drug use: Not Currently Types: Marijuana ALLERGIES No Known Allergies Current Outpatient Medications Medication Sig semaglutide, weight loss, (WEGOVY) 2.4 mg/0.75 mL pen injector Inject 2.4 mg subcutaneously one time a week. amLODIPine (NORVASC) 5 mg tablet Take 1 tablet by mouth once daily. omeprazole (PRILOSEC) 40 mg capsule Take 1 capsule by mouth once daily. oxyCODONE (ROXICODONE) 15 mg immediate release tablet Take 15 mg by mouth three times daily. Dr. Ware clonazePAM (KLONOPIN) 1 mg tablet Take 2 tablets by mouth at bedtime as needed (anxiety, restless leg) for up to 90 days. No current facility-administered medications for this visit. Objective BP 124/74 (BP Site: Left Arm, BP Position: Sitting) Pulse 94 Resp 16 Ht 175.3 cm (5' 9) Wt 99.2 kg (218 lb 11.1 oz) SpO2 97% BMI 32.30 kg/m? Physical Exam Constitutional: General: He is not in acute distress. Appearance: He is not ill-appearing. HENT: Head: Normocephalic. Nose: No congestion or rhinorrhea. Mouth/Throat: Mouth: Mucous membranes are moist. Pharynx: Oropharynx is clear. Eyes: Extraocular Movements: Extraocular movements intact. Conjunctiva/sclera: Conjunctivae normal. (more content not included)... [facility] 07-06-2024 History of Present illness Narrative This note was created using [employer]. Subjective Patient presents with: Yearly Exam Lance Bee is a 63 year old male. He was losing weight on Wegovy and felt well. He mentioned transient left chest pain which was infrequent, and triggered by eating a pretzel. He has been diagnosed with paraesophageal hernia but did not pursue referral from surgery to the [facility]. His hypertension was controlled. Anxiety, insomnia, and restless legs were controlled on clonazepam. He sees Dr. Paresh Ware for pain management; [facility] for history of skin cancer; Dr. Miranda Childers for endoscopy, Jayde Kan PA-C for urology; and Ajay Jimenez OD for optometry. Review of Systems Constitutional: Negative for appetite change, fatigue, fever and unexpected weight change. HENT: Negative for congestion, sore throat and trouble swallowing. Eyes: Negative for visual disturbance. Respiratory: Negative for cough, shortness of breath and wheezing. Cardiovascular: Negative for palpitations and leg swelling. Gastrointestinal: Negative for abdominal pain, constipation, nausea and vomiting. Genitourinary: Negative for difficulty urinating, dysuria and hematuria. Musculoskeletal: Positive for back pain. Skin: Negative for color change. Neurological: Negative for dizziness, tremors, syncope, weakness, numbness and headaches. Psychiatric/Behavioral: Negative. PAST MEDICAL HISTORY Diagnosis Date Anxiety 11/01/2015 Asymptomatic microscopic hematuria 2017 Contact dermatitis and other eczema, due to unspecified cause DDD (degenerative disc disease), lumbar 02/10/2013 Depression Dog bite of right lower leg 2000 with recurrent wounds Gastritis, presence of bleeding unspecified, unspecified chronicity, unspecified gastritis type 12/06/2023 Hiatal hernia 02/24/2023 medium on EGD Hypertension goal BP (blood pressure) < 130/80 Impaired glucose metabolism 09/26/2014 A1c 6.1% September 2014 Obesity (BMI 35.0-39.9 without comorbidity) 08/10/2018 Obesity, Class I, BMI 30-34.9 04/06/2024 Open wound of knee, leg (except thigh), and ankle, complicated Open wound of right lower extremity 07/24/2017 YAIMA (obstructive sleep apnea) no CPAP tried by choice. 12/20/2014 Paraesophageal hernia 09/16/2023 Personal history of skin cancer 01/30/2016 Dr. Melody Trammell, Dermatology annually. Primary insomnia 11/01/2015 Reflex sympathetic dystrophy Right leg. Dr. Ware, pain management. Restless legs 05/20/2015 Small bowel obstruction (HCC) 09/16/2023 Squamous cell carcinoma of lower leg 09/23/2012 Skin graft x2- Dr. Cook, Dr. [facility]ona [facility]- [place] Dr. Trammell Tubular adenoma of colon 02/24/2023 Ulcer of other part of foot PAST SURGICAL HISTORY Procedure Laterality Date COLONOSCOPY 10/27/2016 INCOMPLETE- CT colonography 03/31/18 diverticular disease. Repeat 5-10yrs COLONOSCOPY SCREENING 02/24/2023 EGD 10/27/2016 EGD 11/24/2023 EGD W/O BRSH SPEC VARICIES INJ 02/24/2023 LAPAROSCOPY SURG RPR INITIAL INGUINAL HERNIA Right 12/26/2004 PAST SURGICAL HISTORY OF Right 2012 excision of tumor, right leg PAST SURGICAL HISTORY OF Right 2014 skin grafts, right leg. 2012,2014. FAMILY HISTORY Problem Relation Age of Onset other (scleroderma) Mother Cancer Father pancreatic No Known Problems Sister 1/2 siblings No Known Problems Sister No Known Problems Brother 1/2 siblings Social History Tobacco Use Smoking status: Never Smokeless tobacco: Never Vaping Use Vaping status: Never Used Substance Use Topics Alcohol use: Not Currently Drug use: Not Currently Types: Marijuana ALLERGIES No Known Allergies Current Outpatient Medications Medication Sig semaglutide, weight loss, (WEGOVY) 2.4 mg/0.75 mL pen injector Inject 2.4 mg subcutaneously one time a week. amLODIPine (NORVASC) 5 mg tablet Take 1 tablet by mouth once daily. omeprazole (PRILOSEC) 40 mg capsule Take 1 capsule by mouth once daily. oxyCODONE (ROXICODONE) 15 mg immediate release tablet Take 15 mg by mouth three times daily. Dr. Ware clonazePAM (KLONOPIN) 1 mg tablet Take 2 tablets by mouth at bedtime as needed (anxiety, restless leg) for up to 90 days. No current facility-administered medications for this visit. Objective BP 124/74 (BP Site: Left Arm, BP Position: Sitting) Pulse 94 Resp 16 Ht 175.3 cm (5' 9) Wt 99.2 kg (218 lb 11.1 oz) SpO2 97% BMI 32.30 kg/m Physical Exam Constitutional: General: He is not in acute distress. Appearance: He is not ill-appearing. HENT: Head: Normocephalic. Nose: No congestion or rhinorrhea. Mouth/Throat: Mouth: Mucous membranes are moist. Pharynx: Oropharynx is clear. Eyes: Extraocular Movements: Extraocular movements intact. Conjunctiva/sclera: Conjunctivae normal. Cardiovascular: Rate and Rhythm: Normal rate and regular rhythm. Pulses: Normal pulses. Heart sounds: S1 normal and S2 normal. No murmur heard. No gallop. Pulmonary: Breath sounds: Normal breath sounds. Abdominal: Palpations: Abdomen is soft. There is no mass. Tenderness: There is no abdominal tenderness. Musculoskeletal: General: No tenderness. Normal range of motion. Right lower leg: No edema. Left lower leg: No edema. Lymphadenopathy: Cervical: No cervical adenopathy. Neurological: General: No focal deficit present. Mental Status: He is alert. Sensory: No sensory deficit. Motor: No weakness. Gait: Gait normal. EKG RESULTS: normal sinus rhythm and 1st degree AV block. Latest Ref Rn 06/16/2024 Protein, Total 6.3 - 8.0 g/dL 7.0 Albumin 3.9 - 4.9 g/dL 4.2 Calcium 8.5 - 10.2 mg/dL 9.4 Bilirubin, Total 0.2 - 1.3 mg/dL 0.5 Alkaline Phosphatase 38 - 113 U/L 118 (H) AST 14 - 40 U/L 19 ALT 10 - 54 U/L 9 (L) Glucose 74 - 99 mg/dL 111 (H) BUN 9 - 24 mg/dL 10 Creatinine 0.73 - 1.22 mg/dL 0.82 Sodium 136 - 144 mmol/L 141 Potassium 3.7 - 5.1 mmol/L 4.5 Chloride 98 - 107 mmol/L 104 CO2 22 - 30 mmol/L 24 Anion Gap 8 - 15 mmol/L 13 eGFR >=60 mL/min/1.73m 99 WBC 3.70 - 11.00 k/uL 6.11 RBC 4.20 - 6.00 m/uL 5.12 Hemoglobin 13.0 - 17.0 g/dL 15.4 Hematocrit 39.0 - 51.0 % 45.0 MCV 80.0 - 100.0 fL 87.9 MCH 26.0 - 34.0 pg 30.1 MCHC 30.5 - 36.0 g/dL 34.2 RDW-CV 11.5 - 15.0 % 13.1 Platelet Count 150 - 400 k/uL 205 MPV 9.0 - 12.7 fL 11.8 Absolute nRBC <0.01 k/uL <0.01 Cholesterol, Total <200 mg/dL 148 Triglyceride <150 mg/dL 63 HDL Cholesterol >39 mg/dL 50 Non HDL Cholesterol <130 mg/dL 98 Fasting Time hrs 15 VLDL Cholesterol <30 mg/dL 13 TC:HDL Ratio <5.10 2.96 LDL Cholesterol <100 mg/dL 85 LDL:HDL Ratio <2.54 1.70 Hemoglobin A1C 4.3 - 5.6 % 5.2 Estimated Average Glucose mg/dL 103 PSA Screening <2.60 ng/mL 2.86 (H) Legend: (H) High (L) Low Assessment and Plan 1. Routine medical exam - ICD9: V70.0, ICD10: Z00.00 (primary diagnosis) - Counseled on healthy diet and regular exercise - Discussed need for and benefit of weight loss. BMI 32.30 kg/(m^2) - Vaccine recommendations reviewed. 2. Screening for depression - ICD9: V79.0, ICD10: Z13.31 - DEPRESSION SCREENING 3. Atypical chest pain - ICD9: 786.59, ICD10: R07.89 Atypical chest pain, symptoms are not consistent with cardiac ischemia due to nonexertional nature of symptom possible etiology include hiatal hernia. - XR CHEST 2V FRONTAL/LAT 4. Anxiety - ICD9: 300.00, ICD10: F41.9 Controlled. Medication use consistent. - CLONAZEPAM 1 MG TABLET 5. Restless legs - ICD9: 333.94, ICD10: G25.81 Controlled. - CLONAZEPAM 1 MG TABLET 6. Primary insomnia - ICD9: 307.42, ICD10: F51.01 Controlled. - CLONAZEPAM 1 MG TABLET 7. Hypertension goal BP (blood pressure) < 130/80 - ICD9: 401.9, ICD10: I10 - Controlled - Continue current medications - Encouraged sodium restriction, DASH or Mediterranean diet 8. PSA elevation - ICD9: 790.93, ICD10: R97.20 The meaning of a false positive PSA and false negative PSA has been discussed, and the patient indicates their understanding of the limitations of this screening test. - - PROSTATE-SPECIFIC ANTIGEN DIAGNOSTIC 9. Need for vaccination - ICD9: V05.9, ICD10: Z23 - PNEUMOCOCCAL VACCINE, 20 VALENT (PREVNAR 20) - TDAP VACCINE, AGE 7+ YR (ADACEL, BOOSTRIX) 10. Obesity, Class I, BMI 30-34.9 - ICD9: 278.00, ICD10: E66.811 - Weight down. Continue diet, exercise, and semaglutide. Goal is to stop semaglutide when weight is 195 pounds. - COMPREHENSIVE METABOLIC PANEL Lance Jorgensen MD documented in this encounter [facility] 06-21-2024 Telephone encounter Note TC to patient who is notified medication sent as requested. AL Coyle [facility] 06-21-2024 Miscellaneous Notes TC to patient who is notified medication sent as requested. AL Coyle Increase to 2.4 mg weekly, new dose sent Jinny Contreras APRN.CNP Patient is asking to increase the dose. Patient has been identified by name and date of : Yes, Provider JAMEEL Date 06/19/24 Time 1405 Patient phones for refill(s): Requested Prescriptions Pending Prescriptions Disp Refills semaglutide, weight loss, (WEGOVY) 1.7 mg/0.75 mL pen injector 4 Each 2 Sig: Inject 1.7 mg subcutaneously one time a week. Date of last office visit in primary care: 04/06/2024 Date of next office visit in primary care: 07/10/2024 Please advise. Thank you. Trinity Lombardo. documented in this encounter [facility] 06-19-2024 Telephone encounter Note Increase to 2.4 mg weekly, new dose sent Jinny Contreras APRN.CNP [facility] 06-19-2024 Telephone encounter Note Patient is asking to increase the dose. [facility] 06-19-2024 Telephone encounter Note Patient was notified will discuss 07/10 Marianna Duenas MA [facility] 06-19-2024 Miscellaneous Notes Patient was notified will discuss 07/10 Marianna Duenas MA Patient presented to front counter attendant wanting to talk about his labs. He did NOT fast before doing his last round of labs and wants to know if he needs to redo them. Please advise. Trinity Lombardo documented in this encounter [facility] 06-19-2024 Telephone encounter Note Patient has been identified by name and date of : Yes, Provider JAMEEL Date 06/19/24 Time 1405 Patient phones for refill(s): Requested Prescriptions Pending Prescriptions Disp Refills semaglutide, weight loss, (WEGOVY) 1.7 mg/0.75 mL pen injector 4 Each 2 Sig: Inject 1.7 mg subcutaneously one time a week. Date of last office visit in primary care: 04/06/2024 Date of next office visit in primary care: 07/10/2024 Please advise. Thank you. Trinity Lombardo. [facility] 06-19-2024 Telephone encounter Note Patient presented to front counter attendant wanting to talk about his labs. He did NOT fast before doing his last round of labs and wants to know if he needs to redo them. Please advise. Trinity Lombardo [facility] 05-22-2024 Telephone encounter Note The patient has been identified by name and date of : Yes Caregiver verified no other encounters exist for this prescription request: Yes Caregiver confirmed with patient/requestor that no other refills are due, in the near future, with this provider at this time: Yes The last office visit in the department: 04/06/2024 Does the patient have a future office visit with this provider/department: 07/10/2024 Requested Prescriptions Pending Prescriptions Disp Refills semaglutide, weight loss, (WEGOVY) 1.7 mg/0.75 mL pen injector 4 Each 2 Sig: Inject 0.75 mL subcutaneously one time a week. Patient calls to request to go back on the Wegovy 1.7 mg. Patient reports that he has actually gained 1 lb since being on the Zepbound and he would like to switch back since he is paying out of pocket for medication. Patient has one dose of Zepbound left. Augusta Guzmán RN May 22, 2024 3:56 PM [facility] 05-22-2024 Miscellaneous Notes The patient has been identified by name and date of : Yes Caregiver verified no other encounters exist for this prescription request: Yes Caregiver confirmed with patient/requestor that no other refills are due, in the near future, with this provider at this time: Yes The last office visit in the department: 04/06/2024 Does the patient have a future office visit with this provider/department: 07/10/2024 Requested Prescriptions Pending Prescriptions Disp Refills semaglutide, weight loss, (WEGOVY) 1.7 mg/0.75 mL pen injector 4 Each 2 Sig: Inject 0.75 mL subcutaneously one time a week. Patient calls to request to go back on the Wegovy 1.7 mg. Patient reports that he has actually gained 1 lb since being on the Zepbound and he would like to switch back since he is paying out of pocket for medication. Patient has one dose of Zepbound left. Augusta Guzmán RN May 22, 2024 3:56 PM documented in this encounter [facility] 05-01-2024 Telephone encounter Note Patient stopped in office to discuss below concerns. Explain to patient that with the Wygovy he is currently taking is 0.5 mg per 0.5 ml of medication. With the Zapbound he will be getting 5 mg per 0.5ml of medication. So diffinently a stronger dose than the Wygovy. Patient has two doses left of the Wegovy that he will finish that script up on Wednesday Note as his last script for Wegovy was for 1.7 mg. He did mention that at just 0.5 mg dosing was not effective and stated that a nurse told him to take 2 doses to = 1 mg to get him as close to the 1.7 mg dose as this was more effective. The following week he will start the Zepbound 5 mg per 0.5ml. Patient also asked about the diabetes dx to get the medication approved through his insurance and explain that his blood sugars are not high enough to be able to give him a dx of diabetes. Patient mentioned/asked if he should make blood sugars worse and explained that if blood sugar become too high this can cause other complication in his body. Once these were discussed he seem to understand the difference in medication and the importance of keeping blood sugars under control. [facility] 05-01-2024 Miscellaneous Notes Patient stopped in office to discuss below concerns. Explain to patient that with the Wygovy he is currently taking is 0.5 mg per 0.5 ml of medication. With the Zapbound he will be getting 5 mg per 0.5ml of medication. So diffinently a stronger dose than the Wygovy. Patient has two doses left of the Wegovy that he will finish that script up on Wednesday Note as his last script for Wegovy was for 1.7 mg. He did mention that at just 0.5 mg dosing was not effective and stated that a nurse told him to take 2 doses to = 1 mg to get him as close to the 1.7 mg dose as this was more effective. The following week he will start the Zepbound 5 mg per 0.5ml. Patient also asked about the diabetes dx to get the medication approved through his insurance and explain that his blood sugars are not high enough to be able to give him a dx of diabetes. Patient mentioned/asked if he should make blood sugars worse and explained that if blood sugar become too high this can cause other complication in his body. Once these were discussed he seem to understand the difference in medication and the importance of keeping blood sugars under control. Pt calling in very upset and frustrated. Pt states he just got home from the pharmacy and found that he received Zepbound 5 mg. He thought he was supposed to get the next higher dose. This is the first prescription for him for Zepbound due to insurance changing at the beginning of the year. He had requested the change. Pt states he was previously on Wegovy 1.7 mg and he is upset as he doesn't think that he should have started at the lower dose of Zepbound. He thought he would be on the higher dose. Pt states he had to pay $650 out of pocket for this medication and can't understand how the mistake happened that he got the lower dose. In looking at epic notes and med list, it appears pt had Wegovy 1.7 mg ordered back on 04/15/23 and that was because [facility] did not have the 0.5 mg at the time and the 1.7 mg was all they had in stock. No documentation found where provider had increased the med except for this one time. Pt states his last fill was for 1.7 mg on 03/30/24 from [facility]. In speaking with pharmacist at [facility], they received the 1.7 mg script as a transfer from [facility]. They only filled that dose once at that was on 03/30. All other Wegovy scripts ordered in 2023 were 0.5 mg. Pt did not start the Wegovy until about 4 mons ago. Pt had scripts for the 0.5 mg sent on 01/20/24 and then 04/03/24. Pt sent in a MyChart request on 04/01/24 requesting the 0.5 mg. Pt denies this and states he requested the 1.7 mg. Unable to reason with pt that he requested the 0.5 mg. Pt states that he took two injections of Wegovy this past Wednesday to equal 1 mg which was still less than his 1.7 mg. Pt also upset that his insurance isn't covering the Zepbound. When he called and asked, he said the wrong dx code was sent in for weight loss (pt requested this dx last year for the Wegovy for insurance to help cover it). He states the dx code needs to be diabetes. Explained to pt that he is prediabetic but has never been dx with diabetes so we cannot give that dx code. Pt did seem to understand that. Pt is asking provider to review current dose of Zepbound ordered as he thought it was going to be a higher dose comparable to the Wegovy 1.7 mg which pt took this past month. Per pharmacy, once meds taken home, they cannot take returns. So pt cannot return the 5 mg Zepbound. documented in this encounter [facility] 05-01-2024 Telephone encounter Note Pt calling in very upset and frustrated. Pt states he just got home from the pharmacy and found that he received Zepbound 5 mg. He thought he was supposed to get the next higher dose. This is the first prescription for him for Zepbound due to insurance changing at the beginning of the year. He had requested the change. Pt states he was previously on Wegovy 1.7 mg and he is upset as he doesn't think that he should have started at the lower dose of Zepbound. He thought he would be on the higher dose. Pt states he had to pay $650 out of pocket for this medication and can't understand how the mistake happened that he got the lower dose. In looking at epic notes and med list, it appears pt had Wegovy 1.7 mg ordered back on 04/15/23 and that was because [facility] did not have the 0.5 mg at the time and the 1.7 mg was all they had in stock. No documentation found where provider had increased the med except for this one time. Pt states his last fill was for 1.7 mg on 03/30/24 from [facility]. In speaking with pharmacist at [facility], they received the 1.7 mg script as a transfer from [facility]. They only filled that dose once at that was on 03/30. All other Wegovy scripts ordered in 2023 were 0.5 mg. Pt did not start the Wegovy until about 4 mons ago. Pt had scripts for the 0.5 mg sent on 01/20/24 and then 04/03/24. Pt sent in a MyChart request on 04/01/24 requesting the 0.5 mg. Pt denies this and states he requested the 1.7 mg. Unable to reason with pt that he requested the 0.5 mg. Pt states that he took two injections of Wegovy this past Wednesday to equal 1 mg which was still less than his 1.7 mg. Pt also upset that his insurance isn't covering the Zepbound. When he called and asked, he said the wrong dx code was sent in for weight loss (pt requested this dx last year for the Wegovy for insurance to help cover it). He states the dx code needs to be diabetes. Explained to pt that he is prediabetic but has never been dx with diabetes so we cannot give that dx code. Pt did seem to understand that. Pt is asking provider to review current dose of Zepbound ordered as he thought it was going to be a higher dose comparable to the Wegovy 1.7 mg which pt took this past month. Per pharmacy, once meds taken home, they cannot take returns. So pt cannot return the 5 mg Zepbound. [facility] 04-25-2024 Telephone encounter Note Patient was notified and did attempt PA or zepbound and same response as wegovy not covered on plan. Drug Not Covered/Plan Exclusion - Your request for coverage was denied because your prescription benefit plan does not cover the requested medication. Marianna Duenas MA [facility] 04-25-2024 Miscellaneous Notes Patient was notified and did attempt PA or zepbound and same response as wegovy not covered on plan. Drug Not Covered/Plan Exclusion - Your request for coverage was denied because your prescription benefit plan does not cover the requested medication. Marianna Duenas MA Pt calls to report employer switched insurances this year from [employer] to [employer]. [employer] will not cover Wegovy. Pt talked to pharmacy and was advised that Zepbound had a voucher/coupon that pt could use since he will have to pay out of pocket. Pt is asking if provider will sent rx for Zepbound to [facility]. Radha Emerson LPN documented in this encounter [facility] 04-25-2024 Telephone encounter Note Pt calls to report employer switched insurances this year from [employer] to [employer]. [employer] will not cover Wegovy. Pt talked to pharmacy and was advised that Zepbound had a voucher/coupon that pt could use since he will have to pay out of pocket. Pt is asking if provider will sent rx for Zepbound to [facility]. Radha Emerson LPN [facility] 04-24-2024 Telephone encounter Note See phone encounter from today, this was denied by his insurance? Jinny Contreras APRN.CNP [facility] 04-24-2024 Miscellaneous Notes See phone encounter from today, this was denied by his insurance? Jinny Contreras APRN.CNP Prescription Refill Information The patient has been identified by name and date of : Yes Caregiver verified no other encounters exist for this prescription request: Yes Caregiver confirmed with patient/requestor that no other refills are due, in the near future, with this provider at this time: Yes The last office visit in the department: 04-06-24 Does the patient have a future office visit with this provider/department: Yes Requested Prescriptions Pending Prescriptions Disp Refills semaglutide, weight loss, (WEGOVY) 0.5 mg/0.5 mL pen injector 2 mL 0 Sig: Inject 0.5 mL subcutaneously one time a week. Brittney Kirby April 24, 2024 3:12 PM documented in this encounter [facility] 04-24-2024 Telephone encounter Note Prescription Refill Information The patient has been identified by name and date of : Yes Caregiver verified no other encounters exist for this prescription request: Yes Caregiver confirmed with patient/requestor that no other refills are due, in the near future, with this provider at this time: Yes The last office visit in the department: 04-06-24 Does the patient have a future office visit with this provider/department: Yes Requested Prescriptions Pending Prescriptions Disp Refills semaglutide, weight loss, (WEGOVY) 0.5 mg/0.5 mL pen injector 2 mL 0 Sig: Inject 0.5 mL subcutaneously one time a week. Brittney Kirby April 24, 2024 3:12 PM [facility] 04-24-2024 Telephone encounter Note PA came back denied [employer] states does not cover drug on plan. Patient was notified and will call insurance to see if zepbound is covered Marianna Duenas MA [facility] 04-24-2024 Miscellaneous Notes PA came back denied [employer] states does not cover drug on plan. Patient was notified and will call insurance to see if zepbound is covered Marianna Duenas MA Submitted PA for insurance since change to aubree Duenas MA Pt's new insurance needs to be coded for pre-diabetic and not weight loss(Wegovy) Is this something we can do? Please advise and contact patient. documented in this encounter [facility] 04-24-2024 Telephone encounter Note Submitted PA for insurance since change to aubree Duenas MA [facility] 04-24-2024 Telephone encounter Note Pt's new insurance needs to be coded for pre-diabetic and not weight loss(Wegovy) Is this something we can do? Please advise and contact patient. [facility] 04-06-2024 Note HNO ID: [id number] Author: LANCE JORGENSEN MD Service: ? Author Type: Physician Type: Progress Notes Filed: 04/06/2024 18:31 Note Text: This note was created using [employer]. Subjective Patient presents with: Recheck: Medication review Lance Segovia Timothy is a 63 year old male. His weight was dropping on Wegovy. His insurance will change in April and refills will need to be associated with impaired glucose metabolism. His insomnia, anxiety, and restless legs were controlled but dependent on clonazepam. Review of Systems Constitutional: Negative for fatigue. Respiratory: Negative for shortness of breath. Cardiovascular: Negative for chest pain, palpitations and leg swelling. Gastrointestinal: Negative for abdominal pain, diarrhea, nausea and vomiting. Genitourinary: Negative for difficulty urinating and dysuria. Neurological: Negative for dizziness and headaches. ACTIVE PROBLEM LIST Reflex Sympathetic Dystrophy Hypertension Goal Bp (Blood Pressure) < 130/80 Ddd (Degenerative Disc Disease), Lumbar Impaired Glucose Metabolism Anxiety Primary Insomnia Personal History of Skin Cancer Restless Legs Actinic Keratosis Tubular Adenoma of Colon Obesity, Class I, Bmi 30-34.9 Social History Tobacco Use Smoking status: Never Smokeless tobacco: Never Vaping Use Vaping status: Never Used Substance Use Topics Alcohol use: Not Currently Comment: rare Drug use: Not Currently Types: Marijuana Current Outpatient Medications Medication Sig clonazePAM (KLONOPIN) 1 mg tablet Take 2 tablets by mouth at bedtime as needed (anxiety, restless leg) for up to 30 days. semaglutide, weight loss, (WEGOVY) 0.5 mg/0.5 mL pen injector Inject 0.5 mL subcutaneously one time a week. baclofen 5 mg tablet Take 5 mg by mouth at bedtime as needed. amLODIPine (NORVASC) 5 mg tablet Take 1 tablet by mouth once daily. omeprazole (PRILOSEC) 40 mg capsule Take 1 capsule by mouth once daily. oxyCODONE (ROXICODONE) 15 mg immediate release tablet Take 15 mg by mouth three times daily. Dr. Ware No current facility-administered medications for this visit. Objective BP 124/78 Pulse 83 Temp 36.7 ?C (98.1 ?F) (Temporal) Resp 14 Wt 102.5 kg (226 lb) SpO2 94% BMI 32.87 kg/m? Physical Exam Constitutional: Appearance: He is not ill-appearing. HENT: Head: Normocephalic. Cardiovascular: Rate and Rhythm: Normal rate and regular rhythm. Heart sounds: No murmur heard. No gallop. Pulmonary: Breath sounds: Normal breath sounds. Musculoskeletal: Right lower leg: No edema. Left lower leg: No edema. Neurological: Mental Status: He is alert. Assessment and Plan 1. Impaired glucose metabolism - ICD9: 790.29, ICD10: R73.09 (primary diagnosis) Monitor. Wegovy also reduces risk of diabetes mellitus. - HEMOGLOBIN A1C 2. Encounter for immunization - ICD9: V03.89, ICD10: Z23 - INFLUENZA VACCINE, AGE 6MO-64YR, TRIVALENT (AFLURIA, FLULAVAL, FLUVIRIN, FLUZONE) - [employer]-Cardiocore COVID-19 VACCINE AGE 12+ YR (COMIRNATY) 3. Hypertension goal BP (blood pressure) < 130/80 - ICD9: 401.9, ICD10: I10 - Controlled - Continue current medications - AMLODIPINE 5 MG TABLET - COMPLETE BLOOD COUNT - COMPREHENSIVE METABOLIC PANEL - LIPID PANEL BASIC 4. Primary insomnia - ICD9: 307.42, ICD10: F51.01 We reviewed medication dosage, usage, goals of therapy, and risks. - CLONAZEPAM 1 MG TABLET 5. Anxiety - ICD9: 300.00, ICD10: F41.9 See above. - CLONAZEPAM 1 MG TABLET 6. Restless legs - ICD9: 333.94, ICD10: G25.81 See above. - CLONAZEPAM 1 MG TABLET 7. Prostate cancer screening - ICD9: V76.44, ICD10: Z12.5 - Risks/benefits of prostate cancer screening discussed. screening PSA ordered - PSA/PROSTATE SPECIFIC ANTIGEN SCREENING 8. Obesity, Class I, BMI 30-34.9 - ICD9: 278.00, ICD10: E66.811 - Weight dropping. - Continue diet, exercise, and Wegovy. Lance Jorgensen MD [facility] 04-06-2024 History of Present illness Narrative This note was created using Results [employer]. Subjective Patient presents with: Recheck: Medication review Lance Bee is a 63 year old male. His weight was dropping on Wegovy. His insurance will change in April and refills will need to be associated with impaired glucose metabolism. His insomnia, anxiety, and restless legs were controlled but dependent on clonazepam. Review of Systems Constitutional: Negative for fatigue. Respiratory: Negative for shortness of breath. Cardiovascular: Negative for chest pain, palpitations and leg swelling. Gastrointestinal: Negative for abdominal pain, diarrhea, nausea and vomiting. Genitourinary: Negative for difficulty urinating and dysuria. Neurological: Negative for dizziness and headaches. ACTIVE PROBLEM LIST Reflex Sympathetic Dystrophy Hypertension Goal Bp (Blood Pressure) < 130/80 Ddd (Degenerative Disc Disease), Lumbar Impaired Glucose Metabolism Anxiety Primary Insomnia Personal History of Skin Cancer Restless Legs Actinic Keratosis Tubular Adenoma of Colon Obesity, Class I, Bmi 30-34.9 Social History Tobacco Use Smoking status: Never Smokeless tobacco: Never Vaping Use Vaping status: Never Used Substance Use Topics Alcohol use: Not Currently Comment: rare Drug use: Not Currently Types: Marijuana Current Outpatient Medications Medication Sig clonazePAM (KLONOPIN) 1 mg tablet Take 2 tablets by mouth at bedtime as needed (anxiety, restless leg) for up to 30 days. semaglutide, weight loss, (WEGOVY) 0.5 mg/0.5 mL pen injector Inject 0.5 mL subcutaneously one time a week. baclofen 5 mg tablet Take 5 mg by mouth at bedtime as needed. amLODIPine (NORVASC) 5 mg tablet Take 1 tablet by mouth once daily. omeprazole (PRILOSEC) 40 mg capsule Take 1 capsule by mouth once daily. oxyCODONE (ROXICODONE) 15 mg immediate release tablet Take 15 mg by mouth three times daily. Dr. Ware No current facility-administered medications for this visit. Objective BP 124/78 Pulse 83 Temp 36.7 C (98.1 F) (Temporal) Resp 14 Wt 102.5 kg (226 lb) SpO2 94% BMI 32.87 kg/m Physical Exam Constitutional: Appearance: He is not ill-appearing. HENT: Head: Normocephalic. Cardiovascular: Rate and Rhythm: Normal rate and regular rhythm. Heart sounds: No murmur heard. No gallop. Pulmonary: Breath sounds: Normal breath sounds. Musculoskeletal: Right lower leg: No edema. Left lower leg: No edema. Neurological: Mental Status: He is alert. Assessment and Plan 1. Impaired glucose metabolism - ICD9: 790.29, ICD10: R73.09 (primary diagnosis) Monitor. Wegovy also reduces risk of diabetes mellitus. - HEMOGLOBIN A1C 2. Encounter for immunization - ICD9: V03.89, ICD10: Z23 - INFLUENZA VACCINE, AGE 6MO-64YR, TRIVALENT (AFLURIA, FLULAVAL, FLUVIRIN, FLUZONE) - [employer]x COVID-19 VACCINE AGE 12+ YR (COMIRNATY) 3. Hypertension goal BP (blood pressure) < 130/80 - ICD9: 401.9, ICD10: I10 - Controlled - Continue current medications - AMLODIPINE 5 MG TABLET - COMPLETE BLOOD COUNT - COMPREHENSIVE METABOLIC PANEL - LIPID PANEL BASIC 4. Primary insomnia - ICD9: 307.42, ICD10: F51.01 We reviewed medication dosage, usage, goals of therapy, and risks. - CLONAZEPAM 1 MG TABLET 5. Anxiety - ICD9: 300.00, ICD10: F41.9 See above. - CLONAZEPAM 1 MG TABLET 6. Restless legs - ICD9: 333.94, ICD10: G25.81 See above. - CLONAZEPAM 1 MG TABLET 7. Prostate cancer screening - ICD9: V76.44, ICD10: Z12.5 - Risks/benefits of prostate cancer screening discussed. screening PSA ordered - PSA/PROSTATE SPECIFIC ANTIGEN SCREENING 8. Obesity, Class I, BMI 30-34.9 - ICD9: 278.00, ICD10: E66.811 - Weight dropping. - Continue diet, exercise, and Wegovy. Lance Jorgensen MD documented in this encounter [facility] 04-04-2024 Telephone encounter Note PATIENT NOTIFIED OF SAME. [facility] 04-04-2024 Miscellaneous Notes PATIENT NOTIFIED OF SAME. It looks like he has been taking the Klonopin more often than previous. I refill today but he needs to discuss increased usage with Dr. Jorgensen on 04/06 Jinny Contreras APRN.POST ACUTE CARE REGISTERED NURSE Patient is calling on the status of refill request. Advised it can take up to 3 days, Patient will check with pharmacy. Alena Weber LPN The patient has been identified by name and date of : Yes Caregiver verified no other encounters exist for this prescription request: Yes Caregiver confirmed with patient/requestor that no other refills are due, in the near future, with this provider at this time: Yes The last office visit in the department: 10/29/2023 Does the patient have a future office visit with this provider/department: Yes 04/04/2024 Requested Prescriptions Pending Prescriptions Disp Refills clonazePAM (KLONOPIN) 1 mg tablet 60 tablet 1 Sig: Take 2 tablets by mouth at bedtime as needed (anxiety, restless leg) for up to 180 days. Trinity Salinas RN April 04, 2024 11:01 AM Patient MyChart message requesting the following refill Refill(s) Requested: Requested Prescriptions Pending Prescriptions Disp Refills clonazePAM (KLONOPIN) 1 mg tablet 60 tablet 1 Sig: Take 2 tablets by mouth at bedtime as needed (anxiety, restless leg) for up to 180 days. ALLERGIES No Known Allergies (home) [phone] (cell) Last Office Visit Date: 10/29/2023 Last [facility] Visit: Visit date not found Future Appointment: Visit date not found The patients preferred pharmacy has been captured for this encounter? yes Request is for script(s) to be escript to pharmacy. Corine Matthew LPN documented in this encounter [facility] 04-04-2024 Telephone encounter Note It looks like he has been taking the Klonopin more often than previous. I refill today but he needs to discuss increased usage with Dr. Jorgensen on 04/06 Jinny Contreras APRN.POST ACUTE CARE REGISTERED NURSE [facility] 04-04-2024 Telephone encounter Note Patient is calling on the status of refill request. Advised it can take up to 3 days, Patient will check with pharmacy. Alena Weber LPN [facility] 04-04-2024 Telephone encounter Note The patient has been identified by name and date of : Yes Caregiver verified no other encounters exist for this prescription request: Yes Caregiver confirmed with patient/requestor that no other refills are due, in the near future, with this provider at this time: Yes The last office visit in the department: 10/29/2023 Does the patient have a future office visit with this provider/department: Yes 04/04/2024 Requested Prescriptions Pending Prescriptions Disp Refills clonazePAM (KLONOPIN) 1 mg tablet 60 tablet 1 Sig: Take 2 tablets by mouth at bedtime as needed (anxiety, restless leg) for up to 180 days. Trinity Salinas RN April 04, 2024 11:01 AM [facility] 04-04-2024 Telephone encounter Note Duplicate refill encounter, same date. See other refill encounter for multiple medications. This encounter closed. Trinity Salinas RN\ [facility] 04-04-2024 Miscellaneous Notes Duplicate refill encounter, same date. See other refill encounter for multiple medications. This encounter closed. Trinity Salinas RN\ documented in this encounter [facility] 04-03-2024 Telephone encounter Note Patient has been identified by name and date of : Yes Patient phones for refill(s): Requested Prescriptions Pending Prescriptions Disp Refills semaglutide, weight loss, (WEGOVY) 0.5 mg/0.5 mL pen injector 2 mL 0 Sig: Inject 0.5 mL subcutaneously one time a week. Date of last office visit in primary care: 10/29/2023 Date of next office visit in primary care: 04/01/2024 Please advise. Thank you. Alena Weber LPN. [facility] 04-03-2024 Miscellaneous Notes Patient has been identified by name and date of : Yes Patient phones for refill(s): Requested Prescriptions Pending Prescriptions Disp Refills semaglutide, weight loss, (WEGOVY) 0.5 mg/0.5 mL pen injector 2 mL 0 Sig: Inject 0.5 mL subcutaneously one time a week. Date of last office visit in primary care: 10/29/2023 Date of next office visit in primary care: 04/01/2024 Please advise. Thank you. Alena Weber LPN. documented in this encounter [facility] 04-03-2024 Telephone encounter Note Patient Dexcomhart message requesting the following refill Refill(s) Requested: Requested Prescriptions Pending Prescriptions Disp Refills clonazePAM (KLONOPIN) 1 mg tablet 60 tablet 1 Sig: Take 2 tablets by mouth at bedtime as needed (anxiety, restless leg) for up to 180 days. ALLERGIES No Known Allergies (home) [phone] (cell) Last Office Visit Date: 10/29/2023 Last [facility] Visit: Visit date not found Future Appointment: Visit date not found The patients preferred pharmacy has been captured for this encounter? yes Request is for script(s) to be escript to pharmacy. Corine Matthew LPN [facility] 02-16-2024 Telephone encounter Note Prescription Refill Information The patient has been identified by name and date of : Yes Caregiver verified no other encounters exist for this prescription request: Yes Caregiver confirmed with patient/requestor that no other refills are due, in the near future, with this provider at this time: Yes The last office visit in the department: 10/29/23 Does the patient have a future office visit with this provider/department: Yes 02/17/24 Requested Prescriptions Pending Prescriptions Disp Refills clonazePAM (KLONOPIN) 1 mg tablet 60 tablet 1 Sig: Take 2 tablets by mouth at bedtime as needed (anxiety, restless leg) for up to 180 days. Nina Orozco LPN February 16, 2024 9:03 AM [facility] 02-16-2024 Miscellaneous Notes Prescription Refill Information The patient has been identified by name and date of : Yes Caregiver verified no other encounters exist for this prescription request: Yes Caregiver confirmed with patient/requestor that no other refills are due, in the near future, with this provider at this time: Yes The last office visit in the department: 10/29/23 Does the patient have a future office visit with this provider/department: Yes 02/17/24 Requested Prescriptions Pending Prescriptions Disp Refills clonazePAM (KLONOPIN) 1 mg tablet 60 tablet 1 Sig: Take 2 tablets by mouth at bedtime as needed (anxiety, restless leg) for up to 180 days. Nina Orozco LPN February 16, 2024 9:03 AM documented in this encounter [facility] 01-26-2024 Telephone encounter Note This was updated with insurance via fax asking them to review again. Pt notified via my chart. [facility] 01-26-2024 Miscellaneous Notes This was updated with insurance via fax asking them to review again. Pt notified via my chart. Pt came in stated that coding on weight loss medication is incorrect and therefore his insurance will not cover it. Please advise and give pt call back. documented in this encounter [facility] 01-24-2024 Telephone encounter Note Pt came in stated that coding on weight loss medication is incorrect and therefore his insurance will not cover it. Please advise and give pt call back. [facility] 01-21-2024 Telephone encounter Note APPEAL FAXED TO [phone]. DX IS OBESITY ADDED WEIGHT LOSS. [facility] 01-21-2024 Miscellaneous Notes APPEAL FAXED TO [phone]. DX IS OBESITY ADDED WEIGHT LOSS. Patient calling he spoke to his insurance and was told if the diagnosis gets put in for weight loss the medication would be covered. He was given a phone number for PA dept [phone]. He is asking if PA could be done again please. This was already completed and denied. Pt was notified via my chart. He has not read this yet. Send this info to pt again. documented in this encounter [facility] 01-21-2024 Telephone encounter Note Patient calling he spoke to his insurance and was told if the diagnosis gets put in for weight loss the medication would be covered. He was given a phone number for PA dept [phone]. He is asking if PA could be done again please. [facility] 01-21-2024 Telephone encounter Note This was already completed and denied. Pt was notified via my chart. He has not read this yet. Send this info to pt again. [facility] 01-11-2024 Note HNO ID: [id number] Author: POLLY KAN PA-C Service: ? 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 Type: Progress Notes Filed: 01/11/2024 20:54 Note Text: [facility] NEW PATIENT CLINIC NOTE SERVICE DATE: January 11, 2024 NAME: Lance Bee CHIEF COMPLAINT: Nocturia Findings on Imaging HISTORY OF PRESENT ILLNESS: Lance Bee is a 63 year old male new patient here for Nocturia findings on imaging The patient reports having an increase in nocturia > We discussed issues with restricting water intake In hopes to mitigate the need to urinate, we discussed how this behavior more often worsen the problem not improving it, > We discussed increasing daily water intake to 64-84 oz 7a -7p and try to reduce bladder irritants, caffeine, alcohol and acid foods and drink. > Bladder irritants handout available to patient. Reviewed imaging with renal cysts and small stone LUTS: DYSURIA: no URGENCY: No FREQUENCY:6 per day NOCTURIA: 3 per night STRAINING TO VOID: No EMPTIES COMPLETELY: Yes UTI: No GROSS HEMATURIA: no UA DIPSTICK POSITIVE ONLY: no LABS: PSA (ng/mL) Date Value 01/30/2019 2.19 09/23/2012 1.62 Creatinine Date Value Ref Range Status 10/29/2023 0.95 0.73 - 1.22 mg/dL Final 01/11/2023 1.06 0.73 - 1.22 mg/dL Final 09/30/2021 1.16 0.73 - 1.22 mg/dL Final MEDICATIONS: baclofen 5 mg tablet Take 5 mg by mouth at bedtime as needed. clonazePAM (KLONOPIN) 1 mg tablet Take 2 tablets by mouth at bedtime as needed (anxiety, restless leg) for up to 180 days. Phentermine HCl 37.5 mg tablet Take 1 tablet by mouth once daily for 90 days. BMI 34.18 amLODIPine (NORVASC) 5 mg tablet Take 1 tablet by mouth once daily. omeprazole (PRILOSEC) 40 mg capsule Take 1 capsule by mouth once daily. oxyCODONE (ROXICODONE) 15 mg immediate release tablet Take 15 mg by mouth three times daily. Dr. Ware PAST MEDICAL HISTORY: PAST MEDICAL HISTORY Diagnosis Date Anxiety 11/01/2015 Asymptomatic microscopic hematuria 2017 Contact dermatitis and other eczema, due to unspecified cause DDD (degenerative disc disease), lumbar 02/10/2013 Depression Dog bite of right lower leg 2000 with recurrent wounds Dysthymic disorder Depression (non-psychotic) Gastritis, presence of bleeding unspecified, unspecified chronicity, unspecified gastritis type 12/06/2023 Hiatal hernia Hypertension Impaired glucose metabolism 09/26/2014 A1c 6.1% September 2014 Obesity Open wound of knee, leg (except thigh), and ankle, complicated Open wound of right lower extremity 07/24/2017 YAIMA (obstructive sleep apnea) no CPAP tried by choice. 12/20/2014 Personal history of skin cancer 01/30/2016 Dr. Melody Trammell, Dermatology annually. Primary insomnia 11/01/2015 Reflex sympathetic dystrophy Restless legs 05/20/2015 Squamous cell carcinoma of lower leg 09/23/2012 Skin graft x2- Dr. Cook, Dr. [facility]- [place] Dr. Trammell Tubular adenoma of colon 02/24/2023 Ulcer of other part of foot PAST SURGICAL HISTORY: PAST SURGICAL HISTORY Procedure Laterality Date COLONOSCOPY 10/27/2016 INCOMPLETE- CT colonography 03/31/18 diverticular disease. Repeat 5-10yrs COLONOSCOPY SCREENING 02/24/2023 EGD 10/27/2016 EGD 11/24/2023 EGD W/O BRSH SPEC VARICIES INJ 02/24/2023 PAST SURGICAL HISTORY OF Right 2012 excision of tumor, right leg PAST SURGICAL HISTORY OF Right 2014 skin grafts, right leg. 2012,2013. FAMILY HISTORY: FAMILY HISTORY Problem Relation Age of Onset Cancer Father pancreatic other (scleroderma) Mother SOCIAL HISTORY: Social Connections: Moderately Integrated (01/25/2023) Social Connection and Isolation Panel [NHANES] Frequency of Communication with Friends and Family: Twice a week Frequency of Social Gatherings with Friends and Family: Once a week Attends Jain Services: 1 to 4 times per year Active Member of Clubs or Organizations: No Attends Club or Organization Meetings: 1 to 4 times per year Marital Status: Never REVIEW OF SYSTEMS: GENERAL: No fever, chills, weight loss, or fatigue. ENMT: Negative CARDIOVASCULAR:NO CHEST PAIN, PALPITATIONS, ANKLE EDEMA RESPIRATORY: No chronic cough, wheezing, dyspnea, hemoptysis. GENITOURINARY: SEE HPI MUSCULOSKELETAL:NO CHRONIC BACK PAIN, ARTHRITIS, CHRONIC NECK PAIN SKIN: NO VARICOSE VEINS, RASH, ABNORMAL ITCHING HEME/LYMPH/IMMUNE:Negative for prolonged bleeding, bruising easily or swollen nodes NEUROLOGICAL: NO HEADACHES, NUMBNESS, SEIZURES, STROKE DIABETES: No All other systems reviewed and are negative PHYSICAL EXAMINATION: Blood pressure 142/94, pulse 108, temperature 36.7 ?C (98 ?F), temperature source Temporal, resp. rate 18, height 176.6 cm (5' 9.53), weight 112 kg (247 lb), SpO2 96%. GENERAL: WNL nutrition, no deformities, healthy appearing NEURO: Awake, alert and oriented x 3 and Normal gait PSYCH: No (more content not included)... [facility] 01-11-2024 History of Present illness Narrative Images from the original note were not included. [facility] NEW PATIENT CLINIC NOTE SERVICE DATE: January 11, 2024 NAME: Lance Bee CHIEF COMPLAINT: Nocturia Findings on Imaging HISTORY OF PRESENT ILLNESS: Lance Bee is a 63 year old male new patient here for Nocturia findings on imaging The patient reports having an increase in nocturia > We discussed issues with restricting water intake In hopes to mitigate the need to urinate, we discussed how this behavior more often worsen the problem not improving it, > We discussed increasing daily water intake to 64-84 oz 7a -7p and try to reduce bladder irritants, caffeine, alcohol and acid foods and drink. > Bladder irritants handout available to patient. Reviewed imaging with renal cysts and small stone LUTS: DYSURIA: no URGENCY: No FREQUENCY:6 per day NOCTURIA: 3 per night STRAINING TO VOID: No EMPTIES COMPLETELY: Yes UTI: No GROSS HEMATURIA: no UA DIPSTICK POSITIVE ONLY: no LABS: PSA (ng/mL) Date Value 01/30/2019 2.19 09/23/2012 1.62 Creatinine Date Value Ref Range Status 10/29/2023 0.95 0.73 - 1.22 mg/dL Final 01/11/2023 1.06 0.73 - 1.22 mg/dL Final 09/30/2021 1.16 0.73 - 1.22 mg/dL Final MEDICATIONS: baclofen 5 mg tablet Take 5 mg by mouth at bedtime as needed. clonazePAM (KLONOPIN) 1 mg tablet Take 2 tablets by mouth at bedtime as needed (anxiety, restless leg) for up to 180 days. Phentermine HCl 37.5 mg tablet Take 1 tablet by mouth once daily for 90 days. BMI 34.18 amLODIPine (NORVASC) 5 mg tablet Take 1 tablet by mouth once daily. omeprazole (PRILOSEC) 40 mg capsule Take 1 capsule by mouth once daily. oxyCODONE (ROXICODONE) 15 mg immediate release tablet Take 15 mg by mouth three times daily. Dr. Ware PAST MEDICAL HISTORY: PAST MEDICAL HISTORY Diagnosis Date Anxiety 11/01/2015 Asymptomatic microscopic hematuria 2017 Contact dermatitis and other eczema, due to unspecified cause DDD (degenerative disc disease), lumbar 02/10/2013 Depression Dog bite of right lower leg 2000 with recurrent wounds Dysthymic disorder Depression (non-psychotic) Gastritis, presence of bleeding unspecified, unspecified chronicity, unspecified gastritis type 12/06/2023 Hiatal hernia Hypertension Impaired glucose metabolism 09/26/2014 A1c 6.1% September 2014 Obesity Open wound of knee, leg (except thigh), and ankle, complicated Open wound of right lower extremity 07/24/2017 YAIMA (obstructive sleep apnea) no CPAP tried by choice. 12/20/2014 Personal history of skin cancer 01/30/2016 Dr. Melody Trammell, Dermatology annually. Primary insomnia 11/01/2015 Reflex sympathetic dystrophy Restless legs 05/20/2015 Squamous cell carcinoma of lower leg 09/23/2012 Skin graft x2- Dr. Cook, Dr. Cardona [facility]- [place] Dr. Trammell Tubular adenoma of colon 02/24/2023 Ulcer of other part of foot PAST SURGICAL HISTORY: PAST SURGICAL HISTORY Procedure Laterality Date COLONOSCOPY 10/27/2016 INCOMPLETE- CT colonography 03/31/18 diverticular disease. Repeat 5-10yrs COLONOSCOPY SCREENING 02/24/2023 EGD 10/27/2016 EGD 11/24/2023 EGD W/O BRSH SPEC VARICIES INJ 02/24/2023 PAST SURGICAL HISTORY OF Right 2012 excision of tumor, right leg PAST SURGICAL HISTORY OF Right 2014 skin grafts, right leg. 2012,2013. FAMILY HISTORY: FAMILY HISTORY Problem Relation Age of Onset Cancer Father pancreatic other (scleroderma) Mother SOCIAL HISTORY: Social Connections: Moderately Integrated (01/25/2023) Social Connection and Isolation Panel [NHANES] Frequency of Communication with Friends and Family: Twice a week Frequency of Social Gatherings with Friends and Family: Once a week Attends Jain Services: 1 to 4 times per year Active Member of Clubs or Organizations: No Attends Club or Organization Meetings: 1 to 4 times per year Marital Status: Never REVIEW OF SYSTEMS: GENERAL: No fever, chills, weight loss, or fatigue. ENMT: Negative CARDIOVASCULAR:NO CHEST PAIN, PALPITATIONS, ANKLE EDEMA RESPIRATORY: No chronic cough, wheezing, dyspnea, hemoptysis. GENITOURINARY: SEE HPI MUSCULOSKELETAL:NO CHRONIC BACK PAIN, ARTHRITIS, CHRONIC NECK PAIN SKIN: NO VARICOSE VEINS, RASH, ABNORMAL ITCHING HEME/LYMPH/IMMUNE:Negative for prolonged bleeding, bruising easily or swollen nodes NEUROLOGICAL: NO HEADACHES, NUMBNESS, SEIZURES, STROKE DIABETES: No All other systems reviewed and are negative PHYSICAL EXAMINATION: Blood pressure 142/94, pulse 108, temperature 36.7 C (98 F), temperature source Temporal, resp. rate 18, height 176.6 cm (5' 9.53), weight 112 kg (247 lb), SpO2 96%. GENERAL: WNL nutrition, no deformities, healthy appearing NEURO: Awake, alert and oriented x 3 and Normal gait PSYCH: No signs of depression, anxiety, or agitation ENMT (Ear, Nose, Mouth, Throat): No masses, adenopathy, icterus. Thyroid nonpalpable RESP: NL effort, no retractions or purse-lip breathing. CV: No extremity swelling, varices, edema, pallor, erythema GASTROINTESTINAL: Soft, nontender, nondistended, no masses. HERNIAS: None SKIN: No rash, lesions No palpable lymphadenopathy MUSCULOSKELETAL: Extremities normal. No deformities, edema, clubbing or skin discoloration. PROBLEM LIST REVIEW: Yes LABS: Results for orders placed or performed in visit on 01/11/24 UA DIP, URINE (POC) Result Value Ref Range GLUCOSE UA (POCT) Negative Negative mg/dL BILIRUBIN UA (POCT) Negative Negative KETONE UA (POCT) Negative Negative mg/dL SPECIFIC GRAVITY UA (POCT) >=1.030 1.005 - 1.030 HEMOGLOBIN/BLOOD UA (POCT) Negative Negative PH UA (POCT) 5.5 4.5 - 8.0 PROTEIN UA (POCT) 30 (A) Negative mg/dL UROBILINOGEN UA (POCT) 1.0 Normal E.U./dL NITRITE UA (POCT) Negative Negative LEUKOCYTES UA (POCT) Negative Negative COLOR UA (POCT) Brown CLARITY UA (POCT) Clear PROCEDURES: PVR: 0 ml IMAGING: CT Urogram - 08/2023 Kidneys and bladder: A couple of small benign cortical cysts of the left kidney. 6.8 cm benign cyst of the posterior cortex right kidney. 3 mm nonobstructing stone lower pole right kidney.The ureters demonstrate normal caliber.The urinary bladder appears unremarkable given lack of distention. ASSESSMENT/PLAN: 1. Nocturia - ICD9: 788.43, ICD10: R35.1 (primary diagnosis) - POST VOID RESIDUAL - 0 ml 2. Renal cyst - ICD9: 753.10, ICD10: N28.1 couple of small benign cortical cysts of the left kidney. 6.8 cm benign cyst of the posterior cortex right kidney. 3. Kidney stone - ICD9: 592.0, ICD10: N20.0 3 mm nonobstructing stone lower pole right kidney 4. Screening for genitourinary condition - ICD9: V81.6, ICD10: Z13.89 - POST VOID RESIDUAL New Diagnosis of unknown prognosis > 3 mo Follow-up with IVANIA Bishop MT, PA-C after increasing water intake IVANIA Anderson MT, PA-C Verified name and date of . CC Post Void Residual HPI: Lance Bee is a 63 year old male. The patient is here now for an appointment with IVANIA Anderson MT, PA-COV. Procedure: Explained procedure to patient and verbalizes understanding. Performed a PVR. Patient urinated and instructed to empty bladder as much as possible just prior to having PVR done using bladder ultrasound scanner. Results of scan: x mL The patient tolerated the procedure well. Plan: Appointment with Polly. documented in this encounter [facility] 01-11-2024 Note HNO ID: [id number] Author: MELIDA AMARAL LPN Service: ? Author Type: LICENSED NURSE Type: Progress Notes Filed: 01/11/2024 20:54 Note Text: Verified name and date of . CC Post Void Residual HPI: Lance Bee is a 63 year old male. The patient is here now for an appointment with IVANIA Anderson, MT, PA-COV. Procedure: Explained procedure to patient and verbalizes understanding. Performed a PVR. Patient urinated and instructed to empty bladder as much as possible just prior to having PVR done using bladder ultrasound scanner. Results of scan: x mL The patient tolerated the procedure well. Plan: Appointment with Polly. [facility] 12-24-2023 Telephone encounter Note Prescription Refill Information The patient has been identified by name and date of : yes Caregiver verified no other encounters exist for this prescription request: Yes Caregiver confirmed with patient/requestor that no other refills are due, in the near future, with this provider at this time: Yes The last office visit in the department: 10/29/2023 Does the patient have a future office visit with this provider/department: No Requested Prescriptions Pending Prescriptions Disp Refills clonazePAM (KLONOPIN) 1 mg tablet 60 tablet 1 Sig: Take 2 tablets by mouth at bedtime as needed (anxiety, restless leg) for up to 180 days. Vikram Massey MA December 24, 2023 11:37 AM [facility] 12-24-2023 Miscellaneous Notes Prescription Refill Information The patient has been identified by name and date of : yes Caregiver verified no other encounters exist for this prescription request: Yes Caregiver confirmed with patient/requestor that no other refills are due, in the near future, with this provider at this time: Yes The last office visit in the department: 10/29/2023 Does the patient have a future office visit with this provider/department: No Requested Prescriptions Pending Prescriptions Disp Refills clonazePAM (KLONOPIN) 1 mg tablet 60 tablet 1 Sig: Take 2 tablets by mouth at bedtime as needed (anxiety, restless leg) for up to 180 days. Vikram Massey MA December 24, 2023 11:37 AM documented in this encounter [facility] 12-06-2023 History of Present illness Narrative Radiology Service Progress Note PATIENT NAME: Lance Bee DATE OF SERVICE: December 06, 2023 TIME: 1:37 PM PATIENT IDENTITY VERIFICATION COMPLETED USING TWO (2) IDENTIFIERS: Name and Date of confirmed by patient verbally. FALL SCREENING: Has the patient had 2 falls in the last year or 1 fall with injury or currently using an Ambulatory Assistive Device (Walker, Cane, Wheelchair, Crutches, etc.)? No PATIENT GENDER DATA: Male PATIENT RELEVANT IMPLANT DATA REVIEWED: Yes PATIENT PRESENTS WITH AN IMPLANTABLE OR ATTACHED PRINTER OPERATOR: No RADIOLOGY DEPARTMENT: General X-ray: Exam(s) Completed: Abdomen X-Ray: Abdomen PERIPHERAL IV DATA: Not applicable SIGNED BY: RT Ariadna(Clara) December 06, 2023 1:37 PM documented in this encounter [facility] 12-06-2023 Note HNO ID: [id number] Author: EVELINA HAY RT(Clara) Service: ? Author Type: Family Assistant Type: Progress Notes Filed: 12/06/2023 13:51 Note Text: Radiology Service Progress Note PATIENT NAME: Lance Bee DATE OF SERVICE: December 06, 2023 TIME: 1:37 PM PATIENT IDENTITY VERIFICATION COMPLETED USING TWO (2) IDENTIFIERS: Name and Date of confirmed by patient verbally. FALL SCREENING: Has the patient had 2 falls in the last year or 1 fall with injury or currently using an Ambulatory Assistive Device (Walker, Cane, Wheelchair, Crutches, etc.)? No PATIENT GENDER DATA: Male PATIENT RELEVANT IMPLANT DATA REVIEWED: Yes PATIENT PRESENTS WITH AN IMPLANTABLE OR ATTACHED PRINTER OPERATOR: No RADIOLOGY DEPARTMENT: General X-ray: Exam(s) Completed: Abdomen X-Ray: Abdomen PERIPHERAL IV DATA: Not applicable SIGNED BY: RT Ariadna(R) December 06, 2023 1:37 PM [facility] 12-06-2023 History of Present illness Narrative FOLLOW UP VISIT - ENDOSCOPY Lance Bee 1960 [id number] REFERRING PHYSICIAN: No referring provider defined for this encounter. Lance Bee is a patient I am following for coffee-ground emesis . Dr. Dougherty performed EGD on 11/24/23. The patient was found to have Impression: - Normal examined jejunum. - Normal examined duodenum. - Gastritis. Biopsied. - Medium-sized type III hiatal hernia. - Normal middle third of esophagus. Biopsied. Pathology demonstrated: FINAL DIAGNOSIS A. Stomach, biopsy: - Reactive gastropathy. - No morphologic evidence of Helicobacter pylori microorganisms. B. Esophagogastric junction, biopsy: - Hyperplastic squamous epithelium. C. Esophagus, mid, biopsy: - Hyperplastic squamous epithelium with rare intraepithelial eosinophils (up to 5 eosinophils per high-power field). The patient notes multiple complaints since the procedure. Yousif states he has LUQ pain from his hiatal hernia that bulges out. He refers that it has been like that since his lower scope which was in 2022. He also c/o urinary incontinence and difficulty finding his penis. He also states since the EGD he has had left testicular pain. He denies any redness or swelling. Yousif informed me that his friend is currently going through liver cancer tx and he is freaked out about having cancer. He also refers he has hit his deductible and wants to get everything checked out. VITALS: There were no vitals taken for this visit. General: patient is alert, cooperative, pleasant and in no acute distress On examination, the abdomen is benign. No palpable masses. Assessment ASSESSMENT/PLAN: 1. Gastritis, presence of bleeding unspecified, unspecified chronicity, unspecified gastritis type - ICD9: 535.50, ICD10: K29.70 (primary diagnosis) - Carafate 1g 4 times a day for 1 month 2. Other urinary incontinence - ICD9: 788.39, ICD10: N39.498 - CONSULT TO UROLOGY 3. Nocturia - ICD9: 788.43, ICD10: R35.1 - CONSULT TO UROLOGY 4. Hiatal hernia - ICD9: 553.3, ICD10: K44.9 - CONSULT TO [facility] The operative findings and pathology report were reviewed with the patient, and the patient has had the opportunity to ask questions and have questions answered. If the patient notes any problems or changes in bowel function, the patient should contact me immediately. Otherwise I recommend follow up endoscopy as symptoms dictate. There is abd xray from Dr. Childers on 11/24/23, instructed the patient to get this completed. HM updated and recall letter generated. Discussed treatment plan and patient voices understanding. Patient's questions answered appropriately. Medications and potential side effects were discussed and patient voices understanding. Return to the office as scheduled or as needed for worsening/no improvement. Melanie Arciniega APRN.[facility] REGISTERED NURSE documented in this encounter [facility] 12-06-2023 Note HNO ID: [id number] Author: MELANIE ARCINIEGA APRN.TAY Service: ? Author Type: Nurse Practitioner Type: Progress Notes Filed: 12/06/2023 13:37 Note Text: FOLLOW UP VISIT - ENDOSCOPY Lance eBe 1960 [id number] REFERRING PHYSICIAN: No referring provider defined for this encounter. Lance Bee is a patient I am following for coffee-ground emesis . Dr. Dougherty performed EGD on 11/24/23. The patient was found to have Impression: - Normal examined jejunum. - Normal examined duodenum. - Gastritis. Biopsied. - Medium-sized type III hiatal hernia. - Normal middle third of esophagus. Biopsied. Pathology demonstrated: FINAL DIAGNOSIS A. Stomach, biopsy: - Reactive gastropathy. - No morphologic evidence of Helicobacter pylori microorganisms. B. Esophagogastric junction, biopsy: - Hyperplastic squamous epithelium. C. Esophagus, mid, biopsy: - Hyperplastic squamous epithelium with rare intraepithelial eosinophils (up to 5 eosinophils per high-power field). The patient notes multiple complaints since the procedure. Yousif states he has LUQ pain from his hiatal hernia that bulges out. He refers that it has been like that since his lower scope which was in 2022. He also c/o urinary incontinence and difficulty finding his penis. He also states since the EGD he has had left testicular pain. He denies any redness or swelling. Yousif informed me that his friend is currently going through liver cancer tx and he is freaked out about having cancer. He also refers he has hit his deductible and wants to get everything checked out. VITALS: There were no vitals taken for this visit. General: patient is alert, cooperative, pleasant and in no acute distress On examination, the abdomen is benign. No palpable masses. Assessment ASSESSMENT/PLAN: 1. Gastritis, presence of bleeding unspecified, unspecified chronicity, unspecified gastritis type - ICD9: 535.50, ICD10: K29.70 (primary diagnosis) - Carafate 1g 4 times a day for 1 month 2. Other urinary incontinence - ICD9: 788.39, ICD10: N39.498 - CONSULT TO UROLOGY 3. Nocturia - ICD9: 788.43, ICD10: R35.1 - CONSULT TO UROLOGY 4. Hiatal hernia - ICD9: 553.3, ICD10: K44.9 - CONSULT TO [facility] The operative findings and pathology report were reviewed with the patient, and the patient has had the opportunity to ask questions and have questions answered. If the patient notes any problems or changes in bowel function, the patient should contact me immediately. Otherwise I recommend follow up endoscopy as symptoms dictate. There is abd xray from Dr. Childers on 11/24/23, instructed the patient to get this completed. HM updated and recall letter generated. Discussed treatment plan and patient voices understanding. Patient's questions answered appropriately. Medications and potential side effects were discussed and patient voices understanding. Return to the office as scheduled or as needed for worsening/no improvement. Melanie Arciniega APRN.[facility] 12-06-2023 Instructions Melanei Arciniega APRN.CNP - 12/06/2023 10:40 AM EDT Referral placed for urology Referral placed for heartburn clinic INSTRUCTIONS FOR PEPTIC ULCER DISEASE/GASTRITIS I discussed with you the findings of your upper endoscopy. Your upper endoscopy demonstrated signs of peptic ulcer disease or irritation. This can be seen as a range of issues from actual ulcers in the stomach or duodenum (first part of the small bowel) or irritation ranging from redness to more significant irritation with erosions of the stomach or duodenum. These conditions are usually caused from a combination of too much acid production or too little protective mucus production in the stomach. Factors that increase acid production include smoking and stress. If you smoke, stopping smoking will often cure these issues without needing other medications. Factors that decrease the stomach's production of protective mucus include alcohol consumption, smoking, aspirin and other anti-inflammatory use. Over the counter medications including antiacids and acid reducing medications including H2 blockers (Zantac and the like) and proton pump inhibitors (prilosec, prevacid and the like) neutralize or prevent acid production. Prescription strength proton pump inhibitors (PPIs) may be necessary if your symptoms persist. Carafate may be added to PPI treatment in refractory cases. Avoiding smoking, alcohol and antiinflammatory medications are important in the successful treatment of peptic diseases. New or worsening symptoms such are epigastric pain, burning, difficulty swallowing or food sticking should be relayed to your physician. Feeling full early after eating, or black, tarry, foul smelling stools are also worrisome. If you have any difficulties or concerns, you should contact our office immediately. documented in this encounter [facility] 11-24-2023 Attending History and physical note UPDATED PROCEDURAL SEDATION HISTORY AND PHYSICAL EXAMINATION SERVICE DATE: 11/24/2023 SERVICE TIME: 9:41 AM PHYSICAL EXAM MUST BE COMPLETED ON ADMISSION PROCEDURE: Procedure Indications: The History and Physical (completed in the past 30 days) has been reviewed and the patient has been examined. The contents accurately reflect the patient's condition with the following additions or revisions since the H&P was completed. ASA Class: ASA Class: Patient with mild systemic disease Examination indicates no changes. AIRWAY: Airway Visualization of Uvula: Yes Mouth opening greater than 2 fingerbreadths: Yes Neck Full Range of Motion: Yes LUNGS: Lungs clear to auscultation CARDIAC: Regular rhythm,Regular rate Provisional Diagnosis/Treatment Plan: coffee ground emesis - EGD Sedation Goal: Moderate This H&P can be found in the attached. SIGNATURE: Tony Childers MD PATIENT NAME: Lance Bee DATE: November 24, 2023 TIME: 9:41 AM Source Note - Tony Childers MD - 11/24/2023 9:15 AM EDT HISTORY AND PHYSICAL Lance Bee 1960 REFERRING PHYSICIAN: self CHIEF COMPLAINT: Follow Up HPI: The patient is a 62 year old male with a complaint of recent hospital admission for ileus versus obstruction and coffee-ground emesis. The patient was noting abdominal distention constipation without necessarily obstipation and episodic vomiting for the past few weeks to months. The patient was working in [place] when he vomited coffee-ground emesis became dizzy and collapsed outside in his car EMS was called and he was taken to [facility]. He was admitted on September 16, 2023. CT scan of the abdomen pelvis from that admission demonstrated: Findings of small-bowel obstruction. The exact transition point is not identified. Cause is likely related to adhesions. Moderate-sized paraesophageal hiatal hernia. The patient was admitted and followed. He still noted coffee-ground emesis while in the hospital. The patient had a small bowel series performed on September 17, 2023. This demonstrated: No evidence of bowel obstruction. Multiple mildly dilated small bowel loops with oral contrast entering the cecum after 90 minutes of imaging. Nonspecific coin stacking-like appearance of some of the small bowel loops in the lower abdomen and left lower quadrant. Findings are nonspecific and can be seen with vascularities, coagulopathies and anticoagulant therapy. The patient initially denied any previous abdominal surgery but he did have a laparoscopic right inguinal hernia [place] [address] Green. He states he still feels uncomfortable. And vomiting some coffee-ground emesis. PAST MEDICAL HISTORY PAST MEDICAL HISTORY Diagnosis Date Anxiety 11/01/2015 Asymptomatic microscopic hematuria 2017 Contact dermatitis and other eczema, due to unspecified cause DDD (degenerative disc disease), lumbar 02/10/2013 Depression Dog bite of right lower leg 2000 with recurrent wounds Dysthymic disorder Depression (non-psychotic) Hypertension Impaired glucose metabolism 09/26/2014 A1c 6.1% September 2014 Obesity Open wound of knee, leg (except thigh), and ankle, complicated Open wound of right lower extremity 07/24/2017 YAIMA (obstructive sleep apnea) no CPAP tried by choice. 12/20/2014 Personal history of skin cancer 01/30/2016 Dr. Melody Trammell, Dermatology annually. Primary insomnia 11/01/2015 Reflex sympathetic dystrophy Restless legs 05/20/2015 Squamous cell carcinoma of lower leg 09/23/2012 Skin graft x2- Dr. Cook, Dr. Cardona [facility]- [place] Dr. Trammell Tubular adenoma of colon 02/24/2023 Ulcer of other part of foot PAST SURGICAL HISTORY PAST SURGICAL HISTORY Procedure Laterality Date COLONOSCOPY 10/27/2016 INCOMPLETE- CT colonography 03/31/18 diverticular disease. Repeat 5-10yrs COLONOSCOPY SCREENING 02/24/2023 EGD 10/27/2016 EGD W/O BRSH SPEC VARICIES INJ 02/24/2023 PAST SURGICAL HISTORY OF Right 2012 excision of tumor, right leg PAST SURGICAL HISTORY OF Right 2014 skin grafts, right leg. 2012,2013. CURRENT MEDICATIONS Current Outpatient Medications Medication Sig omeprazole (PRILOSEC) 40 mg capsule Take 1 capsule by mouth once daily. clonazePAM (KLONOPIN) 1 mg tablet Take 2 tablets by mouth at bedtime as needed (anxiety, restless leg) for up to 180 days. amLODIPine (NORVASC) 5 mg tablet Take 1 tablet by mouth once daily. Phentermine HCl 37.5 mg tablet Take 1 tablet by mouth once daily for 90 days. BMI 34.18 oxyCODONE (ROXICODONE) 15 mg immediate release tablet Take 15 mg by mouth three times daily. Dr. Ware No current facility-administered medications for this visit. ALLERGIES: Patient has no active allergies. PERSONAL HISTORY: SOCIAL HISTORY Social History Tobacco Use Smoking status: Never Smokeless tobacco: Never Vaping Use Vaping Use: Never used Substance Use Topics Alcohol use: Not Currently Comment: rare Drug use: No FAMILY HISTORY: FAMILY HISTORY FAMILY HISTORY Problem Relation Age of Onset Cancer Father pancreatic other (scleroderma) Mother REVIEW OF SYMPTOMS: negative except as noted above PHYSICAL EXAMINATION: General: The patient is 62 year old male, well nourished, well hydrated in no acute distress. The patient is oriented to time, place, and person. VITALS: There were no vitals taken for this visit. HEENT: Normal cephalic, ataumatic, pupils are equally round, sclera are anicteric, mucous membranes are moist, oropharynx is clear. Neck has no masses, asymmetry or lymphadenopathy. Thyroid is unremarkable. Respiratory: Clear to auscultation and percussion. Normal respiratory excursion and pattern. Cardiac: Examination is regular rate and rhythm. Abdominal exam: Soft, nontender, with no palpable masses. No hepatosplenomegaly. No palpable hernias. Rectal exam: exam deferred Extremities: no clubbing, cyanosis or edema. No adenopathy. Other: LABORATORY VALUES: As Noted RADIOLOGIC STUDIES: As Noted Assessment IMPRESSION: Coffee-ground emesis, PLAN: Coffee-ground emesis, recent ileus versus obstructive episode-more likely ileus question gastroenteritis. I obtained a plain x-ray which demonstrated all the contrast located within his colon no signs of a small bowel obstruction were noted. He did have solid stool in his right colon. I recommended MiraLAX. I plan to perform upper endoscopy. We discussed the risks and benefits of the planned endoscopy. I have informed the patient that complications can occur including failure to complete the endoscopy and perforation. The patient had the opportunity to ask questions concerning the planned endoscopy. My staff has also explained the procedure to the patient in understandable terms and has given the patient printed material concerning the procedure. The patient freely consents to surgery. Diagnoses: (K92.0) Coffee ground emesis (primary encounter diagnosis) (K56.609) SBO (small bowel obstruction) (HCC) My findings have been communicated to Dr. Lance Jorgensen MD via shared medical record. This note will be forwarded to Dr. Lance Jorgensen MD. Return to Clinic: The patient is instructed to follow-up with me after the testing has been completed. Tony Childers MD [facility] 11-24-2023 History and physical note HISTORY AND PHYSICAL Lance Bee 1960 REFERRING PHYSICIAN: self CHIEF COMPLAINT: Follow Up HPI: The patient is a 62 year old male with a complaint of recent hospital admission for ileus versus obstruction and coffee-ground emesis. The patient was noting abdominal distention constipation without necessarily obstipation and episodic vomiting for the past few weeks to months. The patient was working in [place] when he vomited coffee-ground emesis became dizzy and collapsed outside in his car EMS was called and he was taken to [facility]. He was admitted on September 16, 2023. CT scan of the abdomen pelvis from that admission demonstrated: Findings of small-bowel obstruction. The exact transition point is not identified. Cause is likely related to adhesions. Moderate-sized paraesophageal hiatal hernia. The patient was admitted and followed. He still noted coffee-ground emesis while in the hospital. The patient had a small bowel series performed on September 17, 2023. This demonstrated: No evidence of bowel obstruction. Multiple mildly dilated small bowel loops with oral contrast entering the cecum after 90 minutes of imaging. Nonspecific coin stacking-like appearance of some of the small bowel loops in the lower abdomen and left lower quadrant. Findings are nonspecific and can be seen with vascularities, coagulopathies and anticoagulant therapy. The patient initially denied any previous abdominal surgery but he did have a laparoscopic right inguinal hernia [place] [address] Green. He states he still feels uncomfortable. And vomiting some coffee-ground emesis. PAST MEDICAL HISTORY PAST MEDICAL HISTORY Diagnosis Date Anxiety 11/01/2015 Asymptomatic microscopic hematuria 2017 Contact dermatitis and other eczema, due to unspecified cause DDD (degenerative disc disease), lumbar 02/10/2013 Depression Dog bite of right lower leg 1999 with recurrent wounds Dysthymic disorder Depression (non-psychotic) Hypertension Impaired glucose metabolism 09/26/2014 A1c 6.1% September 2014 Obesity Open wound of knee, leg (except thigh), and ankle, complicated Open wound of right lower extremity 07/24/2017 YAIMA (obstructive sleep apnea) no CPAP tried by choice. 12/20/2014 Personal history of skin cancer 01/30/2016 Dr. Melody Trammell, Dermatology annually. Primary insomnia 11/01/2015 Reflex sympathetic dystrophy Restless legs 05/20/2015 Squamous cell carcinoma of lower leg 09/23/2012 Skin graft x2- Dr. Cook, Dr. [facility]- [place] Trammell Tubular adenoma of colon 02/24/2023 Ulcer of other part of foot PAST SURGICAL HISTORY PAST SURGICAL HISTORY Procedure Laterality Date COLONOSCOPY 10/27/2016 INCOMPLETE- CT colonography 03/31/18 diverticular disease. Repeat 5-10yrs COLONOSCOPY SCREENING 02/24/2023 EGD 10/27/2016 EGD W/O BRSH SPEC VARICIES INJ 02/24/2023 PAST SURGICAL HISTORY OF Right 2012 excision of tumor, right leg PAST SURGICAL HISTORY OF Right 2014 skin grafts, right leg. 2012,2013. CURRENT MEDICATIONS Current Outpatient Medications Medication Sig omeprazole (PRILOSEC) 40 mg capsule Take 1 capsule by mouth once daily. clonazePAM (KLONOPIN) 1 mg tablet Take 2 tablets by mouth at bedtime as needed (anxiety, restless leg) for up to 180 days. amLODIPine (NORVASC) 5 mg tablet Take 1 tablet by mouth once daily. Phentermine HCl 37.5 mg tablet Take 1 tablet by mouth once daily for 90 days. BMI 34.18 oxyCODONE (ROXICODONE) 15 mg immediate release tablet Take 15 mg by mouth three times daily. Dr. Ware No current facility-administered medications for this visit. ALLERGIES: Patient has no active allergies. PERSONAL HISTORY: SOCIAL HISTORY Social History Tobacco Use Smoking status: Never Smokeless tobacco: Never Vaping Use Vaping Use: Never used Substance Use Topics Alcohol use: Not Currently Comment: rare Drug use: No FAMILY HISTORY: FAMILY HISTORY FAMILY HISTORY Problem Relation Age of Onset Cancer Father pancreatic other (scleroderma) Mother REVIEW OF SYMPTOMS: negative except as noted above PHYSICAL EXAMINATION: General: The patient is 62 year old male, well nourished, well hydrated in no acute distress. The patient is oriented to time, place, and person. VITALS: There were no vitals taken for this visit. HEENT: Normal cephalic, ataumatic, pupils are equally round, sclera are anicteric, mucous membranes are moist, oropharynx is clear. Neck has no masses, asymmetry or lymphadenopathy. Thyroid is unremarkable. Respiratory: Clear to auscultation and percussion. Normal respiratory excursion and pattern. Cardiac: Examination is regular rate and rhythm. Abdominal exam: Soft, nontender, with no palpable masses. No hepatosplenomegaly. No palpable hernias. Rectal exam: exam deferred Extremities: no clubbing, cyanosis or edema. No adenopathy. Other: LABORATORY VALUES: As Noted RADIOLOGIC STUDIES: As Noted Assessment IMPRESSION: Coffee-ground emesis, PLAN: Coffee-ground emesis, recent ileus versus obstructive episode-more likely ileus question gastroenteritis. I obtained a plain x-ray which demonstrated all the contrast located within his colon no signs of a small bowel obstruction were noted. He did have solid stool in his right colon. I recommended MiraLAX. I plan to perform upper endoscopy. We discussed the risks and benefits of the planned endoscopy. I have informed the patient that complications can occur including failure to complete the endoscopy and perforation. The patient had the opportunity to ask questions concerning the planned endoscopy. My staff has also explained the procedure to the patient in understandable terms and has given the patient printed material concerning the procedure. The patient freely consents to surgery. Diagnoses: (K92.0) Coffee ground emesis (primary encounter diagnosis) (K56.609) SBO (small bowel obstruction) (HCC) My findings have been communicated to Dr. Lance Jorgensen MD via shared medical record. This note will be forwarded to Dr. Lance Jorgensen MD. Return to Clinic: The patient is instructed to follow-up with me after the testing has been completed. Tony Childers MD [facility] 11-24-2023 History and physical note UPDATED PROCEDURAL SEDATION HISTORY AND PHYSICAL EXAMINATION SERVICE DATE: 11/24/2023 SERVICE TIME: 9:41 AM PHYSICAL EXAM MUST BE COMPLETED ON ADMISSION PROCEDURE: Procedure Indications: The History and Physical (completed in the past 30 days) has been reviewed and the patient has been examined. The contents accurately reflect the patient's condition with the following additions or revisions since the H&P was completed. ASA Class: ASA Class: Patient with mild systemic disease Examination indicates no changes. AIRWAY: Airway Visualization of Uvula: Yes Mouth opening greater than 2 fingerbreadths: Yes Neck Full Range of Motion: Yes LUNGS: Lungs clear to auscultation CARDIAC: Regular rhythm,Regular rate Provisional Diagnosis/Treatment Plan: coffee ground emesis - EGD Sedation Goal: Moderate This H&P can be found in the attached. SIGNATURE: Tony Childers MD PATIENT NAME: Lance Bee DATE: November 24, 2023 TIME: 9:41 AM Source Note - Tony Childers MD - 11/24/2023 9:15 AM EDT HISTORY AND PHYSICAL Lance Bee 1960 REFERRING PHYSICIAN: self CHIEF COMPLAINT: Follow Up HPI: The patient is a 62 year old male with a complaint of recent hospital admission for ileus versus obstruction and coffee-ground emesis. The patient was noting abdominal distention constipation without necessarily obstipation and episodic vomiting for the past few weeks to months. The patient was working in [place] when he vomited coffee-ground emesis became dizzy and collapsed outside in his car EMS was called and he was taken to [facility]. He was admitted on September 16, 2023. CT scan of the abdomen pelvis from that admission demonstrated: Findings of small-bowel obstruction. The exact transition point is not identified. Cause is likely related to adhesions. Moderate-sized paraesophageal hiatal hernia. The patient was admitted and followed. He still noted coffee-ground emesis while in the hospital. The patient had a small bowel series performed on September 17, 2023. This demonstrated: No evidence of bowel obstruction. Multiple mildly dilated small bowel loops with oral contrast entering the cecum after 90 minutes of imaging. Nonspecific coin stacking-like appearance of some of the small bowel loops in the lower abdomen and left lower quadrant. Findings are nonspecific and can be seen with vascularities, coagulopathies and anticoagulant therapy. The patient initially denied any previous abdominal surgery but he did have a laparoscopic right inguinal hernia [place] [address] Green. He states he still feels uncomfortable. And vomiting some coffee-ground emesis. PAST MEDICAL HISTORY PAST MEDICAL HISTORY Diagnosis Date Anxiety 11/01/2015 Asymptomatic microscopic hematuria 2017 Contact dermatitis and other eczema, due to unspecified cause DDD (degenerative disc disease), lumbar 02/10/2013 Depression Dog bite of right lower leg 2000 with recurrent wounds Dysthymic disorder Depression (non-psychotic) Hypertension Impaired glucose metabolism 09/26/2014 A1c 6.1% September 2014 Obesity Open wound of knee, leg (except thigh), and ankle, complicated Open wound of right lower extremity 07/24/2017 YAIMA (obstructive sleep apnea) no CPAP tried by choice. 12/20/2014 Personal history of skin cancer 01/30/2016 Dr. Melody Trammell, Dermatology annually. Primary insomnia 11/01/2015 Reflex sympathetic dystrophy Restless legs 05/20/2015 Squamous cell carcinoma of lower leg 09/23/2012 Skin graft x2- Dr. Cook, Dr. Cardona [facility]- [place] Dr. Trammell Tubular adenoma of colon 02/24/2023 Ulcer of other part of foot PAST SURGICAL HISTORY PAST SURGICAL HISTORY Procedure Laterality Date COLONOSCOPY 10/27/2016 INCOMPLETE- CT colonography 03/31/18 diverticular disease. Repeat 5-10yrs COLONOSCOPY SCREENING 02/24/2023 EGD 10/27/2016 EGD W/O BRSH SPEC VARICIES INJ 02/24/2023 PAST SURGICAL HISTORY OF Right 2012 excision of tumor, right leg PAST SURGICAL HISTORY OF Right 2014 skin grafts, right leg. 2012,2013. CURRENT MEDICATIONS Current Outpatient Medications Medication Sig omeprazole (PRILOSEC) 40 mg capsule Take 1 capsule by mouth once daily. clonazePAM (KLONOPIN) 1 mg tablet Take 2 tablets by mouth at bedtime as needed (anxiety, restless leg) for up to 180 days. amLODIPine (NORVASC) 5 mg tablet Take 1 tablet by mouth once daily. Phentermine HCl 37.5 mg tablet Take 1 tablet by mouth once daily for 90 days. BMI 34.18 oxyCODONE (ROXICODONE) 15 mg immediate release tablet Take 15 mg by mouth three times daily. Dr. Ware No current facility-administered medications for this visit. ALLERGIES: Patient has no active allergies. PERSONAL HISTORY: SOCIAL HISTORY Social History Tobacco Use Smoking status: Never Smokeless tobacco: Never Vaping Use Vaping Use: Never used Substance Use Topics Alcohol use: Not Currently Comment: rare Drug use: No FAMILY HISTORY: FAMILY HISTORY FAMILY HISTORY Problem Relation Age of Onset Cancer Father pancreatic other (scleroderma) Mother REVIEW OF SYMPTOMS: negative except as noted above PHYSICAL EXAMINATION: General: The patient is 62 year old male, well nourished, well hydrated in no acute distress. The patient is oriented to time, place, and person. VITALS: There were no vitals taken for this visit. HEENT: Normal cephalic, ataumatic, pupils are equally round, sclera are anicteric, mucous membranes are moist, oropharynx is clear. Neck has no masses, asymmetry or lymphadenopathy. Thyroid is unremarkable. Respiratory: Clear to auscultation and percussion. Normal respiratory excursion and pattern. Cardiac: Examination is regular rate and rhythm. Abdominal exam: Soft, nontender, with no palpable masses. No hepatosplenomegaly. No palpable hernias. Rectal exam: exam deferred Extremities: no clubbing, cyanosis or edema. No adenopathy. Other: LABORATORY VALUES: As Noted RADIOLOGIC STUDIES: As Noted Assessment IMPRESSION: Coffee-ground emesis, PLAN: Coffee-ground emesis, recent ileus versus obstructive episode-more likely ileus question gastroenteritis. I obtained a plain x-ray which demonstrated all the contrast located within his colon no signs of a small bowel obstruction were noted. He did have solid stool in his right colon. I recommended MiraLAX. I plan to perform upper endoscopy. We discussed the risks and benefits of the planned endoscopy. I have informed the patient that complications can occur including failure to complete the endoscopy and perforation. The patient had the opportunity to ask questions concerning the planned endoscopy. My staff has also explained the procedure to the patient in understandable terms and has given the patient printed material concerning the procedure. The patient freely consents to surgery. Diagnoses: (K92.0) Coffee ground emesis (primary encounter diagnosis) (K56.609) SBO (small bowel obstruction) (HCC) My findings have been communicated to Dr. Lance Jorgensen MD via shared medical record. This note will be forwarded to Dr. Lance Jorgensen MD. Return to Clinic: The patient is instructed to follow-up with me after the testing has been completed. Tony Childers MD HISTORY AND PHYSICAL Lance Bee 1960 REFERRING PHYSICIAN: self CHIEF COMPLAINT: Follow Up HPI: The patient is a 62 year old male with a complaint of recent hospital admission for ileus versus obstruction and coffee-ground emesis. The patient was noting abdominal distention constipation without necessarily obstipation and episodic vomiting for the past few weeks to months. The patient was working in [place] when he vomited coffee-ground emesis became dizzy and collapsed outside in his car EMS was called and he was taken to [facility]. He was admitted on September 16, 2023. CT scan of the abdomen pelvis from that admission demonstrated: Findings of small-bowel obstruction. The exact transition point is not identified. Cause is likely related to adhesions. Moderate-sized paraesophageal hiatal hernia. The patient was admitted and followed. He still noted coffee-ground emesis while in the hospital. The patient had a small bowel series performed on September 17, 2023. This demonstrated: No evidence of bowel obstruction. Multiple mildly dilated small bowel loops with oral contrast entering the cecum after 90 minutes of imaging. Nonspecific coin stacking-like appearance of some of the small bowel loops in the lower abdomen and left lower quadrant. Findings are nonspecific and can be seen with vascularities, coagulopathies and anticoagulant therapy. The patient initially denied any previous abdominal surgery but he did have a laparoscopic right inguinal her[place] [address] Green. He states he still feels uncomfortable. And vomiting some coffee-ground emesis. PAST MEDICAL HISTORY PAST MEDICAL HISTORY Diagnosis Date Anxiety 11/01/2015 Asymptomatic microscopic hematuria 2017 Contact dermatitis and other eczema, due to unspecified cause DDD (degenerative disc disease), lumbar 02/10/2013 Depression Dog bite of right lower leg 1999 with recurrent wounds Dysthymic disorder Depression (non-psychotic) Hypertension Impaired glucose metabolism 09/26/2014 A1c 6.1% September 2014 Obesity Open wound of knee, leg (except thigh), and ankle, complicated Open wound of right lower extremity 07/24/2017 YAIMA (obstructive sleep apnea) no CPAP tried by choice. 12/20/2014 Personal history of skin cancer 01/30/2016 Dr. Melody Trammell, Dermatology annually. Primary insomnia 11/01/2015 Reflex sympathetic dystrophy Restless legs 05/20/2015 Squamous cell carcinoma of lower leg 09/23/2012 Skin graft x2- Dr. Cook, Dr. Cardona [facility]- [place] Dr. Trammell Tubular adenoma of colon 02/24/2023 Ulcer of other part of foot PAST SURGICAL HISTORY PAST SURGICAL HISTORY Procedure Laterality Date COLONOSCOPY 10/27/2016 INCOMPLETE- CT colonography 03/31/18 diverticular disease. Repeat 5-10yrs COLONOSCOPY SCREENING 02/24/2023 EGD 10/27/2016 EGD W/O BRSH SPEC VARICIES INJ 02/24/2023 PAST SURGICAL HISTORY OF Right 2012 excision of tumor, right leg PAST SURGICAL HISTORY OF Right 2014 skin grafts, right leg. 2012,2013. CURRENT MEDICATIONS Current Outpatient Medications Medication Sig omeprazole (PRILOSEC) 40 mg capsule Take 1 capsule by mouth once daily. clonazePAM (KLONOPIN) 1 mg tablet Take 2 tablets by mouth at bedtime as needed (anxiety, restless leg) for up to 180 days. amLODIPine (NORVASC) 5 mg tablet Take 1 tablet by mouth once daily. Phentermine HCl 37.5 mg tablet Take 1 tablet by mouth once daily for 90 days. BMI 34.18 oxyCODONE (ROXICODONE) 15 mg immediate release tablet Take 15 mg by mouth three times daily. Dr. Ware No current facility-administered medications for this visit. ALLERGIES: Patient has no active allergies. PERSONAL HISTORY: SOCIAL HISTORY Social History Tobacco Use Smoking status: Never Smokeless tobacco: Never Vaping Use Vaping Use: Never used Substance Use Topics Alcohol use: Not Currently Comment: rare Drug use: No FAMILY HISTORY: FAMILY HISTORY FAMILY HISTORY Problem Relation Age of Onset Cancer Father pancreatic other (scleroderma) Mother REVIEW OF SYMPTOMS: negative except as noted above PHYSICAL EXAMINATION: General: The patient is 62 year old male, well nourished, well hydrated in no acute distress. The patient is oriented to time, place, and person. VITALS: There were no vitals taken for this visit. HEENT: Normal cephalic, ataumatic, pupils are equally round, sclera are anicteric, mucous membranes are moist, oropharynx is clear. Neck has no masses, asymmetry or lymphadenopathy. Thyroid is unremarkable. Respiratory: Clear to auscultation and percussion. Normal respiratory excursion and pattern. Cardiac: Examination is regular rate and rhythm. Abdominal exam: Soft, nontender, with no palpable masses. No hepatosplenomegaly. No palpable hernias. Rectal exam: exam deferred Extremities: no clubbing, cyanosis or edema. No adenopathy. Other: LABORATORY VALUES: As Noted RADIOLOGIC STUDIES: As Noted Assessment IMPRESSION: Coffee-ground emesis, PLAN: Coffee-ground emesis, recent ileus versus obstructive episode-more likely ileus question gastroenteritis. I obtained a plain x-ray which demonstrated all the contrast located within his colon no signs of a small bowel obstruction were noted. He did have solid stool in his right colon. I recommended MiraLAX. I plan to perform upper endoscopy. We discussed the risks and benefits of the planned endoscopy. I have informed the patient that complications can occur including failure to complete the endoscopy and perforation. The patient had the opportunity to ask questions concerning the planned endoscopy. My staff has also explained the procedure to the patient in understandable terms and has given the patient printed material concerning the procedure. The patient freely consents to surgery. Diagnoses: (K92.0) Coffee ground emesis (primary encounter diagnosis) (K56.609) SBO (small bowel obstruction) (HCC) My findings have been communicated to Dr. Lance Jorgensen MD via shared medical record. This note will be forwarded to Dr. Lance Jorgensen MD. Return to Clinic: The patient is instructed to follow-up with me after the testing has been completed. Tony Childers MD documented in this encounter [facility] 10-29-2023 Note HNO ID: [id number] Author: LANCE JORGENSEN MD Service: ? Author Type: Physician Type: Progress Notes Filed: 10/29/2023 16:14 Note Text: This note was created using [employer]. Subjective Patient presents with: Follow Up Lance Bee is a 62 year old male. He was scheduled today for some odd triaging of issues that occurred more than one month ago. He just returned today from a vacation in [place] and felt well, other than some fatigue. He was taking his medications and still losing weight. His hypertension was better. Review of Systems Constitutional: Positive for fatigue. Negative for appetite change and fever. HENT: Negative for congestion. Respiratory: Negative for cough and shortness of breath. Cardiovascular: Negative for chest pain, palpitations and leg swelling. Gastrointestinal: Negative for abdominal pain, diarrhea, nausea and vomiting. Neurological: Negative for dizziness and headaches. ACTIVE PROBLEM LIST Reflex Sympathetic Dystrophy Depression Hypertension Goal Bp (Blood Pressure) < 130/80 Ddd (Degenerative Disc Disease), Lumbar Obesity (Bmi 35.0-39.9 Without Comorbidity) Impaired Glucose Metabolism Anxiety Primary Insomnia Personal History of Skin Cancer Restless Legs Actinic Keratosis Tubular Adenoma of Colon At Risk for Sleep Apnea Current Outpatient Medications Medication Sig omeprazole (PRILOSEC) 40 mg capsule Take 1 capsule by mouth once daily. clonazePAM (KLONOPIN) 1 mg tablet Take 2 tablets by mouth at bedtime as needed (anxiety, restless leg) for up to 180 days. Phentermine HCl 37.5 mg tablet Take 1 tablet by mouth once daily for 90 days. BMI 34.18 oxyCODONE (ROXICODONE) 15 mg immediate release tablet Take 15 mg by mouth three times daily. Dr. Ware amLODIPine (NORVASC) 5 mg tablet Take 1 tablet by mouth once daily. No current facility-administered medications for this visit. Objective BP 130/78 (BP Site: Left Arm, BP Position: Sitting) Pulse 84 Resp 16 Wt 111.1 kg (245 lb) SpO2 98% BMI 33.23 kg/m? Physical Exam Constitutional: General: He is not in acute distress. Appearance: He is not ill-appearing or diaphoretic. HENT: Head: Normocephalic. Nose: Nose normal. Mouth/Throat: Mouth: Mucous membranes are moist. Eyes: Conjunctiva/sclera: Conjunctivae normal. Cardiovascular: Rate and Rhythm: Normal rate and regular rhythm. Heart sounds: No murmur heard. No gallop. Pulmonary: Breath sounds: Normal breath sounds. Abdominal: General: There is no distension. Palpations: Abdomen is soft. There is no mass. Tenderness: There is no abdominal tenderness. Musculoskeletal: Right lower leg: No edema. Left lower leg: No edema. Neurological: Mental Status: He is alert. Assessment and Plan 1. Hypertension goal BP (blood pressure) < 130/80 - ICD9: 401.9, ICD10: I10 (primary diagnosis) - Improving control - Continue current medications - Recommend home blood pressure monitoring, to bring results to next visit - Encouraged sodium restriction, DASH or Mediterranean diet - Discussed need for and benefit of weight loss. BMI 33.23 kg/(m2) - AMLODIPINE 5 MG TABLET - COMPREHENSIVE METABOLIC PANEL 2. Obesity (BMI 35.0-39.9 without comorbidity) - ICD9: 278.00, ICD10: E66.9 Weight decreasing - Behavioral and pharmacological intervention - PHENTERMINE 37.5 MG TABLET Discussed medication dosage, usage, goals of therapy, and side effects. We will continue another 3 months, then break. 3. History of small bowel obstruction - ICD9: V12.79, ICD10: Z87.19 Endoscopies scheduled. 4. Fatigue, unspecified type - ICD9: 780.79, ICD10: R53.83 - COMPLETE BLOOD COUNT - VITAMIN B12 Lance Jorgensen MD [facility] 10-29-2023 History of Present illness Narrative This note was created using Results [employer]. Subjective Patient presents with: Follow Up Lance Bee is a 62 year old male. He was scheduled today for some odd triaging of issues that occurred more than one month ago. He just returned today from a vacation in [place] and felt well, other than some fatigue. He was taking his medications and still losing weight. His hypertension was better. Review of Systems Constitutional: Positive for fatigue. Negative for appetite change and fever. HENT: Negative for congestion. Respiratory: Negative for cough and shortness of breath. Cardiovascular: Negative for chest pain, palpitations and leg swelling. Gastrointestinal: Negative for abdominal pain, diarrhea, nausea and vomiting. Neurological: Negative for dizziness and headaches. ACTIVE PROBLEM LIST Reflex Sympathetic Dystrophy Depression Hypertension Goal Bp (Blood Pressure) < 130/80 Ddd (Degenerative Disc Disease), Lumbar Obesity (Bmi 35.0-39.9 Without Comorbidity) Impaired Glucose Metabolism Anxiety Primary Insomnia Personal History of Skin Cancer Restless Legs Actinic Keratosis Tubular Adenoma of Colon At Risk for Sleep Apnea Current Outpatient Medications Medication Sig omeprazole (PRILOSEC) 40 mg capsule Take 1 capsule by mouth once daily. clonazePAM (KLONOPIN) 1 mg tablet Take 2 tablets by mouth at bedtime as needed (anxiety, restless leg) for up to 180 days. Phentermine HCl 37.5 mg tablet Take 1 tablet by mouth once daily for 90 days. BMI 34.18 oxyCODONE (ROXICODONE) 15 mg immediate release tablet Take 15 mg by mouth three times daily. Dr. Ware amLODIPine ([facility]) 5 mg tablet Take 1 tablet by mouth once daily. No current facility-administered medications for this visit. Objective BP 130/78 (BP Site: Left Arm, BP Position: Sitting) Pulse 84 Resp 16 Wt 111.1 kg (245 lb) SpO2 98% BMI 33.23 kg/m Physical Exam Constitutional: General: He is not in acute distress. Appearance: He is not ill-appearing or diaphoretic. HENT: Head: Normocephalic. Nose: Nose normal. Mouth/Throat: Mouth: Mucous membranes are moist. Eyes: Conjunctiva/sclera: Conjunctivae normal. Cardiovascular: Rate and Rhythm: Normal rate and regular rhythm. Heart sounds: No murmur heard. No gallop. Pulmonary: Breath sounds: Normal breath sounds. Abdominal: General: There is no distension. Palpations: Abdomen is soft. There is no mass. Tenderness: There is no abdominal tenderness. Musculoskeletal: Right lower leg: No edema. Left lower leg: No edema. Neurological: Mental Status: He is alert. Assessment and Plan 1. Hypertension goal BP (blood pressure) < 130/80 - ICD9: 401.9, ICD10: I10 (primary diagnosis) - Improving control - Continue current medications - Recommend home blood pressure monitoring, to bring results to next visit - Encouraged sodium restriction, DASH or Mediterranean diet - Discussed need for and benefit of weight loss. BMI 33.23 kg/(m^2) - AMLODIPINE 5 MG TABLET - COMPREHENSIVE METABOLIC PANEL 2. Obesity (BMI 35.0-39.9 without comorbidity) - ICD9: 278.00, ICD10: E66.9 Weight decreasing - Behavioral and pharmacological intervention - PHENTERMINE 37.5 MG TABLET Discussed medication dosage, usage, goals of therapy, and side effects. We will continue another 3 months, then break. 3. History of small bowel obstruction - ICD9: V12.79, ICD10: Z87.19 Endoscopies scheduled. 4. Fatigue, unspecified type - ICD9: 780.79, ICD10: R53.83 - COMPLETE BLOOD COUNT - VITAMIN B12 Lance Jorgensen MD documented in this encounter [facility] 09-23-2023 Telephone encounter Note Spoke with DR Childers and patient. He saw patient yesterday in office. DR Childers states that patient was intstructed to take miralax to facilitate moving bowels. ( Obstruction was seen in colon due to contrast from CT). Patient is not sure if he took miralax or maalox but he states he will get the right thing and take it as directed. Advsied Patient per Dr Childers that he should proceed to ED if his symptoms become worse. Patient verbalizes understanding and has no further questions or concerns at this time. Was advised to call as needed for future problems. [facility] 09-23-2023 Miscellaneous Notes Spoke with DR Childers and patient. He saw patient yesterday in office. DR Childers states that patient was intstructed to take miralax to facilitate moving bowels. ( Obstruction was seen in colon due to contrast from CT). Patient is not sure if he took miralax or maalox but he states he will get the right thing and take it as directed. Advsied Patient per Dr Childers that he should proceed to ED if his symptoms become worse. Patient verbalizes understanding and has no further questions or concerns at this time. Was advised to call as needed for future problems. documented in this encounter [facility] 09-22-2023 History of Present illness Narrative Radiology Service Progress Note PATIENT NAME: Lance Bee DATE OF SERVICE: September 22, 2023 TIME: 1:29 PM PATIENT IDENTITY VERIFICATION COMPLETED USING TWO (2) IDENTIFIERS: Name and Date of confirmed by patient verbally. FALL SCREENING: Has the patient had 2 falls in the last year or 1 fall with injury or currently using an Ambulatory Assistive Device (Walker, Cane, Wheelchair, Crutches, etc.)? No PATIENT GENDER DATA: Male PATIENT RELEVANT IMPLANT DATA REVIEWED: Yes PATIENT PRESENTS WITH AN IMPLANTABLE OR ATTACHED PRINTER OPERATOR: No RADIOLOGY DEPARTMENT: General X-ray: Exam(s) Completed: Abdomen X-Ray: Abdomen with Upright PERIPHERAL IV DATA: Not applicable SIGNED BY: RT Milton(R) September 22, 2023 1:29 PM documented in this encounter [facility] 09-21-2023 Telephone encounter Note Images from the original note were not included. Tony Childers MD Minter, [place], [place]; [facility] General Surgery [place]; Melanie Arciniega APRN.CNP2 days ago Please placed the patient on Melanie Odin schedule and he can be set up for upper endoscopy which ever 1 of us has first availability. [facility] 09-21-2023 Miscellaneous Notes Images from the original note were not included. Tony Childers MD Minter, [place], [place]; [facility] General Surgery [place]; Melanie Arciniega APRN.CNP2 days ago Please placed the patient on Melanie Odin schedule and he can be set up for upper endoscopy which ever 1 of us has first availability. Patient scheduled 09/22/23 with Alvarado. Encounter closed. Ibeth Bishop LPN September 21, 2023 2:33 PM Patient is currently inpatient at [facility] and being d/c home tomorrow. Reports Black stools x couple months and black vomit x3 weeks. Had CT and xrays done showing no blockage. Patient was instructed to reach out to Dr. Childers. Patient asking about having another EGD done? Last one in February. Patient sent to scheduling to schedule office visit but asking if he could be seen izabella. Melisa Valderrama RN documented in this encounter [facility] 09-21-2023 Telephone encounter Note Patient scheduled 09/22/23 with Alvarado. Encounter closed. Ibeth Bishop LPN September 21, 2023 2:33 PM [facility] 09-18-2023 Note DAISY TRAUMA and [facility] DAILY PROGRESS NOTE Surgery Admitted with these risk variables:Cardiac Arrhythmia, Acute Kidney Injury, Intestinal Obstruction, Hypovolemia, and Acidosis. Please see assessment and plan for further details. ASSESSMENT & PLAN/ACTIVE MEDICAL PROBLEMS: Small bowel obstruction, no abdominal surgical history. -wbc 8.88 09/16 (13.8), afebrile, VS stable. - SBFT negative, tolerating regular diet -denies flatus or BM -Pain control, ambulate -okay to dispo if tolerates breakfast. Hypovolemia, ESVIN, Cardiac Arrhythmia, Acidosis -Creat 0.90 (1.54) SURGERIES/PROCEDURES: Date Operation/Procedure Provider Name INCIDENTAL FINDINGS: N/A. RESOLVED PROBLEMS: DISPOSITION - Home when medically ready ======== CHIEF COMPLAINT/ HPI / PFSHx / EVENTS OVER LAST 24HRS: No events overnight. Denies abdominal pain, states he is tolerating regular diet. No BM or flatus as of yet. REVIEW OF SYSTEMS: Other than the above items the remainder of the complete ROS is otherwise unchanged from admission. PHYSICAL EXAM: Temp: [97.4 degrees F (36.3 degrees C)-98 degrees F (36.7 degrees C)] 97.4 degrees F (36.3 degrees C) Heart Rate: [69-87] 78 Resp: [15-16] 16 BP: (130-159)/(78-95) 146/83 GENERAL: Appears age appropriate. No acute distress. NEUROLOGICAL: Alert and oriented X 3. Follows commands with extremities x4, equal strength. GCS = 15 Head, Throat: Head: Atraumatic, normocephalic. Throat: phonation normal Neck: Supple, trachea midline. CARDIOVASCULAR: No peripheral edema noted. 2+ pulses radial/DP/PT bilaterally. RESPIRATORY: Respiratory effort unlabored without use of accessory muscles. RA ABDOMINAL: Rounded, soft, non-tender, nondistended, normal bowel sounds. No guarding or peritoneal signs. Denies flatus or BM. GENITOURINARY: Normal genitalia for age without lesion or trauma. MUSCULOSKELETAL: Extremities atraumatic without gross deformity x4. No clubbing, cyanosis or joint edema. SKIN: Skin warm and dry. No rashes or lesions. Intake/Output Summary (Last 24 hours) at 09/18/2023 0541 Last data filed at 09/17/2023 2310 Gross per 24 hour Intake 1241.38 ml Output -- Net 1241.38 ml IMAGING [briefly note any results pertinent to today's evaluation]: SBFT reviewed. LABS Lab Results Component Value Date WBC 8.88 09/17/2023 HGB 15.5 09/17/2023 HCT 45.7 09/17/2023 MCV 90.5 09/17/2023 PLT 189 09/17/2023 RBC 5.05 09/17/2023 Lab Results Component Value Date GLUCOSE 100 (H) 09/17/2023 CALCIUM 8.7 09/17/2023 NA 142 09/17/2023 K 4.0 09/17/2023 CL 107 09/17/2023 BUN 17 09/17/2023 CREATININE 0.90 09/17/2023 Lab Results Component Value Date ALT 21 09/16/2023 AST 35 09/16/2023 ALKPHOS 144 09/16/2023 BILITOT 0.8 09/16/2023 DAILY CHECKLIST: *Need for Restraints: No *Need for Urinary Catheter: No *Need for Central Access Devices: No *Stress Ulcer Prophylaxis: Pepcid while NPO *VTE Prophylaxis (Body mass index is 32.28 kg/m ., Estimated Creatinine Clearance: 94.6 mL/min (by C-G formula based on SCr of 0.9 mg/dL).): Lovenox *Home Medications Reconciled: Yes *Code Status: Full AUTHENTICATED BY JORGE A TERRY, ON 09/18/2023 05:43:28 [facility] 09-17-2023 Telephone encounter Note Patient is currently inpatient at [facility] and being d/c home tomorrow. Reports Black stools x couple months and black vomit x3 weeks. Had CT and xrays done showing no blockage. Patient was instructed to reach out to Dr. Childers. Patient asking about having another EGD done? Last one in February. Patient sent to scheduling to schedule office visit but asking if he could be seen izabella. Melisa Valderrama RN [facility] 09-17-2023 Note -------- Attestation signed by Nikolas Balderas MD at 09/17/2023 3:11 PM Patient seen and examined agree with below. CT images obtained yesterday reviewed, not very consistent with small bowel obstruction. SBFT obtained today showing contrast reaches colon at 90 minutes, ruling out a small bowel obstruction. The etiology of his black emesis and stools is not clear to me. I recommend he contact his GI specialist who performed his endoscopic exam in February for further workup, consideration for capsule endoscopy. Will advance his diet as tolerated and likely DC home tomorrow. His abdomen is soft and non distended. Labs reviewed. -------- DAISY TRAUMA and [facility] DAILY PROGRESS NOTE Surgery Admitted with these risk variables:Cardiac Arrhythmia, Acute Kidney Injury, Intestinal Obstruction, Hypovolemia, and Acidosis. Please see assessment and plan for further details. ASSESSMENT & PLAN/ACTIVE MEDICAL PROBLEMS: Small bowel obstruction, no abdominal surgical history. -wbc 8.88 (13.8), afebrile, VS stable. - NPO, active bowel sounds- NG removed overnight (550 ml out prior to removal). -lactic acid resolved 1.5 (2.8). - SBFT 09/16. -Pain control, ambulate Hypovolemia, ESVIN, Cardiac Arrhythmia, Acidosis -Creat 0.90 (1.54) - fluid resuscitation. SURGERIES/PROCEDURES: Date Operation/Procedure Provider Name INCIDENTAL FINDINGS: N/A. RESOLVED PROBLEMS: DISPOSITION - Home when medically ready ======== CHIEF COMPLAINT/ HPI / PFSHx / EVENTS OVER LAST 24HRS: No events overnight. NG tube was inadvertently pulled overnight while getting to bathroom. Pain has improved and active bowel sounds, denies nausea and emesis. REVIEW OF SYSTEMS: Other than the above items the remainder of the complete ROS is otherwise unchanged from admission. PHYSICAL EXAM: Temp: [97.5 degrees F (36.4 degrees C)-98.4 degrees F (36.9 degrees C)] 97.8 degrees F (36.6 degrees C) Heart Rate: [83-121] 83 Resp: [15-26] 16 BP: (131-174)/(74-111) 161/84 GENERAL: Appears age appropriate. No acute distress. NEUROLOGICAL: Alert and oriented X 3. Follows commands with extremities x4, equal strength. GCS = 15 Head, Throat: Head: Atraumatic, normocephalic. Throat: phonation normal Neck: Supple, trachea midline. CARDIOVASCULAR: Regular rate and rhythm. No clicks, rubs, murmurs or gallops noted. No peripheral edema noted. 2+ pulses radial/DP/PT bilaterally. RESPIRATORY: Lungs, clear to auscultation bilaterally. No rhonchi, wheezes or crackles. Respiratory effort unlabored without use of accessory muscles. RA ABDOMINAL: Rounded, soft, minimally tender to right side of abdomen, nondistended, normal bowel sounds. No guarding or peritoneal signs. Denies flatus or BM. GENITOURINARY: Normal genitalia for age without lesion or trauma. MUSCULOSKELETAL: Extremities atraumatic without gross deformity x4. No clubbing, cyanosis or joint edema. SKIN: Skin warm and dry. No rashes or lesions. Intake/Output Summary (Last 24 hours) at 09/17/2023 0746 Last data filed at 09/17/2023 0630 Gross per 24 hour Intake 936.72 ml Output 1025 ml Net -88.28 ml IMAGING [briefly note any results pertinent to today's evaluation]: No new images. LABS Lab Results Component Value Date WBC 8.88 09/17/2023 HGB 15.5 09/17/2023 HCT 45.7 09/17/2023 MCV 90.5 09/17/2023 PLT 189 09/17/2023 RBC 5.05 09/17/2023 Lab Results Component Value Date GLUCOSE 100 (H) 09/17/2023 CALCIUM 8.7 09/17/2023 NA 142 09/17/2023 K 4.0 09/17/2023 CL 107 09/17/2023 BUN 17 09/17/2023 CREATININE 0.90 09/17/2023 Lab Results Component Value Date ALT 21 09/16/2023 AST 35 09/16/2023 ALKPHOS 144 09/16/2023 BILITOT 0.8 09/16/2023 DAILY CHECKLIST: *Need for Restraints: No *Need for Urinary Catheter: No *Need for Central Access Devices: No *Stress Ulcer Prophylaxis: Pepcid while NPO *VTE Prophylaxis (Body mass index is 32.28 kg/m ., Estimated Creatinine Clearance: 94.6 mL/min (by C-G formula based on SCr of 0.9 mg/dL).): Lovenox *Home Medications Reconciled: Yes *Code Status: Full AUTHENTICATED BY JORGE A TERRY, ON 09/17/2023 07:54:46 [facility] 09-16-2023 Note DAISY TRAUMA & [facility] SURGICAL HISTORY & PHYSICAL/CONSULTATION NOTE Surgery Admitted with these risk variables:Cardiac Arrhythmia, Acute Kidney Injury, Intestinal Obstruction, Hypovolemia, and Acidosis. Please see assessment and plan for further details. ASSESSMENT & PLAN/ACTIVE MEDICAL PROBLEMS: Small bowel obstruction - no abdominal surgical history. Ongoing emesis with constipation over last few months. Dark stools. - NPO. NG tube. - SBFT 09/16. Pain control Hypovolemia, Cardiac Arrhythmia, Acidosis -05/21 to dehydration from SBO. Lctic 2.8. - fluid resuscitation. Acute Kidney Injury - IVF resuscitation. - repeat BMP. INCIDENTAL FINDINGS: Paraesophageal hiatal hernia . CHIEF COMPLAINT: Abdominal pain, weakness Notification Time: 1700 Arrival at Bedside: 1755 HISTORY OF PRESENT ILLNESS / INJURY (HPI): Mr. eBe is a 62-year-old male with a past medical history of hypertension, depression, anxiety, chronic leg pain on oxycodone from pain management who presented to the [facility] ED with weakness, abdominal pain. He states over the last few months he has been having intermittent abdominal pain followed by nausea, vomiting and very hard stools. They are black in color and his emesis is dark black. He had an EGD and colonoscopy in February of 2023 with gastritis, esophagitis (on omeprazole daily) and colonoscopy with diverticulosis with 3 polypectomy pathology with tubular adenoma. Today he was working when he became weak, diaphoretic and co-worker called 911. Upon arrival to ED CT imaging concerning for SBO and surgery was consulted. PAST MEDICAL HISTORY (PMH): Past Medical History: Diagnosis Date Anxiety Degenerative disc disease, lumbar Depression Hypertension Insomnia Obesity Obstructive sleep apnea Restless leg syndrome Squamous cell carcinoma of leg Past Surgical History: Procedure Laterality Date COLONOSCOPY 2022 ESOPHAGOGASTRODUODENOSCOPY 2017 SKIN GRAFT Social History Tobacco Use Smoking status: Never Smokeless tobacco: Never Substance Use Topics Drug use: Never History reviewed. No pertinent family history. MEDICATIONS: omeprazole (PRILOSEC) 40 mg capsule Take 1 capsule by mouth once daily. clonazePAM (KLONOPIN) 1 mg tablet Take 2 tablets by mouth at bedtime as needed (anxiety, restless leg) for up to 180 days. oxyCODONE (ROXICODONE) 15 mg immediate release tablet Take 15 mg by mouth three times daily. Dr. Ware ALLERGIES: Allergies Allergen Reactions Cymbalta [Duloxetine] Unknown Lisinopril Unknown REVIEW OF SYSTEMS: COVID19 Screen: Negative for fever, cough, SOB, exposure. Constitutional Symptoms: Negative for unexplained falls, weight loss Eyes: Negative for eye pain or vision changes Ears, Nose, Mouth, Throat: Negative for rhinorrhea, nasal pain, dysphagia, hoarseness Cardiovascular: Negative for chest pain, orthopnea, edema Respiratory: Negative for cough, shortness of breath Gastrointestinal: +abdominal pain, nausea, vomiting, constipation. Genitourinary: Negative for dysuria, hematuria Musculoskeletal: Negative for pain, joint edema Skin/Breast: Negative for rash, itching, lesions Neurological: Negative for paresthesia, paralysis, loss of bowel or bladder control, loss of consciousness Psychiatric: Negative for depression, anxiety, or suicidal ideations Endocrine: Negative for heat/cold intolerance, polydipsia, polyphagia, polyuria Hematologic/Lymphatic: Negative for anticoagulant use, antiplatelet use, family hx of clotting or bleeding disorders Allergic/Immunologic: Allergies reviewed, no use of immunosuppressants or active chemotherapy Other than the above items, the remainder of a complete review of systems is otherwise negative. PHYSICAL EXAM: BP (!) 146/97 Pulse (!) 109 Temp 98.4 degrees F (36.9 degrees C) Resp 15 Ht 6' Wt 108 kg (238 lb) SpO2 93% BMI 32.28 kg/m Body mass index is 32.28 kg/m . GENERAL: Appears age appropriate. NEUROLOGICAL: Alert and oriented X 3. Follows commands with extremities x4, equal strength. GCS = 15 Head Eyes Ear Nose Throat: Head: Atraumatic, normocephalic. CARDIOVASCULAR: irregular rate and rhythm. Sinus tachycardia. 2+ pulses radial/DP/PT bilaterally. RESPIRATORY: Lungs, clear to auscultation bilaterally. Respiratory effort unlabored without use of accessory muscles. ABDOMINAL: Rounded, softly distended, mildly TTP. No guarding or peritoneal signs. GENITOURINARY: Normal genitalia for age without lesion or trauma. MUSCULOSKELETAL: Extremities atraumatic without gross deformity x4. SKIN: Skin warm and dry. IMAGING STUDIES: I have reviewed the following: Imaging reviewed. LABORATORY STUDIES: Lab Results Component Value Date WBC 13.80 (H) 09/16/2023 HGB 19.2 (H) 09/16/2023 HCT 54.8 (H) 09/16/2023 MCV 89.0 09/16/2023 PLT 260 09/16/2023 RBC 6.16 (H) (more content not included)... [facility] 08-02-2023 History of Present illness Narrative This note was created using [employer]. Subjective Lance Bee is a 62 year old male. He tried an over the internet provider for some injection for weight loss, mailed directly to him and not branded. He did not notice and effects, so he did not renew. He could not afford the Wegovy. His blood pressure was also staying up. Review of Systems Constitutional: Negative for activity change, appetite change, fatigue and unexpected weight change. Respiratory: Negative for cough and shortness of breath. Cardiovascular: Negative for chest pain, palpitations and leg swelling. Gastrointestinal: Negative for abdominal pain, constipation and diarrhea. Genitourinary: Negative for difficulty urinating and dysuria. Psychiatric/Behavioral: The patient is not nervous/anxious. ACTIVE PROBLEM LIST Reflex Sympathetic Dystrophy Depression Hypertension Goal Bp (Blood Pressure) < 130/80 Ddd (Degenerative Disc Disease), Lumbar Obesity (Bmi 35.0-39.9 Without Comorbidity) Impaired Glucose Metabolism Anxiety Primary Insomnia Personal History of Skin Cancer Restless Legs Actinic Keratosis Tubular Adenoma of Colon Social History Tobacco Use Smoking status: Never Smokeless tobacco: Never Vaping Use Vaping Use: Never used Substance Use Topics Alcohol use: Not Currently Comment: rare Drug use: No Current Outpatient Medications Medication Sig omeprazole (PRILOSEC) 40 mg capsule Take 1 capsule by mouth once daily. clonazePAM (KLONOPIN) 1 mg tablet Take 2 tablets by mouth at bedtime as needed (anxiety, restless leg) for up to 180 days. oxyCODONE (ROXICODONE) 15 mg immediate release tablet Take 15 mg by mouth three times daily. Dr. Chaz vasquez, weight loss, (WEGOVY) 1.7 mg/0.75 mL pen injector Inject 0.75 mL subcutaneously one time a week. (Patient not taking: Reported on 08/02/2023) oxybutynin (DITROPAN) 5 mg tablet Take 1 tablet by mouth daily at bedtime. (Patient not taking: Reported on 08/02/2023) No current facility-administered medications for this visit. Objective Blood Pressure 140/88 (BP Site: Left Arm, BP Position: Sitting, BP Cuff Size: Large Adult) Pulse 88 Temperature 36.5 C (97.7 F) (Temporal) Weight 114.3 kg (252 lb) Body Mass Index 34.18 kg/m Physical Exam Constitutional: Appearance: He is obese. He is not ill-appearing. HENT: Head: Normocephalic. Eyes: Conjunctiva/sclera: Conjunctivae normal. Cardiovascular: Rate and Rhythm: Normal rate and regular rhythm. Heart sounds: No murmur heard. No gallop. Pulmonary: Effort: Pulmonary effort is normal. Breath sounds: Normal breath sounds. Musculoskeletal: Right lower leg: No edema. Left lower leg: No edema. Neurological: Mental Status: He is alert. Assessment and Plan 1. Hypertension goal BP (blood pressure) < 130/80 - ICD9: 401.9, ICD10: I10 (primary diagnosis) - Worsening control - Start amlodipine - Recommend home blood pressure monitoring, to bring results to next visit - Encouraged sodium restriction, DASH or Mediterranean diet - Recommend regular aerobic exercise - Discussed need for and benefit of weight loss. BMI 34.18 kg/(m^2) - AMLODIPINE 5 MG TABLET Discussed medication dosage, usage, goals of therapy, and side effects. 2. Primary insomnia - ICD9: 307.42, ICD10: F51.01 Stable. Refilled. - CLONAZEPAM 1 MG TABLET 3. Anxiety - ICD9: 300.00, ICD10: F41.9 Stable. Refilled. - CLONAZEPAM 1 MG TABLET 4. Restless legs - ICD9: 333.94, ICD10: G25.81 Stable. Refilled. - CLONAZEPAM 1 MG TABLET 5. Obesity (BMI 35.0-39.9 without comorbidity) - ICD9: 278.00, ICD10: E66.9 Weight increasing - Behavioral and pharmacological intervention - PHENTERMINE 37.5 MG TABLET. Discussed medication dosage, usage, goals of therapy, and side effects. - Risks were reviewed. The need for follow up visits and demonstrated weight loss for refills were reviewed. - Planned duration 6 months, then break for 6 months. 6. Tubular adenoma of colon - ICD9: 211.3, ICD10: D12.6 Reviewed need for follow up colonoscopy in 3 years. Lance Jorgensen MD documented in this encounter [facility] 08-02-2023 Miscellaneous Notes Talked to Patient, he cancelled his last appt. Scheduled medication follow-up, refill to be done at the appt. Alena Weber LPN Patient has been identified by name and date of : Yes Patient phones for refill(s): Requested Prescriptions Pending Prescriptions Disp Refills clonazePAM (KLONOPIN) 1 mg tablet 60 tablet 1 Sig: Take 2 tablets by mouth at bedtime as needed (anxiety, restless leg) for up to 180 days. Date of last office visit in primary care: 02/01/2023 Date of next office visit in primary care: Visit date not found Please send today, out of medication. Please advise. Thank you. Julia Kirby. documented in this encounter [facility] 03-29-2023 Miscellaneous Notes Updated via [employer], , history and recall updated. Corine Matthew LPN ----- Message from Huyen Hernandez PA-C sent at 03/29/2023 10:21 AM EST ----- Patient should have repeat colonoscopy in 3 years for surveillance due to multiple adenomatous colon polyps please documented in this encounter [facility] 02-19-2023 History of Present illness Narrative HISTORY AND PHYSICAL Lance Bee 1960 REFERRING PHYSICIAN: Lance Jorgensen MD CHIEF COMPLAINT: Consult (Colonoscopy, no prior colonoscopy) HPI: The patient is a 62 year old male referred for endoscopy due to positive Cologuard. Patient denies any change in bowel habits, weight changes or abdominal pain. Denies family history of colon issues. Lance has undergone prior endoscopy. Last colonoscopy was in [address] Campbell at [facility]. No concerning findings at that time. However bowel prep was noted to be inadequate. PAST MEDICAL HISTORY Diagnosis Date Anxiety 11/01/2015 Asymptomatic microscopic hematuria 2017 Contact dermatitis and other eczema, due to unspecified cause DDD (degenerative disc disease), lumbar 02/10/2013 Depression Dog bite of right lower leg 2000 with recurrent wounds Dysthymic disorder Depression (non-psychotic) Hypertension Impaired glucose metabolism 09/26/2014 A1c 6.1% September 2014 Obesity Open wound of knee, leg (except thigh), and ankle, complicated Open wound of right lower extremity 07/24/2017 YAIMA (obstructive sleep apnea) no CPAP tried by choice. 12/20/2014 Personal history of skin cancer 01/30/2016 Dr. Melody Trammell, Dermatology annually. Primary insomnia 11/01/2015 Reflex sympathetic dystrophy Restless legs 05/20/2015 Squamous cell carcinoma of lower leg 09/23/2012 Skin graft x2- Dr. Cook, [facility]- [place] Dr. Trammell Ulcer of other part of foot PAST SURGICAL HISTORY Procedure Laterality Date COLONOSCOPY 10/27/2016 INCOMPLETE- CT colonography 03/31/18 diverticular disease. Repeat 5-10yrs EGD 10/27/2016 PAST SURGICAL HISTORY OF Right 2012 excision of tumor, right leg PAST SURGICAL HISTORY OF Right 2014 skin grafts, right leg. 2012,2013. Current Outpatient Medications Medication Sig semaglutide, weight loss, (WEGOVY) 0.25 mg/0.5 mL pen injector Inject 0.5 mL subcutaneously one time a week. clonazePAM (KLONOPIN) 1 mg tablet Take 2 tablets by mouth at bedtime as needed (anxiety, restless leg) for up to 180 days. oxybutynin (DITROPAN) 5 mg tablet Take 1 tablet by mouth daily at bedtime. oxyCODONE (ROXICODONE) 15 mg immediate release tablet Take 15 mg by mouth three times daily. Dr. Ware No current facility-administered medications for this visit. ALLERGIES: Cymbalta [Duloxetine] and Lisinopril PERSONAL HISTORY: Social History Tobacco Use Smoking status: Never Smokeless tobacco: Never Vaping Use Vaping Use: Never used Substance Use Topics Alcohol use: Not Currently Comment: rare Drug use: No FAMILY HISTORY: FAMILY HISTORY Problem Relation Age of Onset Cancer Father pancreatic other (scleroderma) Mother REVIEW OF SYMPTOMS: The review of systems data was entered by the nurse and reviewed by me Nursing Notes: Corine Matthew LPN 02/19/2023 1:24 PM Signed REVIEW OF SYSTEMS: General: The patient denies fatigue, denies weight loss, denies weight gain, denies feeling hot, and denies feelings of cold. Eyes: The patient denies glaucoma, denies eye injury/surgery, wears glasses or contacts. Ear/Nose/Throat: The patient notes allergies, denies hayfever, denies ear infections, and denies bloody noses. Cardiovascular: The patient denies chest pain, denies heart disease, denies high blood pressure,denies cardiac stent, denies prior heart attack, denies irregular heart beat, denies high cholesterol, denies poor circulation, denies heart failure, other cardiac issues, denies claudication, denies cold feet, denies peripheral arterial stent. Respiratory: The patient denies tuberculosis, denies pneumonia, denies frequent cough, denies pulmonary embolism, denies shortness of breath, and denies coughing up blood. Gastrointestinal: The patient denies difficulty swallowing, denies acid reflux, denies ulcers, denies vomiting, denies jaundice/hepatitis, denies gallbladder problems, denies black or tarry stools, denies hemorrhoids, denies bleeding from rectum, denies diverticulitis, denies constipation, denies diarrhea, denies loss of stool control, and denies hernias. Kidney/Bladder: The patient denies kidney stones, denies urine infections, and denies bloody urine. Skin: The patient notes a history of skin cancer, denies bleeding/changing moles, and denies a history of skin rash. Neurologic: The patient denies a history of epilepsy/convulsions, denies headaches, denies head/spinal injuries, and denies stroke/TIA. Psychiatric: The patient denies psychiatric medications, denies depression, and denies voices, denies substance abuse. Endocrine: The patient denies thyroid disorders, denies diabetes, and denies hormonal problems. Hematologic: The patient denies a history of bruising, denies bleeding, and denies anemia, denies blood clots. Infections: The patient denies a history of measles and mumps, denies rheumatic fever, and denies sexually transmitted diseases. Musculoskeletal: The patient denies back pain/injury, denies back problems, denies sciatica, denies knee/foot trouble, denies arthritis, or denies gout. When was patient's last Mammogram screening? N/A Last Colonoscopy: none Corine Matthew LPN I have confirmed and edited as necessary, the PFSH and ROS obtained by others. Huyen Hernandez PA-C PHYSICAL EXAMINATION: General: The patient is 62 year old male, well nourished, well hydrated in no acute distress. The patient is oriented to time, place, and person. VITALS: Blood pressure 142/90, pulse 106, temperature 36.7 C (98 F), height 182.9 cm (6'), weight 113.4 kg (250 lb), SpO2 98 %. Body mass index is 33.91 kg/m . HEENT: Normal cephalic, ataumatic, pupils are equally round, sclera are anicteric, mucous membranes are moist, oropharynx is clear. Neck has no masses, asymmetry or lymphadenopathy. Respiratory: Clear to auscultation and percussion. Normal respiratory excursion and pattern. Cardiac: Examination is regular rate and rhythm. Normal S1/S2 Abdominal exam: Soft, nontender, with no palpable masses. No hepatosplenomegaly. No palpable hernias. Extremities: no clubbing, cyanosis or edema. No adenopathy. LABORATORY VALUES: As Noted RADIOLOGIC STUDIES: As Noted Assessment IMPRESSION: positive Cologuard PLAN: I have reviewed my findings with the surgeon. Will plan for upper and lower endoscopy. We discussed the risks and benefits of the planned endoscopy. I have informed the patient that complications can occur including failure to complete the endoscopy and perforation. The patient had the opportunity to ask questions concerning the planned endoscopy. My staff has also explained the procedure to the patient in understandable terms and has given the patient printed material concerning the procedure. The patient freely consents to surgery. I plan to use Golytely bowel preparation Diagnoses: (R19.5) Positive colorectal cancer screening using Cologuard test Consultation requested by Dr. Jorgensen for an opinion regarding positive Cologuard. My final recommendations will be communicated back to the requesting physician by way of shared Medical record or letter to requesting physician via US mail. Huyen Hernandez PA-C documented in this encounter [facility] 02-19-2023 Nurse Note REVIEW OF SYSTEMS: General: The patient denies fatigue, denies weight loss, denies weight gain, denies feeling hot, and denies feelings of cold. Eyes: The patient denies glaucoma, denies eye injury/surgery, wears glasses or contacts. Ear/Nose/Throat: The patient notes allergies, denies hayfever, denies ear infections, and denies bloody noses. Cardiovascular: The patient denies chest pain, denies heart disease, denies high blood pressure,denies cardiac stent, denies prior heart attack, denies irregular heart beat, denies high cholesterol, denies poor circulation, denies heart failure, other cardiac issues, denies claudication, denies cold feet, denies peripheral arterial stent. Respiratory: The patient denies tuberculosis, denies pneumonia, denies frequent cough, denies pulmonary embolism, denies shortness of breath, and denies coughing up blood. Gastrointestinal: The patient denies difficulty swallowing, denies acid reflux, denies ulcers, denies vomiting, denies jaundice/hepatitis, denies gallbladder problems, denies black or tarry stools, denies hemorrhoids, denies bleeding from rectum, denies diverticulitis, denies constipation, denies diarrhea, denies loss of stool control, and denies hernias. Kidney/Bladder: The patient denies kidney stones, denies urine infections, and denies bloody urine. Skin: The patient notes a history of skin cancer, denies bleeding/changing moles, and denies a history of skin rash. Neurologic: The patient denies a history of epilepsy/convulsions, denies headaches, denies head/spinal injuries, and denies stroke/TIA. Psychiatric: The patient denies psychiatric medications, denies depression, and denies voices, denies substance abuse. Endocrine: The patient denies thyroid disorders, denies diabetes, and denies hormonal problems. Hematologic: The patient denies a history of bruising, denies bleeding, and denies anemia, denies blood clots. Infections: The patient denies a history of measles and mumps, denies rheumatic fever, and denies sexually transmitted diseases. Musculoskeletal: The patient denies back pain/injury, denies back problems, denies sciatica, denies knee/foot trouble, denies arthritis, or denies gout. When was patient's last Mammogram screening? N/A Last Colonoscopy: none Corine Matthew LPN documented in this encounter [facility] 02-16-2023 Miscellaneous Notes In review of chart, patient is scheduled with Gen Surg on 02/19/23. Nothing further at this time. AL Coyle TC to patient who verbalized understanding of providers message below. Patient agreeable to schedule colonoscopy. Please assist in scheduling. Thank you. AL Coyle ----- Message from Lance Jorgensen MD sent at 02/15/2023 3:08 PM EDT ----- Refer to General Surgery for colonoscopy. Cologuard positive. documented in this encounter [facility] 02-15-2023 History of Past i llness Narrative Problem Noted Date Diagnosed Date Resolved Date Positive colorectal cancer s creening using Cologuard test 02/15/2023 08/02/2023 Asymptomatic microscopic hematuria 2017 09/18/2021 Open wound of right lower extremity 07/24/2017 09/18/2021 YAIMA (obstructive sleep apnea ) no CPAP tried by choice. 12/20/2014 08/11/2018 Open wound of knee, leg (exc ept thigh), and ankle, complicated 02/10/2013 Ulcer of other part of foot 02/10/2013 documented as of this encounter (statuses as of 08/03/2023) [facility] History of Past illness Narrative* Problem Noted Date Diagnosed Date Resolved Date Positive colorectal cancer s creening using Cologuard test 02/15/2023 08/02/2023 Asymptomatic microscopic hematuria 2017 09/18/2021 Open wound of right lower extremity 07/24/2017 09/18/2021 YAIMA (obstructive sleep apnea ) no CPAP tried by choice. 12/20/2014 08/11/2018 Open wound of knee, leg (exc ept thigh), and ankle, complicated 02/10/2013 Ulcer of other part of foot 02/10/2013 documented as of this encounter (statuses as of 08/04/2023) [facility] Instructions* Patient Instructions* Lance Jorgensen MD - 02/01/2023 2:24 PM EDT COPY OF ALL COVID VACCINATIONS FROM [place]. CHECK IF TETANUS BOOSTER IS COVERED OR YOU CAN GET THIS FROM WORK. (Tdap vaccine). SEE DERMATOLOGY (DR. TRAMMELL) FOR PRECANCEROUS SKIN LESIONS. CALL FOR REFERRAL IF NEEDED. [facility] History of Present illness Narrative* Lance Jorgensen MD - 02/01/2023 1:50 PM EDT This note was created using [employer]. Subjective Patient presents with: Yearly Exam Lance Bee was here for his annual check up. He felt well. He was interested in Ozempic or Wegovy for weight loss. His blood pressure and heart rate was elevated today, but he just had coffee. He sees Dr. Ware for pain management, Dr. Jimenez for optometry. He had seen Dr. Trammell in the past for dermatology. We reviewed his colorectal cancer screening and health maintenance. Review of Systems Constitutional: Negative for chills, fatigue, fever and unexpected weight change. HENT: Negative. Eyes: Negative for visual disturbance. Respiratory: Negative for cough, shortness of breath and wheezing. Cardiovascular: Negative for chest pain, palpitations and leg swelling. Gastrointestinal: Negative for abdominal pain, constipation, diarrhea, nausea and vomiting. Genitourinary: Negative for difficulty urinating, dysuria and frequency. Neurological: Negative for dizziness and headaches. PAST MEDICAL HISTORY Diagnosis Date Anxiety 11/01/2015 Asymptomatic microscopic hematuria 2017 Contact dermatitis and other eczema, due to unspecified cause DDD (degenerative disc disease), lumbar 02/10/2013 Depression Dog bite of right lower leg 2000 with recurrent wounds Dysthymic disorder Depression (non-psychotic) Hypertension Impaired glucose metabolism 09/26/2014 A1c 6.1% September 2014 Obesity Open wound of knee, leg (except thigh), and ankle, complicated Open wound of right lower extremity 07/24/2017 YAIMA (obstructive sleep apnea) no CPAP tried by choice. 12/20/2014 Personal history of skin cancer 01/30/2016 Dr. Melody Trammell, Dermatology annually. Primary insomnia 11/01/2015 Reflex sympathetic dystrophy Restless legs 05/20/2015 Squamous cell carcinoma of lower leg 09/23/2012 Skin graft x2- Dr. Cook, [facility]- [place] Dr. Trammell Ulcer of other part of foot PAST SURGICAL HISTORY Procedure Laterality Date COLONOSCOPY 10/27/2016 INCOMPLETE- CT colonography 03/31/18 diverticular disease. Repeat 5-10yrs EGD 10/27/2016 PAST SURGICAL HISTORY OF Right 2012 excision of tumor, right leg PAST SURGICAL HISTORY OF Right 2014 skin grafts, right leg. 2012,2013. FAMILY HISTORY Problem Relation Age of Onset Cancer Father pancreatic other (scleroderma) Mother Social History Tobacco Use Smoking status: Never Smokeless tobacco: Never Substance Use Topics Alcohol use: Not Currently Comment: rare Drug use: No ALLERGIES Allergen Reactions Cymbalta [Duloxetin* Other: See Comments Infeffective Lisinopril Cough Current Outpatient Medications Medication Sig clonazePAM (KLONOPIN) 1 mg tablet Take 2 tablets by mouth at bedtime as needed (anxiety, restless leg) for up to 180 days. oxybutynin (DITROPAN) 5 mg tablet Take 1 tablet by mouth daily at bedtime. oxyCODONE (ROXICODONE) 15 mg immediate release tablet Take 15 mg by mouth three times daily. Dr. Ware No current facility-administered medications for this visit. Objective BP 132/92 Pulse 112 Resp 16 Ht 177.8 cm (5' 10) Wt 112.5 kg (248 lb) BMI 35.58 kg/m Physical Exam Constitutional: Appearance: He is obese. He is not ill-appearing. Eyes: Extraocular Movements: Extraocular movements intact. Conjunctiva/sclera: Conjunctivae normal. Cardiovascular: Rate and Rhythm: Regular rhythm. Tachycardia present. Heart sounds: No murmur heard. No gallop. Pulmonary: Effort: Pulmonary effort is normal. Breath sounds: Normal breath sounds. Abdominal: General: There is no distension. Palpations: Abdomen is soft. There is no mass. Tenderness: There is no abdominal tenderness. Musculoskeletal: General: Normal range of motion. Cervical back: Neck supple. Right lower leg: No edema. Left lower leg: No edema. Skin: Comments: Actinic lesions in temples, face, scalp. Neurological: General: No focal deficit present. Mental Status: He is alert. Gait: Gait normal. Psychiatric: Mood and Affect: Mood normal. Behavior: Behavior normal. Component Latest Ref Rng & Units 01/11/2023 Protein, Total 6.3 - 8.0 g/dL 7.0 Albumin 3.9 - 4.9 g/dL 4.2 Calcium 8.5 - 10.2 mg/dL 9.5 Bilirubin, Total 0.2 - 1.3 mg/dL 0.6 Alkaline Phosphatase 38 - 113 U/L 103 AST 14 - 40 U/L 26 ALT 10 - 54 U/L 19 Glucose 74 - 99 mg/dL 87 BUN 9 - 24 mg/dL 9 Creatinine 0.73 - 1.22 mg/dL 1.06 Sodium 136 - 144 mmol/L 143 Potassium 3.7 - 5.1 mmol/L 4.4 Chloride 97 - 105 mmol/L 108 (H) CO2 22 - 30 mmol/L 24 Anion Gap 9 - 18 mmol/L 11 eGFR >=60 mL/min/1.73m 80 WBC 3.70 - 11.00 k/uL 6.22 RBC 4.20 - 6.00 m/uL 5.27 Hemoglobin 13.0 - 17.0 g/dL 16.7 Hematocrit 39.0 - 51.0 % 48.3 MCV 80.0 - 100.0 fL 91.7 MCH 26.0 - 34.0 pg 31.7 MCHC 30.5 - 36.0 g/dL 34.6 RDW-CV 11.5 - 15.0 % 13.1 Platelet Count 150 - 400 k/uL 213 MPV 9.0 - 12.7 fL 11.6 Absolute nRBC <0.01 k/uL <0.01 Cholesterol, Total <200 mg/dL 168 Triglyceride <150 mg/dL 81 HDL Cholesterol >39 mg/dL 41 Non HDL Cholesterol <130 mg/dL 127 Fasting Time hrs 13 VLDL Cholesterol <30 mg/dL 16 TC:HDL Ratio <5.10 4.10 LDL Cholesterol <100 mg/dL 111 (H) LDL:HDL Ratio <2.54 2.71 (H) Hemoglobin A1C 4.3 - 5.6 % 5.7 (H) Estimated Average Glucose mg/dL 117 PSA 0.00 - 2.59 ng/mL Assessment and Plan 1. Routine medical exam - ICD9: V70.0, ICD10: Z00.00 (primary diagnosis) - Counseled on healthy diet and regular exercise - Discussed need for and benefit of weight loss. BMI 35.58 kg/(m^2) - Colorectal cancer screening recommended - agrees to Cologuard - Depression screening tool completed and reviewed with patient. Based on score and interview, patient is not at risk for depression and recommended no further intervention at this time. 2. Encounter for immunization - ICD9: V03.89, ICD10: Z23 - INFLUENZA VACCINE, AGE 6 MO - 64 YR, QUADRIVALENT (AFLURIA, FLULAVAL, FLUZONE) 3. Impaired glucose metabolism - ICD9: 790.29, ICD10: R73.09 Stable. 4. Hypertension goal BP (blood pressure) < 130/80 - ICD9: 401.9, ICD10: I10 - Worsening control - Encouraged sodium restriction, DASH or Mediterranean diet - Discussed need for and benefit of weight loss. BMI 35.58 kg/(m^2) 5. Obesity (BMI 35.0-39.9 without comorbidity) - ICD9: 278.00, ICD10: E66.9 Weight decreasing - Behavioral and pharmacological intervention Shared Medical Decision Making was done: Medication: Wegovy. Benefits: Medication may help. Risks: Possible side effects were discussed including GI side effects. Possible interactions: n/a. Warnings: MEN syndrome, pancreatitis. Approved use or off label use: Yes. Options: other GLP1a, other medications. Cost: high. Prior approval may be needed. Duration: meterman. - Video on how to self inject was viewed with patient. - SEMAGLUTIDE (WEIGHT LOSS) 0.25 MG/0.5 ML SUBCUTANEOUS PEN INJECTOR 6. Screening for colon cancer - ICD9: V76.51, ICD10: Z12.11 Shared medical decision making was done. - COLOGUARD 7. Actinic keratosis - ICD9: 702.0, ICD10: L57.0 He declined need for dermatology referral. Lance Jorgensen MD documented in this encounterPar[facility]09-25-2023 Miscellaneous Notes* Telephone Encounter - Vikram Massey Ma - 01/11/2023 1:54 PM EDT Nothing needs to be done. Orders only needed signed as noted which was done. Closing encounter. * Telephone Encounter - Tobin Rossi DO - 01/11/2023 12:53 PM EDT This message is not clear Do I need to do anything here since I see the labs are in progress ? Weren't they drawn ? 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 He is fasting. Advised PCP care team is out of the office. Routing to exiting provider pool documented in this encounterParma [facility]08-16-2023 History of Present illness Narrative* Lance Jorgensen MD - 12/02/2022 2:52 PM EDT This note was created using Results [employer]. Subjective Lance Bee is a 62 year old male. He was here for nocturia, urinary frequency mainly at night. He was not too concerned during the day as he drank plenty of fluids. He needed refills of clonazepam for restless legs, insomnia. Use has been limited per OARRS. He cancelled his yearly exam last month. Labs were not done as well. Review of Systems Constitutional: Negative for fatigue and fever. Gastrointestinal: Negative for abdominal pain. Genitourinary: Negative for decreased urine volume, difficulty urinating, dysuria and hematuria. ACTIVE PROBLEM LIST Reflex Sympathetic Dystrophy Depression Hypertension Goal Bp (Blood Pressure) < 130/80 Ddd (Degenerative Disc Disease), Lumbar Obesity (Bmi 35.0-39.9 Without Comorbidity) Impaired Glucose Metabolism Anxiety Primary Insomnia Personal History of Skin Cancer Restless Legs Objective BP 127/88 (BP Site: Left Arm, BP Position: Sitting, BP Cuff Size: Large Adult) Pulse 108 Resp 20 Wt 115.2 kg (254 lb) BMI 36.45 kg/m Physical Exam Constitutional: Appearance: He is not ill-appearing. Abdominal: Palpations: Abdomen is soft. There is no mass. Tenderness: There is no abdominal tenderness. Neurological: Mental Status: He is alert. Component Latest Ref Rng & Units 12/02/2022 GLUCOSE UA (POCT) Negative mg/dL Negative BILIRUBIN UA (POCT) Negative Negative KETONE UA (POCT) Negative mg/dL Negative SPECIFIC GRAVITY UA (POCT) 1.005 - 1.030 >=1.030 HEMOGLOBIN/BLOOD UA (POCT) Negative Negative PH UA (POCT) 4.5 - 8.0 5.5 PROTEIN UA (POCT) Negative mg/dL 30 (A) UROBILINOGEN UA (POCT) Normal E.U./dL 1.0 NITRITE UA (POCT) Negative Negative LEUKOCYTES UA (POCT) Negative Negative COLOR UA (POCT) Yellow CLARITY UA (POCT) Clear Assessment and Plan 1. Nocturia - ICD9: 788.43, ICD10: R35.1 (primary diagnosis) - UA DIP, URINE (POC) - OXYBUTYNIN CHLORIDE 5 MG TABLET. Take one(1) tablet daily at bedtime. Discussed medication dosage, usage, goals of therapy, and side effects. 2. Primary insomnia - ICD9: 307.42, ICD10: F51.01 Refilled. - CLONAZEPAM 1 MG TABLET 3. Anxiety - ICD9: 300.00, ICD10: F41.9 Refilled. - CLONAZEPAM 1 MG TABLET 4. Restless legs - ICD9: 333.94, ICD10: G25.81 Refilled. - CLONAZEPAM 1 MG TABLET Reschedule yearly with fasting labs. Lance Jorgensen MD documented in this encounterParma [facility]03-27-2023 History of Present illness Narrative* Lance Jorgensen MD - 07/13/2022 3:31 PM EDT This note was created using [employer]. Subjective Lance Bee is a 61 year old male. He was here for his 3rd phentermine prescription. Weight was down and he felt well. Hypertension was controlled. He was leaving this Wednesday for [place] [facility]. Review of Systems Constitutional: Negative. Respiratory: Negative. Cardiovascular: Negative. Gastrointestinal: Negative. Psychiatric/Behavioral: Negative. ACTIVE PROBLEM LIST Reflex Sympathetic Dystrophy Depression Hypertension Goal Bp (Blood Pressure) < 130/80 Ddd (Degenerative Disc Disease), Lumbar Obesity (Bmi 35.0-39.9 Without Comorbidity) Impaired Glucose Metabolism Anxiety Primary Insomnia Personal History of Skin Cancer Restless Legs Social History Tobacco Use Smoking status: Never Smokeless tobacco: Never Substance Use Topics Alcohol use: Yes Comment: rare Drug use: No Current Outpatient Medications Medication Sig Phentermine HCl (ADIPEX-P) 37.5 mg capsule Take 1 capsule by mouth every morning for 30 days. BMI 35.27 Do not start before June 18, 2022. clonazePAM (KLONOPIN) 1 mg tablet Take 2 tablets by mouth at bedtime as needed (anxiety, restless leg) for up to 180 days. oxyCODONE (ROXICODONE) 15 mg immediate release tablet Take 15 mg by mouth three times daily. Dr. Ware No current facility-administered medications for this visit. Objective BP 126/76 (BP Site: Left Arm, BP Position: Sitting, BP Cuff Size: Large Adult) Pulse 80 Resp 12 Ht 177.8 cm (5' 10) Wt 108.9 kg (240 lb) BMI 34.44 kg/m Physical Exam Constitutional: General: He is not in acute distress. Appearance: He is not ill-appearing. Cardiovascular: Rate and Rhythm: Normal rate and regular rhythm. Heart sounds: No murmur heard. Pulmonary: Breath sounds: Normal breath sounds. Neurological: Mental Status: He is alert. Psychiatric: Mood and Affect: Mood normal. Assessment and Plan 1. Obesity, Class II, BMI 35-39.9 - ICD9: 278.00, ICD10: E66.9 (primary diagnosis) Weight decreasing - PHENTERMINE 37.5 MG CAPSULE. Okay early refill for travel. Medication holiday for 7 months, but he was interested in alternative. We'll review in 3 months. 2. Hypertension goal BP (blood pressure) < 130/80 - ICD9: 401.9, ICD10: I10 - good control - COMP METABOLIC PANEL - LIPID PANEL BASIC - CBC Lance Jorgensen MD documented in this encounterParma [facility]02-27-2023 History of Present illness Narrative* Lance Jorgensen MD - 06/15/2022 1:34 PM EST This note was created using [employer]. Subjective Lance Bee is a 61 year old male. He was here for medication assisted weight loss. Unfortunatelyhe was not losing weight. He will focus on cutting carbohydates to less than 25% of daily intake. He just started walking regularly at [facility]. We agreed we need to see weight loss below his starting weight of 243 pounds or the 3rd prescription of phentermine will not be recommended. Review of Systems Constitutional: Negative. Respiratory: Negative. Cardiovascular: Negative. Gastrointestinal: Negative. Neurological: Negative. Psychiatric/Behavioral: Negative. ACTIVE PROBLEM LIST Reflex Sympathetic Dystrophy Depression Hypertension Goal Bp (Blood Pressure) < 130/80 Ddd (Degenerative Disc Disease), Lumbar Obesity (Bmi 35.0-39.9 Without Comorbidity) Impaired Glucose Metabolism Anxiety Primary Insomnia Personal History of Skin Cancer Restless Legs Social History Tobacco Use Smoking status: Never Smokeless tobacco: Never Substance Use Topics Alcohol use: Yes Comment: rare Drug use: No Current Outpatient Medications Medication Sig clonazePAM (KLONOPIN) 1 mg tablet Take 2 tablets by mouth at bedtime as needed (anxiety, restless leg) for up to 180 days. Phentermine HCl (ADIPEX-P) 37.5 mg capsule Take 1 capsule by mouth every morning for 30 days. BMI 35.27 oxyCODONE (ROXICODONE) 15 mg immediate release tablet Take 15 mg by mouth three times daily. Dr. Ware No current facility-administered medications for this visit. Objective BP 130/88 (BP Site: Left Arm, BP Position: Sitting, BP Cuff Size: Large Adult) Pulse 92 Temp 36.4 C (97.5 F) (Temporal) Resp 20 Ht 176.8 cm (5' 9.6) Wt 111.1 kg (245 lb) BMI 35.56 kg/m Physical Exam Constitutional: General: He is not in acute distress. Cardiovascular: Rate and Rhythm: Normal rate and regular rhythm. Heart sounds: No murmur heard. No gallop. Pulmonary: Breath sounds: Normal breath sounds. Neurological: Mental Status: He is alert. Psychiatric: Mood and Affect: Mood normal. Vitals 05/18/2022 06/15/2022 WEIGHT in POUNDS 243 lb 245 lb Assessment and Plan 1. Obesity, Class II, BMI 35-39.9 - ICD9: 278.00, ICD10: E66.9 Weight increasing - See HPI. - PHENTERMINE 37.5 MG CAPSULE. 2nd month. Lance Jorgensen MD documented in this encounterParma [facility]02-02-2023 Miscellaneous Notes* Telephone Encounter - Fidelia Alvarenga ACE - 05/21/2022 10:07 AM EST Pt walked in for refills. Patient has been identified by name and date of : Yes, Patient phones for refill(s): Requested Prescriptions Pending Prescriptions Disp Refills clonazePAM (KLONOPIN) 1 mg tablet 60 tablet 2 Sig: Take 2 tablets by mouth at bedtime as needed (anxiety, restless leg) for up to 180 days. Date of last office visit in primary care: [facility] [employer] 05/18/22 . Next appt arranged for 06/15/22. Thank you. Fidelia Alvarenga LPN documented in this encounterParma [facility] Hospital01-30-2023 Miscellaneous Notes* Telephone Encounter - Fidelia Alvarenga LPN - 05/18/2022 9:52 AM EST Electronic PA completed for Phentermine HCl (ADIPEX-P) 37.5 mg capsule Class: Normal This was approved 04/18/2022 to 08/16/2022. Pharmacy notified. My chart message to pt. documented in this encounterParma [facility] Hospital10-24-2022 History of Present illness Narrative* Lance Jorgensen MD - 02/09/2022 2:21 PM EDT This note was created using [employer]. Subjective Lance Bee is a 61 year old male. He was here for medication assisted weight loss. He was on Qsymia with no adverse effects. He was choosing a proprietary weight loss prepared meals for dinner and exercising regularly. He has lost 6 pounds since his last visit. He was interested in continuing Qsymia till he can resume Adipex in May. He had a DOT physical but needed a letter that clonazepam did not affect his driving. I informed him I could not sign off on a DOT form as I am not DOT certified. Review of Systems Constitutional: Negative. Respiratory: Negative. Cardiovascular: Negative. Gastrointestinal: Negative. Neurological: Negative. Psychiatric/Behavioral: Negative. ACTIVE PROBLEM LIST Reflex Sympathetic Dystrophy Depression Hypertension Goal Bp (Blood Pressure) < 130/80 Ddd (Degenerative Disc Disease), Lumbar Obesity (Bmi 35.0-39.9 Without Comorbidity) Impaired Glucose Metabolism Anxiety Primary Insomnia Personal History of Skin Cancer Restless Legs Current Outpatient Medications Medication Sig oxyCODONE (ROXICODONE) 15 mg immediate release tablet Take 15 mg by mouth three times daily. Dr. Ware clonazePAM (KLONOPIN) 1 mg tablet Take 2 tablets by mouth at bedtime as needed (anxiety, restless leg) for up to 180 days. No current facility-administered medications for this visit. Objective BP 128/72 Pulse 86 Wt 110.7 kg (244 lb) SpO2 95% BMI 35.41 kg/m Physical Exam Constitutional: Appearance: He is not ill-appearing. Pulmonary: Effort: Pulmonary effort is normal. Neurological: Mental Status: He is alert. Gait: Gait normal. Psychiatric: Mood and Affect: Mood normal. Assessment and Plan 1. Obesity (BMI 35.0-39.9 without comorbidity) - ICD9: 278.00, ICD10: E66.9 (primary diagnosis) Weight decreasing - Behavioral and pharmacological intervention and - Increase Phentermine/topiamate (Qsymia) - QSYMIA 11.25 MG-69 MG CAPSULE, EXTENDED RELEASE - QSYMIA 15 MG-92 MG CAPSULE, EXTENDED RELEASE - Plan is to restart Adipex in May. 2. Encounter for immunization - ICD9: V03.89, ICD10: Z23 - INFLUENZA VACCINE QUADRIVALENT 6 MO - 64 YRS IM 3. Restless legs - ICD9: 333.94, ICD10: G25.81 Controlled. Letter for DOT given. 4. Anxiety - ICD9: 300.00, ICD10: F41.9 Controlled. 5. Impaired glucose metabolism - ICD9: 790.29, ICD10: R73.09 Recheck for next visit. - COMP METABOLIC PANEL - HGB A1C Time spent was 25 minutes, all for discussion and care coordination. Lance Jorgensen MD documented in this encounterParma [facility]10-18-2022 Miscellaneous Notes* Telephone Encounter - Margot Knight MA - 02/03/2022 10:30 AM EDT Patient active Dexcomhart. Patient notified via Nuo[employer] message. Margot Knight MA * Telephone Encounter - Lance Jorgensen MD - 02/01/2022 8:40 PM EDT I am not certified to complete any DOT Physical or other DOT form. Please inform the patient. * Telephone Encounter - Jaz Briones LPN - 01/28/2022 3:48 PM EDT Pt called back he states he fax the DOTpaper from [employer] yesterday and it showed it went thru. Pt states this needed to be faxed back today or he will loose a job he is trying to get. Please check to see if DOT paper was received and if it can not be faxed today he will call the place of employment and see if okay to be faxed tomorrow. Pt asking for a courtesy call back today as soon as possible. Jaz Briones LPN * Telephone Encounter - Trinity Salinas RN - 01/28/2022 12:58 PM EDT Patient calls and is asking if this paperwork was received? Please give patient a call back either way. Patient states that paperwork is time sensitive due to it having to deal with a job. Please review and advise, Trinity Salinas RN * Telephone Encounter - Trinity Salinas RN - 01/28/2022 9:16 AM EDT Patient calls and states that he faxed over a paperwork for provider to fill out in regards to his clonazepam. Patient had passed the DOT physical but they need provider to sign off on clonazepam. Please review and advise, Trinity Salinas RN documented in this encounterParma [facility] Hospital08-22-2022 Miscellaneous Notes* Telephone Encounter - Jinny Smith APRN.TAY - 12/08/2021 1:27 PM EDT Please let the patient know he will not need a paper prescription. I sent two refills on the Qysmia. PDMP website checked and validated. All prescriptions have been APPROPRIATELY filled. No suspiciousactivity was identified. 12/08/2021 by Jinny Smith APRN.ATY * Telephone Encounter - Vikram Massey Ma - 12/08/2021 9:03 AM EDT Patient stopped in office asking for paper copy of rx due to pharmacy not filling. I called and spoke with pharmacist. They are cancelling the rx from last month with refills and asking for rx to be sent monthly with NO refills attached. * Telephone Encounter - Lance Jorgensen MD - 12/06/2021 11:32 AM EDT Please schedule FTF appointment and weigh in. * Telephone Encounter - Trinity Salinas RN - 12/06/2021 10:56 AM EDT Pharmacist from [facility] calls and states that Qsymia has to be a prescription that is sent to them monthly due to face to face requirements for medication. Trinity Salinas RN documented in this encounterParma [facility] Hospital08-19-2022 Miscellaneous Notes* Telephone Encounter - Stefanie Avery - 12/05/2021 10:57 AM EDT Pt needs refill pharmacy said had to send in another order and he needs this today if possible Patient has been identified by name and date of : Yes Last office visit in this department: Visit date not found RX INSTRUCTIONS: Patient aware RX will be sent to pharmacy. No need to notify patient. Patient phones requesting refills as follows: Requested Prescriptions Pending Prescriptions Disp Refills phentermine-topiramate ER (QSYMIA) 7.5-46 mg 24 Hr Capsule 30 capsule 2 Sig: Take 1 capsule by mouth once daily for 90 days. BMI 38 Please review and advise. Stefanie Avery documented in this encounterParma [facility]07-11-2022 Miscellaneous Notes* Telephone Encounter - Katiana Person LPN - 10/27/2021 2:41 PM EDT Patient Called stating Qsymia will cost him $84 regardless wether it's for 14 pills or 30. States Jinny mentioned a cost savings card. Pt states it is not on GoodRX. Spoke with office and pt will need to go online to Qsymia website and sign up for cost savings card. Pt notified of same and verbalizesunderstanding. Katiana Person LPN documented in this encounterParma [facility] Hospital07-11-2022 Miscellaneous Notes* Telephone Encounter - Vikram Massey Ma - 10/27/2021 12:07 PM EDT Spoke with patient - notified and verbalized understanding again of what was discussed this morningduring his office visit. Updated patient on process of requesting medication refills that it is hisresponsibility to request refills. Patient ok with starting Qysmia and he will call before the 14 day rx is up to update on progress weather he needs increase or not. * Telephone Encounter - Jinny Smith APRN.CNP - 10/27/2021 9:52 AM EDT As discussed during office visit I am not able to prescribe this medication per state pharmacy board regulations regardless of the fact he should have been scheduled for a sooner appointment. Jinny Smith APRN.CNP * Telephone Encounter - Jaz Briones LPN - 10/27/2021 9:36 AM EDT Pt was seen today for his follow up from 09-18-21. Pt states he spoke with the pharmacy and they toldhim he will have to wait for 6 months to get medication again since he has missed taking the medication for 9 days. Pt states this is where the office scheduled him. Pt states he should of been scheduled for 30 days out so he would not of missed 9 days of medication. He states this is working for him he has lost 12 #. Pt states the pharmacy instructed him to contact his pcp and get this straightened out. Pt states he wants to get his medication. Please advise pt. Jaz Briones LPN * Telephone Encounter - Vikram Massey Ma - 10/27/2021 7:58 AM EDT TC to patient regarding medication follow up for today - Patient scheduled for adipex refill. Patient's last fill was on 09/18. Pharmacy will not fill if it has been over 7 days since last dose. Patient can reschedule unless he needs seen for something else. Unable to reach patient. documented in this encounterParma Community [facility] Hospital07-11-2022 Instructions* Patient Instructions* Jinny Smith APRN.CNP - 10/27/2021 9:01 AM EDT Qsymia: Take once daily. Call office in two weeks for next higher dose if you tolerate the initial starting dose. Follow-up in 3 months. documented in this encounterParma Community [facility] Hospital07-11-2022 History of Present illness Narrative* Jinny Smith APRN.CNP - 10/27/2021 8:44 AM EDT CC: Patient presents with: weight loss f/u HPI Lance Bee is a 60 year old male who presents today for above. Patient has taken one month of Adipex. Next dose was due for refill on 10/18, patient is 9 days past this date and unable to refill for another 6 months per state pharmacy board regulations. He is interested in trying a different medication for weight loss. Last 2 Encounters: Date: Wt: BMI: 10/27/21 : 113.4 kg (250 lb) 36.28 kg/m 09/18/21 : 118.8 kg (262 lb) 38.03 kg/m DIET Daily serving of fruits:1-2 Daily serving of vegetables:1-2 Daily serving of protein:3-5 Fluid intake:Water mostly, feels intake is more than adequate Do you Skip meals:NO Eating away from home:NO Exercise routine: walks 12,000 to 20,000 steps per day REVIEW OF SYSTEMS See HPI PAST MEDICAL HISTORY Diagnosis Date Anxiety 11/01/2015 Asymptomatic microscopic hematuria 2017 Contact dermatitis and other eczema, due to unspecified cause DDD (degenerative disc disease), lumbar 02/10/2013 Depression Dog bite of right lower leg 2000 with recurrent wounds Dysthymic disorder Depression (non-psychotic) Hypertension Impaired glucose metabolism 09/26/2014 A1c 6.1% September 2014 Obesity Open wound of knee, leg (except thigh), and ankle, complicated Open wound of right lower extremity 07/24/2017 YAIMA (obstructive sleep apnea) no CPAP tried by choice. 12/20/2014 Personal history of skin cancer 01/30/2016 Dr. Melody Trammell, Dermatology annually. Primary insomnia 11/01/2015 Reflex sympathetic dystrophy Restless legs 05/20/2015 Squamous cell carcinoma of lower leg 09/23/2012 Skin graft x2- Dr. Cook, Dr. Cardona [facility]- [place] Dr. Trammell Ulcer of other part of foot PAST SURGICAL HISTORY Procedure Laterality Date COLONOSCOPY 10/27/2016 INCOMPLETE- CT colonography 03/31/18 diverticular disease. Repeat 5-10yrs EGD 10/27/2016 PAST SURGICAL HISTORY OF Right 2012 excision of tumor, right leg PAST SURGICAL HISTORY OF Right 2014 skin grafts, right leg. 2012,2014. ALLERGIES Cymbalta [Duloxetine] and Lisinopril MEDICATIONS clonazePAM (KLONOPIN) 1 mg tablet Take 2 tablets by mouth at bedtime as needed (anxiety, restless leg) for up to 180 days. FAMILY HISTORY Problem Relation Age of Onset Cancer Father pancreatic other (scleroderma) Mother Social History Tobacco Use Smoking status: Never Smoker Smokeless tobacco: Never Used Substance Use Topics Alcohol use: Yes Comment: rare Drug use: No PHYSICAL EXAM BP 110/88 Pulse 96 Resp 18 Wt 113.4 kg (250 lb) BMI 36.28 kg/m General Appearance: well appearing, in no acute distress, alert ASSESSMENT/PLAN: 1. Obesity (BMI 35.0-39.9 without comorbidity) - ICD9: 278.00, ICD10: E66.9 Patient is very upset that he is unable to get Adipex refilled. Apologized to patient multiple times that he was scheduled incorrectly but I am unable to refill due to state pharmacy board regulations. Reviewed treatment options, he is interested in starting Qsymia. - Begin healthy diet consisting of fruits, vegetables and lean proteins. Reduce sugary drinks of artificial juices and sodas and replace with water and low calorie Crystal Light. Healthy Snack alternatives have been discussed - Begin exercise or meaningful activity for 20 minutes at lest 3 times a day PDMP website checked and validated. All prescriptions have been APPROPRIATELY filled. No suspiciousactivity was identified. 10/27/2021 by Jinny Smith APRN.CNP - reviewed SE, medication expectations, required weight loss of 5%, required monitoring - Follow-up in 3 month(s) or as needed - QSYMIA 3.75 MG-23 MG CAPSULE, EXTENDED RELEASE Prescription instructions reviewed with patient as applicable. Potential red flag symptoms discussed with the patient. Reviewed appropriate action plan to take if red flag symptoms occur. Patient agreeable to treatment plan. During this patient visit I have spent approximately 20 minutes in counseling regarding treatment options and medications. Jinny Smith APRN.TAY documented in this encounterParma Community [facility] Hospital06-02-2022 History of Present illness Narrative* Lance Jorgensen MD - 09/18/2021 6:11 PM EDT This note was created using [employer]ing[employer]. Subjective Patient presents with: Rx Refills Abnormal Weight Gain: Medication assisted weight loss Lance Bee is a 60 year old male was [facility]. He moved back here from [place]. He had been out of clonazepam for a few months, and insomnia and restless legs were bothersome. His work was stressful at times. He had regained weight, and was interested in another round of medication assisted weight loss. He was resuming lifestyle changes for weight loss. His hypertension had improved to the point of not needing medication when he lost weight. He had Covid immun[place] of [place], so information will need updating. Review of Systems Constitutional: Negative. Respiratory: Negative for chest tightness and shortness of breath. Cardiovascular: Negative for chest pain, palpitations and leg swelling. Gastrointestinal: Negative. Neurological: Negative for dizziness and headaches. Psychiatric/Behavioral: Positive for sleep disturbance. ACTIVE PROBLEM LIST Reflex Sympathetic Dystrophy Depression Hypertension Goal Bp (Blood Pressure) < 130/80 Ddd (Degenerative Disc Disease), Lumbar Obesity (Bmi 35.0-39.9 Without Comorbidity) Impaired Glucose Metabolism Anxiety Primary Insomnia Personal History of Skin Cancer Restless Legs PAST SURGICAL HISTORY Procedure Laterality Date COLONOSCOPY 10/27/2016 INCOMPLETE- CT colonography 03/31/18 diverticular disease. Repeat 5-10yrs EGD 10/27/2016 PAST SURGICAL HISTORY OF Right 2012 excision of tumor, right leg PAST SURGICAL HISTORY OF Right 2014 skin grafts, right leg. 2012,2013. Social History Tobacco Use Smoking status: Never Smoker Smokeless tobacco: Never Used Substance Use Topics Alcohol use: Yes Comment: rare Drug use: No Immunization History Administered Date(s) Administered COVID-19 vaccine, full dose (MODERNA) 07/24/2021 Influenza Seasonal Inj Age 3+ 03/20/2017 01/17/2018 01/02/2020 Influenza Seasonal Inj Quad Age 6 Mo - 64 Yrs 01/30/2016 01/16/2019 Influenza Seasonal Inj Quad Age 6 Mo-64 Yrs Pres Free 05/20/2015 Influenza Seasonal Trivalent Inj Pres Free 02/05/2014 Influenza Vaccine, Split-Non Spec 01/23/2010 Novel Influenza H1N1, nasal 05/27/2009 Tdap (Age 7+) 09/23/2012 Zoster Recombinant (Shingrix) 10/04/2019 12/21/2019 Objective BP 137/89 (BP Site: Left Arm, BP Position: Sitting, BP Cuff Size: Large Adult) Pulse 91 Temp 36.4 C (97.6 F) (Temporal Artery) Resp 20 Ht 176.8 cm (5' 9.6) Wt 118.8 kg (262 lb) BMI 38.03kg/m Physical Exam Constitutional: Appearance: He is obese. He is not ill-appearing. HENT: Head: Normocephalic. Eyes: Conjunctiva/sclera: Conjunctivae normal. Cardiovascular: Rate and Rhythm: Normal rate and regular rhythm. Heart sounds: No murmur heard. No gallop. Pulmonary: Effort: Pulmonary effort is normal. Breath sounds: Normal breath sounds. Musculoskeletal: Right lower leg: No edema. Left lower leg: No edema. Neurological: Mental Status: He is alert. Gait: Gait normal. Psychiatric: Mood and Affect: Mood normal. Behavior: Behavior normal. Assessment and Plan 1. Obesity, Class I, BMI 30.0-34.9 (see actual BMI) - ICD9: 278.00, ICD10: E66.9 (primary diagnosis) Weight increasing - Behavioral intervention and - Pharmacological intervention - PHENTERMINE 37.5 MG CAPSULE - We reviewed need for monthly in office visits, demonstrated weight loss, vital signs; and duration of not more than 3 months. 2. Primary insomnia - ICD9: 307.42, ICD10: F51.01 Refilled. - CLONAZEPAM 1 MG TABLET 3. Anxiety - ICD9: 300.00, ICD10: F41.9 Refilled. - CLONAZEPAM 1 MG TABLET 4. Restless legs - ICD9: 333.94, ICD10: G25.81 Refilled. - CLONAZEPAM 1 MG TABLET 5. Hypertension goal BP (blood pressure) < 130/80 - ICD9: 401.9, ICD10: I10 - suboptimal control - Encouraged dietary sodium restriction/DASH diet - Discussed need and benefit for weight loss. - Reviewed risks of HTN and principles of treatment - He preferred no medication first. 6. Impaired glucose metabolism - ICD9: 790.29, ICD10: R73.09 Recheck. - COMP METABOLIC PANEL - HGB A1C Lance Jorgensen MD [facility]* Patient Instructions* Lance Jorgensen MD - 09/18/2021 5:12 PM EDT Covid vaccination records. Fasting labs any time. [facility] History of Past illness Narrative* Problem Noted Date Resolved Date Asymptomatic microscopic hematuria 2017 09/18/2021 Open wound of right lower extremity 07/24/2017 09/18/2021 YAIMA (obstructive sleep apnea) no CPAP tried by thomas lanier. 12/20/2014 08/11/2018 Open wound of knee, leg (exc ept thigh), and ankle, complicated 02/10/2013 Ulcer of other part of foot 01/18 documented as of this encounter (statuses as of 09/18/2021) [facility] of Past illness Narrative* Problem Noted Date Resolved Date Asymptomatic microscopic hematuria 2017 09/18/2021 Open wound of right lower extremity 07/24/2017 09/18/2021 YAIMA (obstructive sleep apnea) no CPAP tried by thomas lanier. 12/20/2014 08/11/2018 Open wound of knee, leg (exc ept thigh), and ankle, complicated 02/10/2013 Ulcer of other part of foot 01/18 documented as of this encounter (statuses as of 10/27/2021) [facility] of Past illness Narrative* Problem Noted Date Resolved Date Asymptomatic microscopic hematuria 2017 09/18/2021 Open wound of right lower extremity 07/24/2017 09/18/2021 YAIMA (obstructive sleep apnea) no CPAP tried by thomas lanier. 12/20/2014 08/11/2018 Open wound of knee, leg (exc ept thigh), and ankle, complicated 02/10/2013 Ulcer of other part of foot 01/18 documented as of this encounter (statuses as of 10/27/2021) [facility] of Past illness Narrative* Problem Noted Date Resolved Date Asymptomatic microscopic hematuria 2017 09/18/2021 Open wound of right lower extremity 07/24/2017 09/18/2021 YAIMA (obstructive sleep apnea) no CPAP tried by thomas lanier. 12/20/2014 08/11/2018 Open wound of knee, leg (exc ept thigh), and ankle, complicated 02/10/2013 Ulcer of other part of foot 01/18 documented as of this encounter (statuses as of 12/01/2021) [facility] of Past illness Narrative* Problem Noted Date Resolved Date Asymptomatic microscopic hematuria 2017 09/18/2021 Open wound of right lower extremity 07/24/2017 09/18/2021 YAIMA (obstructive sleep apnea) no CPAP tried by thomas lanier. 12/20/2014 08/11/2018 Open wound of knee, leg (exc ept thigh), and ankle, complicated 02/10/2013 Ulcer of other part of foot 01/18 documented as of this encounter (statuses as of 12/05/2021) [facility] of Past illness Narrative* Problem Noted Date Resolved Date Asymptomatic microscopic hematuria 2017 09/18/2021 Open wound of right lower extremity 07/24/2017 09/18/2021 YAIMA (obstructive sleep apnea) no CPAP tried by thomas lanier. 12/20/2014 08/11/2018 Open wound of knee, leg (exc ept thigh), and ankle, complicated 02/10/2013 Ulcer of other part of foot 01/18 documented as of this encounter (statuses as of 12/29/2021) [facility] of [facility] illness Narrative* Problem Noted Date Resolved Date Asymptomatic microscopic hematuria 2017 09/18/2021 Open wound of right lower extremity 07/24/2017 09/18/2021 YAIMA (obstructive sleep apnea) no CPAP tried by thomas lanier. 12/20/2014 08/11/2018 Open wound of knee, leg (exc ept thigh), and ankle, complicated 02/10/2013 Ulcer of other part of foot 01/18 documented as of this encounter (statuses as of 02/03/2022) [facility] of [facility] illness Narrative* Problem Noted Date Resolved Date Asymptomatic microscopic hematuria 2017 09/18/2021 Open wound of right lower extremity 07/24/2017 09/18/2021 YAIMA (obstructive sleep apnea) no CPAP tried by thomas lanier. 12/20/2014 08/11/2018 Open wound of knee, leg (exc ept thigh), and ankle, complicated 02/10/2013 Ulcer of other part of foot 01/18 documented as of this encounter (statuses as of 02/09/2022) [facility] illness Narrative* Problem Noted Date Resolved Date Asymptomatic microscopic hematuria 2017 09/18/2021 Open wound of right lower extremity 07/24/2017 09/18/2021 YAIMA (obstructive sleep apnea) no CPAP tried by thomas lanier. 12/20/2014 08/11/2018 Open wound of knee, leg (exc ept thigh), and ankle, complicated 02/10/2013 Ulcer of other part of foot 01/18 documented as of this encounter (statuses as of 05/18/2022) [facility] illness Narrative* Problem Noted Date Resolved Date Asymptomatic microscopic hematuria 2017 09/18/2021 Open wound of right lower extremity 07/24/2017 09/18/2021 YAIMA (obstructive sleep apnea) no CPAP tried by thomas lanier. 12/20/2014 08/11/2018 Open wound of knee, leg (exc ept thigh), and ankle, complicated 02/10/2013 Ulcer of other part of foot 01/18 documented as of this encounter (statuses as of 05/21/2022) [facility] illness Narrative* Problem Noted Date Resolved Date Asymptomatic microscopic hematuria 2017 09/18/2021 Open wound of right lower extremity 07/24/2017 09/18/2021 YAIMA (obstructive sleep apnea) no CPAP tried by thomas lanier. 12/20/2014 08/11/2018 Open wound of knee, leg (exc ept thigh), and ankle, complicated 02/10/2013 Ulcer of other part of foot 01/18 documented as of this encounter (statuses as of 05/22/2022) [facility] Narrative* Problem Noted Date Resolved Date Asymptomatic microscopic hematuria 2017 09/18/2021 Open wound of right lower extremity 07/24/2017 09/18/2021 YAIMA (obstructive sleep apnea) no CPAP tried by thomas lanier. 12/20/2014 08/11/2018 Open wound of knee, leg (exc ept thigh), and ankle, complicated 02/10/2013 Ulcer of other part of foot 01/18 documented as of this encounter (statuses as of 06/15/2022) [facility] Narrative* Problem Noted Date Resolved Date Asymptomatic microscopic hematuria 2017 09/18/2021 Open wound of right lower extremity 07/24/2017 09/18/2021 YAIMA (obstructive sleep apnea) no CPAP tried by thomas lanier. 12/20/2014 08/11/2018 Open wound of knee, leg (exc ept thigh), and ankle, complicated 02/10/2013 Ulcer of other part of foot 01/18 documented as of this encounter (statuses as of 07/13/2022) [facility] illness Narrative* Problem Noted Date Diagnosed Date Resolved Date Asymptomatic microscopic hematuria 2017 09/18/2021 Open wound of right lower extremity 07/24/2017 09/18/2021 YAIMA (obstructive sleep apnea ) no CPAP tried by choice. 12/20/2014 08/11/2018 Open wound of knee, leg (exc ept thigh), and ankle, complicated 02/10/2013 Ulcer of other part of foot 02/10/2013 documented as of this encounter (statuses as of 12/03/2022) [facility] illness Narrative* Problem Noted Date Diagnosed Date Resolved Date Asymptomatic microscopic hematuria 2017 09/18/2021 Open wound of right lower extremity 07/24/2017 09/18/2021 YAIMA (obstructive sleep apnea ) no CPAP tried by choice. 12/20/2014 08/11/2018 Open wound of knee, leg (exc ept thigh), and ankle, complicated 02/10/2013 Ulcer of other part of foot 02/10/2013 documented as of this encounter (statuses as of 01/11/2023) [facility] Narrative* Problem Noted Date Diagnosed Date Resolved Date Asymptomatic microscopic hematuria 2017 09/18/2021 Open wound of right lower extremity 07/24/2017 09/18/2021 YAIMA (obstructive sleep apnea ) no CPAP tried by choice. 12/20/2014 08/11/2018 Open wound of knee, leg (exc ept thigh), and ankle, complicated 02/10/2013 Ulcer of other part of foot 02/10/2013 documented as of this encounter (statuses as of 02/02/2023) [facility] Narrative* Problem Noted Date Diagnosed Date Resolved Date Asymptomatic microscopic hematuria 2017 09/18/2021 Open wound of right lower extremity 07/24/2017 09/18/2021 YAIMA (obstructive sleep apnea ) no CPAP tried by choice. 12/20/2014 08/11/2018 Open wound of knee, leg (exc ept thigh), and ankle, complicated 02/10/2013 Ulcer of other part of foot 02/10/2013 documented as of this encounter (statuses as of 02/16/2023) [facility] illness Narrative* Problem Noted Date Diagnosed Date Resolved Date Asymptomatic microscopic hematuria 2017 09/18/2021 Open wound of right lower extremity 07/24/2017 09/18/2021 YAIMA (obstructive sleep apnea ) no CPAP tried by choice. 12/20/2014 08/11/2018 Open wound of knee, leg (exc ept thigh), and ankle, complicated 02/10/2013 Ulcer of other part of foot 02/10/2013 documented as of this encounter (statuses as of 02/16/2023) [facility] Narrative* Problem Noted Date Diagnosed Date Resolved Date Asymptomatic microscopic hematuria 2017 09/18/2021 Open wound of right lower extremity 07/24/2017 09/18/2021 YAIMA (obstructive sleep apnea ) no CPAP tried by choice. 12/20/2014 08/11/2018 Open wound of knee, leg (exc ept thigh), and ankle, complicated 02/10/2013 Ulcer of other part of foot 02/10/2013 documented as of this encounter (statuses as of 03/19/2023) [facility] of [facility] illness Narrative* Problem Noted Date Diagnosed Date Resolved Date Asymptomatic microscopic hematuria 2017 09/18/2021 Open wound of right lower extremity 07/24/2017 09/18/2021 YAIMA (obstructive sleep apnea ) no CPAP tried by choice. 12/20/2014 08/11/2018 Open wound of knee, leg (exc ept thigh), and ankle, complicated 02/10/2013 Ulcer of other part of foot 02/10/2013 documented as of this encounter (statuses as of 03/30/2023) [facility] of [facility] illness Narrative* Problem Noted Date Resolved Date YAIMA (obstructive sleep apnea) no CPAP tried by thomas lanier. 12/20/2014 08/11/2018 Open wound of knee, leg (exc ept thigh), and ankle, complicated 02/10/2013 Ulcer of other part of foot 01/18 documented as of this encounter (statuses as of 09/09/2021) [facility] Author Carlos Noel [facility] Note Date/Time September 17, 2024 1:04p [facility] Medical Records Department [address] [place] [address] Emergency Department Summary 09/17/24 MR#: [id number] Acct: [id number] Name: LANCE BEE Rep #:[id number] : 1960 63 From: Carlos Noel MD PCP: Dr. Lance Jorgensen MD Status:R EG ER Location: ED HPI HPI - GI History of Present Illness Chief Complaint: Nausea/Vomiting Informant: patient Nausea/Vomiting/Emesis GI Symptom: Positive for Nausea and Vomiting Onset: Weeks Severity: Mild Diarrhea/Melena/Hematochezia GI Symptom: Negative for Diarrhea, Melena or Hematochezia Associated Symptoms Associated Symptoms: Negative for Dysuria, Frequency, Hematuria or Urgency Narrative Narrative: 63-year-old male history of prior small bowel obstruction about a year ago in [place]. For the last several weeks he has had intermittent nausea vomiting. She is okay to be drinks fluid but if he eats food a lot of times of nausea and vomiting. He was on Wegovy for weight loss lost about 60 pounds was on it for about 3 months he has been off of that now about 1 to 2 months. Denies any abdominal pain no fever. No dysuria. No prior abdominal surgery. History of ahiatal hernia. Prior similar symptoms: Yes Recent Illness/Hospitalization: No [facility] Medical History HTN (hypertension) Home Medications ?Medication ?Instructions ?Recorded ?Last Taken ?Type hydrochlorothiazide 25 mg tablet 25 mg PO DAILY Unknown History oxycodone 5 mg tablet 20 mg 06/17/17 Unknown Histo ry venlafaxine 150 mg tablet,extended 150 mg PO 06/17/17 Unknown History release 24 hr ondansetron 4 mg disintegrating 4 mg PO Q6H PRN nausea and 09/17/24 Unknown Rx tablet vomiting #7 tabs Allergy/AdvReac Type Severity Reaction Status Date / Time No Known Allergies Allergy Verified 09/17/24 09:52 Social History Smoking Status: Never smoker ROS ROS ED ROS Narrative Nausea and vomiting. Weight loss. Constitutional Constitutional ED: Denies chills or fever(s) ENT ENT ED: Denies ear pain Cardiovascular Cardiovascular: Denies chest pain Respiratory/Chest Respiratory/Chest: Denies cough or dyspnea Gastrointestinal Gastrointestinal: Reports nausea and vomiting; Denies abdominal pain, constipation, diarrhea or melena Genitourinary Genitourinary ED: Denies dysuria or hematuria Musculoskeletal Musculoskeletal: Denies arthralgias Integumentary Denies abscess Neurologic Neurologic: Denies headache(s) Psychiatric Psychiatric: Denies anxiety Endocrine Endocrinology: Denies polydipsia Hematologic/Lymphatic Hematologic/Lymphatic: Denies easy bleeding Allergic/Immunologic Allergic/Immunologic ED: Denies mouth swelling, tongue swelling or urticaria EXAM Physical Exam Narrative Exam Narrative: 63-year-old male sitting upright in bed. Vital signs are stable afebrile. H EENT exam pupils round reactive light. Moist Reagan membranes. Neck nontender no lymphadenopathy. Lungs clear to auscultation bilaterally. Heart regular rhythm no murmur. Abdomen is soft, nontender, nondistended normal bowel sounds without peritoneal signs. Abdomen is completely nontender. No obstruction. Moving all 4 extremities. Nontender no edema. Normal range of motion. Back nontender. Neurologically is awake alert. Answering questions following commands. Const Vital Signs: 09/17/24 09:52 09/17/24 11:52 Temperature 97.0 F L Temperature Source Temporal Pulse Rate 97 80 Respiratory Rate 18 Blood Pressure 123/96 H 138/86 H Blood Pressure Mean 105 103 Pulse Ox 99 100 Oxygen Delivery Method Room Air Room Air Positive well nourished and well developed; Negative for cachectic, contracturesor unkempt General Appearance ED: well developed and NAD; Negative for unkempt, cachectic, contractures or pallor Nutritional Appearance: Negative for cachectic HEENT Reports moist mucous membranes normocephalic and atraumatic Eyes PERRL and EOMs intact bilaterally General Eye ED: Negative for pale conjunctiva or scleral icterus Neck no lymphadenopathy, supple and no JVD General: Negative for tenderness Resp normal respiratory effort and clear to auscultation bilaterally Effort and Inspection: Negative for respiratory distress Auscultation: Negative for rales, rhonchi, wheezes or diminished lung sounds Cardio regular rate, regular rhythm, S1 normal heart sound, S2 normal heart sound and no murmurs GI non-tender, non-distended and no masses Inspection: Negative for abdominal distention Auscultation: normoactive bowel sounds Palpation: soft; Negative for tender, guarding, hernia, mass, pulsatile mass or rebound tenderness present Back/Spine no CVA tenderness Extremity full ROM General Extremety ED: Negative for edema or tenderness General Extremity: Negative for edema Neuro CN's II-XII intact bilaterally and moves all extremities Sensorium / Orientation: alert, oriented to person, oriented to place and oriented to time Motor Exam: strength 5/5 throughout Psych mental status grossly normal and thought process normal Appearance: Negative for unkempt Mood & Affect: Negative for depressed, anxious or tearful Skin no wounds General Skin Exam: Negative for jaundice or pallor Rashes: no rashes MDM MDM MDM Narrative Medical decision making narrative: 63-year-old male history of prior bowel obstruction complaining nausea vomiting. Currently his abdomen is benign. Is nontender, clinically [place] he has obstruction. CAT scan and labs to be obtained. He did not needed for pain or nausea at this time. Repeat exam patient is doing well around 12:55 PM. His abdomen is completely nontender he has no pain. His labs are unremarkable. I spoke to general surgeon on-call went over the CAT scan with Dr. Fred Parikh of general surgery. This is probably chronic inflammation. Patient referred to general surgery [facility] for further evaluation for possible hiatal hernia repair. Patient is comfortable with the plan. History & Record Review Discussion w/independent historian: Patient Additional record(s) reviewed:: Prior inpatient record, Prior outpatient record,Prior ED visit and Prior labs Lab Data Attestation: I reviewed the patient's lab results. Lab results narrative: CBC normal. White count 7.5. H&H 15 and 44. Platelets 176. Chemistry shows sodium 141. Gap 11. Normal BUN of 15 creatinine 0.98. [id number]. Liver enzymes are normal. Lipase is just mildly elevated 89. Labs: Laboratory Results - last 24 hr 09/17/24 10:54 WBC 7.5 RBC 5.16 Hgb 15.7 Hct 44.4 MCV 86.0 MCH 30.4 MCHC 35.4 RDW Std Deviation 40.2 RDW Coeff of Nicanor 12.9 Plt Count 176 MPV 11.1 Immature Gran % (Auto) 0.100 Neut % (Auto) 62.9 Lymph % (Auto) 27.3 Jack % (Auto) 8.0 Eos % (Auto) 1.2 Baso % (Auto) 0.5 Absolute Neuts (auto) 4.7 Absolute Lymphs (auto) 2.06 Nucleated RBC % 0 Sodium 141 Potassium 4.0 Chloride 107 Carbon Dioxide 22.6 Anion Gap 11 BUN 15 Creatinine 0.98 Estim Creat Clear Calc 83.24 Est GFR (MDRD) Non-Af 87 BUN/Creatinine Ratio 15.2 Glucose 99 Calcium 9.4 Total Bilirubin 0.55 AST 21 ALT 10 Alkaline Phosphatase 99 Total Protein 6.7 Albumin 4.0 Globulin 2.7 Albumin/Globulin Ratio 1.5 Lipase 89 H Radiography Diagnostic Testing: Clinical Impression(s) from Imaging Studies Abdomen/Pelvis CT 09/17/24 10:36 IMPRESSION: 1. Moderate-sized paraesophageal hernia with wall edema and stranding of the herniated portion of the stomach, concerning for developing incarceration. Surgical consultation recommended. 2. Cholelithiasis without evidence of acute cholecystitis. Ultrasound evaluation will not be useful given incidental gas within the gallstones. 3. Nonobstructing right lower pole renal calculus. Reading Location: [facility] Discharge Plan Triage Chief Complaint: Nausea/Vomiting ED Provider: Carlos Noel Dx/Rx/DC Orders Clinical Impression: Nausea & vomiting, Esophageal hiatal hernia Instructions: ED Vomiting (Adult) Prescriptions: New ondansetron 4 mg tablet,disintegrating 4 mg PO Q6H PRN (Reason: nausea and vomiting) Qty: 7 0RF No Action hydrochlorothiazide 25 MG tablet 25 mg PO DAILY oxycodone 5 MG tablet 20 mg venlafaxine 150 MG tablet extended release 24hr 150 mg PO Primary Care Provider: Lance Jorgensen Referrals: Ihsan Waters MD [Med Staff - Active Staff] - As soon as possible Lance Jorgensen MD [Primary Care Provider] - Activity Restrictions/Additional Instructions: Call and follow-up with general surgery Dr. Ihsan Waters for further evaluation of your hiatal hernia. Liquid diet and slowly increase as tolerated. Zofran as needed for nausea. Print Language: Greek Disposition Disposition: Home, Self Care What to do if you have Problems For any increased pain, shortness of breath, bleeding, nausea or vomiting, chestpain, or any unexpected problems, contact your Primary Care Provider. Call [facility] ([phone]) or report to the closest Emergency Room. Call 911 if necessary. 09/17/24 1304 <Electronically signed by Carlos Noel MD> Cosigner Signature (if applicable): CC: Dr. Lance Jorgensen MD ~ Signed [facility] Work Phone: Evaluation note* Diagnosis Obesity, Class I, BMI 30.0-34.9 (see actual BMI)- Primary Obesity, unspecified Primary insomnia Persistent disorder of initiating or maintaining sleep Anxiety Anxiety state, unspecified Restless legs Restless legs syndrome (RLS) Hypertension goal BP (blood pressure) < 130/80 Unspecified essential hypertension Impaired glucose metabolism Impaired glucose tolerance test [facility] Obesity (BMI 35.0-39.9 without comorbidity)- Primary Obesity, unspecified [facility] Obesity (BMI 35.0-39.9 without comorbidity) Obesity, unspecified [facility] Diagnosis Obesity (BMI 35.0-39.9 without comorbidity) Obesity, unspecified [facility] Diagnosis Obesity (BMI 35.0-39.9 without comorbidity)- Primary Obesity, unspecified Encounter for immunization Need for other specified prophylactic vaccination against single bacterial disease Restless legs Restless legs syndrome (RLS) Anxiety Anxiety state, unspecified Impaired glucose metabolism Impaired glucose tolerance test [facility] Primary insomnia Persistent disorder of initiating or maintaining sleep Anxiety Anxiety state, unspecified Restless legs Restless legs syndrome (RLS) [facility] Primary insomnia Persistent disorder of initiating or maintaining sleep Anxiety Anxiety state, unspecified Restless legs Restless legs syndrome (RLS) [facility] Diagnosis Obesity, Class II, BMI 35-39.9 Obesity, unspecified [facility]* Diagnosis Obesity, Class II, BMI 35-39.9- Primary Obesity, unspecified Hypertension goal BP (blood pressure) < 130/80 Unspecified essential hypertension documented in this encounter [facility]* Diagnosis Nocturia- Primary Primary insomnia Persistent disorder of initiating or maintaining sleep Anxiety Anxiety state, unspecified Restless legs Restless legs syndrome (RLS) documented in this encounter [facility] note* Diagnosis Hypertension goal BP (blood pressure) < 130/80- Primary Unspecified essential hypertension Impaired glucose metabolism Impaired glucose tolerance test documented in this encounter [facility]* Diagnosis Routine medical exam- Primary Routine general medical examination at a health care facility Encounter for immunization Need for other specified prophylactic vaccination against single bacterial disease Impaired glucose metabolism Impaired glucose tolerance test Hypertension goal BP (blood pressure) < 130/80 Unspecified essential hypertension Obesity (BMI 35.0-39.9 without comorbidity) Obesity, unspecified Screening for colon cancer Special screening for malignant neoplasms, colon Actinic keratosis documented in this encounter [facility]* Diagnosis Positive colorectal cancer screening using Cologuard test- Primary documented in this encounter [facility] note* Diagnosis Positive colorectal cancer screening using Cologuard test documented [facility]* Diagnosis Primary insomnia Persistent disorder of initiating or maintaining sleep Anxiety Anxiety state, unspecified Restless legs Restless legs syndrome (RLS) documented in this encounter [facility] note* Diagnosis Hypertension goal BP (blood pressure) < 130/80- Primary Unspecified essential hypertension Primary insomnia Persistent disorder of initiating or maintaining sleep Anxiety Anxiety state, unspecified Restless legs Restless legs syndrome (RLS) Obesity (BMI 35.0-39.9 without comorbidity) Obesity, unspecified Tubular adenoma of colon Benign neoplasm of colon documented in this encounter [facility]* Diagnosis Coffee ground emesis Hematemesis SBO (small bowel obstruction) (HCC) Unspecified intestinal obstruction documented in this encounter [facility] note* Diagnosis Hypertension goal BP (blood pressure) < 130/80- Primary Unspecified essential hypertension Obesity (BMI 35.0-39.9 without comorbidity) Obesity, unspecified History of small bowel obstruction Personal history of other diseases of digestive system Fatigue, unspecified type documented in this encounter [facility] note* Diagnosis Tubular adenoma of colon- Primary Benign neoplasm of colon Coffee ground emesis Hematemesis SBO (small bowel obstruction) (HCC) Unspecified intestinal obstruction [facility] Diagnosis Dysthymic disorder- Primary OBESITY NOS Obesity, unspecified Special screening for malignant neoplasms, colon Special screening for malignant neoplasm of prostate Abrasion of hand Hand(s) except finger(s) alone, abrasion or friction burn, without mention of infection Need for prophylactic vaccination with combined hpqpsuexgb-vicbtei-hcgvjlavz (DTP) vaccine Severe obesity (BMI 35.0-35.9 with comorbidity) (HCC)- Primary Morbid obesity Dysthymic disorder Lumbago Hypertension Unspecified essential hypertension Gastritis, presence of bleeding unspecified, unspecified chronicity, unspecified gastritis type- Primary Other urinary incontinence Nocturia Hiatal hernia Diaphragmatic hernia without mention of obstruction or gangrene [facility] Diagnosis Dysthymic disorder- Primary OBESITY NOS Obesity, unspecified Special screening for malignant neoplasms, colon Special screening for malignant neoplasm of prostate Abrasion of hand Hand(s) except finger(s) alone, abrasion or friction burn, without mention of infection Need for prophylactic vaccination with combined ppdzfkbxam-qunstto-ogjuqdhfi (DTP) vaccine Severe obesity (BMI 35.0-35.9 with comorbidity) (HCC)- Primary Morbid obesity Dysthymic disorder Lumbago Hypertension Unspecified essential hypertension Tubular adenoma of colon Benign neoplasm of colon Coffee ground emesis Hematemesis SBO (small bowel obstruction) (HCC) Unspecified intestinal obstruction [facility] Diagnosis Dysthymic disorder- Primary OBESITY NOS Obesity, unspecified Special screening for malignant neoplasms, colon Special screening for malignant neoplasm of prostate Abrasion of hand Hand(s) except finger(s) alone, abrasion or friction burn, without mention of infection Need for prophylactic vaccination with combined zrcnowvbme-iekxjbb-ykfyspynn (DTP) vaccine Severe obesity (BMI 35.0-35.9 with comorbidity) ([facility])- Primary Morbid obesity Dysthymic disorder Lumbago Hypertension Unspecified essential hypertension Primary insomnia Persistent disorder of initiating or maintaining sleep Anxiety Anxiety state, unspecified Restless legs Restless legs syndrome (RLS) [facility]* Diagnosis Dysthymic disorder- Primary OBESITY NOS Obesity, unspecified Special screening for malignant neoplasms, colon Special screening for malignant neoplasm of prostate Abrasion of hand Hand(s) except finger(s) alone, abrasion or friction burn, without mention of infection Need for prophylactic vaccination with combined mekkrmflsx-iavmvle-jxiicubtm (DTP) vaccine Severe obesity (BMI 35.0-35.9 with comorbidity) ([facility])- Primary Morbid obesity Dysthymic disorder Lumbago Hypertension Unspecified essential hypertension Nocturia- Primary Renal cyst Unspecified congenital cystic kidney disease Kidney stone Calculus of kidney Screening for genitourinary condition Screening for other and unspecified genitourinary condition documented [facility] this encounter [facility]* Diagnosis Dysthymic disorder- Primary OBESITY NOS Obesity, unspecified Special screening for malignant neoplasms, colon Special screening for malignant neoplasm of prostate Abrasion of hand Hand(s) except finger(s) alone, abrasion or friction burn, without mention of infection Need for prophylactic vaccination with combined yzhudzylda-evyvdzl-qvadsrleo (DTP) vaccine Severe obesity (BMI 35.0-35.9 with comorbidity) ([facility])- Primary Morbid obesity Dysthymic disorder Lumbago Hypertension Unspecified essential hypertension Obesity (BMI 35.0-39.9 without comorbidity) Obesity, unspecified Impaired glucose metabolism Impaired glucose tolerance test documented in this encounter [facility] note* Diagnosis Dysthymic disorder- Primary OBESITY NOS Obesity, unspecified Special screening for malignant neoplasms, colon Special screening for malignant neoplasm of prostate Abrasion of hand Hand(s) except finger(s) alone, abrasion or friction burn, without mention of infection Need for prophylactic vaccination with combined fkhbnzqqjp-ovclvhq-fnqwhxbyo (DTP) vaccine Severe obesity (BMI 35.0-35.9 with comorbidity) ([facility])- Primary Morbid obesity Dysthymic disorder Lumbago Hypertension Unspecified essential hypertension Primary insomnia Persistent disorder of initiating or maintaining sleep Anxiety Anxiety state, unspecified Restless legs Restless legs syndrome (RLS) documented in this encounter [facility] note* Diagnosis Dysthymic disorder- Primary OBESITY NOS Obesity, unspecified Special screening for malignant neoplasms, colon Special screening for malignant neoplasm of prostate Abrasion of hand Hand(s) except finger(s) alone, abrasion or friction burn, without mention of infection Need for prophylactic vaccination with combined piimyjpzrn-ftfkxwl-msgwvqbof (DTP) vaccine Severe obesity (BMI 35.0-35.9 with comorbidity) ([facility])- Primary Morbid obesity Dysthymic disorder Lumbago Hypertension Unspecified essential hypertension Obesity (BMI 35.0-39.9 without comorbidity) Obesity, unspecified Impaired glucose metabolism Impaired glucose tolerance test [facility]* Diagnosis Dysthymic disorder- Primary OBESITY NOS Obesity, unspecified Special screening for malignant neoplasms, colon Special screening for malignant neoplasm of prostate Abrasion of hand Hand(s) except finger(s) alone, abrasion or friction burn, without mention of infection Need for prophylactic vaccination with combined fkflxuieyu-rtfpfwh-dumciyskj (DTP) vaccine Severe obesity (BMI 35.0-35.9 with comorbidity) ([facility])- Primary Morbid obesity Dysthymic disorder Lumbago Hypertension Unspecified essential hypertension Primary insomnia Persistent disorder of initiating or maintaining sleep Anxiety Anxiety state, unspecified Restless legs Restless legs syndrome (RLS) [facility]* Diagnosis Dysthymic disorder- Primary OBESITY NOS Obesity, unspecified Special screening for malignant neoplasms, colon Special screening for malignant neoplasm of prostate Abrasion of hand Hand(s) except finger(s) alone, abrasion or friction burn, without mention of infection Need for prophylactic vaccination with combined dimqlfruug-zmzdbjj-wsgjuktnz (DTP) vaccine Severe obesity (BMI 35.0-35.9 with comorbidity) ([facility])- Primary Morbid obesity Dysthymic disorder Lumbago Hypertension Unspecified essential hypertension Primary insomnia Persistent disorder of initiating or maintaining sleep Anxiety Anxiety state, unspecified Restless legs Restless legs syndrome (RLS) documented in this encounter [facility]* Diagnosis Severe obesity (BMI 35.0-35.9 with comorbidity) ([facility])- Primary Morbid obesity Dysthymic disorder Lumbago Hypertension Unspecified essential hypertension Impaired glucose metabolism- Primary Impaired glucose tolerance test Encounter for immunization Need for other specified prophylactic vaccination against single bacterial disease Hypertension goal BP (blood pressure) < 130/80 Unspecified essential hypertension Primary insomnia Persistent disorder of initiating or maintaining sleep Anxiety Anxiety state, unspecified Restless legs Restless legs syndrome (RLS) Prostate cancer screening Special screening for malignant neoplasm of prostate Obesity, Class I, BMI 30-34.9 Obesity, unspecified documented in this encounter [facility]* Diagnosis Severe obesity (BMI 35.0-35.9 with comorbidity) ([facility])- Primary Morbid obesity Dysthymic disorder Lumbago Hypertension Unspecified essential hypertension Obesity (BMI 35.0-39.9 without comorbidity) Obesity, unspecified Impaired glucose metabolism Impaired glucose tolerance test documented in this encounter [facility]* Diagnosis Severe obesity (BMI 35.0-35.9 with comorbidity) ([facility])- Primary Morbid obesity Dysthymic disorder Lumbago Hypertension Unspecified essential hypertension Obesity (BMI 35.0-39.9 without comorbidity) Obesity, unspecified Impaired glucose metabolism Impaired glucose tolerance test documented in this encounter [facility]* Diagnosis Severe obesity (BMI 35.0-35.9 with comorbidity) ([facility])- Primary Morbid obesity Dysthymic disorder Lumbago Hypertension Unspecified essential hypertension Obesity (BMI 35.0-39.9 without comorbidity) Obesity, unspecified Impaired glucose metabolism Impaired glucose tolerance test documented in this encounter [facility] note* Diagnosis Severe obesity (BMI 35.0-35.9 with comorbidity) ([facility])- Primary Morbid obesity Dysthymic disorder Lumbago Hypertension Unspecified essential hypertension Atypical chest pain Other chest pain documented in this encounter [facility] note* Diagnosis Severe obesity (BMI 35.0-35.9 with comorbidity) ([facility])- Primary Morbid obesity Dysthymic disorder Lumbago Hypertension Unspecified essential hypertension Routine medical exam- Primary Routine general medical examination at a health care facility Screening for depression Atypical chest pain Other chest pain Anxiety Anxiety state, unspecified Restless legs Restless legs syndrome (RLS) Primary insomnia Persistent disorder of initiating or maintaining sleep Hypertension goal BP (blood pressure) < 130/80 Unspecified essential hypertension PSA elevation Elevated prostate specific antigen (PSA) Need for vaccination Need for prophylactic vaccination and inoculation against unspecified single disease Obesity, Class I, BMI 30-34.9 Obesity, unspecified documented in this encounter [facility] noteNo assessment information availableWMount Carmel [facility] Work Phone: Evaluation note* Diagnosis Severe obesity (BMI 35.0-35.9 with comorbidity) ([facility])- Primary Morbid obesity Dysthymic disorder Lumbago Hypertension Unspecified essential hypertension S/P repair of paraesophageal hernia- Primary Other postprocedural status documented in this encounter [facility] Discharge instructions Additional Instructions Call and follow-up with general surgery Dr. Ihsan Waters for further evaluation of your hiatal hernia. Liquid diet and slowly increase as tolerated. Zofran as needed for nausea.[facility] Work Phone: Reason for referral (narrative)* Diagnostic Procedure Only (Routine) - New Request Specialty Diagnoses / Procedures Referred By Ector geiger Referred To Contact [facility] Diagnoses Tubular adenoma of colon Coffee ground emesis SBO (small bowel obstruction) (HCC) Procedures XR ABDOMEN 1V SUPINE RADIOLOGIC EXAM ABDOMEN 1 VIEW Tony Childers MD [address] [address] [place] [address] Referral ID Status Reason Start Date Expiration Date Visits Requested Visits Authorized [id number] New Request Auto-Generat ed Referral 11/24/2023 12/23/2024 1 1 * Outpatient Procedure (Routine) - Closed Specialty Diagnoses / Procedures Referred By Ector geiger Referred To Contact [facility] Diagnoses Coffee ground emesis SBO (small bowel obstruction) (HCC) Procedures EGD DIAGNOSTIC ESOPHAGOGASTRODUODENOS COPY TRANSORAL DIAGNOSTIC Tony Childers MD [address] [id number] [facility] [address] [place] [id number] Referral ID Status Reason Start Date Expiration Date V isits Requested Visits Authorized [id number] Closed Auto-Generate d Referral 09/22/2023 09/21/2024 1 1 [facility] ([facility]ative)No reason for referral information availableWMount Carmel [facility] System Work Phone: Reason for visit Narrative* Diagnostic Procedure Only (Routine) - Closed Specialty Diagnoses / Procedures Referred By Ector geiger Referred To Contact XR IMAGING Diagnoses Coffee ground emesis SBO (small bowel obstruction) (HCC) Procedures XR ABDOMEN 2V ROUTINE SUPINE W UPRIGHT/DECUB/CTL RADIOLOGIC EXAM ABDOMEN 2 VIEWS Tony Childers MD [address] [address] [place] [address] Referral ID Status Reason Start Date Expiration Date V isits Requested Visits Authorized [id number] Closed Auto-Generate d Referral 09/22/2023 10/21/[address] [facility] for visit Narrative* Outpatient Procedure (Routine) - Closed Specialty Diagnoses / Procedures Referred By Ector geiger Referred To Contact [facility] Diagnoses Coffee ground emesis SBO (small bowel obstruction) (HCC) Procedures EGD DIAGNOSTIC ESOPHAGOGASTRODUODENOS COPY TRANSORAL DIAGNOSTIC Tony Childers MD [address] [address] [facility] [address] [place] [address] Referral ID Status Reason Start Date Expiration Date V isits Requested Visits Authorized [id number] Closed Auto-Generate d Referral 09/22/2023 09/21/[address] [facility] for visit Narrative* Diagnostic Procedure Only (Routine) - Closed Specialty Diagnoses / Procedures Referred By Ector geiger Referred To Contact XR IMAGING Diagnoses Tubular adenoma of colon Coffee ground emesis SBO (small bowel obstruction) (HCC) Procedures XR ABDOMEN 1V SUPINE RADIOLOGIC EXAM ABDOMEN 1 VIEW Tony Childers MD [address] [address] [place] [address] Referral ID Status Reason Start Date Expiration Date V isits Requested Visits Authorized [id number] Closed Auto-Generate d Referral 11/24/2023 12/23/2024 1 1 [facility] Summary Purpose Family History No Family History Records FoundNo Family History Records FoundNo Family History Records FoundNo Family History Records FoundNo Family History Records FoundNo Family History Records Found Advance Directives No Advanced Directives Records Found Advance Directive Response Recorded Date/ Time Do you have a Healthcare Power of 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 No September 17, 2024 10:04am Date Activated Date Inactivated Comments 09/20/2024 4:53 AM 09/22/2024 3:34 PM Question Answer Comments Full Code Order Discussed With: Patient Reason for Referral Specialty Diagnoses / Procedures Referred By Ector geiger Referred To Contact Diagnoses Obesity (BMI 35.0-39.9 without comorbidity) Lance Jorgensen MD [address] [place] [address] Referral ID Status Reason Start Date Expiration Date V isits Requested Visits Authorized [id number] Pending Review 1 1 Referral ID Status Reason Start Date Expiration Date V isits Requested Visits Authorized [id number] Pending Review 1 1 Referral ID Status Reason Start Date Expiration Date V isits Requested Visits Authorized [id number] Authorized 01/02/2023 08/30/2023 1 1 Specialty Diagnoses / Procedures Referred By Contac t Referred To Contact General Surgery Diagnoses Positive colorectal cancer screening using Cologuard test Procedures CONSULT TO GENERAL SURGERY OFFICE/OUTPATIENT [facility] 60-74 MINUTES Lance Jorgensen MD [address] [place] [address] Referral ID Status Reason Start Date Expiration Date Visits Requested Visits Authorized [id number] Authorized PCP Requested Referral 02/15/2024 1 1 Specialty Diagnoses / Procedures Referred By Contac t Referred To Contact Urology Diagnoses Other urinary incontinence Nocturia Procedures CONSULT TO UROLOGY OFFICE/OUTPATIENT [facility] 60 MINUTES Melanie Arciniega, FAMILY DAY CARE PROVIDER.POST ACUTE CARE REGISTERED NURSE [address] [phone] Referral ID Status Reason Start Date Expiration Date Visits Requested Visits Authorized [id number] Authorized PCP Requested Referral 12/06/2023 12/05/2024 1 1 Specialty Diagnoses / Procedures Referred By Contac t Referred To Contact Diagnoses Obesity (BMI 35.0-39.9 without comorbidity) Impaired glucose metabolism Lance Jorgensen MD [address] [place] [address] Referral ID Status Reason Start Date Expiration Date Visits Re quested Visits Authorized [id number] Denied 1 1 Specialty Diagnoses / Procedures Referred By Contac t Referred To Contact Jinny Contreras, FAMILY DAY CARE PROVIDER.POST ACUTE CARE REGISTERED NURSE [address] [place] [address] Referral ID Status Reason Start Date Expiration Date Visits Re quested Visits Authorized [id number] Denied 1 1 Chief Complaint and Reason for Visit Chief Complaint Admit Date RADICULOPATHY September 12, 2024 5:00p m Chief Complaint Admit Date RADICULOPATHY September 12, 2024 5:00p m N/V September 17, 2024 9:50a m Additional Source Comments (unrecognized sect ion and content) No Status Records FoundNo Status Records FoundNo Status Records FoundNo Status Records FoundNo Status Records FoundNo Status Records Found INFORMATION SOURCE (unrecogn ized section and content) DATE CREATED AUTHOR 12/21/2017 [facility] DATE CREATED AUTHOR AUTHOR'S ORGANIZ ATION 12/21/2017 [facility] DATE CREATED AUTHOR AUTHOR'S ORGANIZ ATION 10/07/2023 [facility] DATE CREATED AUTHOR AUTHOR'S ORGANIZ ATION 09/20/2024 [facility] DATE CREATED AUTHOR AUTHOR'S ORGANIZ ATION 10/04/2024 [facility] DATE CREATED AUTHOR AUTHOR'S ORGANIZ ATION 10/26/2024 [facility] Source Comments (unrecognize d section and content) In the event this informatio n is protected by the Federal Confidentiality of Alcohol and Drug Abuse Patient Records regulations: The Federal rules restrict any use of the information to criminally investigate or prosecute any alcohol or drug abuse patient.[facility] the event this information is protected by the Federal Confidentiality of Alcohol and Drug Abuse Patient Records regulations: The Federal rules restrict any use of the information to criminally investigate or prosecute any alcohol or drug abuse patient.[facility] the event this information is protected by the Federal Confidentiality of Alcohol and Drug Abuse Patient Records regulations: The Federal rules restrict any use of the information to criminally investigate or prosecute any alcohol or drug abuse patient.[facility] the event this information is protected by the Federal Confidentiality of Alcohol and Drug Abuse Patient Records regulations: The Federal rules restrict any use of the information to criminally investigate or prosecute any alcohol or drug abuse patient.[facility] the event this information is protected by the Federal Confidentiality of Alcohol and Drug Abuse Patient Records regulations: The Federal rules restrict any use of the information to criminally investigate or prosecute any alcohol or drug abuse patient.[facility] the event this information is protected by the Federal Confidentiality of Alcohol and Drug Abuse Patient Records regulations: The Federal rules restrict any use of the information to criminally investigate or prosecute any alcohol or drug abuse patient.[facility] the event this information is protected by the Federal Confidentiality of Alcohol and Drug Abuse Patient Records regulations: The Federal rules restrict any use of the information to criminally investigate or prosecute any alcohol or drug abuse patient.[facility] the event this information is protected by the Federal Confidentiality of Alcohol and Drug Abuse Patient Records regulations: The Federal rules restrict any use of the information to criminally investigate or prosecute any alcohol or drug abuse patient.[facility] the event this information is protected by the Federal Confidentiality of Alcohol and Drug Abuse Patient Records regulations: The Federal rules restrict any use of the information to criminally investigate or prosecute any alcohol or drug abuse patient.[facility] Hospital[facility] the event this information is protected by the Federal Confidentiality of Alcohol and Drug Abuse Patient Records regulations: The Federal rules restrict any use of the information to criminally investigate or prosecute any alcohol or drug abuse patient.[facility] Hospital[facility] the event this information is protected by the Federal Confidentiality of Alcohol and Drug Abuse Patient Records regulations: The Federal rules restrict any use of the information to criminally investigate or prosecute any alcohol or drug abuse patient.[facility] HospitalIn the event this information is protected by the Federal Confidentiality of Alcohol and Drug Abuse Patient Records regulations: The Federal rules restrict any use of the information to criminally investigate or prosecute any alcohol or drug abuse patient.[facility] HospitalIn the event this information is protected by the Federal Confidentiality of Alcohol and Drug Abuse Patient Records regulations: The Federal rules restrict any use of the information to criminally investigate or prosecute any alcohol or drug abuse patient.[facility] HospitalIn the event this information is protected by the Federal Confidentiality of Alcohol and Drug Abuse Patient Records regulations: The Federal rules restrict any use of the information to criminally investigate or prosecute any alcohol or drug abuse patient.[facility] HospitalIn the event this information is protected by the Federal Confidentiality of Alcohol and Drug Abuse Patient Records regulations: The Federal rules restrict any use of the information to criminally investigate or prosecute any alcohol or drug abuse patient.[facility] HospitalIn the event this information is protected by the Federal Confidentiality of Alcohol and Drug Abuse Patient Records regulations: The Federal rules restrict any use of the information to criminally investigate or prosecute any alcohol or drug abuse patient.[facility] HospitalIn the event this information is protected by the Federal Confidentiality of Alcohol and Drug Abuse Patient Records regulations: The Federal rules restrict any use of the information to criminally investigate or prosecute any alcohol or drug abuse patient.[facility] HospitalIn the event this information is protected by the Federal Confidentiality of Alcohol and Drug Abuse Patient Records regulations: The Federal rules restrict any use of the information to criminally investigate or prosecute any alcohol or drug abuse patient.[facility] HospitalIn the event this information is protected by the Federal Confidentiality of Alcohol and Drug Abuse Patient Records regulations: The Federal rules restrict any use of the information to criminally investigate or prosecute any alcohol or drug abuse patient.[facility] HospitalIn the event this information is protected by the Federal Confidentiality of Alcohol and Drug Abuse Patient Records regulations: The Federal rules restrict any use of the information to criminally investigate or prosecute any alcohol or drug abuse patient.[facility] HospitalIn the event this information is protected by the Federal Confidentiality of Alcohol and Drug Abuse Patient Records regulations: The Federal rules restrict any use of the information to criminally investigate or prosecute any alcohol or drug abuse patient.[facility] HospitalIn the event this information is protected by the Federal Confidentiality of Alcohol and Drug Abuse Patient Records regulations: The Federal rules restrict any use of the information to criminally investigate or prosecute any alcohol or drug abuse patient.[facility] HospitalIn the event this information is protected by the Federal Confidentiality of Alcohol and Drug Abuse Patient Records regulations: The Federal rules restrict any use of the information to criminally investigate or prosecute any alcohol or drug abuse patient.[facility] HospitalIn the event this information is protected by the Federal Confidentiality of Alcohol and Drug Abuse Patient Records regulations: The Federal rules restrict any use of the information to criminally investigate or prosecute any alcohol or drug abuse patient.[facility] HospitalIn the event this information is protected by the Federal Confidentiality of Alcohol and Drug Abuse Patient Records regulations: The Federal rules restrict any use of the information to criminally investigate or prosecute any alcohol or drug abuse patient.[facility] HospitalIn the event this information is protected by the Federal Confidentiality of Alcohol and Drug Abuse Patient Records regulations: The Federal rules restrict any use of the information to criminally investigate or prosecute any alcohol or drug abuse patient.[facility] HospitalIn the event this information is protected by the Federal Confidentiality of Alcohol and Drug Abuse Patient Records regulations: The Federal rules restrict any use of the information to criminally investigate or prosecute any alcohol or drug abuse patient.[facility] HospitalIn the event this information is protected by the Federal Confidentiality of Alcohol and Drug Abuse Patient Records regulations: The Federal rules restrict any use of the information to criminally investigate or prosecute any alcohol or drug abuse patient.[facility] HospitalIn the event this information is protected by the Federal Confidentiality of Alcohol and Drug Abuse Patient Records regulations: The Federal rules restrict any use of the information to criminally investigate or prosecute any alcohol or drug abuse patient.[facility] HospitalIn the event this information is protected by the Federal Confidentiality of Alcohol and Drug Abuse Patient Records regulations: The Federal rules restrict any use of the information to criminally investigate or prosecute any alcohol or drug abuse patient.[facility] HospitalIn the event this information is protected by the Federal Confidentiality of Alcohol and Drug Abuse Patient Records regulations: The Federal rules restrict any use of the information to criminally investigate or prosecute any alcohol or drug abuse patient.[facility] HospitalIn the event this information is protected by the Federal Confidentiality of Alcohol and Drug Abuse Patient Records regulations: The Federal rules restrict any use of the information to criminally investigate or prosecute any alcohol or drug abuse patient.[facility] HospitalIn the event this information is protected by the Federal Confidentiality of Alcohol and Drug Abuse Patient Records regulations: The Federal rules restrict any use of the information to criminally investigate or prosecute any alcohol or drug abuse patient.[facility] HospitalIn the event this information is protected by the Federal Confidentiality of Alcohol and Drug Abuse Patient Records regulations: The Federal rules restrict any use of the information to criminally investigate or prosecute any alcohol or drug abuse patient.[facility] HospitalIn the event this information is protected by the Federal Confidentiality of Alcohol and Drug Abuse Patient Records regulations: The Federal rules restrict any use of the information to criminally investigate or prosecute any alcohol or drug abuse patient.[facility] HospitalIn the event this information is protected by the Federal Confidentiality of Alcohol and Drug Abuse Patient Records regulations: The Federal rules restrict any use of the information to criminally investigate or prosecute any alcohol or drug abuse patient.[facility] HospitalIn the event this information is protected by the Federal Confidentiality of Alcohol and Drug Abuse Patient Records regulations: The Federal rules restrict any use of the information to criminally investigate or prosecute any alcohol or drug abuse patient.[facility] HospitalIn the event this information is protected by the Federal Confidentiality of Alcohol and Drug Abuse Patient Records regulations: The Federal rules restrict any use of the information to criminally investigate or prosecute any alcohol or drug abuse patient.[facility] HospitalIn the event this information is protected by the Federal Confidentiality of Alcohol and Drug Abuse Patient Records regulations: The Federal rules restrict any use of the information to criminally investigate or prosecute any alcohol or drug abuse patient.[facility] HospitalIn the event this information is protected by the Federal Confidentiality of Alcohol and Drug Abuse Patient Records regulations: The Federal rules restrict any use of the information to criminally investigate or prosecute any alcohol or drug abuse patient.[facility] HospitalIn the event this information is protected by the Federal Confidentiality of Alcohol and Drug Abuse Patient Records regulations: The Federal rules restrict any use of the information to criminally investigate or prosecute any alcohol or drug abuse patient.[facility] HospitalIn the event this information is protected by the Federal Confidentiality of Alcohol and Drug Abuse Patient Records regulations: The Federal rules restrict any use of the information to criminally investigate or prosecute any alcohol or drug abuse patient.[facility] HospitalIn the event this information is protected by the Federal Confidentiality of Alcohol and Drug Abuse Patient Records regulations: The Federal rules restrict any use of the information to criminally investigate or prosecute any alcohol or drug abuse patient.[facility] HospitalIn the event this information is protected by the Federal Confidentiality of Alcohol and Drug Abuse Patient Records regulations: The Federal rules restrict any use of the information to criminally investigate or prosecute any alcohol or drug abuse patient.[facility] HospitalIn the event this information is protected by the Federal Confidentiality of Alcohol and Drug Abuse Patient Records regulations: The Federal rules restrict any use of the information to criminally investigate or prosecute any alcohol or drug abuse patient.[facility] HospitalIn the event this information is protected by the Federal Confidentiality of Alcohol and Drug Abuse Patient Records regulations: The Federal rules restrict any use of the information to criminally investigate or prosecute any alcohol or drug abuse patient.[facility] HospitalIn the event this information is protected by the Federal Confidentiality of Alcohol and Drug Abuse Patient Records regulations: The Federal rules restrict any use of the information to criminally investigate or prosecute any alcohol or drug abuse patient.[facility] HospitalIn the event this information is protected by the Federal Confidentiality of Alcohol and Drug Abuse Patient Records regulations: The Federal rules restrict any use of the information to criminally investigate or prosecute any alcohol or drug abuse patient.[facility] HospitalIn the event this information is protected by the Federal Confidentiality of Alcohol and Drug Abuse Patient Records regulations: The Federal rules restrict any use of the information to criminally investigate or prosecute any alcohol or drug abuse patient.[facility] HospitalIn the event this information is protected by the Federal Confidentiality of Alcohol and Drug Abuse Patient Records regulations: The Federal rules restrict any use of the information to criminally investigate or prosecute any alcohol or drug abuse patient.[facility] HospitalIn the event this information is protected by the Federal Confidentiality of Alcohol and Drug Abuse Patient Records regulations: The Federal rules restrict any use of the information to criminally investigate or prosecute any alcohol or drug abuse patient.[facility] HospitalIn the event this information is protected by the Federal Confidentiality of Alcohol and Drug Abuse Patient Records regulations: The Federal rules restrict any use of the information to criminally investigate or prosecute any alcohol or drug abuse patient.[facility] HospitalIn the event this information is protected by the Federal Confidentiality of Alcohol and Drug Abuse Patient Records regulations: The Federal rules restrict any use of the information to criminally investigate or prosecute any alcohol or drug abuse patient.[facility] HospitalIn the event this information is protected by the Federal Confidentiality of Alcohol and Drug Abuse Patient Records regulations: The Federal rules restrict any use of the information to criminally investigate or prosecute any alcohol or drug abuse patient.[facility] HospitalIn the event this information is protected by the Federal Confidentiality of Alcohol and Drug Abuse Patient Records regulations: The Federal rules restrict any use of the information to criminally investigate or prosecute any alcohol or drug abuse patient.[facility] HospitalIn the event this information is protected by the Federal Confidentiality of Alcohol and Drug Abuse Patient Records regulations: The Federal rules restrict any use of the information to criminally investigate or prosecute any alcohol or drug abuse patient.[facility] HospitalIn the event this information is protected by the Federal Confidentiality of Alcohol and Drug Abuse Patient Records regulations: The Federal rules restrict any use of the information to criminally investigate or prosecute any alcohol or drug abuse patient.[facility] Reason for Visit (unrecogniz ed section and content) Reason Comments Rx Refills Abnormal Weight Gain Medication assisted weight loss Reason Comments weight loss f/u Reason Comments Appointment/medication problem medicatio n Reason Comments Medication Question Reason Onset Date Comments Refill Request 12/05/2021 Reason Onset Date Comments Refill Request 12/06/2021 Reason Comments Faxed Paperwork Reason Comments Follow Up Reason Comments Insurance Authorization Reason Onset Date Comments Refill Request 05/21/2022 Reason Onset Date Comments Refill Request 05/22/2022 Reason Comments 4 week follow-up Reason Comments Urinary Frequency Reason Comments Orders Reason Comments Yearly Exam Reason Comments Results Reason Comments Consult Colonoscopy, no prio r colonoscopy Specialty Diagnoses / Procedures Referred By Contac t Referred To Contact General Surgery Diagnoses Positive colorectal cancer screening using Cologuard test Procedures CONSULT TO GENERAL SURGERY OFFICE/OUTPATIENT [facility] MDM 60-74 MINUTES Lance Jorgensen MD [address] [place] [address] Referral ID Status Reason Start Date Expiration Date V isits Requested Visits Authorized [id number] Closed PCP Requested Referral 02/15/2023 02/15/2024 1 1 Reason Onset Date Comments Refill Request 08/02/2023 Out of medicatio n Reason Comments Medication Follow-up Reason Comments Patient Update Reason Comments Follow Up Reason Comments Follow Up EGD 11/23 Reason Onset Date Comments Refill Request 12/23/2023 Reason Comments Refill Request Reason Comments Consult Renal Cyst Kidney Stones Nocturia Specialty Diagnoses / Procedures Referred By Contac t Referred To Contact Urology Diagnoses Other urinary incontinence Nocturia Procedures CONSULT TO UROLOGY OFFICE/OUTPATIENT [facility] MDM 60 MINUTES Melanie Arciniega APRN.POST ACUTE CARE REGISTERED NURSE [address] [place] [address] Referral ID Status Reason Start Date Expiration Date V isits Requested Visits Authorized [id number] Closed PCP Requested Referral 12/06/2023 12/05/2024 1 1 Reason Comments Medication Problem Reason Onset Date Comments Refill Request 02/16/2024 Reason Onset Date Comments Refill Request 04/01/2024 Reason Onset Date Comments Refill Request 04/04/2024 Reason Comments Recheck Medication review Reason Onset Date Comments Refill Request 04/24/2024 Reason Comments Medication Problem Reason Comments Medication Problem Medication Question Reason Onset Date Comments Refill Request 05/22/2024 Reason Onset Date Comments Refill Request 06/19/2024 Reason Comments Yearly Exam Reason Onset Date Comments Refill Request 08/08/2024 Reason Comments Transition Of Care Reason Comments Post Op Follow Up Care Teams (unrecognized sec tion and content) [employer] Assembler Relationship Specialty Start Date End Date Lance Jorgensen MD [address] [place] [address] PCP - General Internal Medicine 09/18/21 [employer] Assembler Relationship Specialty Start Date End Date Lance Jorgensen MD [address] [place] [address] PCP - General Internal Medicine 09/18/21 [employer] Assembler Relationship Specialty Start Date End Date Lance Jorgensen MD [address] [place] [address] PCP - General Internal Medicine 09/18/21 [employer] Frame Assembler Relationship Specialty Start Date End Date Lance Jorgensen MD [address] [place] [address] PCP - General Internal Medicine 09/18/21 [employer] Frame Assembler Relationship Specialty Start Date End Date Lance Jorgensen MD [address] [place] [address] PCP - General Internal Medicine 09/18/21 [employer] Frame Assembler Relationship Specialty Start Date End Date Lance Jorgensen MD [address] [facility] [place] [address] PCP - General Internal Medicine 09/18/21 [employer] Frame Assembler Relationship Specialty Start Date End Date Lance Jorgensen MD [address] [place] [address] PCP - General Internal Medicine 09/18/21 [employer] Door Frame Assembler Relationship Specialty Start Date End Date Lance Jorgensen MD [address] [place] [address] PCP - General Internal Medicine 09/18/21 [employer] Frame Assembler Relationship Specialty Start Date End Date Lance Jorgensen MD [address] [place] [address] PCP - General Internal Medicine 09/18/21 [employer] Frame Assembler Relationship Specialty Start Date End Date Lance Jorgensen MD [address] [place] [address] PCP - General Internal Medicine 09/18/21 [employer] Frame Assembler Relationship Specialty Start Date End Date Lance Jorgensen MD [address] [place] [address] PCP - General Internal Medicine 09/18/21 [employer] Frame Assembler Relationship Specialty Start Date End Date Lance Jorgensen MD [address] [place] [address] PCP - General Internal Medicine 09/18/21 [employer] Frame Assembler Relationship Specialty Start Date End Date Lance Jorgensen MD [address] [place] [address] PCP - General Internal Medicine 09/18/21 [employer] Frame Assembler Relationship Specialty Start Date End Date Lance Jorgensen MD [address] [place] [address] PCP - General Internal Medicine 09/18/21 [employer] Door Frame Assembler Relationship Specialty Start Date End Date Lance Jorgensen MD [address] [place] [address] PCP - General Internal Medicine 09/18/21 [employer] Frame Assembler Relationship Specialty Start Date End Date Lance Jorgensen MD [address] [place] [address] PCP - General Internal Medicine 09/18/21 [employer] Frame Assembler Relationship Specialty Start Date End Date Lance Jorgensen MD [address] [place] [address] PCP - General Internal Medicine 09/18/21 [employer] Frame Assembler Relationship Specialty Start Date End Date Lance Jorgensen MD [address] [place] [address] PCP - General Internal Medicine 09/18/21 [employer] Frame Assembler Relationship Specialty Start Date End Date Lance Jorgensen MD [address] [place] [address] PCP - General Internal Medicine 09/18/21 [employer] Frame Assembler Relationship Specialty Start Date End Date Lance Jorgensen MD [address] [place] [address] PCP - General Internal Medicine 09/18/21 [employer] Frame Assembler Relationship Specialty Start Date End Date Lance Jorgensen MD [address] [place] [address] PCP - General Internal Medicine 09/18/21 [employer] Door Frame Assembler Relationship Specialty Start Date End Date Lance Jorgensen MD [address] [place] [address] PCP - General Internal Medicine 09/18/21 [employer] Frame Assembler Relationship Specialty Start Date End Date Lance Jorgensen MD [address] [place] [address] PCP - General Internal Medicine 09/18/21 [employer] Frame Assembler Relationship Specialty Start Date End Date Lance Jorgensen MD [address] [place] [address] PCP - General Internal Medicine 09/18/21 [employer] Frame Assembler Relationship Specialty Start Date End Date Lance Jorgensen MD [address] [place] [address] PCP - General Internal Medicine 09/18/21 [employer] Frame Assembler Relationship Specialty Start Date End Date Lance Jorgensen MD [address] [place] [address] PCP - General Internal Medicine 09/18/21 [employer] Frame Assembler Relationship Specialty Start Date End Date Lance Jorgensen MD [address] [place] [address] PCP - General Internal Medicine 09/18/21 [employer] Frame Assembler Relationship Specialty Start Date End Date Lance Jorgensen MD [address] [place] [address] PCP - General Internal Medicine 09/18/21 [employer] Frame Assembler Relationship Specialty Start Date End Date Lance Jorgensen MD [address] [place] [address] PCP - General Internal Medicine 09/18/21 [employer] Frame Assembler Relationship Specialty Start Date End Date Lance Jorgensen MD [address] [place] [address] PCP - General Internal Medicine 09/18/21 [employer] Frame Assembler Relationship Specialty Start Date End Date Lance Jorgensen MD [address] [place] [address] PCP - General Internal Medicine 09/18/21 [employer] Assembler Relationship Specialty Start Date End Date Lance Jorgensen MD [address] [place] [address] PCP - General Internal Medicine 09/18/21 Jinny Contreras, FAMILY DAY CARE PROVIDER.POST ACUTE CARE REGISTERED NURSE [address] [place] [address] Cherry Sorter Internal Medicine 03/27/24 [employer] Frame Assembler Relationship Specialty Start Date End Date Lance Jorgensen MD [address] [place] [address] PCP - General Internal Medicine 09/18/21 Jinny Contreras, FAMILY DAY CARE PROVIDER.POST ACUTE CARE REGISTERED NURSE [address] [place] [address] Cherry Sorter Internal Medicine 03/27/24 [employer] Frame Assembler Relationship Specialty Start Date End Date Lance Jorgensen MD [address] [place] [address] PCP - General Internal Medicine 09/18/21 Jinny Contreras, FAMILY DAY CARE PROVIDER.POST ACUTE CARE REGISTERED NURSE [address] [place] [address] Cherry Sorter Internal Medicine 03/27/24 [employer] Door Frame Assembler Relationship Specialty Start Date End Date Lance Jorgensen MD [address] [facility] [place] [place] [address] PCP - General Internal Medicine 09/18/21 Jinny Contreras, FAMILY DAY CARE PROVIDER.POST ACUTE CARE REGISTERED NURSE [address] [place] [address] Cherry Sorter Internal Medicine 03/27/24 [employer] Door Frame Assembler Relationship Specialty Start Date End Date Lance Jorgensen MD [address] [facility] [place] [place] [address] PCP - General Internal Medicine 09/18/21 Jinny Contreras, FAMILY DAY CARE PROVIDER.POST ACUTE CARE REGISTERED NURSE [address] [place] [address] Cherry Sorter Internal Medicine 03/27/24 [employer] Frame Assembler Relationship Specialty Start Date End Date Lance Jorgensen MD [address] [facility] [place] [place] [address] PCP - General Internal Medicine 09/18/21 Jinny Contreras, FAMILY DAY CARE PROVIDER.POST ACUTE CARE REGISTERED NURSE [address] [place] [address] Cherry Sorter Internal Medicine 03/27/24 [employer] Frame Assembler Relationship Specialty Start Date End Date Lance Jorgensen MD [address] [place] [address] PCP - General Internal Medicine 09/18/21 Jinny Contreras, FAMILY DAY CARE PROVIDER.POST ACUTE CARE REGISTERED NURSE [address] [place] [address] Cherry Sorter Internal Medicine 03/27/24 [employer] Frame Assembler Relationship Specialty Start Date End Date Lance Jorgensen MD [address] [place] [address] PCP - General Internal Medicine 09/18/21 Jinny Contreras, FAMILY DAY CARE PROVIDER.POST ACUTE CARE REGISTERED NURSE [address] [facility] [place] [address] Cherry Sorter Internal Medicine 03/27/24 [employer] Door Frame Assembler Relationship Specialty Start Date End Date Lance Jorgensen MD [address] [place] [address] PCP - General Internal Medicine 09/18/21 Jinny Contreras, FAMILY DAY CARE PROVIDER.POST ACUTE CARE REGISTERED NURSE [address] [facility] [place] [address] [facility] 03/27/24 [employer] Door Frame Assembler Relationship Specialty Start Date End Date Lance Jorgensen MD [address] [place] [address] PCP - General Internal Medicine 09/18/21 Jinny Contreras, FAMILY DAY CARE PROVIDER.POST ACUTE CARE REGISTERED NURSE [address] [place] [address] [facility] 03/27/24 Hollow Core Door Frame Assembler Relationship Specialty Start Date End Date Lance Jorgensen MD [address] [place] [address] PCP - General Internal Medicine 09/18/21 Jinny Contreras, FAMILY DAY CARE PROVIDER.POST ACUTE CARE REGISTERED NURSE [address] [facility] [place] [place] [address] [facility] Internal Medicine 03/27/24 Hollow Core Door Frame Assembler Relationship Specialty Start Date End Date Lance Jorgensen MD [address] [facility] [place] [id number] PCP - General Internal Medicine 09/18/21 Jinny Contreras, FAMILY DAY CARE PROVIDER.POST ACUTE CARE REGISTERED NURSE [address] [facility] [place] [id number] [facility] Internal Medicine 03/27/24 Team Status: Active Member Role Status Dates Dr. Lance Jorgensen MD Primary Care Provider Active Team Status: Inactive Member Role Status Dates Dr. Lance Jorgensen MD Primary Care Provider Active Start: September 12, 2024 End: September 12, 2024 Dr. Paresh Ware MD Attending Provider Active Start: September 12, 2024 End: September 12, 2024 Dr. Paresh Ware MD Referring Provider Active Start: September 12, 2024 End: September 12, 2024 Team Status: Inactive Member Role Status Dates Dr. Lance Jorgensen MD Primary Care Provider Active Start: September 17, 2024 End: September 17, 2024 Dr. Carlos Noel MD Emergency Provider Active S tart: September 17, 2024 End: September 17, 2024 [employer] Door Frame Assembler Relationship Specialty Start Date End Date Lance Jorgensen MD [address] [facility] [place] [id number] PCP - General Internal Medicine 09/18/21 Jinny Contreras, FAMILY DAY CARE PROVIDER.POST ACUTE CARE REGISTERED NURSE [address] [facility] [place] [id number] [facility] Internal Medicine 03/27/24 Hollow Core Door Frame Assembler Relationship Specialty Start Date End Date Lance Jorgensen MD [address] [facility] [place] [id number] PCP - General Internal Medicine 09/18/21 Jinny Contreras, SAM.POST ACUTE CARE REGISTERED NURSE [address] [place] [address] [facility] Internal Medicine 03/27/24 Goals (unrecognized section and content) Goals may be documented in a n alternate sectionGoals may be documented in an alternate section FOR RECORDS PERTAINING TO PATIENTS WHO ARE OR HAVE BEEN ENROLLED IN A CHEMICAL DEPENDENCY/SUBSTANCEABUSE PROGRAM, SOME INFORMATION MAY BE OMITTED. This clinical summary was aggregated from multiple sources. Caution should be exercised in using it in the provision of clinical care. This summary normalizes information from multiple sources, and as a consequence, information in this document may materially change the coding, format and clinical context of patient data. In addition, data may be omitted in some cases. CLINICAL DECISIONS SHOULD BE BASED ON THE PRIMARY CLINICAL RECORDS. [employer] [facility]. provides no warranty or guarantee of the accuracy or completeness of information in this document.
== END | disposition home or self-care (01) ==
LOC: LAB 09:55
PROVIDERS: PCP Internal Medicine; Referring Provider Anesthesiology Pain Medicine; Visit Provider Anesthesiology Pain Medicine
DX: F11.20 Opioid dependence, uncomplicated (principal)
CPT/HCPCS: 80307